=== PATIENT | male | born 1935 | race Caucasian/White ===

== ENCOUNTER 2016-12-28 19:34 | Emergency (ER) | payer BC ==
[~2016-12-28] VITALS: Ht 180.3 cm; Wt 69.3 kg
[~2016-12-28 19:34] MED LIST: ASPCH81X PO; CALC625T PO; CHOL100010 PO; CLOP1TAB15 PO; DIGO0.122 PO; FLM4 PO; IPRA1AER2 INH; MCR/40125 PO; METO100T44 PO; MOME50SP5; NTRGSL/4 UT; PRAV20TA2 PO; ZNTT/150 PO
[2016-12-28 19:46] VITALS: Ht 180.3 cm; Wt 69.3 kg
[2016-12-28] MEDS ORDERED: CALC625T PO (21:11)
[2016-12-28] MEDS ORDERED: FLUT0.15 NAE (21:13)
[2016-12-28] MEDS ORDERED: IPRASOL4 INH (21:14)
[2016-12-28] MEDS ORDERED: TAMS0.4C38 PO (21:19)
[2016-12-28] MEDS ORDERED: HYDROCORTISONE ACETATE 25 MG SUPP PR STA (21:44)
[2016-12-28 21:50] LABS: URINE APPEARANCE CLEAR (CLEAR); URINE BILIRUBIN NEG (NEG); URINE COLOR YELLOW; URINE NITRITE NEG (NEG); URINE PH 6.5 (4.5-7.5); URINE SPECIFIC GRAVITY 1.019 (1.000-1.030); UROBILINOGEN NEG (NEG)
[2016-12-28 21:52] LABS: MANUAL MICROSCOPIC REQUIRED? NO; REVIEW REQ? NO
[2016-12-28] MEDS ORDERED: HYDR25SU20 PR (22:13)
--- NOTE | 2016-12-28 22:19 | EMERGENCY ROOM VISIT NOTE ---
ED Visit Note First contact with patient: 22:04 This Patient was discussed with the physician assistant director of residence life, Gomez Anderson PA-C. The pertinent historical and physical exam findings were confirmed. I agree with the studies ordered and with the interpretations of these studies. I agree with the disposition and care plan.
[2016-12-28] MEDS ORDERED: LIDOCAINE HCL 2% VISC SOLN 20 ML UDC MT STA (22:36)
[2016-12-28 22:59] VITALS: BP 156/78; PULSE 61; TEMP 36.8; O2SAT 93
--- NOTE | 2016-12-29 20:01 | EMERGENCY ROOM VISIT NOTE ---
ED Visit Note First contact with patient: 19:55 Chief Complaint: I have a hemorrhoid problem and I have not been able to urinate. History of Present Illness: Mr. Cid is an 81-year-old white male who ambulates into the ED accompanied by his complaining of rectal pain related to hemorrhoids and inability to urinate. Historically patient reports she has a history of hemorrhoids, urinary retention postsurgery and prosthetic hypertrophy of the prostrate gland. Patient reports over the last 2-3 days he has noted a small amount of bright red blood on his toilet tissue after moving his bowels. He does report that he is straining to move his bowels and today he was straining and fell his hemorrhoid pop out of his rectum. Since that time he has been having rectal pain. He describes this as a burning sensation. He rates his discomfort 6/10. His pain is nonradiating. Worsens when he bears down to move his bowels. He is not identified any alleviating factors related to the pain. He has not taken any medication for pain prior to arrival at the hospital. As previously noted he has noted blood on the toilet tissue but not on the ball and also reports he has noted some blood on his underwear. He does report he is currently on Plavix. He has not seen any black or tarry stools and has had no abdominal pain related to his rectal discomfort. Patient goes on to report that over the last few days he has noticed a decrease in the amount of urine and he normally expresses. He is also noted he has to bear down more to move his right and today approximately 8 hours ago he was only able to dribble. Over the last 8 hours he has had sensations of the need to urinate but has not been able to even though he reports standing at the toilet for long periods of time. Associated with the symptoms he is also reporting some pressure sensation in the suprapubic area. He rates his discomfort 8/10. The pain is nonradiating. Pain worsens with palpation and bumping in accordance. He has not identified any alleviating factors related to the pain. He has not taken any medication for pain prior to arrival at the hospital. Additionally he denies any recent fevers, chills, sweats, skin eruptions, skin color changes, upper respiratory tract symptoms, shortness of breath, chest pain, abdominal pain, nausea, vomiting, back/flank pain, urinary burning, increased urinary frequency, hematuria, black/tarry stools. Review of Systems: As noted above in history of present illness. All body systems were reviewed and found to be negative as noted above. Past Medical History: (1) Atrial Fibrillation (2) Chronic Kidney Disease, Unspecified (3) Coronary artery disease (4) Diab Alexandra Wo Compl, Type Ii Or Unspec Type, Not Uncntrld (5) Hypertension Nos Surgical Problems: (1) H/O percutaneous transluminal coronary angioplasty (2) Stented coronary artery Current Medications: Medications Dose Route/Sig Max Daily Dose Days Date Category Dose Instructions Flomax (Tamsulosin Hcl) 0.4 Mg Cap 0.4 Mg PO BID 12/28/16 Reported Duoneb (Ipratropium-Albuterol) 3 Ml Nebu 1 Treatment INH TID PRN 12/28/16 Reported Flonase Allergy Relief (Fluticasone Propionate (Nasal)) 50 Mcg/Act Spr 2 Sprays TRAN DAILY 12/28/16 Reported Fibercon (Calcium Polycarbophil) 625 Mg Tab 1,330 Mg PO DAILY 12/28/16 Reported 2 CAPSULE DOSE Aspirin Chewable (Aspirin) 81 Mg Chew 81 Mg PO QAM 10/31/15 Reported Vitamin D (Cholecalciferol) 1,000 Inter.unit Tab 1,000 Inter.unit PO QAM 10/31/15 Reported Micardis Hct 40MG/12.5MG (Telmisartan/Hydrochlorothiazide) Tab 1 Tab PO DAILY AT NOON 10/31/15 Reported Combivent Respimat (Ipratropium-Albuterol) 1 Aer Aer 1 Puff INH QID 10/02/14 Reported Pravachol (Pravastatin Sodium) 20 Mg Tab 20 Mg PO HS 05/28/13 Reported Toprol-Xl (Metoprolol Succinate) 100 Mg Tabcr 100 Mg PO QAM 05/28/13 Reported Lanoxin (Digoxin) 0.125 Mg Tab 0.125 Mg PO QAM 08/10/09 Reported Zantac (Ranitidine HCl) 150 Mg Tab 150 Mg PO QAM 08/10/09 Reported Nitrostat (Nitroglycerin) 0.4 Mg Tab 0.4 Mg UT PRN 08/10/09 Reported NEEDED FOR CHEST PAIN : ONE TABLET UNDER THE TONGUE EVERY 5 MINUTES UP TO 3 DOSES. Plavix (Clopidogrel Bisulfate) 75 Mg Tab 75 Mg PO QAM 08/10/09 Reported Allergies to Medications: PEYMAN inhibitor's, amoxicillin, finasteride, metoclopramide. Social History: Patient is currently retired; he feels safe in his home environment; he denies tobacco and alcohol use. Physical Examination: Vital Signs: Date Time Temp Pulse Resp B/P Pulse Ox O2 Delivery O2 Flow Rate FiO2 12/28/16 22:59 36.8 61 18 156/78 93 12/28/16 21:53 62 18 144/72 94 Room Air 12/28/16 19:46 36.8 62 20 155/70 94 Room Air GENERAL: 81-year-old male in mild to moderate distress due to pain, nontoxic- appearing, afebrile and hemodynamically stable. NEUROLOGICAL: Awake, alert and oriented to person, place and time. Answering questions appropriately and following commands. Normal gait. Good hand eye coordination. No focal motor sensory deficits. SKIN: Warm, dry and pink. No soft tissue eruptions or trauma noted. HEENT: Atraumatic and normocephalic. PERRLA. Sclera white and conjunctiva pink. No drainage from naris. Oral cavity moist and pink. Pharynx is nonerythematous or edematous. Speech normal. No lymphadenopathy. Trachea midline. No jugular venous distention. BACK: No tenderness over the bony spine. No CVA tenderness. THORAX: Lungs sounds are clear to auscultation and equal bilaterally with symmetrical chest wall. No wheezing, rales or rhonchi. No crepitus, tenderness , subcutaneous air or deformities noted. ABDOMEN: Soft with suprapubic distension and mild tenderness. Positive bowel sounds in allis started her. No guarding, rigidity or organomegaly. RECTAL: 2-3 cm hemorrhoid protruding from the rectum with a small amount of bright red blood around the hemorrhoid. The hemorrhoid does not appear thrombosed and is not erythematous or edematous. The hemorrhoid was tender to palpation as well as the rectum. EXTREMITIES: Moves all extremities well on command and with purpose. All distal neurovascular statuses are intact and equal bilaterally. No calf tenderness or cords. ED Course: Patient is assessed as noted above. Laboratory Testing: Test 12/28/16 20:20 Range/Units Urine Color YELLOW Urine Appearance CLEAR CLEAR Urine pH 6.5 4.5-7.5 Urine Specific [place] 1.019 1.000-1.030 Urine Protein NEG NEG Urine Glucose (UA) NEG NEG Urine Ketones NEG NEG Urine Occult Blood TRACE NEG Urine Nitrite NEG NEG Urine Bilirubin NEG NEG Urine Urobilinogen NEG NEG Urine Leukocyte Esterase NEG NEG Urine WBC (Auto) 0 0-5 /hpf Urine RBC (Auto) 0-4 0-4 /hpf Urine Hyaline Casts (Auto) 0 0-5 /lpf Urine Epithelial Cells (Auto) 10-20 0-5 /lpf Urine Bacteria (Auto) NEG NEG Urine Culture pending. A bladder scan was performed and showed approximately 260 mL of urine. A Eastman catheter was placed and prior to discharge it was reported by nursing personnel that he put out approximately 300 mL of clear urine. With water-soluble lubrication I reduced the patient's hemorrhoid back into the rectum without difficulty. Afterwards she received 25 mg of hydrocortisone rectal suppository. Patient was reassessed multiple times during stay in the emergency department. Patient's case was reviewed with Dr. Villarreal; he apparently assessed the patient we agreed on diagnostic approach, treatment, disposition and plan. Patient are educated about tonight's findings and instructed on his treatment plan; they verbalized understanding and agreement with this plan. Clinical Impression: Rectal pain, hemorrhoids. Acute urinary retention. Disposition: Patient discharged home in stable condition accompanied by his ; prior to departure he was reassessed and subjectively reported he was pain and symptom-free. Plan: Patient was encouraged to continue his current medications as prescribed. Patient was prescribed hydrocortisone suppositories 25 mg 2 times a day for his hemorrhoids. Patient was encouraged to contact his primary care provider tomorrow and request follow-up care and treatment in 2 days to remove Eastman catheter and reevaluation of his hemorrhoids with possible referral to surgery. Patient was encouraged return the ED for return of bladder discomfort, bloody urine, back pain, fevers, return of rectal pain, rectal bleeding or any new/ concerning symptoms.
[2017-03-16] MEDS ORDERED: DUTA0.5C PO (09:57)
== END 2016-12-28 23:03 | disposition home or self-care (01) ==
LOC: C.EDB 19:36
DX: K64.4 Residual hemorrhoidal skin tags (principal); R33.9 Retention of urine, unspecified; Z87.898 Personal history of other specified conditions; I48.91 Unspecified atrial fibrillation; I12.9 Hypertensive chronic kidney disease with stage 1 through stage 4 chronic kidney disease, or unspecified chronic kidney disease; N18.9 Chronic kidney disease, unspecified; E11.9 Type 2 diabetes mellitus without complications; I25.10 Atherosclerotic heart disease of native coronary artery without angina pectoris; N40.0 Benign prostatic hyperplasia without lower urinary tract symptoms; Z79.02 Long term (current) use of antithrombotics/antiplatelets; Z79.82 Long term (current) use of aspirin; Z79.899 Other long term (current) drug therapy

== ENCOUNTER → 2016-12-30 | Outpatient (CLI) | payer BC ==
[~2016-12-30] MED LIST changes: +ASPI81TA28 PO; +BCTO EXT; +DIGO0.1219 PO; +DUTA0.5C PO; -FLM4 PO; +FLUT0.15 NAE; +HYDR25SU20 PR; +IPRASOL4 INH; -MOME50SP5; +PRS5 PO; +TAMS0.4C38 PO
== END | disposition home or self-care (01) ==
LOC: C.LABSPEC 17:06
PROVIDERS: ATTEND Nurse Practitioner Adult Health
DX: R31.29 Other microscopic hematuria (principal); R82.8 Abnormal findings on cytological and histological examination of urine

== ENCOUNTER 2016-12-31 14:50 | Emergency (ER) | payer BC ==
[~2016-12-31] VITALS: Ht 175.3 cm; Wt 67.0 kg
[~2016-12-31 14:50] MED LIST changes: -ASPI81TA28 PO; -BCTO EXT; -DIGO0.1219 PO; -DUTA0.5C PO; -PRS5 PO
[2016-12-31 14:54] VITALS: Ht 175.3 cm; Wt 67.0 kg
--- NOTE | 2016-12-31 15:34 | EMERGENCY ROOM VISIT NOTE ---
History First contact with patient: 15:41 Chief Complaint: URINARY SYMPTOMS Stated Complaint: UNABLE TO URINATE Nursing Triage Summary: PT HERE WITH UNABLE TO VOID SINCE 0300 THIS AM. PT WAS HERE EARLIER THIS WEEK, HAD CATHETER PLACED. PT STATES CATHETER WAS REMOVED, HAS VOIDED MULTIPLE TIMES SINCE. TODAY FEELS URGE TO GO BUT CANNOT. HX OF ENLARGED PROSTATE. PT ALSO HAS SEVERE HEMORRHOIDS AND CONSTIPATION ISSUES. History of Present Illness The patient is a 81 year old male who presents to the Emergency Room with complaints of urinary retention. Patient was cedrick in the emergency department for similar symptoms on Tuesday at which point he had woken up that morning and was unable to urinate and had a zamora catheter placed. The patient was discharged home with a zamora catheter and followed up morning with Velvet hunt of urology and had the catheter removed and was able to pee throughout the entire day. At 3am this morning this morning and was unable to urinate and has been unable ever since. He says he can see a minor amount of urine come out that makes a single droplet but is unable to form a stream. He now is having suprapubic tenderness from straining, the excess urine, and also since having the catheter. The patient also has hemorrhoids that have continued to bleed and has blood on his toilet paper after wiping and also in his depends diaper. He says he is still having rectal pain with the hemorrhoids. He is currently using nitroglycerin cream for the last week as well as hydrocortisone suppositories twice daily. He is scheduled to follow up with both Dr. Heredia and Dr. Grigsby in the next week. Review of Systems See HPI for pertinent positives and negatives. A total of ten systems were reviewed and were otherwise negative. Past Medical/Surgical History Medical Problems: (1) Atrial Fibrillation (2) Chronic Kidney Disease, Unspecified (3) Coronary artery disease (4) Diab Alexandra Wo Compl, Type Ii Or Unspec Type, Not Uncntrld (5) Hypertension Nos Surgical Problems: (1) H/O percutaneous transluminal coronary angioplasty (2) Stented coronary artery Social History Smoking Status: Former Smoker Marital Status: Housing Status: lives with significant other Occupation Status: retired Current/Historical Medications Scheduled Aspirin (Aspirin Ec), 81 MG PO DAILY Calcium Polycarbophil (Fibercon), 1,330 MG PO DAILY Cholecalciferol (Vitamin D), 1,000 UNITS PO DAILY Clopidogrel (Plavix), 75 MG PO QAM Digoxin (Digox), 125 MCG PO DAILY Fluticasone Propionate (Nasal) (Flonase Allergy Relief), 1-2 SPRAYS TRAN DAILY Ipratropium-Albuterol (Combivent Respimat), 1 PUFF INH QID Metoprolol Succ (Toprol Xl) (Toprol-Xl ), 100 MG PO QAM Nitroglycerin (Nitrostat), 0.4 MG UT PRN Pravastatin Sodium (Pravachol), 20 MG PO HS Ranitidine (Zantac), 150 MG PO BID Tamsulosin Hcl (Flomax), 0.4 MG PO BID Telmisartan/Hctz (Micardis Hct 40MG/12.5MG), 1 TAB PO DAILY AT NOON Scheduled PRN Ipratropium-Albuterol (Duoneb), 1 TREATMENT INH TID PRN for Shortness of Breath Allergies Coded Allergies: PEYMAN Inhibitors (Verified Allergy, Mild, RASH, 11/05/15) Amoxicillin (Verified Allergy, Unknown, RASH, 11/05/15) Metoclopramide (Verified Allergy, Unknown, RASH, 11/05/15) Penicillins (Verified Allergy, Unknown, 11/05/15) Physical Exam Vital Signs Date Time Temp Pulse Resp B/P Pulse Ox O2 Delivery O2 Flow Rate FiO2 12/31/16 17:07 36.7 65 16 148/78 95 12/31/16 17:05 65 16 148/78 95 Room Air 12/31/16 14:54 36.7 71 16 159/83 94 Room Air Physical Exam GENERAL: Awake, alert, well-appearing, in no distress HENT: Normocephalic, atraumatic. Oropharynx unremarkable. EYES: Normal conjunctiva. Sclera non-icteric. NECK: Supple. No nuchal rigidity. FROM. No JVD. RESPIRATORY: Clear to auscultation. CARDIAC: Irregularly irregular rhythm. Systolic ejection murmur. Extremities warm and well perfused. Pulses equal. ABDOMEN: Soft, non-distended. No tenderness to palpation. Complains of pressure with suprapubic palpation. RECTAL: Significant external hemorrhoids, non thrombosed, non infected, no gross blood MUSCULOSKELETAL: Chest examination reveals no tenderness. The back is symmetrical on inspection without obvious abnormality. There is no CVA tenderness to palpation. No joint edema. LOWER EXTREMITIES: Calves are equal size bilaterally and non-tender. No edema. No discoloration. NEURO: Normal sensorium. No sensory or motor deficits noted. SKIN: No rash or jaundice noted. Medical Decision & Procedures Laboratory Results Test 12/31/16 15:38 Urine Color YELLOW Urine Appearance CLEAR (CLEAR) Urine pH 5.0 (4.5-7.5) Urine Specific [place] 1.018 (1.000-1.030) Urine Protein NEG (NEG) Urine Glucose (UA) NEG (NEG) Urine Ketones NEG (NEG) Urine Occult Blood TRACE (NEG) Urine Nitrite NEG (NEG) Urine Bilirubin NEG (NEG) Urine Urobilinogen NEG (NEG) Urine Leukocyte Esterase NEG (NEG) Urine WBC (Auto) 0 /hpf (0-5) Urine RBC (Auto) 0-4 /hpf (0-4) Urine Hyaline Casts (Auto) 1-5 /lpf (0-5) Urine Epithelial Cells (Auto) 0-5 /lpf (0-5) Urine Bacteria (Auto) NEG (NEG) Medications Administered Medications (Trade) Dose Ordered Sig/Mel Route Start Time Stop Time Status Last Admin Dose Admin Finasteride (Proscar Tab) 15 mg NOW ONCE PO 12/31/16 16:30 12/31/16 16:33 DC 12/31/16 16:55 15 MG Medical Decision After examining patient, ordered Zamora Catheter placement, urinalysis and urine culture - Immediate Zamora drainage of the bladder yielded 500cc of clear urine - Urinalysis showed trace blood but no other abnormalities - Ordered 5mg Finasteride that was started by his Urologist but not filled. Additional 2 tabs ordered for weekend dosing because patient will be unable to [facility] until Tuesday. Impression Primary Impression: Urinary retention due to benign prostatic hyperplasia Additional Impression: External hemorrhoids Departure Information Dispostion Home / Self-Care Condition GOOD Referrals Anthony Hsu M.D. (PCP) Patient Instructions My [facility] Health Problem Qualifiers
[2016-12-31] MEDS ORDERED: ASPI81TA28 PO (15:45)
[2016-12-31] MEDS ORDERED: CHOL100010 PO (15:45)
[2016-12-31] MEDS ORDERED: DIGO0.1219 PO (15:45)
[2016-12-31 15:54] LABS: URINE APPEARANCE CLEAR (CLEAR); URINE BILIRUBIN NEG (NEG); URINE COLOR YELLOW; URINE EPITHELIAL CELL AUTO 0-5 /lpf (0-5); URINE NITRITE NEG (NEG); URINE SPECIFIC GRAVITY 1.018 (1.000-1.030); UROBILINOGEN NEG (NEG)
[2016-12-31 15:58] LABS: MANUAL MICROSCOPIC REQUIRED? NO; REVIEW REQ? NO
[2016-12-31] MEDS ORDERED: FINASTERIDE 5 MG TAB PO ONE (16:30)
[2016-12-31] MEDS ORDERED: EMPTY 8 DRAM VIAL ONE (16:50)
[2016-12-31 17:07] VITALS: BP 148/78; PULSE 65; TEMP 36.7; O2SAT 95
--- NOTE | 2016-12-31 18:20 | EMERGENCY ROOM VISIT NOTE ---
History Report prepared by Jess: Nithin Caldera Under the Supervision of: Dr. Gomez Marie M.D. First contact with patient: 14:59 Chief Complaint: URINARY SYMPTOMS Stated Complaint: UNABLE TO URINATE Nursing Triage Summary: PT HERE WITH UNABLE TO VOID SINCE 0300 THIS AM. PT WAS HERE EARLIER THIS WEEK, HAD CATHETER PLACED. PT STATES CATHETER WAS REMOVED, HAS VOIDED MULTIPLE TIMES SINCE. TODAY FEELS URGE TO GO BUT CANNOT. HX OF ENLARGED PROSTATE. PT ALSO HAS SEVERE HEMORRHOIDS AND CONSTIPATION ISSUES. History of Present Illness The patient is a 81 year old male who presents to the Emergency Room with complaints of persistent difficulty urinating starting this morning. The patient was seen in the Emergency Room three days ago for urinary retention and external hemorrhoids. A Eastman catheter was placed and the patient was discharged home. Yesterday the patient followed up with urology, the catheter was removed, and the patient was able to urinate all day yesterday without any issues. Starting this morning, the patient was unable to urinate throughout the day today. He has been able to discharge a small amount of urine in droplets but has been unable to form a full stream. He currently reports suprapubic pressure but denies any abdominal pain. The patient continues to complain of blood in stool and with wiping. He also reports rectal pain with the hemorrhoids. He is on stool softeners and nitroglycerin cream for the hemorrhoids. Pt denies LOC, headache, fevers, chills, diaphoresis, visual changes, neck pain , chest pain, breathing difficulties, nausea, vomiting, back pain, melena, numbness, weakness, lymphadenopathy, rash, or other complaints. Source of History: patient Onset: this morning Position: other (global) Quality: other (difficulty urinating) Timing: other (persistent) Review of Systems See HPI for pertinent positives and negatives. A total of ten systems were reviewed and were otherwise negative. Past Medical & Surgical Medical Problems: (1) Atrial Fibrillation (2) Chronic Kidney Disease, Unspecified (3) Coronary artery disease (4) Diab Alexandra Wo Compl, Type Ii Or Unspec Type, Not Uncntrld (5) Hypertension Nos Surgical Problems: (1) H/O percutaneous transluminal coronary angioplasty (2) Stented coronary artery Family History Cancer Diabetes mellitus Heart disease Hypertension Lung disease Social History Smoking Status: Former Smoker Marital Status: Housing Status: lives with significant other Occupation Status: retired Current/Historical Medications Scheduled Aspirin (Aspirin Ec), 81 MG PO DAILY Calcium Polycarbophil (Fibercon), 1,330 MG PO DAILY Cholecalciferol (Vitamin D), 1,000 UNITS PO DAILY Clopidogrel (Plavix), 75 MG PO QAM Digoxin (Digox), 125 MCG PO DAILY Fluticasone Propionate (Nasal) (Flonase Allergy Relief), 1-2 SPRAYS TRAN DAILY Ipratropium-Albuterol (Combivent Respimat), 1 PUFF INH QID Metoprolol Succ (Toprol Xl) (Toprol-Xl ), 100 MG PO QAM Nitroglycerin (Nitrostat), 0.4 MG UT PRN Pravastatin Sodium (Pravachol), 20 MG PO HS Ranitidine (Zantac), 150 MG PO BID Tamsulosin Hcl (Flomax), 0.4 MG PO BID Telmisartan/Hctz (Micardis Hct 40MG/12.5MG), 1 TAB PO DAILY AT NOON Scheduled PRN Ipratropium-Albuterol (Duoneb), 1 TREATMENT INH TID PRN for Shortness of Breath Allergies Coded Allergies: PEYMAN Inhibitors (Verified Allergy, Mild, RASH, 11/05/15) Amoxicillin (Verified Allergy, Unknown, RASH, 11/05/15) Metoclopramide (Verified Allergy, Unknown, RASH, 11/05/15) Penicillins (Verified Allergy, Unknown, 11/05/15) Physical Exam Vital Signs Date Time Temp Pulse Resp B/P Pulse Ox O2 Delivery O2 Flow Rate FiO2 12/31/16 17:07 36.7 65 16 148/78 95 12/31/16 17:05 65 16 148/78 95 Room Air 12/31/16 14:54 36.7 71 16 159/83 94 Room Air Physical Exam GENERAL: Awake, alert, uncomfortable-appearing, in no distress HENT: Normocephalic, atraumatic. Oropharynx unremarkable. EYES: Normal conjunctiva. Sclera non-icteric. NECK: Supple. No nuchal rigidity. FROM. No JVD. RESPIRATORY: Clear to auscultation. CARDIAC: Regular rate, normal rhythm. Extremities warm and well perfused. Pulses equal. ABDOMEN: Soft, non-distended. Some suprapubic tenderness to palpation. No rebound or guarding. No masses. RECTAL: Significant hemorrhoidal disease present, no obvious thrombosis or signs of infection. MUSCULOSKELETAL: Chest examination reveals no tenderness. The back is symmetrical on inspection without obvious abnormality. There is no CVA tenderness to palpation. No joint edema. LOWER EXTREMITIES: Calves are equal size bilaterally and non-tender. No edema. No discoloration. NEURO: Normal sensorium. No sensory or motor deficits noted. SKIN: No rash or jaundice noted. Medical Decision & Procedures Laboratory Results Test 12/31/16 15:38 Urine Color YELLOW Urine Appearance CLEAR (CLEAR) Urine pH 5.0 (4.5-7.5) Urine Specific [place] 1.018 (1.000-1.030) Urine Protein NEG (NEG) Urine Glucose (UA) NEG (NEG) Urine Ketones NEG (NEG) Urine Occult Blood TRACE (NEG) Urine Nitrite NEG (NEG) Urine Bilirubin NEG (NEG) Urine Urobilinogen NEG (NEG) Urine Leukocyte Esterase NEG (NEG) Urine WBC (Auto) 0 /hpf (0-5) Urine RBC (Auto) 0-4 /hpf (0-4) Urine Hyaline Casts (Auto) 1-5 /lpf (0-5) Urine Epithelial Cells (Auto) 0-5 /lpf (0-5) Urine Bacteria (Auto) NEG (NEG) Laboratory results reviewed by me Medications Administered Medications (Trade) Dose Ordered Sig/Mel Route Start Time Stop Time Status Last Admin Dose Admin Finasteride (Proscar Tab) 15 mg NOW ONCE PO 12/31/16 16:30 12/31/16 16:33 DC 12/31/16 16:55 15 MG ED Course 1459: The patient was evaluated in room A10. A complete history and physical exam was performed. 1630: Proscar Tab 15 mg PO 1654: I reevaluated the patient. Discussed results and discharge instructions: He verbalized understanding and agreement. The patient is ready for discharge. Medical Decision Triage Nursing notes reviewed. The patient's presentation and history were concerning for acute urinary retention. Etiologies such as acute urinary retention, prostate enlargement, renal issues, UTI, dehydration as well as others were entertained. The patient has a history of urinary retention and just had his Eastman catheter removed. This seemed to be most consistent with acute urinary retention. The patient had a Eastman catheter placed and had over 500 mL of urine removed. He felt much better after this. Patient has a pending appointment with urology as well as with general surgery for his hemorrhoids. There is no thrombosis or signs of infection with the hemorrhoids. The patient is doing much better at this time. Catheter instructions were discussed. The patient was given 5 mg of finasteride as was prescribed by urology. He has not been able to fill his prescription and was given a dose for Tuesday and Tuesday. He will fill the prescription on Tuesday. If he has any issues he will come back to the emergency department. The patient was seen and examined with Dr. Duncan, resident physician. We discussed the case and treatments ordered, reviewed the results, and determine the disposition. Please refer to the resident's note for additional details. I have been directly involved with the management and disposition as well as independently evaluated the patient as documented in this note. By the evaluation outlined above other emergent etiologies such as those listed in the differential, as well as others, were deemed relatively unlikely. The patient and family were informed about the findings as listed above. All questions were answered and they were pleased with the treatment. Return instructions were outlined and the patient was discharged in stable condition. The patient was referred to urology and Gen. surgery for follow-up next week for a recheck of the current condition. The chart was completed utilizing [employer] Speech voice recognition software. Grammatical errors, random word insertions, pronoun errors, and incomplete sentences are an occasional consequence of this system due to software limitations, ambient noise, and hardware issues. Any formal questions or concerns about the content, text, or information contained within the body of this dictation should be directly addressed to the physician for clarification. Impression Primary Impression: Urinary retention due to benign prostatic hyperplasia Additional Impression: External hemorrhoids Scribe Attestation The scribe's documentation has been prepared under my direction and personally reviewed by me in its entirety. I confirm that the note above accurately reflects all work, treatment, procedures, and medical decision making performed by me. Departure Information Dispostion Home / Self-Care Referrals Anthony Hsu M.D. (PCP) Velvet Loyd CRNP Forms HOME CARE DOCUMENTATION FORM, IMPORTANT VISIT INFORMATION Patient Instructions My [facility] Additional Instructions Continue current medications as prescribed. Finasteride 5 mg daily until directed otherwise by urology. Acetaminophen(Tylenol) may be used for fever or pain. Use 1000mg every six hours as needed. Avoid using more than 3000mg in a 24 hour period. Continue current medications. Care for the catheter as discussed. Do not pull on the catheter. Use the leg bag during the day and the large bag at night when you are sleeping. Drain the bag frequently. Do not let it fill completely. Return to the emergency department for fevers, abdominal pain, catheter problems , or as needed. Followup with the [facility] at [phone] as scheduled. Problem Qualifiers
[2017-03-16] MEDS ORDERED: DUTA0.5C PO (09:57)
== END 2016-12-31 17:10 | disposition home or self-care (01) ==
LOC: C.EDB 14:52 → C.EDA 17:10
DX: R33.9 Retention of urine, unspecified (principal); N40.1 Benign prostatic hyperplasia with lower urinary tract symptoms; K64.9 Unspecified hemorrhoids; I48.91 Unspecified atrial fibrillation; I12.9 Hypertensive chronic kidney disease with stage 1 through stage 4 chronic kidney disease, or unspecified chronic kidney disease; N18.9 Chronic kidney disease, unspecified; I25.10 Atherosclerotic heart disease of native coronary artery without angina pectoris; E11.9 Type 2 diabetes mellitus without complications; Z98.61 Coronary angioplasty status; Z87.891 Personal history of nicotine dependence; Z79.82 Long term (current) use of aspirin; Z79.899 Other long term (current) drug therapy; Z88.0 Allergy status to penicillin; Z88.1 Allergy status to other antibiotic agents; Z88.8 Allergy status to other drugs, medicaments and biological substances; Z80.9 Family history of malignant neoplasm, unspecified; Z83.3 Family history of diabetes mellitus; Z82.49 Family history of ischemic heart disease and other diseases of the circulatory system

== ENCOUNTER → 2017-01-18 | Outpatient (CLI) | payer BC ==
[~2017-01-18] MED LIST changes: -ASPCH81X PO; +ASPI81TA28 PO; +BCTO EXT; +DIGO0.1219 PO; -DIGO0.122 PO; +DUTA0.5C PO; -HYDR25SU20 PR; +PRS5 PO
[2017-01-18 12:30] LABS: BASO % 0.3 %; BASO ABS # 0.03 K/uL (0-0.2); COMPLETE YES; EOS % 2.4 %; HEMATOCRIT 40.1 % (42-52); IG% 0.5 %; LYMPH % 11.7 %; LYMPH ABS # 1.37 K/uL (1.2-3.4); MEAN CORPUSCULAR HGB CONC 32.7 g/dl (32-36); MEAN PLATELET VOLUME 10.3 fL (7.4-10.4); MONO % 6.2 %; NEUT % 78.9 %; PLATELET COUNT 261 K/uL (130-400); RED BLOOD COUNT 3.97 M/uL (4.7-6.1); WHITE BLOOD COUNT 11.73 K/uL (4.8-10.8)
[2017-01-18 12:55] LABS: ESTIMATED AVERAGE GLUCOSE 126 mg/dl; HA1C FLAG Normal (Normal)
[2017-01-18 12:57] LABS: ALT/SGPT 26 U/L (12-78); BLOOD UREA NITROGEN 23 mg/dl (7-18); BUN/CREATININE RATIO 16.3 (10-20); CARBON DIOXIDE 29 mmol/L (21-32); CHLORIDE 105 mmol/L (98-107); CHOLESTEROL 125 mg/dl (0-200); GLUCOSE 102 mg/dl (70-99); POTASSIUM 4.4 mmol/L (3.5-5.1); SODIUM 140 mmol/L (136-145); TRIGLYCERIDES 80 mg/dl (0-150); VERY LOW DENSITY LIPOPROT CALC 16 mg/dl
[2017-01-18 13:07] LABS: ALB/GLOB RATIO 0.9 (0.9-2); ALKALINE PHOSPHATASE 62 U/L (45-117); AST/SGOT 21 U/L (15-37); HDL CHOLESTEROL 41 mg/dl; LDL CHOLESTEROL CALCULATED 68 mg/dl
[2017-01-18 13:08] LABS: RATIO 202.5 mcg/mg (0-30.0)
== END | disposition home or self-care (01) ==
LOC: C.LABBFT 08:23
PROVIDERS: ATTEND Internal Medicine
DX: N40.1 Benign prostatic hyperplasia with lower urinary tract symptoms (principal); I25.10 Atherosclerotic heart disease of native coronary artery without angina pectoris; E11.9 Type 2 diabetes mellitus without complications

== ENCOUNTER → 2017-01-27 | Outpatient (CLI) | payer BC | END | disposition home or self-care (01) | LOC: C.PATHSPEC 16:33 | PROVIDERS: ATTEND Dermatology | DX: L57.0 Actinic keratosis (principal) ==

== ENCOUNTER → 2017-02-07 | Outpatient (CLI) | payer BC ==
[2017-02-10 09:07] LABS: ALBUMIN 3.9 G/DL (3.8-4.8); ALBUMIN % 32.02 %; ALPHA-2-GLOBULIN % 12.57 %; BETA GLOBULIN % 22.22 %; CREATININE UR 85 MG/DL (20-370); GAMMA GLOBULIN 0.7 G/DL (0.8-1.7); GAMMA GLOBULIN % 29.83 %; TOTAL PROTEIN 6.3 G/DL (6.2-8.3)
== END | disposition home or self-care (01) ==
LOC: C.LABBFT 11:36
PROVIDERS: ATTEND Internal Medicine
DX: E88.09 Other disorders of plasma-protein metabolism, not elsewhere classified (principal)

== ENCOUNTER 2017-02-10 18:44 | Observation (INO) | payer BC ==
[~2017-02-10] VITALS: Ht 177.8 cm; Wt 65.4 kg
[~2017-02-10 18:44] MED LIST changes: -BCTO EXT; -DUTA0.5C PO; -PRS5 PO
[2017-02-10] MEDS ORDERED: SODIUM CHLORIDE 0.9% 1000ML 1,000 ML IV STA (19:43)
--- NOTE | 2017-02-10 19:46 | EMERGENCY ROOM VISIT NOTE ---
History Report prepared by Jess: Héctor Lew Under the Supervision of: Dr. Marcel Villarreal D.O. First contact with patient: 19:35 Chief Complaint: RECTAL BLEEDING Stated Complaint: PASSING BLOOD AND OTHER History of Present Illness The patient is an 81 year old male who presents to the Emergency Room with complaints of intermittent hematochezia beginning 9 hours ago. The patient states that his bowel movements have contained a mixture of blood and puss. He reports that he also is experiencing abdominal pain. The patient notes that he had a cystostomy two weeks ago and had hemorrhoids bandaged. He states the he did not have bleeding at the time of the surgery. The patient reports that he did not talk to any physician about his symptoms. He denies nausea, vomiting, chest pain, shortness of breath, and fevers. The patient states that he is currently on Plavix. Source of History: patient Onset: 9 hours ago Position: buttock Quality: other (hematochezia) Timing: intermittent Associated Symptoms: + abdominal pain, No fevers, No chest pain, No SOB, No nausea, No vomiting Review of Systems See HPI for pertinent positives & negatives. A total of 10 systems reviewed and were otherwise negative. Past Medical & Surgical Medical Problems: (1) Atrial Fibrillation (2) Chronic Kidney Disease, Unspecified (3) Coronary artery disease (4) Diab Alexandra Wo Compl, Type Ii Or Unspec Type, Not Uncntrld (5) Hypertension Nos (6) Rectal bleeding (7) S/P hemorrhoid banding Surgical Problems: (1) H/O percutaneous transluminal coronary angioplasty (2) Stented coronary artery Family History Cancer Diabetes mellitus Heart disease Hypertension Lung disease Social History Smoking Status: Never Smoker Marital Status: Housing Status: lives with significant other Occupation Status: retired Current/Historical Medications Scheduled Calcium Polycarbophil (Fibercon), 1,330 MG PO DAILY Cholecalciferol (Vitamin D), 1,000 UNITS PO DAILY Clopidogrel (Plavix), 75 MG PO QAM Digoxin (Digox), 125 MCG PO DAILY Finasteride (Finasteride), 1 TAB PO NOON Fluticasone Propionate (Nasal) (Flonase Allergy Relief), 1-2 SPRAYS TRAN DAILY Ipratropium-Albuterol (Combivent Respimat), 1 PUFF INH QID Metoprolol Succ (Toprol Xl) (Toprol-Xl ), 100 MG PO QAM Nitroglycerin (Nitrostat), 0.4 MG UT PRN Pravastatin Sodium (Pravachol), 20 MG PO HS Ranitidine (Zantac), 150 MG PO BID Tamsulosin Hcl (Flomax), 0.4 MG PO BID Telmisartan/Hctz (Micardis Hct 40MG/12.5MG), 1 TAB PO DAILY AT NOON Scheduled PRN Ipratropium-Albuterol (Duoneb), 1 TREATMENT INH TID PRN for Shortness of Breath Allergies Coded Allergies: PEYMAN Inhibitors (Verified Allergy, Mild, RASH, 02/10/17) Amoxicillin (Verified Allergy, Unknown, RASH, 02/10/17) Metoclopramide (Verified Allergy, Unknown, RASH, 02/10/17) Penicillins (Verified Allergy, Unknown, 02/10/17) Physical Exam Vital Signs Date Time Temp Pulse Resp B/P (MAP) Pulse Ox O2 Delivery O2 Flow Rate FiO2 02/10/17 21:26 146/46 02/10/17 21:14 67 10 97 02/10/17 21:00 122/60 02/10/17 20:45 68 02/10/17 20:44 70 16 97 02/10/17 20:36 107/63 02/10/17 18:54 36.8 98 22 127/65 95 Room Air Physical Exam GENERAL: Patient is awake, alert, and in no acute distress. Patient is resting comfortably and showing no signs of anxiety EYES: The conjunctivae are clear. The pupils are round and reactive. EARS, NOSE, MOUTH AND THROAT: The nose is without any evidence of any deformity. Mucous membranes are moist tongue is midline NECK: The neck is nontender and supple. RESPIRATORY: Normal respiratory effort is noted there is no evidence of wheezing rhonchi or rales CARDIOVASCULAR: Regular rate and rhythm noted there no murmurs rubs or gallops normal S1 normal S2 GASTROINTESTINAL: The abdomen is soft and mildly distended. No guarding or rigidity. Bowel sounds are present in all quadrants. RECTAL: Gross blood per rectum, no definite source was appreciated. PELVIS: The Pelvis is stable. No tenderness to palpation is noted. BACK: No midline tenderness or or step-off noted range of motion in flexion extension as well as rotation no signs of muscle spasm noted MUSCULOSKELETAL/EXTREMITIES: There is no evidence of gross deformity full range of motion is noted in the hips and shoulders SKIN: There is no obvious evidence of any rash. There are no petechiae, pallor or cyanosis noted. Trace pedal edema was noted bilaterally. NEUROLOGIC: Patient is awake alert and oriented x3 strength is symmetric patellar reflexes are 2+ bilaterally Medical Decision & Procedures ER Provider Diagnostic Interpretation: X-ray results as stated below per interpretation by me and the radiologist. PA CHEST WITH ABDOMINAL SERIES CLINICAL HISTORY: Generalized abdominal pain. FINDINGS: 2 PA chest radiographs are compared to study dated 07/30/2016. Correlation is made with chest CT dated 10/02/2014. The heart is top normal for projection. There is atherosclerotic calcification of the thoracic aorta. Enlargement of the central pulmonary vessels indicates pulmonary artery hypertension. There is no radiographic evidence of congestive failure Advanced emphysema and chronic interstitial thickening are similar to previous. No airspace consolidation, large pleural effusion, or pneumothorax is seen. The skeletal structures are osteopenic. The bony thorax is grossly intact. Supine and erect abdominal radiographs are correlated with abdominal CT dated 10/14/2015. There is a nonobstructed abdominal bowel gas pattern. No evidence of intraperitoneal free air is seen. Moderate colonic fecal retention is observed. There is no radiographic evidence of nephrolithiasis. There is advanced atherosclerotic calcification of the abdominal aorta and iliac arteries. Postoperative change and phleboliths are identified in the pelvis. There is lumbosacral spondylosis with evidence of previous L5-S1 spinal fusion. IMPRESSION: 1. Advanced emphysema. There is no acute cardiopulmonary abnormality. 2. Nonobstructed abdominal bowel gas pattern noting moderate colonic fecal retention. Electronically signed by: Yo Domínguez M.D. 02/10/2017 8:26 PM Dictated Date/Time: 02/10/2017 8:22 PM Laboratory Results 02/10/17 19:51 Test 02/10/17 19:51 02/10/17 20:00 02/10/17 20:40 Prothrombin Time 11.0 SECONDS (9.0-12.0) Prothromb Time International Ratio 1.0 (0.9-1.1) Activated Partial Thromboplast Time 27.5 SECONDS (21.0-31.0) Partial Thromboplastin Ratio 1.1 Est Creatinine Clear Calc Drug Dose 35.1 ml/min Estimated GFR () 49.5 Estimated GFR (Non- 42.7 BUN/Creatinine Ratio 16.5 (10-20) Calcium Level 9.0 mg/dl (8.5-10.1) Total Bilirubin 0.4 mg/dl (0.2-1) Direct Bilirubin 0.1 mg/dl (0-0.2) Aspartate Amino Transf (AST/SGOT) 29 U/L (15-37) Alanine Aminotransferase (ALT/SGPT) 31 U/L (12-78) Alkaline Phosphatase 68 U/L (45-117) Troponin I < 0.015 ng/ml (0-0.045) Total Protein 6.9 gm/dl (6.4-8.2) Albumin 3.7 gm/dl (3.4-5.0) Lipase 234 U/L (73-393) Bedside Hemoglobin 12.2 g/dl (14.0-18.0) Bedside Hematocrit 36 % (42-52) Urine Color DK YELLOW Urine Appearance CLEAR (CLEAR) Urine pH 5.0 (4.5-7.5) Urine Specific [place] 1.025 (1.000-1.030) Urine Protein NEG (NEG) Urine Glucose (UA) NEG (NEG) Urine Ketones TRACE (NEG) Urine Occult Blood NEG (NEG) Urine Nitrite NEG (NEG) Urine Bilirubin NEG (NEG) Urine Urobilinogen NEG (NEG) Urine Leukocyte Esterase NEG (NEG) Bedside Sodium 140 mEq/L (135-144) Bedside Potassium 4.1 mEq/L (3.3-5.0) Bedside Chloride 100 mEq/L (101-112) Bedside Total CO2 26 mEq/l (24-31) Anion Gap 18.0 mmol/L (16-25) Bedside Blood Urea Nitrogen 25 mg/dl (7-18) Bedside Creatinine 1.4 mg/dl (0.6-1.3) Bedside Glucose (other) 133 mg/dl (70-99) Bedside Ionized Calcium (Tali) 1.19 mmol/l (1.12-1.32) Digoxin Level 0.9 ng/ml (0.8-2.0) Date/Time Source Procedure Growth Status 02/10/17 20:00 Stool C.difficile Toxin B Gene (PCR) - Final No C. difficile toxin B gene detected Complete Laboratory results per my review. Medications Administered Medications (Trade) Dose Ordered Sig/Mel Route Start Time Stop Time Status Last Admin Dose Admin Sodium Chloride 1,000 ml @ 999 mls/hr Q1H1M STAT IV 02/10/17 19:43 02/10/17 20:43 DC 02/10/17 19:56 999 MLS/HR Sodium Chloride 1,000 ml @ 75 mls/hr [id number] IV 02/10/17 22:56 03/12/17 22:55 02/11/17 08:58 100 MLS/HR ECG Indication: abdominal pain Rate (beats per minute): 68 Rhythm: normal sinus Findings: RBBB, other (No PVC) Comparison ECG Date: 10/03/14 Change: no significant change ED Course 1940: The patient was evaluated in room B04. A complete history and physical examination were performed. 1942: Ordered NSS 1,000 ml @ 999 mls/hr IV 2134: I discussed the patients case with Dr. Conn, General Surgery. The patient will be evaluated for further treatment. 2135: Upon reevaluation, the patient is resting. I discussed results and treatment plan with him. He verbalizes agreement and understanding. Medical Decision Differential diagnosis: Etiologies such as diverticulosis, AVM, coagulopathy, colitis, inflammatory bowel disease, malignancy, Debra-Leary tear, esophagitis, peptic ulcer disease , variceal bleed, gastritis, epistaxis, fissure, hemorrhoids, as well as others were entertained. Medication Reconciliation: I attest that I have personally reviewed the patient' s current medications list. Patient was found to have a slightly elevated blood pressure due to circumstances. I do not believe that the patient requires hypertension monitoring. The patient is an 81-year-old male who presented to the emergency department for an evaluation of rectal bleeding. The patient had ongoing rectal bleeding. He had a recent procedure for banding of internal hemorrhoids. I discussed the patient's laboratory and radiographic studies with him. I also discussed the patient's condition with the on-call general surgeon. I attempted to contact the patient's primary general surgeon but I was unable to as he is not on-call this time. The patient's condition was reevaluated multiple times. He continued to pass blood with clots. The on-call general surgeon is agreed to evaluate patient in the emergency department for further management and disposition. Consults Time Called: 2132 Consulting Physician: Dr. Conn, General Surgery Returned Call: 2134 I discussed the patients case with Dr. Conn, General Surgery. The patient will be evaluated for further treatment. Impression Primary Impression: Rectal bleeding Additional Impression: Post-op bleeding Scribe Attestation The scribe's documentation has been prepared under my direction and personally reviewed by me in its entirety. I confirm that the note above accurately reflects all work, treatment, procedures, and medical decision making performed by me. Departure Information Dispostion Being Evaluated By Hospitalist Referrals No Doctor, Assigned (PCP) Patient Instructions My [facility] Problem Qualifiers Additional Impression: Post-op bleeding Surgical complication system/body Area: digestive system Procedure type: digestive system Qualified Codes: K91.840 - Postprocedural hemorrhage of a digestive system organ or structure following a digestive system procedure
[2017-02-10 20:02] LABS: BASO % 0.2 %; BASO ABS # 0.03 K/uL (0-0.2); COMPLETE YES; EOS % 1.5 %; HEMATOCRIT 37.2 % (42-52); IG% 0.4 %; LYMPH % 12.4 %; LYMPH ABS # 1.78 K/uL (1.2-3.4); MEAN CELL VOLUME 99.7 fL (80-100); MEAN CORPUSCULAR HEMOGLOBIN 32.7 pg (25-34); MEAN CORPUSCULAR HGB CONC 32.8 g/dl (32-36); MEAN PLATELET VOLUME 10.1 fL (7.4-10.4); MONO % 6.2 %; NEUT % 79.3 %; PLATELET COUNT 229 K/uL (130-400); RED BLOOD COUNT 3.73 M/uL (4.7-6.1); WHITE BLOOD COUNT 14.34 K/uL (4.8-10.8)
[2017-02-10 20:13] LABS: ISTAT CREATININE 1.4 mg/dl (0.6-1.3); ISTAT HEMOGLOBIN 12.2 g/dl (14.0-18.0); ISTAT IONIZED CALCIUM 1.19 mmol/l (1.12-1.32)
[2017-02-10 20:14] LABS: PARTIAL THROMBOPLASTIN RATIO 1.1
[2017-02-10 20:21] LABS: ALT/SGPT 31 U/L (12-78); BLOOD UREA NITROGEN 25 mg/dl (7-18); BUN/CREATININE RATIO 16.5 (10-20); CARBON DIOXIDE 26 mmol/L (21-32); CHLORIDE 105 mmol/L (98-107); GLUCOSE 129 mg/dl (70-99); POTASSIUM 4.1 mmol/L (3.5-5.1); SODIUM 140 mmol/L (136-145)
[2017-02-10 20:26] LABS: ALKALINE PHOSPHATASE 68 U/L (45-117); AST/SGOT 29 U/L (15-37)
--- NOTE | 2017-02-10 20:27 | DIAGNOSTIC IMAGING REPORT ---
PA CHEST WITH ABDOMINAL SERIES CLINICAL HISTORY: Generalized abdominal pain. FINDINGS: 2 PA chest radiographs are compared to study dated 07/30/2016. Correlation is made with chest CT dated 10/02/2014. The heart is top normal for projection. There is atherosclerotic calcification of the thoracic aorta. Enlargement of the central pulmonary vessels indicates pulmonary artery hypertension. There is no radiographic evidence of congestive failure Advanced emphysema and chronic interstitial thickening are similar to previous. No airspace consolidation, large pleural effusion, or pneumothorax is seen. The skeletal structures are osteopenic. The bony thorax is grossly intact. Supine and erect abdominal radiographs are correlated with abdominal CT dated 10/14/2015. There is a nonobstructed abdominal bowel gas pattern. No evidence of intraperitoneal free air is seen. Moderate colonic fecal retention is observed. There is no radiographic evidence of nephrolithiasis. There is advanced atherosclerotic calcification of the abdominal aorta and iliac arteries. Postoperative change and phleboliths are identified in the pelvis. There is lumbosacral spondylosis with evidence of previous L5-S1 spinal fusion. IMPRESSION: 1. Advanced emphysema. There is no acute cardiopulmonary abnormality. 2. Nonobstructed abdominal bowel gas pattern noting moderate colonic fecal retention. Electronically signed by: Yo Domínguez M.D. 02/10/2017 8:26 PM Dictated Date/Time: 02/10/2017 8:22 PM
[2017-02-10] MEDS ORDERED: PRS5 PO (20:28)
[2017-02-10 20:45] LABS: URINE APPEARANCE CLEAR (CLEAR); URINE BILIRUBIN NEG (NEG); URINE COLOR DK YELLOW; URINE NITRITE NEG (NEG); URINE SPECIFIC GRAVITY 1.025 (1.000-1.030); UROBILINOGEN NEG (NEG)
[2017-02-10 20:48] LABS: MANUAL MICROSCOPIC REQUIRED? NO; REVIEW REQ? NO
--- NOTE | 2017-02-10 23:10 | History and Physical ---
History & Physical Date & Time of Service: Feb 10, 2017 at 23:00 Chief Complaint: Passing Blood And Other Primary Care Physician: Anthony Hsu M.D. History of Present Illness Source: patient 81 y/o male S/P banding of internal hemorrhoids about 2 weeks ago. Had been well until about 11 AM today when he felt the need to pass his bowels. He describes dark blood with his stool. He has had about 4-5 additional bm's all with blood since then. He denies pain. He has nt had nausea or vomiting. He denies fever and chills. He has not had light-headedness, dizziness, syncope or near-syncope. Past Medical/Surgical History Medical Problems: (1) Atrial Fibrillation Status: Chronic (2) Chronic Kidney Disease, Unspecified Status: Chronic (3) Coronary artery disease Status: Chronic (4) Diab Alexandra Wo Compl, Type Ii Or Unspec Type, Not Uncntrld Status: Chronic (5) Hypertension Nos Status: Chronic Surgical Problems: (1) H/O percutaneous transluminal coronary angioplasty Status: Resolved (2) Stented coronary artery Status: Resolved Family History Cancer Diabetes mellitus Heart disease Hypertension Lung disease Social History Smoking Status: Never Smoker Smokeless Tobacco Use: No Alcohol Use: rare Marital Status: Occupational Status: retired Multi-Drug Resistant Organisms History of MDRO: No Allergies Coded Allergies: PEYMAN Inhibitors (Verified Allergy, Mild, RASH, 02/10/17) Amoxicillin (Verified Allergy, Unknown, RASH, 02/10/17) Metoclopramide (Verified Allergy, Unknown, RASH, 02/10/17) Penicillins (Verified Allergy, Unknown, 02/10/17) Home Medications Scheduled Calcium Polycarbophil (Fibercon), 1,330 MG PO DAILY Cholecalciferol (Vitamin D), 1,000 UNITS PO DAILY Clopidogrel (Plavix), 75 MG PO QAM Digoxin (Digox), 125 MCG PO DAILY Finasteride (Finasteride), 1 TAB PO NOON Fluticasone Propionate (Nasal) (Flonase Allergy Relief), 1-2 SPRAYS TRAN DAILY Ipratropium-Albuterol (Combivent Respimat), 1 PUFF INH QID Metoprolol Succ (Toprol Xl) (Toprol-Xl ), 100 MG PO QAM Nitroglycerin (Nitrostat), 0.4 MG UT PRN Pravastatin Sodium (Pravachol), 20 MG PO HS Ranitidine (Zantac), 150 MG PO BID Tamsulosin Hcl (Flomax), 0.4 MG PO BID Telmisartan/Hctz (Micardis Hct 40MG/12.5MG), 1 TAB PO DAILY AT NOON Scheduled PRN Ipratropium-Albuterol (Duoneb), 1 TREATMENT INH TID PRN for Shortness of Breath Review of Systems Constitutional: No fever, No chills Respiratory: No cough, No sputum Cardiovascular: No chest pain, No orthopnea Abdomen: No pain, No nausea Endocrine: No fatigue Integumentary: No rash Physical Exam Vital Signs Date Time Temp Pulse Resp B/P (MAP) Pulse Ox O2 Delivery O2 Flow Rate FiO2 02/10/17 21:26 146/46 02/10/17 21:14 67 10 97 02/10/17 21:00 122/60 02/10/17 20:45 68 02/10/17 20:44 70 16 97 02/10/17 20:36 107/63 02/10/17 18:54 36.8 98 22 127/65 95 Room Air General Appearance: WD/WN Head: normocephalic Neck: supple, no adenopathy Respiratory/Chest: chest non-tender, lungs clear Cardiovascular: regular rate, rhythm Abdomen/GI: normal bowel sounds, non tender Back: normal inspection Extremities/Musculoskelatal: normal inspection Skin: normal color Rectal: some dark blood but active bleeding seen Diagnostics Laboratory Results Results Past 24 Hours Test 02/10/17 19:51 02/10/17 20:00 02/10/17 20:40 Range/Units White Blood Count 14.34 4.8-10.8 K/uL Red Blood Count 3.73 4.7-6.1 M/uL Hemoglobin 12.2 14.0-18.0 g/dL Hematocrit 37.2 42-52 % Mean Corpuscular Volume 99.7 80-100 fL Mean Corpuscular Hemoglobin 32.7 25-34 pg Mean Corpuscular Hemoglobin Concent 32.8 32-36 g/dl Platelet Count 229 130-400 K/uL Mean Platelet Volume 10.1 7.4-10.4 fL Neutrophils (%) (Auto) 79.3 % Lymphocytes (%) (Auto) 12.4 % Monocytes (%) (Auto) 6.2 % Eosinophils (%) (Auto) 1.5 % Basophils (%) (Auto) 0.2 % Neutrophils # (Auto) 11.37 1.4-6.5 K/uL Lymphocytes # (Auto) 1.78 1.2-3.4 K/uL Monocytes # (Auto) 0.89 0.11-0.59 K/uL Eosinophils # (Auto) 0.21 0-0.5 K/uL Basophils # (Auto) 0.03 0-0.2 K/uL RDW Standard Deviation 50.5 36.4-46.3 fL RDW Coefficient of Variation 14.0 11.5-14.5 % Immature Granulocyte % (Auto) 0.4 % Immature Granulocyte # (Auto) 0.06 0.00-0.02 K/uL Prothrombin Time 11.0 9.0-12.0 SECONDS Prothromb Time International Ratio 1.0 0.9-1.1 Activated Partial Thromboplast Time 27.5 21.0-31.0 SECONDS Partial Thromboplastin Ratio 1.1 Sodium Level 140 136-145 mmol/L Potassium Level 4.1 3.5-5.1 mmol/L Chloride Level 105 98-107 mmol/L Carbon Dioxide Level 26 21-32 mmol/L Anion Gap 9.0 18.0 16-25 mmol/L Blood Urea Nitrogen 25 7-18 mg/dl Creatinine 1.50 0.60-1.40 mg/dl Est Creatinine Clear Calc Drug Dose 35.1 ml/min Estimated GFR () 49.5 Estimated GFR (Non- 42.7 BUN/Creatinine Ratio 16.5 10-20 Random Glucose 129 70-99 mg/dl Calcium Level 9.0 8.5-10.1 mg/dl Total Bilirubin 0.4 0.2-1 mg/dl Direct Bilirubin 0.1 0-0.2 mg/dl Aspartate Amino Transf (AST/SGOT) 29 15-37 U/L Alanine Aminotransferase (ALT/SGPT) 31 12-78 U/L Alkaline Phosphatase 68 45-117 U/L Troponin I < 0.015 0-0.045 ng/ml Total Protein 6.9 6.4-8.2 gm/dl Albumin 3.7 3.4-5.0 gm/dl Lipase 234 73-393 U/L Bedside Hemoglobin 12.2 14.0-18.0 g/dl Bedside Hematocrit 36 42-52 % Urine Color DK YELLOW Urine Appearance CLEAR CLEAR Urine pH 5.0 4.5-7.5 Urine Specific [place] 1.025 1.000-1.030 Urine Protein NEG NEG Urine Glucose (UA) NEG NEG Urine Ketones TRACE NEG Urine Occult Blood NEG NEG Urine Nitrite NEG NEG Urine Bilirubin NEG NEG Urine Urobilinogen NEG NEG Urine Leukocyte Esterase NEG NEG Bedside Sodium 140 135-144 mEq/L Bedside Potassium 4.1 3.3-5.0 mEq/L Bedside Chloride 100 101-112 mEq/L Bedside Total CO2 26 24-31 mEq/l Bedside Blood Urea Nitrogen 25 7-18 mg/dl Bedside Creatinine 1.4 0.6-1.3 mg/dl Bedside Glucose (other) 133 70-99 mg/dl Bedside Ionized Calcium (Tali) 1.19 1.12-1.32 mmol/l Digoxin Level 0.9 0.8-2.0 ng/ml Microbiology Results 02/10/17 C.difficile Toxin B Gene (PCR) - Final, Complete No C. difficile toxin B gene detected 02/10/17 Shiga Toxin Test, Received Pending 02/10/17 Stool Culture, Received Pending Impression Assessment and Plan S/P hemorrhoid banding now with bleeding. He is on Plavix for CAD but had stents placed over 10 years ago. Will put patient on observation status. HGB 12 and vital stable. Do not think he needs rectal exam under anesthesia at present. VTE Prophylaxis VTE Risk Assessment Done? Y/N: Yes Risk Level: Low
[2017-02-10] MEDS ORDERED: IV FLUIDS COMPLETED PRN (23:30)
[2017-02-11] VITALS (11 sets, daily range): BP systolic 104–150; BP diastolic 53–73; PULSE 63–88; TEMP 36.4–36.9; O2SAT 93–99; Ht 177.8 cm; Wt 65.4 kg
[2017-02-11] MEDS: SODIUM CHLORIDE 0.9% 1000ML 1,000 ML IV SCH ×3 (01:01→20:09)
[2017-02-11 06:56] LABS: BASO % 0.3 %; BASO ABS # 0.03 K/uL (0-0.2); COMPLETE YES; EOS % 1.9 %; HEMATOCRIT 28.6 % (42-52); IG% 0.5 %; LYMPH % 14.2 %; LYMPH ABS # 1.34 K/uL (1.2-3.4); MEAN CORPUSCULAR HEMOGLOBIN 32.9 pg (25-34); MEAN CORPUSCULAR HGB CONC 33.2 g/dl (32-36); MEAN PLATELET VOLUME 10.3 fL (7.4-10.4); MONO % 8.9 %; NEUT % 74.2 %; PLATELET COUNT 178 K/uL (130-400); RED BLOOD COUNT 2.89 M/uL (4.7-6.1); WHITE BLOOD COUNT 9.46 K/uL (4.8-10.8)
[2017-02-11] MEDS ORDERED: NITROGLYCERIN 0.4 MG SL PER TAB CHARGE UT PRN (08:30)
--- NOTE | 2017-02-11 08:41 | Surgery Progress Note ---
Surgery Progress Note Date of Service Feb 11, 2017. Subjective better this AM, passed rather large clots and blood last night, less with some BM at 6:00 and at 8:30 normal small BM without blood Objective Vital Signs: Date Time Temp Pulse Resp B/P (MAP) Pulse Ox O2 Delivery O2 Flow Rate FiO2 02/11/17 06:54 36.4 77 18 104/58 (73) 96 Room Air 02/11/17 03:00 36.6 82 16 108/56 (73) 96 Room Air 02/11/17 01:00 Room Air 02/11/17 00:25 36.6 82 18 150/67 97 Room Air 02/11/17 00:01 74 18 119/68 97 02/10/17 21:26 146/46 02/10/17 21:14 67 10 97 02/10/17 21:00 122/60 02/10/17 20:45 68 02/10/17 20:44 70 16 97 02/10/17 20:36 107/63 02/10/17 18:54 36.8 98 22 127/65 95 Room Air Abdomen: non tender, non distended, soft Laboratory Results: Results Past 24 Hours Test 02/10/17 19:51 02/10/17 20:00 02/10/17 20:40 02/11/17 06:18 Range/Units White Blood Count 14.34 9.46 4.8-10.8 K/uL Red Blood Count 3.73 2.89 4.7-6.1 M/uL Hemoglobin 12.2 9.5 14.0-18.0 g/dL Hematocrit 37.2 28.6 42-52 % Mean Corpuscular Volume 99.7 99.0 80-100 fL Mean Corpuscular Hemoglobin 32.7 32.9 25-34 pg Mean Corpuscular Hemoglobin Concent 32.8 33.2 32-36 g/dl Platelet Count 229 178 130-400 K/uL Mean Platelet Volume 10.1 10.3 7.4-10.4 fL Neutrophils (%) (Auto) 79.3 74.2 % Lymphocytes (%) (Auto) 12.4 14.2 % Monocytes (%) (Auto) 6.2 8.9 % Eosinophils (%) (Auto) 1.5 1.9 % Basophils (%) (Auto) 0.2 0.3 % Neutrophils # (Auto) 11.37 7.02 1.4-6.5 K/uL Lymphocytes # (Auto) 1.78 1.34 1.2-3.4 K/uL Monocytes # (Auto) 0.89 0.84 0.11-0.59 K/uL Eosinophils # (Auto) 0.21 0.18 0-0.5 K/uL Basophils # (Auto) 0.03 0.03 0-0.2 K/uL RDW Standard Deviation 50.5 51.0 36.4-46.3 fL RDW Coefficient of Variation 14.0 14.2 11.5-14.5 % Immature Granulocyte % (Auto) 0.4 0.5 % Immature Granulocyte # (Auto) 0.06 0.05 0.00-0.02 K/uL Prothrombin Time 11.0 9.0-12.0 SECONDS Prothromb Time International Ratio 1.0 0.9-1.1 Activated Partial Thromboplast Time 27.5 21.0-31.0 SECONDS Partial Thromboplastin Ratio 1.1 Sodium Level 140 136-145 mmol/L Potassium Level 4.1 3.5-5.1 mmol/L Chloride Level 105 98-107 mmol/L Carbon Dioxide Level 26 21-32 mmol/L Anion Gap 9.0 18.0 16-25 mmol/L Blood Urea Nitrogen 25 7-18 mg/dl Creatinine 1.50 0.60-1.40 mg/dl Est Creatinine Clear Calc Drug Dose 35.1 ml/min Estimated GFR () 49.5 Estimated GFR (Non- 42.7 BUN/Creatinine Ratio 16.5 10-20 Random Glucose 129 70-99 mg/dl Calcium Level 9.0 8.5-10.1 mg/dl Total Bilirubin 0.4 0.2-1 mg/dl Direct Bilirubin 0.1 0-0.2 mg/dl Aspartate Amino Transf (AST/SGOT) 29 15-37 U/L Alanine Aminotransferase (ALT/SGPT) 31 12-78 U/L Alkaline Phosphatase 68 45-117 U/L Troponin I < 0.015 0-0.045 ng/ml Total Protein 6.9 6.4-8.2 gm/dl Albumin 3.7 3.4-5.0 gm/dl Lipase 234 73-393 U/L Bedside Hemoglobin 12.2 14.0-18.0 g/dl Bedside Hematocrit 36 42-52 % Urine Color DK YELLOW Urine Appearance CLEAR CLEAR Urine pH 5.0 4.5-7.5 Urine Specific [place] 1.025 1.000-1.030 Urine Protein NEG NEG Urine Glucose (UA) NEG NEG Urine Ketones TRACE NEG Urine Occult Blood NEG NEG Urine Nitrite NEG NEG Urine Bilirubin NEG NEG Urine Urobilinogen NEG NEG Urine Leukocyte Esterase NEG NEG Bedside Sodium 140 135-144 mEq/L Bedside Potassium 4.1 3.3-5.0 mEq/L Bedside Chloride 100 101-112 mEq/L Bedside Total CO2 26 24-31 mEq/l Bedside Blood Urea Nitrogen 25 7-18 mg/dl Bedside Creatinine 1.4 0.6-1.3 mg/dl Bedside Glucose (other) 133 70-99 mg/dl Bedside Ionized Calcium (Tali) 1.19 1.12-1.32 mmol/l Digoxin Level 0.9 0.8-2.0 ng/ml Microbiology Results 02/10/17 C.difficile Toxin B Gene (PCR) - Final, Complete No C. difficile toxin B gene detected 02/10/17 Shiga Toxin Test, Received Pending 02/10/17 Stool Culture, Received Pending Assessment & Plan rectal bleeding s/p hemorrhoid banding, on Plavix bleeding has slowed/?stopped will recheck H&H at noon can have sips/meds
[2017-02-11] MEDS ORDERED: RANITIDINE HCL 150 MG TAB PO SCH (09:00)
[2017-02-11] MEDS ORDERED: METOPROLOL SUCC 50MG EXT REL TAB PO SCH ×2 (09:00→12:00)
[2017-02-11] MEDS ORDERED: IPRATROPIUM BROMIDE/ALBUTEROL respimat INH INH SCH (09:00)
[2017-02-11] MEDS: CALCIUM POLYCARBOPHIL 1 TAB PO SCH (10:00)
[2017-02-11] MEDS: FINASTERIDE 5 MG TAB PO SCH (10:01)
[2017-02-11] MEDS: TAMSULOSIN HCL 0.4 MG CAP PO SCH ×2 (10:01→20:08)
[2017-02-11] MEDS: FLUTICASONE PROPIONATE NA SPR 16 GM BTL NAE SCH (10:03)
[2017-02-11] MEDS: DIGOXIN 0.125 MG TAB PO SCH (10:07)
[2017-02-11] MEDS ORDERED: FAMOTIDINE IV INJ 20 MG in DEXTROSE 5% 100ML 100 ML IV ONE (10:45)
--- NOTE | 2017-02-11 11:15 | INTERNAL MEDICINE CONSULTATION ---
DATE OF CONSULTATION: 02/11/2017 DATE OF CONSULTATION: 02/11/2017. REASON FOR CONSULT: Medical co-care/GI bleed. HISTORY OF PRESENT ILLNESS: The patient is an 81-year-old man who had a history of CAD status post stents in coronary more than 10 years ago, was on Plavix. The patient also has reported atrial fibrillation in his history, but he does not recall any atrial fibrillation in the past and he is not on any anticoagulation. The patient had internal hemorrhoid banding about 2 weeks ago. Yesterday, patient developed bloody bowel movement. He describes dark blood within the stool. As per patient, he continued to bleed more than 4-5 times. He presented to the hospital. He was found to have a hemoglobin of more than 12 and his pressure was stable, so he was admitted under observation. We were consulted to follow up on his condition and for medical co-care. PAST MEDICAL HISTORY: 1. Chronic kidney disease stage II-III. 2. Coronary artery disease status post stenting 10 years ago. 3. History of hypertension. 4. By history there is a history of Afib but the patient is not aware of it. FAMILY HISTORY: Cancer, diabetes, heart disease and hypertension. SOCIAL HISTORY: Quit smoking 20 years ago. Does not drink alcohol. , retired. ALLERGIES: 1. PEYMAN INHIBITORS BUT THE PATIENT IS ON AARB. 2. PENICILLIN/AMPICILLIN. 3. METOCLOPRAMIDE. HOME MEDICATIONS: 1. Calcium supplement . 2. Cholecalciferol. 3. Vitamin D supplements. 4. Plavix 75 mg daily. 5. Digoxin 125 mcg p.o. daily. 6. Finasteride 1 tablet p.o. daily. 7. Flonase nasal spray. 8. Combivent inhaler. 9. Metoprolol succinate 100 mg q.a.m. 10. Nitroglycerin sublingual p.r.n. chest pain. 11. Pravastatin 20 mg p.o. at bedtime. 12. Ranitidine 150 mg p.o. b.i.d. 13. Flomax 0.4 mg daily. 14. Micardis, hydrochlorothiazide 40/12.5 daily. 15. DuoNeb inhaler p.r.n. REVIEW OF SYSTEMS: No fever, chills, weight loss. No headache, double vision, blurry vision. No chest pain, palpitation, no cough, wheezing, shortness of breath. No nasal stuffiness or sore throat. No skin rash. No abdominal pain, nausea, vomiting, no joint pain or swelling. No focal weakness, tingling, numbness. No dysuria or blood in the stool. No depression, no lymph node swelling or bruises. Rest of the review of systems is negative. PHYSICAL EXAMINATION: VITAL SIGNS: Temperature 36.8, heart rate 67, respirations 10, blood pressure dropped today to 107/63, was 146/46 yesterday. GENERAL: Average built, not in acute distress. HEAD, EYES, EARS, NOSE, AND THROAT: No jaundice. No pallor with mucous membranes. NECK: Supple. HEART: S1, S2 normal. No gallop, rub or murmur. LUNGS: Clear to auscultation bilaterally, normal chest wall expansion. ABDOMEN: Soft, nontender, nondistended. NEUROLOGIC: Awake, alert, oriented to time, place, and person. Moves all extremities. Sensation intact. Cranial nerves II-XII appears to be intact. SKIN: No rash. PSYCHIATRIC: Normal affect and thought process. LABORATORY DATA: White blood cell count 14.3 yesterday, today is 9.4. Hemoglobin was 12.2 yesterday, today it is 9.5 and platelet count is 179 today. Sodium is 140, potassium 4.1, creatinine is 1.4. ASSESSMENT: 1. Lower gastrointestinal bleed / hypotension 2. Acute blood loss anemia secondary to above. 3. Internal hemorrhoids status post banding 2 weeks ago. 4. Coronary artery disease status post stent on Plavix 10 years ago. 5. Chronic obstructive pulmonary disease on inhalers. 6. Hypertension, currently borderline hypotensive. 7. Chronic kidney disease stage II-III. PLAN: 1. Vitals Q 2Hrs, hold BP meds except low dose metoprolol. 2. Obtain H&H q. 8 hours, already dropped about 2.5 grams but still above 9. If dropped below 9 will transfuse given his cardiac history. 3. Continue IV fluid hydration, but decrease rate to 75 mL per hour. 4. Blood consent was obtained from the patient. 5. Type and screen and crossmatch 2 units to be ready for transfusion, order has been placed. 6. We will give him one shot of Pepcid 20 mg IV because it is rapid acting then will switch him to Protonix 40 mg IV b.i.d. for fear that the bleeding source might be upper rather than lower which is unlikely, but we have to protect him from any peptic ulcer anyway. 7. Treatment of hemorrhoids by the primary team. 8. The patient's last colonoscopy was about 10 years ago, patient will definitely need a colonoscopy within the next 4 weeks. 9. Continue holding Plavix at this point and if patient bleeds again profusely will need blood transfusion and platelet transfusion. 10. SCD boot for DVT prophylaxis. Order was placed in the computer, unfortunately not a candidate for pharmacologic DVT prophylaxis. MTDD
[2017-02-11] MEDS ORDERED: NURSING VERBAL MED ORDER ONE (11:45)
[2017-02-11] MEDS: METOPROLOL SUCC 25MG EXT REL TAB PO SCH (11:53)
[2017-02-11] MEDS ORDERED: TELMISARTAN 40 MG TAB PO SCH (12:30)
[2017-02-11] MEDS ORDERED: HYDROCHLOROTHIAZIDE 25 MG TAB PO SCH (12:30)
[2017-02-11 12:38] LABS: HEMATOCRIT 29.7 % (42-52)
--- NOTE | 2017-02-11 12:38 | Surgery Progress Note ---
Surgery Progress Note Date of Service Feb 11, 2017. Subjective see Davion Luna's note adm with GI bleeding- lower. 2 weeks out from int hemorrhoidal banding. pt on plavix. seems to have stopped over past 8-10 hrs Objective Vital Signs: Date Time Temp Pulse Resp B/P (MAP) Pulse Ox O2 Delivery O2 Flow Rate FiO2 02/11/17 11:12 36.8 83 117/61 (79) 98 Room Air 02/11/17 10:07 91 02/11/17 08:45 Room Air 02/11/17 06:54 36.4 77 18 104/58 (73) 96 Room Air 02/11/17 03:00 36.6 82 16 108/56 (73) 96 Room Air 02/11/17 01:00 Room Air 02/11/17 00:25 36.6 82 18 150/67 97 Room Air 02/11/17 00:01 74 18 119/68 97 02/10/17 21:26 146/46 02/10/17 21:14 67 10 97 02/10/17 21:00 122/60 02/10/17 20:45 68 02/10/17 20:44 70 16 97 02/10/17 20:36 107/63 02/10/17 18:54 36.8 98 22 127/65 95 Room Air Laboratory Results: Results Past 24 Hours Test 02/10/17 19:51 02/10/17 20:00 02/10/17 20:40 02/11/17 06:18 Range/Units White Blood Count 14.34 9.46 4.8-10.8 K/uL Red Blood Count 3.73 2.89 4.7-6.1 M/uL Hemoglobin 12.2 9.5 14.0-18.0 g/dL Hematocrit 37.2 28.6 42-52 % Mean Corpuscular Volume 99.7 99.0 80-100 fL Mean Corpuscular Hemoglobin 32.7 32.9 25-34 pg Mean Corpuscular Hemoglobin Concent 32.8 33.2 32-36 g/dl Platelet Count 229 178 130-400 K/uL Mean Platelet Volume 10.1 10.3 7.4-10.4 fL Neutrophils (%) (Auto) 79.3 74.2 % Lymphocytes (%) (Auto) 12.4 14.2 % Monocytes (%) (Auto) 6.2 8.9 % Eosinophils (%) (Auto) 1.5 1.9 % Basophils (%) (Auto) 0.2 0.3 % Neutrophils # (Auto) 11.37 7.02 1.4-6.5 K/uL Lymphocytes # (Auto) 1.78 1.34 1.2-3.4 K/uL Monocytes # (Auto) 0.89 0.84 0.11-0.59 K/uL Eosinophils # (Auto) 0.21 0.18 0-0.5 K/uL Basophils # (Auto) 0.03 0.03 0-0.2 K/uL RDW Standard Deviation 50.5 51.0 36.4-46.3 fL RDW Coefficient of Variation 14.0 14.2 11.5-14.5 % Immature Granulocyte % (Auto) 0.4 0.5 % Immature Granulocyte # (Auto) 0.06 0.05 0.00-0.02 K/uL Prothrombin Time 11.0 9.0-12.0 SECONDS Prothromb Time International Ratio 1.0 0.9-1.1 Activated Partial Thromboplast Time 27.5 21.0-31.0 SECONDS Partial Thromboplastin Ratio 1.1 Sodium Level 140 136-145 mmol/L Potassium Level 4.1 3.5-5.1 mmol/L Chloride Level 105 98-107 mmol/L Carbon Dioxide Level 26 21-32 mmol/L Anion Gap 9.0 18.0 16-25 mmol/L Blood Urea Nitrogen 25 7-18 mg/dl Creatinine 1.50 0.60-1.40 mg/dl Est Creatinine Clear Calc Drug Dose 35.1 ml/min Estimated GFR () 49.5 Estimated GFR (Non- 42.7 BUN/Creatinine Ratio 16.5 10-20 Random Glucose 129 70-99 mg/dl Calcium Level 9.0 8.5-10.1 mg/dl Total Bilirubin 0.4 0.2-1 mg/dl Direct Bilirubin 0.1 0-0.2 mg/dl Aspartate Amino Transf (AST/SGOT) 29 15-37 U/L Alanine Aminotransferase (ALT/SGPT) 31 12-78 U/L Alkaline Phosphatase 68 45-117 U/L Troponin I < 0.015 0-0.045 ng/ml Total Protein 6.9 6.4-8.2 gm/dl Albumin 3.7 3.4-5.0 gm/dl Lipase 234 73-393 U/L Bedside Hemoglobin 12.2 14.0-18.0 g/dl Bedside Hematocrit 36 42-52 % Urine Color DK YELLOW Urine Appearance CLEAR CLEAR Urine pH 5.0 4.5-7.5 Urine Specific [place] 1.025 1.000-1.030 Urine Protein NEG NEG Urine Glucose (UA) NEG NEG Urine Ketones TRACE NEG Urine Occult Blood NEG NEG Urine Nitrite NEG NEG Urine Bilirubin NEG NEG Urine Urobilinogen NEG NEG Urine Leukocyte Esterase NEG NEG Bedside Sodium 140 135-144 mEq/L Bedside Potassium 4.1 3.3-5.0 mEq/L Bedside Chloride 100 101-112 mEq/L Bedside Total CO2 26 24-31 mEq/l Bedside Blood Urea Nitrogen 25 7-18 mg/dl Bedside Creatinine 1.4 0.6-1.3 mg/dl Bedside Glucose (other) 133 70-99 mg/dl Bedside Ionized Calcium (Tali) 1.19 1.12-1.32 mmol/l Digoxin Level 0.9 0.8-2.0 ng/ml Test 02/11/17 08:09 02/11/17 11:59 Range/Units Bedside Glucose 118 70-99 mg/dl Microbiology Results 02/10/17 C.difficile Toxin B Gene (PCR) - Final, Complete No C. difficile toxin B gene detected 02/10/17 Shiga Toxin Test, Received Pending 02/10/17 Stool Culture, Received Pending no evidence of active bleeding from anorectum now Assessment & Plan 02/11/17- adm with lower GI bleeding- can't be sure at this point if from hemorrhoid sites or more proximal. Will monitor H/H and for bleeding, also possibility of telemetry. If continues to bleed will examine under anesthesia- if nothing found , will need colonoscopy. Keep NPO exc ice for now
[2017-02-11 14:27] LABS: HEMATOCRIT 30.7 % (42-52)
[2017-02-11] MEDS ORDERED: FLUOROURACIL 5% EXT SCH (18:00)
[2017-02-11] MEDS: PANTOprazole INJ 40 MG in SYRINGE 0 ML IV SCH (20:08)
[2017-02-11] MEDS: PRAVASTATIN SOD 20 MG TAB PO SCH (20:08)
[2017-02-11 22:10] LABS: HEMATOCRIT 25.1 % (42-52)
[2017-02-12] VITALS (18 sets, daily range): BP systolic 96–168; BP diastolic 40–69; PULSE 54–87; TEMP 36.3–36.8; O2SAT 93–98
[2017-02-12 03:19] LABS: BASO % 0.4 %; BASO ABS # 0.03 K/uL (0-0.2); EOS % 2.9 %; HEMATOCRIT 22.3 % (42-52); IG% 0.3 %; LYMPH % 20.9 %; LYMPH ABS # 1.66 K/uL (1.2-3.4); MEAN CELL VOLUME 99.6 fL (80-100); MEAN CORPUSCULAR HEMOGLOBIN 34.4 pg (25-34); MEAN CORPUSCULAR HGB CONC 34.5 g/dl (32-36); MEAN PLATELET VOLUME 9.7 fL (7.4-10.4); MONO % 11.1 %; NEUT % 64.4 %; PLATELET COUNT 135 K/uL (130-400); RED BLOOD COUNT 2.24 M/uL (4.7-6.1); WHITE BLOOD COUNT 7.93 K/uL (4.8-10.8)
[2017-02-12 03:37] LABS: BUN/CREATININE RATIO 15.3 (10-20); CREATININE 1.2 mg/dl (0.60-1.40); MAGNESIUM 1.9 mg/dl (1.8-2.4); POTASSIUM 4.1 mmol/L (3.5-5.1)
[2017-02-12 03:47] LABS: COMPLETE YES
[2017-02-12 03:48] LABS: ALB/GLOB RATIO 1.4 (0.9-2)
[2017-02-12 04:17] LABS: CALCIUM 7.9 mg/dl (8.5-10.1)
--- NOTE | 2017-02-12 05:33 | Surgery Progress Note ---
Surgery Progress Note Date of Service Feb 12, 2017. Subjective receiving PRBCs- H/H dropped- pt passing flatus only- no melena or bloody stools since 6am 02/11 Objective Vital Signs: Date Time Temp Pulse Resp B/P (MAP) Pulse Ox O2 Delivery O2 Flow Rate FiO2 02/12/17 05:00 36.6 69 16 126/56 93 02/12/17 04:45 36.6 74 16 117/57 94 02/12/17 04:26 36.7 76 18 121/40 93 02/12/17 04:05 36.7 71 16 96/52 (67) 96 Room Air 02/12/17 02:15 36.6 71 16 109/57 (74) 96 Room Air 02/11/17 23:56 36.8 71 16 106/53 (70) 96 Room Air 02/11/17 23:30 Room Air 02/11/17 22:05 36.7 76 18 134/64 (87) 93 Room Air 02/11/17 20:15 36.7 81 16 140/56 (84) 96 Room Air 02/11/17 17:49 36.7 79 18 123/66 (85) 96 Room Air 02/11/17 16:45 Room Air 02/11/17 15:59 36.7 63 18 150/57 (88) 97 Room Air 02/11/17 13:57 36.6 88 18 121/54 (76) 97 Room Air 02/11/17 11:12 36.8 83 117/61 (79) 98 Room Air 02/11/17 10:07 91 02/11/17 08:45 Room Air 02/11/17 06:54 36.4 77 18 104/58 (73) 96 Room Air General Appearance: no apparent distress Respiratory/Chest: normal breath sounds, no respiratory distress Abdomen: non distended, soft Laboratory Results: Results Past 24 Hours Test 02/11/17 06:18 02/11/17 08:09 02/11/17 11:56 02/11/17 11:59 Range/Units White Blood Count 9.46 4.8-10.8 K/uL Red Blood Count 2.89 4.7-6.1 M/uL Hemoglobin 9.5 9.7 14.0-18.0 g/dL Hematocrit 28.6 29.7 42-52 % Mean Corpuscular Volume 99.0 80-100 fL Mean Corpuscular Hemoglobin 32.9 25-34 pg Mean Corpuscular Hemoglobin Concent 33.2 32-36 g/dl Platelet Count 178 130-400 K/uL Mean Platelet Volume 10.3 7.4-10.4 fL Neutrophils (%) (Auto) 74.2 % Lymphocytes (%) (Auto) 14.2 % Monocytes (%) (Auto) 8.9 % Eosinophils (%) (Auto) 1.9 % Basophils (%) (Auto) 0.3 % Neutrophils # (Auto) 7.02 1.4-6.5 K/uL Lymphocytes # (Auto) 1.34 1.2-3.4 K/uL Monocytes # (Auto) 0.84 0.11-0.59 K/uL Eosinophils # (Auto) 0.18 0-0.5 K/uL Basophils # (Auto) 0.03 0-0.2 K/uL RDW Standard Deviation 51.0 36.4-46.3 fL RDW Coefficient of Variation 14.2 11.5-14.5 % Immature Granulocyte % (Auto) 0.5 % Immature Granulocyte # (Auto) 0.05 0.00-0.02 K/uL Bedside Glucose 118 129 70-99 mg/dl Test 02/11/17 14:10 02/11/17 17:48 02/11/17 22:00 02/11/17 23:47 Range/Units Hemoglobin 10.0 8.5 14.0-18.0 g/dL Hematocrit 30.7 25.1 42-52 % Bedside Glucose 103 105 70-99 mg/dl Test 02/12/17 03:12 Range/Units White Blood Count 7.93 4.8-10.8 K/uL Red Blood Count 2.24 4.7-6.1 M/uL Hemoglobin 7.7 14.0-18.0 g/dL Hematocrit 22.3 42-52 % Mean Corpuscular Volume 99.6 80-100 fL Mean Corpuscular Hemoglobin 34.4 25-34 pg Mean Corpuscular Hemoglobin Concent 34.5 32-36 g/dl Platelet Count 135 130-400 K/uL Mean Platelet Volume 9.7 7.4-10.4 fL Neutrophils (%) (Auto) 64.4 % Lymphocytes (%) (Auto) 20.9 % Monocytes (%) (Auto) 11.1 % Eosinophils (%) (Auto) 2.9 % Basophils (%) (Auto) 0.4 % Neutrophils # (Auto) 5.11 1.4-6.5 K/uL Lymphocytes # (Auto) 1.66 1.2-3.4 K/uL Monocytes # (Auto) 0.88 0.11-0.59 K/uL Eosinophils # (Auto) 0.23 0-0.5 K/uL Basophils # (Auto) 0.03 0-0.2 K/uL RDW Standard Deviation 51.2 36.4-46.3 fL RDW Coefficient of Variation 14.3 11.5-14.5 % Immature Granulocyte % (Auto) 0.3 % Immature Granulocyte # (Auto) 0.02 0.00-0.02 K/uL Red Blood Cell Morphology Unremarkable Sodium Level 144 136-145 mmol/L Potassium Level 4.1 3.5-5.1 mmol/L Chloride Level 112 98-107 mmol/L Carbon Dioxide Level 27 21-32 mmol/L Anion Gap 5.0 3-11 mmol/L Blood Urea Nitrogen 18 7-18 mg/dl Creatinine 1.20 0.60-1.40 mg/dl Est Creatinine Clear Calc Drug Dose 43.9 ml/min Estimated GFR () 64.9 Estimated GFR (Non- 56.0 BUN/Creatinine Ratio 15.3 10-20 Random Glucose 91 70-99 mg/dl Calcium Level 7.9 8.5-10.1 mg/dl Phosphorus Level 3.0 2.5-4.9 mg/dl Magnesium Level 1.9 1.8-2.4 mg/dl Total Bilirubin 0.6 0.2-1 mg/dl Aspartate Amino Transf (AST/SGOT) 19 15-37 U/L Alanine Aminotransferase (ALT/SGPT) 19 12-78 U/L Alkaline Phosphatase 43 45-117 U/L Total Protein 4.6 6.4-8.2 gm/dl Albumin 2.7 3.4-5.0 gm/dl Globulin 1.9 2.5-4.0 gm/dl Albumin/Globulin Ratio 1.4 0.9-2 Assessment & Plan 02/12/17- has had no bloody bms for 24 hrs- H/H decreased- rec PRBCs this likely from initial bleeding- probably sloughed hemorrhoidal tissue from banding. Will give clear liquids and cont to monitor for active bleeding- to OR if occurs 02/11/17- adm with lower GI bleeding- can't be sure at this point if from hemorrhoid sites or more proximal. Will monitor H/H and for bleeding, also possibility of telemetry. If continues to bleed will examine under anesthesia- if nothing found , will need colonoscopy. Keep NPO exc ice for now 02/11/17- adm with lower GI bleeding- can't be sure at this point if from hemorrhoid sites or more proximal. Will monitor H/H and for bleeding, also possibility of telemetry. If continues to bleed will examine under anesthesia- if nothing found , will need colonoscopy. Keep NPO exc ice for now
[2017-02-12] MEDS: FLUTICASONE PROPIONATE NA SPR 16 GM BTL NAE SCH (09:13)
[2017-02-12] MEDS: CALCIUM POLYCARBOPHIL 1 TAB PO SCH (09:13)
[2017-02-12] MEDS: METOPROLOL SUCC 25MG EXT REL TAB PO SCH (09:13)
[2017-02-12] MEDS: FINASTERIDE 5 MG TAB PO SCH (09:14)
[2017-02-12] MEDS: TAMSULOSIN HCL 0.4 MG CAP PO SCH ×2 (09:14→21:37)
[2017-02-12] MEDS: SODIUM CHLORIDE 0.9% 1000ML 1,000 ML IV SCH (11:56)
[2017-02-12] MEDS: PANTOprazole INJ 40 MG in SYRINGE 0 ML IV SCH ×2 (11:56→21:36)
[2017-02-12 14:09] LABS: HEMATOCRIT 30.9 % (42-52)
[2017-02-12] MEDS: DIGOXIN 0.125 MG TAB PO SCH (16:00)
--- NOTE | 2017-02-12 18:09 | PROGRESS NOTE ---
DATE: 02/12/2017 HISTORY OF PRESENT ILLNESS: Mr. Cid is a very pleasant 81-year-old white male with a history of CAD status post intracoronary stents remotely (approximately 10 years ago), hypertension, COPD, chronic kidney disease, and a history of paroxysmal atrial fibrillation; who underwent banding of his internal hemorrhoids approximately 2 weeks ago. The patient presented acutely to our facility on 02/10/2017, complaining of hematochezia and passage of blood clots. He has developed an anemia related to this, and it appears to be caused by the sloughing of the internal hemorrhoids. The patient received 1 unit of packed red blood cells earlier today, and his hemoglobin has climbed up to 10.5 g/dL. The patient is completely asymptomatic at this time. He had a normal bowel movement today and could not see any blood or blood clots. He denies any focal abdominal pain. He denies any nausea, vomiting, diarrhea. He denies any lightheaded spells, weak spells, or dizzy spells. He has not had any angina pectoris, nor has he had any shortness of breath. He is progressing to a full liquid diet as of dinnertime today. PHYSICAL EXAMINATION: VITAL SIGNS: Temperature is 36.7 degree Celsius, pulse 54 and regular, respiratory rate 18 and unlabored, blood pressure is 168/65, and SPO2 is 97% on room air. GENERAL: The patient is in no acute distress. HEENT: Head is atraumatic, normocephalic. EOMs intact. Sclerae are anicteric. Face is symmetric. No perioral cyanosis. NECK: Without thyromegaly, adenopathy or JVD. CHEST AND LUNGS: Mildly diminished breath sounds throughout, otherwise clear. No wheezes, rales, or rhonchi. CARDIOVASCULAR: S1 and S2 are regular, bradycardic, without obvious murmur, gallop or rub. PMI is nondisplaced. No lifts, heaves, or thrills. No abdominal, aortic or renal bruits. ABDOMEN: Bowel sounds present. No masses, organomegaly or tenderness. EXTREMITIES: Without clubbing, cyanosis or edema. Intact radial and posterior tibial pulses bilaterally. NEUROLOGIC: The patient is awake, alert and oriented. Pleasant and cooperative. Answers questions appropriately. Speech is clear. Normal movement in all 4 extremities. Gait pattern not assessed. LABORATORY DATA: Hemoglobin 10.5 g/dL, hematocrit 30.9%, white blood cell count is 7.93, platelet count 135,000. Sodium is 144 mmol/L, potassium 4.1 mmol/L, BUN 18 mg/dL, creatinine 1.20 mg/dL. Random glucose is 96 mg/dL. LFTs are unremarkable. Digoxin level 0.9 ng/mL (reference range 0.8 to 2.0). ASSESSMENT: 1. Acute lower gastrointestinal bleed, currently being managed by surgical staff -- S/P Hemorrhoid banding 2 weeks ago. 2. Acute blood loss anemia, improved following transfusion of 1 unit packed red blood cells earlier today. 3. Coronary artery disease status post remote intracoronary stents, no angina pectoris or anginal equivalent symptoms. 4. Chronic kidney disease, serum creatinine has improved from admission. 5. Hypertension. 6. Chronic obstructive pulmonary disease. PLAN: 1. The patient had a normal bowel movement today and did not see any blood or blood clots in it. 2. Progress diet as per surgical staff. He will go to full liquid diet today. 3. If patient maintains a stable hemoglobin, has no further rectal bleeding, and is tolerating diet -- he will most likely be discharged to home tomorrow. 4. Continue intermediate frame tender Pravachol 20 mg daily. 5. Continue Toprol-XL 25 mg daily. 6. Continue Digoxin 0.125 mg daily. 7. Continue Protonix. 8. Ideally, he should resume aspirin when hemostasis allows. 9. We will continue to follow. Attending Attestation: Care plan d/w TIFFANIE Posada; I agree with the powers components of his progress note documentation. Damir Desouza MD [facility]ITALBrittni
[2017-02-12] MEDS ORDERED: NURSING VERBAL MED ORDER ONE (19:15)
[2017-02-12] MEDS: FLUOROURACIL 5% EXT SCH (20:04)
[2017-02-12] MEDS: PRAVASTATIN SOD 20 MG TAB PO SCH (21:36)
[2017-02-12 22:17] LABS: HEMATOCRIT 32.2 % (42-52)
[2017-02-13] VITALS (13 sets, daily range): BP systolic 116–179; BP diastolic 49–83; PULSE 60–72; TEMP 36.5–36.9; O2SAT 91–98
[2017-02-13] MEDS: SODIUM CHLORIDE 0.9% 1000ML 1,000 ML IV SCH
[2017-02-13 06:24] LABS: HEMATOCRIT 28.7 % (42-52)
[2017-02-13] MEDS: METOPROLOL SUCC 25MG EXT REL TAB PO SCH (09:55)
[2017-02-13] MEDS: TAMSULOSIN HCL 0.4 MG CAP PO SCH ×2 (09:55→20:27)
[2017-02-13] MEDS: FINASTERIDE 5 MG TAB PO SCH (09:55)
[2017-02-13] MEDS: CALCIUM POLYCARBOPHIL 1 TAB PO SCH (09:55)
[2017-02-13] MEDS: FLUTICASONE PROPIONATE NA SPR 16 GM BTL NAE SCH (09:56)
[2017-02-13] MEDS: PANTOprazole INJ 40 MG in SYRINGE 0 ML IV SCH ×2 (09:56→20:28)
--- NOTE | 2017-02-13 11:14 | Surgery Progress Note ---
Surgery Progress Note Date of Service Feb 13, 2017. Subjective doing well , on full liquids no melena Objective Vital Signs: Date Time Temp Pulse Resp B/P (MAP) Pulse Ox O2 Delivery O2 Flow Rate FiO2 02/13/17 08:08 Room Air 02/13/17 08:00 36.7 71 16 142/65 (90) 95 Room Air 02/13/17 05:42 36.8 65 16 121/61 (81) 96 Room Air 02/13/17 04:02 36.7 64 18 117/53 (74) 91 Room Air 02/13/17 01:59 36.8 67 16 116/49 (71) 96 Room Air 02/13/17 00:14 36.7 72 18 130/53 (78) 95 Room Air 02/13/17 00:00 Room Air 02/12/17 22:00 36.8 68 18 158/69 (98) 97 Room Air 02/12/17 19:53 36.8 68 18 141/55 (83) 97 Room Air 02/12/17 18:10 36.3 72 18 148/57 (87) 97 Room Air 02/12/17 16:15 Room Air 02/12/17 16:10 54 02/12/17 16:00 36.7 65 18 168/65 (99) 97 Room Air 02/12/17 16:00 54 02/12/17 13:55 36.6 65 16 134/41 (72) 98 Room Air Laboratory Results: Results Past 24 Hours Test 02/12/17 11:56 02/12/17 13:58 02/12/17 17:53 02/12/17 22:09 Range/Units Bedside Glucose 99 105 70-99 mg/dl Hemoglobin 10.5 10.7 14.0-18.0 g/dL Hematocrit 30.9 32.2 42-52 % Test 02/13/17 00:13 02/13/17 06:10 Range/Units Bedside Glucose 96 70-99 mg/dl Hemoglobin 9.6 14.0-18.0 g/dL Hematocrit 28.7 42-52 % Assessment & Plan 02/13/17- doing well- will advance to regular diet- pt and would like to try regular food- stop IV- likely d/c tomorrow am 02/12/17- has had no bloody bms for 24 hrs- H/H decreased- rec PRBCs this likely from initial bleeding- probably sloughed hemorrhoidal tissue from banding. Will give clear liquids and cont to monitor for active bleeding- to OR if occurs 02/11/17- adm with lower GI bleeding- can't be sure at this point if from hemorrhoid sites or more proximal. Will monitor H/H and for bleeding, also possibility of telemetry. If continues to bleed will examine under anesthesia- if nothing found , will need colonoscopy. Keep NPO exc ice for now 02/12/17- has had no bloody bms for 24 hrs- H/H decreased- rec PRBCs this likely from initial bleeding- probably sloughed hemorrhoidal tissue from banding. Will give clear liquids and cont to monitor for active bleeding- to OR if occurs 02/11/17- adm with lower GI bleeding- can't be sure at this point if from hemorrhoid sites or more proximal. Will monitor H/H and for bleeding, also possibility of telemetry. If continues to bleed will examine under anesthesia- if nothing found , will need colonoscopy. Keep NPO exc ice for now
[2017-02-13 14:13] LABS: HEMATOCRIT 30.4 % (42-52)
--- NOTE | 2017-02-13 14:26 | Hospitalist Progress Note ---
Hospitalist Progress Note Date of Service Feb 13, 2017. (Herlinda Salazar ., PA-C) Subjective Pt evaluation today including: conversation w/ patient, physical exam, chart review, lab review, review of inpatient medication list Pain: None PO Intake: Tolerating regular diet Voiding: no voiding problems Patient reports feeling well. He was advanced to a regular diet for lunch which he is tolerating well. He states that he had a bowel movement this morning that was soft but without hematochezia or melena. He denies any lightheadedness, or dizziness, even with exertion. He denies dyspnea on exertion. He states that he feels a little weak as he has not been able to get up and move around much, but he has been ambulating in his room without difficulty. The patient denies fevers, chills, sweats, chest pain, palpitations , claudication, cough, wheezing, shortness of breath, nausea, vomiting, abdominal pain, dysuria, hematuria, urinary retention, paralysis, motor weakness , numbness and tingling. Additional Comments: See HPI for pertinent positives and negatives. All other systems reviewed and negative. (Herlinda Salazar ., PA-C) Objective Vital Signs Date Time Temp Pulse Resp B/P (MAP) Pulse Ox O2 Delivery O2 Flow Rate FiO2 02/13/17 11:21 36.7 66 16 165/83 (110) 98 Room Air 02/13/17 08:08 Room Air 02/13/17 08:00 36.7 71 16 142/65 (90) 95 Room Air 02/13/17 05:42 36.8 65 16 121/61 (81) 96 Room Air 02/13/17 04:02 36.7 64 18 117/53 (74) 91 Room Air 02/13/17 01:59 36.8 67 16 116/49 (71) 96 Room Air 02/13/17 00:14 36.7 72 18 130/53 (78) 95 Room Air 02/13/17 00:00 Room Air 02/12/17 22:00 36.8 68 18 158/69 (98) 97 Room Air 02/12/17 19:53 36.8 68 18 141/55 (83) 97 Room Air 02/12/17 18:10 36.3 72 18 148/57 (87) 97 Room Air 02/12/17 16:15 Room Air 02/12/17 16:10 54 02/12/17 16:00 36.7 65 18 168/65 (99) 97 Room Air 02/12/17 16:00 54 (Herlinda Salazar PA-C) Physical Exam General Appearance: WD/WN, no apparent distress Eyes: normal inspection, PERRL, EOMI ENT: normal ENT inspection, hearing grossly normal, pharynx normal Neck: supple, no JVD, trachea midline Respiratory/Chest: lungs clear, normal breath sounds, no respiratory distress Cardiovascular: regular rate, rhythm, no gallop, + systolic murmur Abdomen: normal bowel sounds, non tender, soft Extremities: non-tender, normal inspection, no pedal edema Neurologic/Psychiatric: alert, normal mood/affect, oriented x 3 Skin: normal color, warm/dry, no rash (Herlinda Salazar, ALONDRAC) Laboratory Results Last 24 Hours Test 02/12/17 13:58 02/12/17 17:53 02/12/17 22:09 02/13/17 00:13 Hemoglobin 10.5 g/dL 10.7 g/dL Hematocrit 30.9 % 32.2 % Bedside Glucose 105 mg/dl 96 mg/dl Test 02/13/17 06:10 02/13/17 11:59 Hemoglobin 9.6 g/dL Hematocrit 28.7 % Bedside Glucose 106 mg/dl (Herlinda Salazar ., TIFFANIE-C) Assessment and Plan 81 y/o male with a history of CAD s/p stents, atrial fibrillation, HTN, HLD, CKD stage III, COPD and BPH who presents for medical management of a GI bleed s/ p internal hemorrhoid banding. GI bleed--resolved -Admitted for observation -Trend H&H q8h. Hgb stable at 9.6 on 02/13 -Received 2 units PRBC on 02/12 -No recurrence of bleeding -Advance diet as tolerated/per primary team. Pt tolerating regular diet today -Surgery: anticipate discharge tomorrow morning CAD s/p stents -Plavix held due to bleed. Resume when okay with primary team. H/o atrial fibrillation--stable, currently in SR -Continue low dose metoprolol succinate 25 mg PO qd due to lower HR -Continue digoxin 125 mcg PO qd HTN--last BP 165/83 -Continue metoprolol as above -May resume Micardis 40 mg PO qd and HCTZ 12.5 mg PO qd as renal function improved/back to baseline HLD -Continue pravastatin 20 mg PO qd Mild JORGE ALBERTO on CKD stage III: baseline creatinine around 1.3--resolved -Creatinine 1.5 on arrival -Resolved, creatinine back to baseline at 1.2 COPD -Continue Combivent inhalers QID BPH -Continue Proscar 5 mg PO qd and Flomax 0.4 mg PO qd DVT prophylaxis -Chemical prophylaxis held due to bleeding -SCDs Code Status -Level I, FULL RESUSCITATION STATUS Thank you for this consultation. We will continue to follow. (Herlinda Salazar ., PA-C) Attending Attestation: Pt seen/examined, chart reviewed, and care plan d/w PA Herlinda Salazar. I agree w/ the powers components of her documentation. Pt w/o complaints. No BRBPR. No abd pain. No SOB. VSS no fever gen - nad neck - no JVD heart - RRR lungs - CTA b/l abd - soft, NT, ND, BS+ ext - no edema A/P: acute blood loss anemia 2nd to lower GI bleeding from hemorrhoids - H/H stable, no evidence of ongoing bleeding. CKD stage 3 - stable Cr. COPD - stable, no symptoms. diet advancement per surgery. Anthony XAVIER MD (Damir Xavier MD)
[2017-02-13] MEDS ORDERED: TELMISARTAN 40 MG TAB PO ONE (14:45)
[2017-02-13] MEDS ORDERED: HYDROCHLOROTHIAZIDE 25 MG TAB PO ONE (14:45)
[2017-02-13] MEDS: DIGOXIN 0.125 MG TAB PO SCH (15:54)
[2017-02-13] MEDS: IPRATROPIUM BROMIDE/ALBUTEROL respimat INH INH SCH ×2 (17:23→20:27)
[2017-02-13] MEDS: FLUOROURACIL 5% EXT SCH (20:15)
[2017-02-13] MEDS: PRAVASTATIN SOD 20 MG TAB PO SCH (20:27)
[2017-02-13 22:20] LABS: HEMATOCRIT 33.6 % (42-52)
[2017-02-14 00:07] VITALS: BP 144/60; PULSE 76; TEMP 36.6; O2SAT 96
--- NOTE | 2017-02-14 06:29 | Discharge Instructions ---
Discharge Instructions Date of Service Feb 14, 2017. Admission Reason for Admission: Passing Blood And Other Discharge Discharge Diagnosis / Problem: GI hemorrhage Discharge Goals Goal(s): Decrease discomfort, Improve function, Improve disease control Activity Recommendations Activity Limitations: as noted below Lifting Limitations: no more than 10 pounds Exercise/Sports Limitations: until after follow-up appointment May Resume Sexual Activity: when tolerated Shower/Bathe: no limitations Driving or Machine Use: resume 3 days after discharge May use stool softener as tolerated * may take Plavix as usual Call your doctor if: * Temperature above 101 degrees * Pain not relieved by pain medicine ordered * There is increased drainage or redness from any incision * You have any unanswered questions or concerns [phone]. FOLLOW UP VISIT: If not already scheduled, please call the office for a follow-up visit. OFFICE PHONE NUMBER: Dr. Heredia's Office . Current Hospital Diet Patient's current hospital diet: Regular Diet Discharge Diet Recommended Diet: Regular Diet Pending Studies Studies pending at discharge: no Laboratory Results Hemoglobin A1c Test 01/18/17 08:43 Range/Units Estimated Average Glucose 126 mg/dl Hemoglobin A1c 6.0 H 4.5-5.6 % Lipid Panel Test 01/18/17 08:43 Range/Units Triglycerides Level 80 0-150 mg/dl Cholesterol Level 125 0-200 mg/dl HDL Cholesterol 41 mg/dl Cholesterol/HDL Ratio 3.0 LDL Cholesterol, Calculated 68 mg/dl Medical Emergencies . Who to Call and When: Medical Emergencies: If at any time you feel your situation is an emergency, please call 911 immediately. . Non-Emergent Contact Non-Emergency issues call your: Primary Care Provider, Surgeon . "Provider Documentation" section prepared by Bertrand Gifford. . VTE Core Measure Inpt VTE Proph given/why not?: SCD's
--- NOTE | 2017-02-14 06:31 | Surgery Progress Note ---
Surgery Progress Note Date of Service Feb 14, 2017. Subjective + feeling well, + bowel movement no bleeding on regular diet Objective Vital Signs: Date Time Temp Pulse Resp B/P (MAP) Pulse Ox O2 Delivery O2 Flow Rate FiO2 02/14/17 00:07 36.6 76 16 144/60 (88) 96 Room Air 02/14/17 00:00 Room Air 02/13/17 22:00 36.6 63 18 176/77 (110) 93 Room Air 02/13/17 20:00 36.7 67 18 179/77 (111) 95 Room Air 02/13/17 18:03 36.9 62 18 152/61 (91) 94 Room Air 02/13/17 16:02 36.5 02/13/17 15:54 60 02/13/17 15:53 159/70 (99) 02/13/17 15:46 60 02/13/17 14:15 36.7 66 16 148/55 (86) 98 Room Air 02/13/17 13:45 Room Air 02/13/17 11:21 36.7 66 16 165/83 (110) 98 Room Air 02/13/17 08:08 Room Air 02/13/17 08:00 36.7 71 16 142/65 (90) 95 Room Air General Appearance: no apparent distress Respiratory/Chest: no respiratory distress Laboratory Results: Results Past 24 Hours Test 02/13/17 11:59 02/13/17 13:55 02/13/17 18:00 02/13/17 22:14 Range/Units Bedside Glucose 106 99 70-99 mg/dl Hemoglobin 10.3 11.3 14.0-18.0 g/dL Hematocrit 30.4 33.6 42-52 % Test 02/14/17 00:02 02/14/17 06:18 Range/Units Bedside Glucose 95 70-99 mg/dl Assessment & Plan 02/14/17- No further bleeding- likely from sloughed hemorrhoidal tissue. will d/c home- resume usual Plavix- see in office next week 02/13/17- doing well- will advance to regular diet- pt and would like to try regular food- stop IV- likely d/c tomorrow am 02/12/17- has had no bloody bms for 24 hrs- H/H decreased- rec PRBCs this likely from initial bleeding- probably sloughed hemorrhoidal tissue from banding. Will give clear liquids and cont to monitor for active bleeding- to OR if occurs 02/11/17- adm with lower GI bleeding- can't be sure at this point if from hemorrhoid sites or more proximal. Will monitor H/H and for bleeding, also possibility of telemetry. If continues to bleed will examine under anesthesia- if nothing found , will need colonoscopy. Keep NPO exc ice for now 02/13/17- doing well- will advance to regular diet- pt and would like to try regular food- stop IV- likely d/c tomorrow am 02/12/17- has had no bloody bms for 24 hrs- H/H decreased- rec PRBCs this likely from initial bleeding- probably sloughed hemorrhoidal tissue from banding. Will give clear liquids and cont to monitor for active bleeding- to OR if occurs 02/11/17- adm with lower GI bleeding- can't be sure at this point if from hemorrhoid sites or more proximal. Will monitor H/H and for bleeding, also possibility of telemetry. If continues to bleed will examine under anesthesia- if nothing found , will need colonoscopy. Keep NPO exc ice for now
[2017-02-14 06:35] LABS: HEMATOCRIT 29.2 % (42-52)
[2017-02-14 08:18] VITALS: BP 136/73; PULSE 76; TEMP 36.8; O2SAT 96
[2017-02-14] MEDS ORDERED: TELMISARTAN 40 MG TAB PO SCH (09:00)
[2017-02-14] MEDS ORDERED: HYDROCHLOROTHIAZIDE 25 MG TAB PO SCH (09:00)
[2017-02-14] MEDS: FLUTICASONE PROPIONATE NA SPR 16 GM BTL NAE SCH (09:12)
[2017-02-14] MEDS: IPRATROPIUM BROMIDE/ALBUTEROL respimat INH INH SCH (09:12)
[2017-02-14] MEDS: FINASTERIDE 5 MG TAB PO SCH (09:14)
[2017-02-14] MEDS: METOPROLOL SUCC 25MG EXT REL TAB PO SCH (09:15)
[2017-02-14] MEDS: TAMSULOSIN HCL 0.4 MG CAP PO SCH (09:15)
[2017-02-14] MEDS: CALCIUM POLYCARBOPHIL 1 TAB PO SCH (09:16)
[2017-02-14] MEDS: PANTOprazole INJ 40 MG in SYRINGE 0 ML IV SCH (09:16)
[2017-02-14 10:03] VITALS: BP 136/73; PULSE 76; TEMP 36.8; O2SAT 96
--- NOTE | 2017-02-16 14:38 | Discharge Summary ---
Discharge Summary Date of Service Feb 16, 2017. Admission Date/Reason Feb 10, 2017 at 23:00 Passing Blood And Other. Discharge Date/Disposition Feb 14, 2017 Home Diagnosis Principal Diagnosis: (1) Lower GI bleed: Hemorrhoidal (2) Anemia secondary to #1 Secondary Diagnoses/Problems: (1) Atrial Fibrillation (2) Chronic Kidney Disease, Unspecified (3) Coronary artery disease (4) Diab Alexanrda Wo Compl, Type Ii Or Unspec Type, Not Uncntrld (5) Hypertension Nos (6) COPD (7) BPH Procedure(s) Performed Transfusion 2 units PRBCs Consultations [facility] Medication Reconciliation Continued Medications: Calcium Polycarbophil (Fibercon) 625 Mg Tab 1330 MG PO DAILY, CPLT 2 CAPSULE DOSE Cholecalciferol (Vitamin D) 1,000 Unit Tab 1000 UNITS PO DAILY Clopidogrel (Plavix) 75 Mg Tab 75 MG PO QAM Digoxin (Digox) 125 Mcg Tab 125 MCG PO DAILY Finasteride (Finasteride) 5 Mg Tab 1 TAB PO NOON, #90 Fluticasone Propionate (Nasal) (Flonase Allergy Relief) 50 Mcg/Act Spr 1-2 SPRAYS TRAN DAILY Ipratropium-Albuterol (Combivent Respimat) 1 Aer Aer 1 PUFF INH QID, #12 Ipratropium-Albuterol (Duoneb) 3 Ml Nebu 1 TREATMENT INH TID PRN for Shortness of Breath Metoprolol Succ (Toprol Xl) (Toprol-Xl ) 100 Mg Tabcr 100 MG PO QAM, TAB Nitroglycerin (Nitrostat) 0.4 Mg Tab 0.4 MG UT PRN, 0 Refills NEEDED FOR CHEST PAIN : ONE TABLET UNDER THE TONGUE EVERY 5 MINUTES UP TO 3 DOSES. Pravastatin Sodium (Pravachol) 20 Mg Tab 20 MG PO HS, TAB Ranitidine (Zantac) 150 Mg Tab 150 MG PO BID Tamsulosin Hcl (Flomax) 0.4 Mg Cap 0.4 MG PO BID, CAP Telmisartan/Hctz (Micardis Hct 40MG/12.5MG) Tab 1 TAB PO DAILY AT NOON, TAB Admission Physical Exam As per Admitting History & Physical. Hospital Course 81 y/o male 2 weeks s/p hemorrhoid banding and on Plavix presented to the ED overnight with complaints of rectal bleeding/bloody bowel movements. He was admitted to surgery service for observation. Hemoglobin was 12.2 on admission and by the next morning was 9.5. He had less blood with BM's overnight and by the next morning had a normal BM. He remained hemodynamically stable. However on the second morning his hemoglobin was 7.7. He was transfused 2 units PRBCs at that time. He was not having any further rectal bleeding. He was able to tolerate an advancing diet over the next two days. Forty-eight hours after transfusion his hemoglobin was stable at 10.1 and with no further bleeding he was stable for discharge. Discharge Instructions Follow-up with Dr. Heredia within 1 week Please refer to the electronic Patient Visit Report (Discharge Instructions) for additional information.
[2017-03-16] MEDS ORDERED: DUTA0.5C PO (09:57)
== END 2017-02-14 10:52 | disposition home or self-care (01) ==
LOC: C.EDB 18:45 → C.MSW 23:00 → ENRESERV 23:25
PROVIDERS: ADMIT Surgery; ATTEND Surgery
DX: K92.2 Gastrointestinal hemorrhage, unspecified (principal); K64.9 Unspecified hemorrhoids; D62 Acute posthemorrhagic anemia; I48.91 Unspecified atrial fibrillation; N18.9 Chronic kidney disease, unspecified; I25.10 Atherosclerotic heart disease of native coronary artery without angina pectoris; I12.9 Hypertensive chronic kidney disease with stage 1 through stage 4 chronic kidney disease, or unspecified chronic kidney disease; E11.22 Type 2 diabetes mellitus with diabetic chronic kidney disease; J44.9 Chronic obstructive pulmonary disease, unspecified; N40.0 Benign prostatic hyperplasia without lower urinary tract symptoms; Z87.891 Personal history of nicotine dependence; Z98.890 Other specified postprocedural states; Z79.02 Long term (current) use of antithrombotics/antiplatelets; Z88.0 Allergy status to penicillin; Z88.1 Allergy status to other antibiotic agents; Z80.3 Family history of malignant neoplasm of breast; Z83.3 Family history of diabetes mellitus; Z82.49 Family history of ischemic heart disease and other diseases of the circulatory system; Z83.6 Family history of other diseases of the respiratory system

== ENCOUNTER → 2017-02-15 | Outpatient (CLI) | payer BC ==
[~2017-02-15] MED LIST changes: -ASPI81TA28 PO; +BCTO EXT; +DUTA0.5C PO; -METO100T44 PO; +METO1TAB69 PO; +PRS5 PO
== END | disposition home or self-care (01) ==
LOC: C.LABBFT 10:10
PROVIDERS: ATTEND Internal Medicine
DX: D80.1 Nonfamilial hypogammaglobulinemia (principal)

== ENCOUNTER → 2017-03-24 | Day surgery (SDC) | payer BC ==
[2017-03-16 10:01] VITALS: Ht 177.8 cm; Wt 65.9 kg
[~2017-03-24] VITALS: Ht 177.8 cm; Wt 65.9 kg
[~2017-03-24] MED LIST changes: +LIDOCAINE HCL 2% 2 ML VIAL (20MG/ML) ONE; +PHENYLEPHRINE 100MCG/ML 5ML SYR ONE; +PROPOFOL IV EMULSION 10 MG/ML 20 ML VIAL IV ONE; -PRS5 PO; +SODIUM CHLORIDE 0.9% 500ML 500 ML IV ONE
[2017-03-24 12:01] VITALS: TEMP 36.9
--- NOTE | 2017-03-24 12:39 | Endo History and Physical ---
History & Physical Date of Service: Mar 24, 2017. Chief Complaint: rectal bleeding Referring Physician: Dr. Wade Heredia,Dr. nAthony Hsu History of Present Illness 81 yo CM who presents for colonoscopy secondary to rectal bleeding. Past Medical History Atrial Fibrillation, Angioplasty/Stent, Arthritis, Male Genitourinary Prob., High Cholesterol, Hypertension, COPD Past Surgical History Hx Cardiac Surgery: Yes (HEAT CATH, STENTS TOTAL X6) Hx Internal Defibrillator: No Hx Pacemaker: No Hx Abdominal Surgery: Yes (INGUINAL HERNIA REPAIR) Hx of Implantable Prosthesis: No Hx Post-Op Nausea and Vomiting: No Hx Cancer Surgery: No Hx Thoracic Surgery: No Hx Orthopedic: Yes (LOWER SPINE SURGERY-2 METAL RODS PLACED) Hx Urinary Tract Surgery: No Family History None Social History Smoking Status: Former Smoker Hx Substance Use: No Hx Alcohol Use: Yes (OCCASIONAL) Allergies Coded Allergies: PEYMAN Inhibitors (Verified Allergy, Mild, RASH, 03/16/17) Amoxicillin (Verified Allergy, Unknown, RASH, 03/16/17) Metoclopramide (Verified Allergy, Unknown, RASH, 03/16/17) Penicillins (Verified Allergy, Unknown, RASH, 03/16/17) Current Medications Reported Home Medications Medications Dose Route/Sig Max Daily Dose Days Date Category Dose Instructions Avodart (Dutasteride) 0.5 Mg Cap 0.5 Mg PO LUNCH 03/16/17 Reported Vitamin D (Cholecalciferol) 1,000 Unit Tab 1,000 Units PO QAM 12/31/16 Reported Digox (Digoxin) 125 Mcg Tab 125 Mcg PO QAM 12/31/16 Reported Flomax (Tamsulosin Hcl) 0.4 Mg Cap 0.4 Mg PO BID 12/28/16 Reported Duoneb (Ipratropium-Albuterol) 3 Ml Nebu 1 Treatment INH TID PRN 12/28/16 Reported Flonase Allergy Relief (Fluticasone Propionate (Nasal)) 50 Mcg/Act Spr 1-2 Sprays TRAN DAILY-BID 12/28/16 Reported Fibercon (Calcium Polycarbophil) 625 Mg Tab 2 Tabs PO QAM 12/28/16 Reported Micardis Hct 40MG/12.5MG (Telmisartan/Hydrochlorothiazide) Tab 1 Tab PO DAILY AT NOON 10/31/15 Reported Combivent Respimat (Ipratropium-Albuterol) 1 Aer Aer 1 Puff INH BID 10/02/14 Reported Pravachol (Pravastatin Sodium) 20 Mg Tab 20 Mg PO HS 05/28/13 Reported Toprol-Xl (Metoprolol Succinate) 100 Mg Tabcr 100 Mg PO QAM 05/28/13 Reported Nitrostat (Nitroglycerin) 0.4 Mg Tab 0.4 Mg UT PRN 08/10/09 Reported NEEDED FOR CHEST PAIN : ONE TABLET UNDER THE TONGUE EVERY 5 MINUTES UP TO 3 DOSES. Plavix (Clopidogrel Bisulfate) 75 Mg Tab 75 Mg PO QAM 08/10/09 Reported Vital Signs Weight (Kilograms): 65.91 Height (Feet): 5 Height (Inches): 10 Date Time Temp Pulse Resp B/P (MAP) Pulse Ox O2 Delivery O2 Flow Rate FiO2 03/24/17 12:01 36.9 75 22 179/70 (106) 96 Room Air Physical Exam General Appearance: WD/WN, no apparent distress Respiratory/Chest: Auscultation: breath sounds normal Cardiovascular: Heart Auscultation: RRR Abdomen: Bowel Sounds: normal Inspection & Palpation: soft, non-distended, no tenderness, guarding & rebound Assessment and Plan Assessment: 81 yo CM who presents for colonoscopy secondary to rectal bleeding. Plan: Proceed with colonoscopy.
--- NOTE | 2017-03-24 12:58 | Discharge Instructions ---
Endoscopy Patient Instructions Date / Procedure(s) Performed Mar 24, 2017. Colonoscopy Allergy Information Coded Allergies: PEYMAN Inhibitors (Verified Allergy, Mild, RASH, 03/16/17) Amoxicillin (Verified Allergy, Unknown, RASH, 03/16/17) Metoclopramide (Verified Allergy, Unknown, RASH, 03/16/17) Penicillins (Verified Allergy, Unknown, RASH, 03/16/17) Discharge Date / Findings Mar 24, 2017. Colon polyp Diverticulosis Internal hemorrhoids Medication Instructions Stopped Medication(s): stopped Plavix 6 days ago OK to resume all medications today as prescribed Reported Home Medications Medications Dose Route/Sig Max Daily Dose Days Date Category Dose Instructions Avodart (Dutasteride) 0.5 Mg Cap 0.5 Mg PO LUNCH 03/16/17 Reported Vitamin D (Cholecalciferol) 1,000 Unit Tab 1,000 Units PO QAM 12/31/16 Reported Digox (Digoxin) 125 Mcg Tab 125 Mcg PO QAM 12/31/16 Reported Flomax (Tamsulosin Hcl) 0.4 Mg Cap 0.4 Mg PO BID 12/28/16 Reported Duoneb (Ipratropium-Albuterol) 3 Ml Nebu 1 Treatment INH TID PRN 12/28/16 Reported Flonase Allergy Relief (Fluticasone Propionate (Nasal)) 50 Mcg/Act Spr 1-2 Sprays TRAN DAILY-BID 12/28/16 Reported Fibercon (Calcium Polycarbophil) 625 Mg Tab 2 Tabs PO QAM 12/28/16 Reported Micardis Hct 40MG/12.5MG (Telmisartan/Hydrochlorothiazide) Tab 1 Tab PO DAILY AT NOON 10/31/15 Reported Combivent Respimat (Ipratropium-Albuterol) 1 Aer Aer 1 Puff INH BID 10/02/14 Reported Pravachol (Pravastatin Sodium) 20 Mg Tab 20 Mg PO HS 05/28/13 Reported Toprol-Xl (Metoprolol Succinate) 100 Mg Tabcr 100 Mg PO QAM 05/28/13 Reported Nitrostat (Nitroglycerin) 0.4 Mg Tab 0.4 Mg UT PRN 08/10/09 Reported NEEDED FOR CHEST PAIN : ONE TABLET UNDER THE TONGUE EVERY 5 MINUTES UP TO 3 DOSES. Plavix (Clopidogrel Bisulfate) 75 Mg Tab 75 Mg PO QAM 08/10/09 Reported Provider Instructions Activity Restrictions - No exercising or heavy lifting for 24 hours. - Do not drink alcohol the day of the procedure. - Do not drive a car or operate machinery until the day after the procedure. - Do not make any important decisions or sign important papers in 24 hours after the procedure. Following Day: - Return to full activity which may include returning to work/school. Diet Start your diet with liquids and light foods (jello, soup, juice, toast). Then eat your usual diet if not nauseated. Treatment For Common After Affects For mild abdominal pain, bloating, or excessive gas: - Rest - Eat lightly - Lie on right side Follow-Up Information Follow-up with Dr. Wade Heredia,Dr. Anthony Hsu as scheduled Anesthesia Information What You Should Know You have had a procedure that required some medicine to reduce anxiety and discomfort. This treatment is called moderate sedation. After receiving the treatment, you may be sleepy, but you will be able to breathe on your own. The effects of the treatment may last for several hours. Follow these instructions along with Activity/Diet recommendations noted above: * Do NOT do anything where dizziness or clumsiness would be dangerous. * Rest quietly at home today, then you can be up and about tomorrow. * Have a responsible person stay with you the rest of today. * You may have had an I.V. today. If so, you may take the dressing off later today. Recommendations Call your doctor if: * Trouble breathing * Continuous vomiting for more than 24 hours * Temperature above 101 degrees * Severe abdominal pain or bloating * Pain not relieved by pain medicine ordered * There is increased drainage or redness from any incision * A large amount of rectal bleeding greater than 2-3 tablespoons. (If you had a polyp/s removed or have hemorrhoids, a small amount of blood - from the rectum is to be expected.) * You have any unanswered questions or concerns. IN THE EVENT OF A SERIOUS EMERGENCY, GO TO THE NEAREST EMERGENCY ROOM Your discharge instructions were prepared by provider Carrington Tabares. Patient Instructions Signature Page Cecilio Cid Patient (or Guardian) Signature/Date: I have read and understand the instructions given to me by my caregivers. Caregiver/RN/Doctor Signature/Date: The above-named patient and/or guardian has received patient instructions on this date. + Original Patient Signature Page (only) stays with chart. Please make copy for patient.
--- NOTE | 2017-03-24 13:03 | GI REPORT ---
Procedure Date: 03/24/2017 12:30 PM Procedure: Colonoscopy Indications: Rectal bleeding Medicines: Monitored Anesthesia Care Complications: No immediate complications. Estimated Blood Loss: Estimated blood loss: none. Procedure: Pre-Anesthesia Assessment: - Prior to the procedure, a History and Physical was performed, and patient medications and allergies were reviewed. The patient's tolerance of previous anesthesia was also reviewed. The risks and benefits of the procedure and the sedation options and risks were discussed with the patient. All questions were answered, and informed consent was obtained. Prior Anticoagulants: The patient has taken Plavix (clopidogrel), last dose was 6 days prior to procedure. ASA Grade Assessment: III - A patient with severe systemic disease. After reviewing the risks and benefits, the patient was deemed in satisfactory condition to undergo the procedure. After I obtained informed consent, the scope was passed under direct vision. Throughout the procedure, the patient's blood pressure, pulse, and oxygen saturations were monitored continuously. The scope was introduced through the anus and advanced to the cecum, identified by appendiceal orifice and ileocecal valve. The colonoscopy was performed without difficulty. The patient tolerated the procedure well. The quality of the bowel preparation was good. The ileocecal valve, appendiceal orifice, and rectum were photographed. Findings: A 4 mm polyp was found in the ascending colon. The polyp was sessile. The polyp was removed with a hot snare. Resection and retrieval were complete. Multiple small-mouthed diverticula were found in the sigmoid colon. Non-bleeding internal hemorrhoids were found during retroflexion. The hemorrhoids were small. Impression: - One 4 mm polyp in the ascending colon, removed with a hot snare. Resected and retrieved. - Diverticulosis in the sigmoid colon. - Non-bleeding internal hemorrhoids. Recommendation: - Resume previous diet. - Continue present medications. - Repeat colonoscopy for surveillance based on pathology results. - Return to primary care physician as previously scheduled. Carrington Tabares, DO 03/24/2017 1:03:05 PM This report has been signed electronically. Note Initiated On: 03/24/2017 12:30 PM I attest to the content of the Intraoperative Record and orders documented therein, exceptions below
--- NOTE | 2017-03-24 13:19 | Anesthesiology Progress Note ---
Anesthesia Post Op Note Date & Time Mar 24, 2017 at 13:18 Vital Signs Pain Intensity: 0 Vital Signs Past 12 Hours Date Time Temp Pulse Resp B/P (MAP) Pulse Ox O2 Delivery O2 Flow Rate FiO2 03/24/17 13:16 72 18 140/65 (90) 97 Room Air 03/24/17 13:07 82 20 122/70 (87) 97 Room Air 03/24/17 13:00 76 22 112/55 (74) 98 Room Air 03/24/17 12:01 36.9 75 22 179/70 (106) 96 Room Air Notes Mental Status: alert / awake / arousable, participated in evaluation Pt Amnestic to Procedure: Yes Nausea / Vomiting: adequately controlled Pain: adequately controlled Airway Patency, RR, SpO2: stable & adequate BP & HR: stable & adequate Hydration State: stable & adequate Anesthetic Complications: no major complications apparent
[2017-03-24 13:29] VITALS: BP 143/66; PULSE 70; O2SAT 96
== END | disposition home or self-care (01) ==
LOC: C.GI 11:30
PROVIDERS: ATTEND Internal Medicine
DX: K62.5 Hemorrhage of anus and rectum (principal); D12.2 Benign neoplasm of ascending colon; K57.30 Diverticulosis of large intestine without perforation or abscess without bleeding; K64.8 Other hemorrhoids; Z98.61 Coronary angioplasty status; M19.90 Unspecified osteoarthritis, unspecified site; I10 Essential (primary) hypertension; J44.9 Chronic obstructive pulmonary disease, unspecified; Z87.891 Personal history of nicotine dependence

== ENCOUNTER 2017-04-20 08:47 | Observation (INO) | payer BC ==
[~2017-04-20] VITALS: Ht 177.8 cm; Wt 62.5 kg
[~2017-04-20 08:47] MED LIST changes: -BCTO EXT; -LIDOCAINE HCL 2% 2 ML VIAL (20MG/ML) ONE; -PHENYLEPHRINE 100MCG/ML 5ML SYR ONE; -PROPOFOL IV EMULSION 10 MG/ML 20 ML VIAL IV ONE; -SODIUM CHLORIDE 0.9% 500ML 500 ML IV ONE; -ZNTT/150 PO
--- NOTE | 2017-04-20 09:17 | EMERGENCY ROOM VISIT NOTE ---
History Report prepared by Jess: Caitlyn Escobar Under the Supervision of: Dr. Milo Khan M.D. First contact with patient: 08:59 Chief Complaint: CHEST PAIN Stated Complaint: CHEST/BACK PAIN Nursing Triage Summary: intermittent chest pain started yesterday lasting mins then goes away, awoke pt during night pt has cardiac hx, and has ntg but did not take diaphoretic with pain some sob, productive cough small amount of sputum, normal for pt History of Present Illness The patient is an 81 year old male who presents to the Emergency Room with complaints of intermittent left sided chest pain that began yesterday. He currently rates his discomfort as a 7/10 in severity. The patient states that yesterday he intermittently noticed left sided chest pain that would ease off after 5-10 minutes. He states that he was woken from sleep last night with the chest pain again. The patient states that the pain radiates into his left back , by his shoulder-blade. He states that he has noticed his chest pain at both rest and exertion. The patient states that he has a history of cardiac stents and notes that he has nitroglycerin at home. He denies using the nitroglycerin in the past. The patient states that he has had a cough and notes that he felt diaphoretic this morning. He reports being on Plavix. The patient reports being a previous smoker, noting that he quit 20 years ago. He denies lifting heavy objects recently. The patient denies increased pain with breathing. He denies any history of previous blood clots. The patient denies any recent travel. He states that he was recently evaluated in the hospital for 5 days for rectal bleeding. The patient denies any congestion, fever, chills, nausea, vomiting, diarrhea, constipation, or new lower extremity edema. Source of History: patient Onset: yesterday Position: chest (left) Symptom Intensity: 7/10 Timing: intermittent Associated Symptoms: + diaphoresis, + cough, + back pain, No fevers, No chills, No nausea, No vomiting, No diarrhea Review of Systems See HPI for pertinent positives and negatives. A total of ten systems were reviewed and were otherwise negative. Past Medical & Surgical Medical Problems: (1) Atrial Fibrillation (2) Chronic Kidney Disease, Unspecified (3) Coronary artery disease (4) Diab Alexandra Wo Compl, Type Ii Or Unspec Type, Not Uncntrld (5) Hypertension Nos (6) Rectal bleeding (7) S/P hemorrhoid banding Surgical Problems: (1) H/O percutaneous transluminal coronary angioplasty (2) Stented coronary artery Family History Cancer Diabetes mellitus Heart disease Hypertension Lung disease Social History Smoking Status: Former Smoker Marital Status: Housing Status: lives with significant other Occupation Status: retired Current/Historical Medications Scheduled Calcium Polycarbophil (Fibercon), 2 TABS PO QAM Cholecalciferol (Vitamin D), 1,000 UNITS PO QAM Clopidogrel (Plavix), 75 MG PO QAM Digoxin (Digox), 125 MCG PO QAM Dutasteride (Avodart), 0.5 MG PO LUNCH Fluticasone Propionate (Nasal) (Flonase Allergy Relief), 1-2 SPRAYS TRAN DAILY- BID Ipratropium-Albuterol (Combivent Respimat), 1 PUFF INH BID Metoprolol Succ (Toprol Xl) (Toprol-Xl ), 100 MG PO QAM Nitroglycerin (Nitrostat), 0.4 MG UT PRN Pravastatin Sodium (Pravachol), 20 MG PO HS Tamsulosin Hcl (Flomax), 0.4 MG PO BID Telmisartan/Hctz (Micardis Hct 40MG/12.5MG), 1 TAB PO DAILY AT NOON Scheduled PRN Ipratropium-Albuterol (Duoneb), 1 TREATMENT INH TID PRN for Shortness of Breath Allergies Coded Allergies: PEYMAN Inhibitors (Verified Allergy, Mild, RASH, 04/20/17) Amoxicillin (Verified Allergy, Unknown, RASH, 04/20/17) Metoclopramide (Verified Allergy, Unknown, RASH, 04/20/17) Penicillins (Verified Allergy, Unknown, RASH, 04/20/17) Physical Exam Vital Signs Date Time Temp Pulse Resp B/P (MAP) Pulse Ox O2 Delivery O2 Flow Rate FiO2 04/20/17 11:07 66 17 97 04/20/17 11:01 120/55 04/20/17 10:52 59 24 97 04/20/17 10:37 60 15 96 04/20/17 10:31 127/69 04/20/17 10:22 59 23 96 04/20/17 10:07 63 26 96 04/20/17 10:01 142/82 04/20/17 09:52 63 14 94 04/20/17 09:47 59 24 94 04/20/17 09:32 55 24 95 04/20/17 09:31 138/69 04/20/17 09:17 97 Room Air 04/20/17 09:17 57 20 96 04/20/17 09:10 71 04/20/17 09:02 65 22 97 04/20/17 09:02 70 04/20/17 09:01 131/63 04/20/17 08:55 142/71 04/20/17 08:51 36.6 64 20 157/77 96 Room Air Physical Exam GENERAL: Awake, alert, fatigued-appearing, in no distress HENT: Normocephalic, atraumatic. Dry mucous membranes. EYES: Normal conjunctiva. Sclera non-icteric. NECK: Supple. No nuchal rigidity. FROM. No JVD. RESPIRATORY: Clear to auscultation. CARDIAC: Regular rate, normal rhythm. 2/6 systolic murmur. Extremities warm and well perfused. Pulses equal. ABDOMEN: Soft, non-distended. No tenderness to palpation. No rebound or guarding. No masses. RECTAL: Deferred. MUSCULOSKELETAL: Chest examination reveals no tenderness. The back is symmetrical on inspection without obvious abnormality. There is no CVA tenderness to palpation. No joint edema. LOWER EXTREMITIES: Calves are equal size bilaterally and non-tender. No edema. No discoloration. NEURO: Normal sensorium. No sensory or motor deficits noted. SKIN: No rash or jaundice noted. Medical Decision & Procedures ER Provider Diagnostic Interpretation: X-ray: Per my interpretation, radiologist review. CHEST ONE VIEW PORTABLE CLINICAL HISTORY: Chest pain. COMPARISON STUDY: Chest radiograph February 10, 2017. FINDINGS: Emphysema is noted. There is no consolidation to suggest pneumonia. Pulmonary vascularity is normal. Cardiomediastinal silhouette is normal. No pneumothorax or pleural effusion is identified. Lumbar spine fusion hardware is partially imaged. IMPRESSION: 1. No acute cardiopulmonary findings. 2. Emphysema. Electronically signed by: Collins Metzger M.D. 04/20/2017 9:34 AM Dictated Date/Time: 04/20/2017 9:33 AM Laboratory Results 04/20/17 08:55 Red Blood Count 4.41, Mean Corpuscular Volume 97.7, Mean Corpuscular Hemoglobin 33.6, Mean Corpuscular Hemoglobin Concent 34.3, Mean Platelet Volume 10.4, Neutrophils (%) (Auto) 72.9, Lymphocytes (%) (Auto) 15.3, Monocytes (%) (Auto) 8.5, Eosinophils (%) (Auto) 2.6, Basophils (%) (Auto) 0.4, Neutrophils # (Auto) 7.20, Lymphocytes # (Auto) 1.51, Monocytes # (Auto) 0.84, Eosinophils # (Auto) 0.26, Basophils # (Auto) 0.04 04/20/17 08:55 Test 04/20/17 08:55 04/20/17 09:03 White Blood Count 9.88 K/uL (4.8-10.8) Red Blood Count 4.41 M/uL (4.7-6.1) Hemoglobin 14.8 g/dL (14.0-18.0) Hematocrit 43.1 % (42-52) Mean Corpuscular Volume 97.7 fL (80-100) Mean Corpuscular Hemoglobin 33.6 pg (25-34) Mean Corpuscular Hemoglobin Concent 34.3 g/dl (32-36) Platelet Count 218 K/uL (130-400) Mean Platelet Volume 10.4 fL (7.4-10.4) Neutrophils (%) (Auto) 72.9 % Lymphocytes (%) (Auto) 15.3 % Monocytes (%) (Auto) 8.5 % Eosinophils (%) (Auto) 2.6 % Basophils (%) (Auto) 0.4 % Neutrophils # (Auto) 7.20 K/uL (1.4-6.5) Lymphocytes # (Auto) 1.51 K/uL (1.2-3.4) Monocytes # (Auto) 0.84 K/uL (0.11-0.59) Eosinophils # (Auto) 0.26 K/uL (0-0.5) Basophils # (Auto) 0.04 K/uL (0-0.2) RDW Standard Deviation 48.6 fL (36.4-46.3) RDW Coefficient of Variation 13.6 % (11.5-14.5) Immature Granulocyte % (Auto) 0.3 % Immature Granulocyte # (Auto) 0.03 K/uL (0.00-0.02) Anion Gap 5.0 mmol/L (3-11) Est Creatinine Clear Calc Drug Dose 38.5 ml/min Estimated GFR () 53.8 Estimated GFR (Non- 46.5 BUN/Creatinine Ratio 17.6 (10-20) Calcium Level 9.5 mg/dl (8.5-10.1) Pro-B-Type Natriuretic Peptide 67 pg/ml (0-1800) Digoxin Level 0.8 ng/ml (0.8-2.0) Bedside Troponin I < 0.030 ng/ml (0-0.045) Laboratory results reviewed by me Medications Administered Medications (Trade) Dose Ordered Sig/Mel Route Start Time Stop Time Status Last Admin Dose Admin Aspirin (Aspirin Chew) 324 mg NOW STAT PO 04/20/17 10:12 04/20/17 10:13 DC 04/20/17 10:31 324 MG ECG Indication: chest pain Rate (beats per minute): 68 Rhythm: normal sinus Findings: RBBB, no acute ischemic change, other (normal intervals) Comparison ECG Date: 02/10/17 ED Course 0907: The patient was evaluated in room A3. A complete history and physical exam was performed. 1012: Ordered Aspirin 324 mg PO. 1015: I reevaluated the patient and he is doing well. I discussed the exam findings with him and I discussed the treatment plan. He verbalized complete understanding and agreement. He will be evaluated for further treatment. 1050: The patient's case was discussed with Dr. Adams [facility]. He is going to evaluate the patient for further treatment. Medical Decision Differential diagnosis: Etiologies such as cardiac ischemia, aortic dissection, pulmonary embolism, pneumonia, musculoskeletal, infections, pericarditis, myocarditis, gastrointestinal, as well as others were entertained. I reviewed the patient's past medical history, medications, and the nursing notes as described above. Patient is an 81-year-old gentleman with past medical history of CAD with multiple stents on Plavix presents to the emergency department with persistent intermittent chest pain both with exertion and at rest. History of present illness. On arrival the patient denies any current chest pain. Afebrile stable vital signs. EKG unremarkable with baseline RBBB unchanged and troponin negative. Chest x-ray also unremarkable. Denies tearing cp and pulses are equal making dissection unlikely. Considering the patient's significant history and well as his intermittent symptoms that can be consistent with unstable angina will admit patient for further evaluation including likely provocative testing. Heart score 5, moderate risk. Admitted to medicine service for further management. Medication Reconcilliation Current Medication List: was personally reviewed by me Blood Pressure Screening Patient's blood pressure: Elevated blood pressure Blood pressure disposition: Elevated BP felt to be situational, Did not require urgent referral Consults Time Called: 1014 Consulting Physician: MILVIA Dean Returned Call: [phone] The patient's case was discussed with MILVIA Dean. He is going to evaluate the patient for further treatment. Impression Primary Impression: Substernal chest pain Scribe Attestation The scribe's documentation has been prepared under my direction and personally reviewed by me in its entirety. I confirm that the note above accurately reflects all work, treatment, procedures, and medical decision making performed by me. Departure Information Dispostion Being Evaluated By Hospitalist Referrals Anthony Hsu M.D. (PCP)
[2017-04-20 09:26] LABS: BASO % 0.4 %; BASO ABS # 0.04 K/uL (0-0.2); COMPLETE YES; EOS % 2.6 %; HEMATOCRIT 43.1 % (42-52); IG% 0.3 %; LYMPH % 15.3 %; LYMPH ABS # 1.51 K/uL (1.2-3.4); MEAN CELL VOLUME 97.7 fL (80-100); MEAN CORPUSCULAR HEMOGLOBIN 33.6 pg (25-34); MEAN CORPUSCULAR HGB CONC 34.3 g/dl (32-36); MEAN PLATELET VOLUME 10.4 fL (7.4-10.4); MONO % 8.5 %; NEUT % 72.9 %; PLATELET COUNT 218 K/uL (130-400); RED BLOOD COUNT 4.41 M/uL (4.7-6.1); WHITE BLOOD COUNT 9.88 K/uL (4.8-10.8)
[2017-04-20 09:32] LABS: BLOOD UREA NITROGEN 25 mg/dl (7-18); BUN/CREATININE RATIO 17.6 (10-20); CALCIUM 9.5 mg/dl (8.5-10.1); CARBON DIOXIDE 28 mmol/L (21-32); CHLORIDE 104 mmol/L (98-107); GLUCOSE 110 mg/dl (70-99); POTASSIUM 4.2 mmol/L (3.5-5.1); SODIUM 137 mmol/L (136-145)
--- NOTE | 2017-04-20 09:35 | DIAGNOSTIC IMAGING REPORT ---
CHEST ONE VIEW PORTABLE CLINICAL HISTORY: Chest pain. COMPARISON STUDY: Chest radiograph February 10, 2017. FINDINGS: Emphysema is noted. There is no consolidation to suggest pneumonia. Pulmonary vascularity is normal. Cardiomediastinal silhouette is normal. No pneumothorax or pleural effusion is identified. Lumbar spine fusion hardware is partially imaged. IMPRESSION: 1. No acute cardiopulmonary findings. 2. Emphysema. Electronically signed by: Collins Metzger M.D. 04/20/2017 9:34 AM Dictated Date/Time: 04/20/2017 9:33 AM
[2017-04-20] MEDS ORDERED: ASPIRIN 81 MG CHEW PO STA (10:12)
[2017-04-20] MEDS ORDERED: NITROGLYCERIN 0.4 MG SL PER TAB CHARGE SL PRN (11:15)
[2017-04-20] MEDS ORDERED: ACETAMINOPHEN 325 MG TAB PO PRN (11:15)
[2017-04-20] MEDS ORDERED: ALBUT/IPRATROP 3MG/0.5MG NEB 3 ML VIAL INH PRN (11:15)
[2017-04-20] MEDS ORDERED: ONDANSETRON INJ 2 MG/ML 2 ML VIAL IV PRN (11:30)
--- NOTE | 2017-04-20 11:41 | History and Physical ---
History & Physical Date & Time of Service: Apr 20, 2017 at 11:31 Chief Complaint: Chest/Back Pain Primary Care Physician: Anthony Hsu M.D. History of Present Illness Source: patient, spouse The patient is an 81-year-old male who presents to the emergency department with intermittent left parasternal chest discomfort that began yesterday occurred intermittently overnight where he was awoken from sleep a few times, and upon awakening had chest pain again this morning. Duration of these episodes were 5-10 minutes. The pain would occasionally radiate into his left back by his shoulder blade. The pain would occur with him without activity. He has history of cardiac stents. His reports that he's had fatigue over the past few months since he was in the hospital for hemorrhoidal bleeding requiring 2 units of blood, and is never really gotten back to his usual energy level. However, his fatigue has worsened over the past week. He does have some occasional lightheadedness and dizziness, but has not had any syncopal events. He does feel off balance periodically. He has not had any recent travel or had any sick exposures. Past Medical/Surgical History Medical Problems: (1) Atrial Fibrillation Status: Chronic (2) Chronic Kidney Disease, Unspecified Status: Chronic (3) Coronary artery disease Status: Chronic (4) Diab Alexandra Wo Compl, Type Ii Or Unspec Type, Not Uncntrld Status: Chronic (5) Hypertension Nos Status: Chronic Surgical Problems: (1) H/O percutaneous transluminal coronary angioplasty Status: Resolved (2) Stented coronary artery Status: Resolved Family History Cancer Diabetes mellitus Heart disease Hypertension Lung disease Social History Smoking Status: Former Smoker Smokeless Tobacco Use: No Alcohol Use: none Drug Use: none Marital Status: Housing status: lives with family Occupational Status: retired Immunizations History of Influenza Vaccine: Yes History of Tetanus Vaccine?: Yes History of Pneumococcal: Yes History of Hepatitis B Vaccine: Unknown Multi-Drug Resistant Organisms History of MDRO: No Allergies Coded Allergies: PEYMAN Inhibitors (Verified Allergy, Mild, RASH, 04/20/17) Amoxicillin (Verified Allergy, Unknown, RASH, 04/20/17) Metoclopramide (Verified Allergy, Unknown, RASH, 04/20/17) Penicillins (Verified Allergy, Unknown, RASH, 04/20/17) Home Medications Scheduled Calcium Polycarbophil (Fibercon), 2 TABS PO QAM Cholecalciferol (Vitamin D), 1,000 UNITS PO QAM Clopidogrel (Plavix), 75 MG PO QAM Digoxin (Digox), 125 MCG PO QAM Dutasteride (Avodart), 0.5 MG PO LUNCH Fluticasone Propionate (Nasal) (Flonase Allergy Relief), 1-2 SPRAYS TRAN DAILY- BID Ipratropium-Albuterol (Combivent Respimat), 1 PUFF INH BID Metoprolol Succ (Toprol Xl) (Toprol-Xl ), 100 MG PO QAM Nitroglycerin (Nitrostat), 0.4 MG UT PRN Pravastatin Sodium (Pravachol), 20 MG PO HS Tamsulosin Hcl (Flomax), 0.4 MG PO BID Telmisartan/Hctz (Micardis Hct 40MG/12.5MG), 1 TAB PO DAILY AT NOON Scheduled PRN Ipratropium-Albuterol (Duoneb), 1 TREATMENT INH TID PRN for Shortness of Breath Review of Systems The patient denies palpitations, shortness of breath, cough, lower extremity swelling, vision change, hearing change, sore throat, fevers, chills, sweats, weight change, nausea, vomiting, diarrhea or constipation, abdominal pain, pelvic pain, blood in urine or stool, dysuria, urinary frequency or urgency, headache, memory loss, rash, abnormal bruising or bleeding, focal weakness, numbness or tingling in arms or legs, generalized arthralgias or myalgias, neck pain, night sweats, or allergy symptoms. The review of systems is otherwise negative other than for that already noted above, and at least 10 systems have been reviewed. Physical Exam Vital Signs Date Time Temp Pulse Resp B/P (MAP) Pulse Ox O2 Delivery O2 Flow Rate FiO2 04/20/17 09:47 59 24 94 04/20/17 09:32 55 24 95 04/20/17 09:31 138/69 04/20/17 09:17 97 Room Air 04/20/17 09:17 57 20 96 04/20/17 09:10 71 04/20/17 09:02 65 22 97 04/20/17 09:02 70 04/20/17 09:01 131/63 04/20/17 08:55 142/71 04/20/17 08:51 36.6 64 20 157/77 96 Room Air The patient is awake, well-developed and adequately nourished, alert and oriented 3, normocephalic and atraumatic, looks fatigued, lying in bed and in no acute distress. HEENT--PERRL, EOMI, mucous membranes and oropharynx dry. Neck--supple, no JVD or bruits, thyroid normal, trachea midline, no adenopathy. Heart--normal S1 and S2, no extra beats, no murmurs, rubs or gallops. Lungs--clear bilaterally with good air movement, no respiratory distress, no accessory muscle use. Abdomen--normal bowel sounds and soft, nontender and nondistended, no hernias or masses, no organomegaly. Extremities--no cyanosis, clubbing or edema. There are good distal pulses b/l. Dermatologic--normal skin turgor, normal color, warm and dry, no abnormal lymph nodes, no rash. Neurologic--cranial nerves II through XII grossly intact, motor and sensory examination normal. Rheumatologic--normal range of motion, nontender, muscles and joints. Psychiatric--normal affect. Diagnostics Laboratory Results Results Past 24 Hours Test 04/20/17 08:55 04/20/17 09:03 Range/Units White Blood Count 9.88 4.8-10.8 K/uL Red Blood Count 4.41 4.7-6.1 M/uL Hemoglobin 14.8 14.0-18.0 g/dL Hematocrit 43.1 42-52 % Mean Corpuscular Volume 97.7 80-100 fL Mean Corpuscular Hemoglobin 33.6 25-34 pg Mean Corpuscular Hemoglobin Concent 34.3 32-36 g/dl Platelet Count 218 130-400 K/uL Mean Platelet Volume 10.4 7.4-10.4 fL Neutrophils (%) (Auto) 72.9 % Lymphocytes (%) (Auto) 15.3 % Monocytes (%) (Auto) 8.5 % Eosinophils (%) (Auto) 2.6 % Basophils (%) (Auto) 0.4 % Neutrophils # (Auto) 7.20 1.4-6.5 K/uL Lymphocytes # (Auto) 1.51 1.2-3.4 K/uL Monocytes # (Auto) 0.84 0.11-0.59 K/uL Eosinophils # (Auto) 0.26 0-0.5 K/uL Basophils # (Auto) 0.04 0-0.2 K/uL RDW Standard Deviation 48.6 36.4-46.3 fL RDW Coefficient of Variation 13.6 11.5-14.5 % Immature Granulocyte % (Auto) 0.3 % Immature Granulocyte # (Auto) 0.03 0.00-0.02 K/uL Sodium Level 137 136-145 mmol/L Potassium Level 4.2 3.5-5.1 mmol/L Chloride Level 104 98-107 mmol/L Carbon Dioxide Level 28 21-32 mmol/L Anion Gap 5.0 3-11 mmol/L Blood Urea Nitrogen 25 7-18 mg/dl Creatinine 1.40 0.60-1.40 mg/dl Est Creatinine Clear Calc Drug Dose 38.5 ml/min Estimated GFR () 53.8 Estimated GFR (Non- 46.5 BUN/Creatinine Ratio 17.6 10-20 Random Glucose 110 70-99 mg/dl Calcium Level 9.5 8.5-10.1 mg/dl Troponin I < 0.015 0-0.045 ng/ml Pro-B-Type Natriuretic Peptide 67 0-1800 pg/ml Digoxin Level 0.8 0.8-2.0 ng/ml Bedside Troponin I < 0.030 0-0.045 ng/ml Diagnostic Radiology Patient Name: DIGNA MENEZES Unit Number: [id number] Dictated: 04/20/17932 Transcribed: 04/20/17932 DIONICIO Printed Date/Time: [~ rep prt dt]/[~ rep prt tm] [~ rep ct labl] - [~ rep ct ivnm] [facility] [place] [place] [address] Dictated: 04/20/17932 Transcribed: 04/20/17932 Printed Date/Time: [~ rep prt dt]/[~ rep prt tm] [~ rep ct labl] - [~ rep ct ivnm] CHEST ONE VIEW PORTABLE CLINICAL HISTORY: Chest pain. COMPARISON STUDY: Chest radiograph February 10, 2017. FINDINGS: Emphysema is noted. There is no consolidation to suggest pneumonia. Pulmonary vascularity is normal. Cardiomediastinal silhouette is normal. No pneumothorax or pleural effusion is identified. Lumbar spine fusion hardware is partially imaged. IMPRESSION: 1. No acute cardiopulmonary findings. 2. Emphysema. Electronically signed by: Collins Metzger M.D. 04/20/2017 9:34 AM Dictated Date/Time: 04/20/2017 9:33 AM The status of this report is Signed. Draft = Not yet reviewed or approved by Radiologist. Signed = Reviewed and approved by Radiologist. <AttendingPhy></AttendingPhy> <FamilyPhy>Marcel Schmidt M.D.</FamilyPhy> < PrimaryPhy>Anthony Hsu M.D.</PrimaryPhy> <UnitNumber>[id number]</UnitNumber > <VisitNumber>[id number]</VisitNumber> <PatientName>DIGNA MENEZES</ PatientName> <DateOfBirth>1935</DateOfBirth> <Location>[facility]</Location> < ServiceDate>04/20/17</ServiceDate> <MNE>ESINDI</MNE> <OrderingPhy>Milo Khan M.D.</OrderingPhy> <OrderingPhyMNE>f rep ord dr walsh</OrderingPhyMNE> <DictatingPhyMNE>f rep dict dr walsh</DictatingPhyMNE> <CCListMNE>f rep ct [place]</ CCListMNE> <AdmittingPhyMNE>f pt admit dr walsh</AdmittingPhyMNE> <AttendingPhyMNE >f pt attend dr walsh</AttendingPhyMNE> <ConsultingPhyMNE>f pt consult dr walsh</ConsultingPhyMNE> <FamilyPhyMNE>f pt fam dr walsh</FamilyPhyMNE> <OtherPhyMNE>f pt other dr walsh</OtherPhyMNE> < PrimaryPhyMNE>f pt prim care dr walsh</PrimaryPhyMNE> <ReferringPhyMNE>f pt referring dr walsh</ReferringPhyMNE> EKG EKG shows normal sinus rhythm at 68 beats minute, right bundle branch block, no change compared to 02/10/2017. Impression Assessment and Plan CAD/hypertension/coronary artery stents history/atrial fibrillation/Left-sided chest pain with radiation toward back-- The patient will be admitted to telemetry for serial cardiac enzymes, cardiac rhythm monitoring and a 2-D echocardiogram with Dopplers. EKG shows no acute findings. Chest x-ray is normal. Continue clopidogrel 75 mg by mouth every morning, digoxin 125 g by mouth every morning, metoprolol succinate 100 mg by mouth every morning, nitroglycerin sublingual when necessary, telmisartan 40 mg by mouth daily. Hold HCTZ 12.5 mg by mouth daily. If the above workup is negative, the patient should be considered for stress test prior to discharge. Hyperlipidemia--continue Pravachol 20 mg by mouth at bedtime. BPH--continue tamsulosin 0.4 mg by mouth twice a day and dutasteride 0.5 mg by mouth at lunchtime. Ex Emphysema/allergy--continue Combivent 1 puff twice a day, and Flonase allergy relief 2 sprays each nostril twice a day. Hemorrhoidal bleeding/previous anemia requiring hospitalization in 2 units PRBCs --hemoglobin is normal at this point of 14.8. He has not had any recent bleeding. Level of Care Telemetry Advanced Directives Existing Advance Directive: No Existing Living Will: No Existing Power of Furniture Finisher Apprentice: No Resuscitation Status FULL RESUSCITATION VTE Prophylaxis VTE Risk Assessment Done? Y/N: Yes Risk Level: Moderate Given or contraindicated: SCD's Social Service Consult None Apply
[2017-04-20] MEDS: CALCIUM POLYCARBOPHIL 1 TAB PO SCH (12:10)
[2017-04-20] MEDS: CHOLECALCIFEROL 1000 INTER.UNIT TAB PO SCH (12:10)
[2017-04-20] MEDS: METOPROLOL SUCC 50MG EXT REL TAB PO SCH (12:12)
[2017-04-20] MEDS: CLOPIDOGREL BISULFATE 75 MG TAB PO SCH (12:12)
[2017-04-20] MEDS: TAMSULOSIN HCL 0.4 MG CAP PO SCH (12:13)
[2017-04-20 13:23] VITALS: BP 152/68; PULSE 60; TEMP 36.8; O2SAT 96; Ht 177.8 cm; Wt 62.5 kg
--- NOTE | 2017-04-20 13:56 | ECHOCARDIOGRAM REPORT ---
*NOTICE TO RECEIVING REPUBLICAN AGENCY This information is strictly Confidential and protected under [place] law. [place] law prohibits you from making any further disclosure of this information unless further disclosure is expressly permitted by the written consent of the person to whom it pertains or is authorized by law. A general authorization for the release of medical or other information is not sufficient for this purpose. Hospital accepts no responsibility if the information is made available to any other person, INCLUDING THE PATIENT. Interpretation Summary * Name: DIGNA MENEZES Study Date: 04/20/2017 12:16 PM BP: 120/63 mmHg * Patient Location: [facility] HR: 58 * : 1935 (M/d/yyyy) Gender: Male Height: 69 in * Age: 81 yrs Ethnicity: CA Weight: 147 lb * Ordering Physician: Sawyer Adams * Referring Physician: Self, Referred * Performed By: Renée Cabrera RCS * * Reason For Study: Chest Pain * BSA: 1.8 m2 * Normal biventricular systolic function. * Left ventricular class I diastolic dysfunction. * Mild left atrial dilatation. * Trace aortic regurgitation. * Moderate mitral regurgitation. * Posterior MV leaflet pprolapse. * Moderate tricuspid regurgitation. * Mildly elevated estimated right ventricular systolic pressure. * -- Conclusions -- * Aortic valve sclerosis mild, without significant aortic valvular stenosis. Procedure Details * A complete two-dimensional transthoracic echocardiogram was performed (2D, M-mode, Doppler and color flow Doppler). Left Ventricle * The left ventricle is normal in size. * There is normal left ventricular wall thickness. * Ejection Fraction = 65-70%. * Left ventricular systolic function is normal. * A full diastolic examination was done with clinical findings of Class I diastolic dysfunction. * The left ventricular wall motion is normal. Right Ventricle * The right ventricle is normal in size and function. Atria * The left atrium is mildly dilated. * Right atrial size is normal. Mitral Valve * Thickening and severe prolapse of the posterior mitral valve leaflet. * There is no mitral valve stenosis. * There is moderate mitral regurgitation. Tricuspid Valve * The tricuspid valve is normal. * There is moderate tricuspid regurgitation. * Right ventricular systolic pressure is elevated at 30-40mmHg. Aortic Valve * The aortic valve is trileaflet. * The aortic valve opens well. * Aortic valve sclerosis mild, without significant aortic valvular stenosis. * Aortic stenosis is absent. * Trace aortic regurgitation. Pulmonic Valve * The pulmonic valve is not well visualized. * The pulmonary valve is inadequately visualized, but the Doppler data is adequate for interpretation. * There is no pulmonic valvular stenosis. * There is no pulmonic valvular regurgitation. Great Vessels * The aortic root is normal size. Pericardium/Pleural * There is no pericardial effusion. Great Vessels * Normal inferior vena cava diameter and respiratory variation suggests normal central venous pressure. MMode 2D Measurements and Calculations IVSd 0.98 cm IVSs 1.2 cm LVIDd 5.6 cm LVIDs 3.5 cm LVPWd 1.0 cm LVPWs 1.3 cm IVS/LVPW 0.97 FS 37.2 % EDV(Teich) 152.8 ml ESV(Teich) 51.2 ml EF(Teich) 66.5 % EDV(cubed) 174.3 ml ESV(cubed) 43.2 ml EF(cubed) 75.2 % % IVS thick 24.9 % % LVPW thick 24.0 % LV mass(C)d 217.5 grams LV mass(C)dI 120.0 grams/m\S\2 LV mass(C)s 143.1 grams LV mass(C)sI 78.9 grams/m\S\2 CO(Teich) 5.7 l/min CI(Teich) 3.1 l/min/m\S\2 SV(Teich) 101.7 ml SI(Teich) 56.1 ml/m\S\2 CO(cubed) 7.3 l/min CI(cubed) 4.1 l/min/m\S\2 SV(cubed) 131.2 ml SI(cubed) 72.4 ml/m\S\2 Ao root diam 3.8 cm Ao root area 11.6 cm\S\2 ACS 1.6 cm LA dimension 3.5 cm asc Aorta Diam 3.7 cm LA/Ao 0.91 LVAd ap4 34.4 cm\S\2 LVLd ap4 8.3 cm EDV(MOD-sp4) 119.0 ml LVAs ap4 17.6 cm\S\2 LVLs ap4 7.1 cm ESV(MOD-sp4) 37.0 ml EF(MOD-sp4) 68.9 % LVAd ap2 32.9 cm\S\2 LVLd ap2 8.5 cm EDV(MOD-sp2) 107.0 ml LVAs ap2 14.8 cm\S\2 LVLs ap2 6.4 cm ESV(MOD-sp2) 29.0 ml EF(MOD-sp2) 72.9 % CO(MOD-sp4) 4.6 l/min CI(MOD-sp4) 2.5 l/min/m\S\2 SV(MOD-sp4) 82.0 ml SI(MOD-sp4) 45.2 ml/m\S\2 CO(MOD-sp2) 4.4 l/min CI(MOD-sp2) 2.4 l/min/m\S\2 SV(MOD-sp2) 78.0 ml SI(MOD-sp2) 43.0 ml/m\S\2 Doppler Measurements and Calculations MV E max shila 95.3 cm/sec MV A max shila 111.6 cm/sec MV E/A 0.85 MV P1/2t max shila 101.5 cm/sec MV P1/2t 115.1 msec MVA(P1/2t) 1.9 cm\S\2 MV dec slope 258.4 cm/sec\S\2 MV dec time 0.27 sec Ao V2 max 132.7 cm/sec Ao max PG 7.0 mmHg Ao max PG (full) 4.2 mmHg AI max shila 490.3 cm/sec AI max PG 96.2 mmHg AI dec slope 256.9 cm/sec\S\2 AI P1/2t 559.0 msec LV V1 max PG 2.8 mmHg LV V1 max 83.9 cm/sec PA V2 max 110.1 cm/sec PA max PG 5.0 mmHg TR max shila 301.0 cm/sec
[2017-04-20] MEDS ORDERED: IV FLUIDS COMPLETED PRN (14:15)
[2017-04-20 14:52] VITALS: BP 128/56; PULSE 65; TEMP 36.7; O2SAT 93
[2017-04-20 18:53] VITALS: BP 165/61; PULSE 60; TEMP 36.8; O2SAT 96
[2017-04-20 19:56] VITALS: O2SAT 96
[2017-04-20 19:57] LABS: CKMB/CK RATIO 1.7 (0-3.0)
[2017-04-20] MEDS: IPRATROPIUM BROMIDE/ALBUTEROL respimat INH INH SCH (21:00)
[2017-04-20] MEDS ORDERED: PRAVASTATIN SOD 20 MG TAB PO SCH (21:00)
[2017-04-20] MEDS: AVODART~ORDER AWAITING ACTION SCH (23:20)
[2017-04-21 00:42] VITALS: BP 138/60; PULSE 65; TEMP 36.7; O2SAT 93
[2017-04-21 04:10] LABS: BASO % 0.3 %; BASO ABS # 0.03 K/uL (0-0.2); COMPLETE YES; EOS % 3.2 %; HEMATOCRIT 41.1 % (42-52); IG% 0.4 %; LYMPH % 16.8 %; LYMPH ABS # 1.85 K/uL (1.2-3.4); MEAN CELL VOLUME 97.6 fL (80-100); MEAN CORPUSCULAR HEMOGLOBIN 33.3 pg (25-34); MEAN CORPUSCULAR HGB CONC 34.1 g/dl (32-36); MEAN PLATELET VOLUME 10.3 fL (7.4-10.4); MONO % 8.3 %; PLATELET COUNT 199 K/uL (130-400); RED BLOOD COUNT 4.21 M/uL (4.7-6.1); WHITE BLOOD COUNT 11.04 K/uL (4.8-10.8)
[2017-04-21 04:21] LABS: BLOOD UREA NITROGEN 22 mg/dl (7-18); BUN/CREATININE RATIO 16.8 (10-20); CALCIUM 8.3 mg/dl (8.5-10.1); CARBON DIOXIDE 29 mmol/L (21-32); CHLORIDE 106 mmol/L (98-107); GLUCOSE 94 mg/dl (70-99); MAGNESIUM 2.1 mg/dl (1.8-2.4); POTASSIUM 4.1 mmol/L (3.5-5.1); SODIUM 138 mmol/L (136-145)
[2017-04-21 04:26] LABS: CKMB/CK RATIO 1.6 (0-3.0)
[2017-04-21 04:32] VITALS: BP 116/55; PULSE 64; TEMP 36.4; O2SAT 94
[2017-04-21 07:35] VITALS: BP 135/64; PULSE 58; TEMP 36.7; O2SAT 94
[2017-04-21] MEDS: AVODART~ORDER AWAITING ACTION SCH (08:00)
[2017-04-21] MEDS: TAMSULOSIN HCL 0.4 MG CAP PO SCH (08:10)
[2017-04-21] MEDS: IPRATROPIUM BROMIDE/ALBUTEROL respimat INH INH SCH (08:14)
[2017-04-21] MEDS: CALCIUM POLYCARBOPHIL 1 TAB PO SCH (08:15)
[2017-04-21] MEDS: CLOPIDOGREL BISULFATE 75 MG TAB PO SCH (08:26)
[2017-04-21] MEDS: METOPROLOL SUCC 50MG EXT REL TAB PO SCH (08:27)
[2017-04-21] MEDS: CHOLECALCIFEROL 1000 INTER.UNIT TAB PO SCH (08:28)
[2017-04-21] MEDS ORDERED: NURSING DECISION MEDICATION ORDER SCH (08:45)
[2017-04-21] MEDS ORDERED: DIGOXIN 0.125 MG TAB PO SCH ×2 (09:00→16:00)
[2017-04-21] MEDS ORDERED: NURSING VERBAL MED ORDER ONE (09:00)
[2017-04-21] MEDS ORDERED: FLUTICASONE PROPIONATE NA SPR 16 GM BTL NAE SCH (09:00)
[2017-04-21] MEDS ORDERED: TELMISARTAN 40 MG TAB PO SCH ×2 (09:00→12:00)
--- NOTE | 2017-04-21 09:26 | Progress Note ---
Subjective Date of Service: Apr 21, 2017. Subjective Pt evaluation today including: conversation w/ patient, physical exam, chart review, lab review, review of studies, conversation w/ speech correction consultant, review of inpatient medication list Report still has chest pain overnight, has no chest pain now Complain top scalp has been poor, tender to palpation Problem List Medical Problems: (1) Acute urinary retention Status: Acute (2) External hemorrhoids Status: Acute (3) Post-op bleeding Status: Acute (4) Substernal chest pain Status: Acute (5) Urinary retention due to benign prostatic hyperplasia Status: Acute Review of Systems Constitutional: No fever, No chills, No sweats, No weight loss, No weakness, No fatigue, No problem reported Eyes: No worsening of vision, No eye pain, No redness, No discharge, No diplopia ENT: No hearing loss, No unusual epistaxis, No nasal symptoms, No sore throat, No tinnitus, No dental problems, No trouble swallowing Respiratory: No cough, No sputum, No wheezing, No shortness of breath, No dyspnea on exertion, No dyspnea at rest, No hemoptysis Cardiac: No chest pain, No orthopnea, No PND, No edema, No claudication, No palpitations Abdomen: No pain, No nausea, No vomiting, No diarrhea, No constipation Musculoskeletal: No joint pain, No muscle pain, No swelling, No calf pain Male : No dysuria, No urinary frequency, No incontinence, No nocturia more than once/night, No slowing stream, No hematuria Neurologic: No memory loss, No paralysis, No weakness, No numbness/tingling, No vertigo, No balance problems Psychiatric: No depression symptoms, No anhedonism, No anxiety, No insomnia, No substance abuse Heme: No abnormal bleeding/bruising, No clotting problems, No swollen lymph nodes, No night sweats Endo: No fatigue, No excessive thirst, No excessive urination Skin: + see HPI, No rash, No itch, No new/changing skin lesions, No color change, No bleeding Objective Vital Signs Date Time Temp Pulse Resp B/P (MAP) Pulse Ox O2 Delivery O2 Flow Rate FiO2 04/21/17 08:00 Room Air 04/21/17 07:35 36.7 58 18 135/64 (87) 94 Room Air 04/21/17 04:32 36.4 64 16 116/55 (75) 94 04/21/17 04:00 Room Air 04/21/17 00:42 36.7 65 16 138/60 (86) 93 Room Air 04/21/17 00:00 Room Air 04/20/17 19:56 96 Room Air 04/20/17 18:53 36.8 60 19 165/61 (95) 96 Room Air 04/20/17 16:01 Room Air 04/20/17 14:52 36.7 65 20 128/56 (80) 93 Room Air 04/20/17 13:23 36.8 60 18 152/68 96 Room Air 04/20/17 12:27 72 18 128/83 97 04/20/17 12:12 65 95 04/20/17 12:01 120/63 04/20/17 11:57 59 19 96 04/20/17 11:42 58 27 96 04/20/17 11:32 150/76 04/20/17 11:22 58 21 97 04/20/17 11:07 66 17 97 04/20/17 11:01 120/55 04/20/17 10:52 59 24 97 04/20/17 10:37 60 15 96 04/20/17 10:31 127/69 04/20/17 10:22 59 23 96 04/20/17 10:07 63 26 96 04/20/17 10:01 142/82 04/20/17 09:52 63 14 94 04/20/17 09:47 59 24 94 04/20/17 09:32 55 24 95 04/20/17 09:31 138/69 Physical Exam General Appearance: WD/WN, no apparent distress, + thin Eyes: normal inspection, PERRL, EOMI, sclerae normal ENT: normal ENT inspection, hearing grossly normal, pharynx normal Neck: supple, no adenopathy, thyroid normal, no JVD, no carotid bruits, trachea midline Respiratory/Chest: chest non-tender, normal breath sounds, no respiratory distress, no accessory muscle use, + decreased breath sounds Cardiovascular: regular rate, rhythm, no edema, no gallop, no JVD, no murmur Abdomen: normal bowel sounds, non tender, soft, no organomegaly, no pulsatile mass Extremities: normal range of motion, non-tender, normal inspection, no pedal edema, no calf tenderness, normal capillary refill, pelvis stable Neurologic/Psychiatric: procurement clerk II-XII nml as tested, no motor/sensory deficits, alert, normal mood/affect, oriented x 3 Skin: normal color, warm/dry, no rash, + pertinent finding (top scalp has 33 mm red pimple, with yellow slough in central,) Lymphatic: no adenopathy Laboratory Results Last 24 Hours Test 04/20/17 19:24 04/21/17 03:35 Total Creatine Kinase 336 U/L 298 U/L Creatine Kinase MB 5.8 ng/ml 4.8 ng/ml Creatine Kinase MB Ratio 1.7 1.6 Troponin I < 0.015 ng/ml < 0.015 ng/ml White Blood Count 11.04 K/uL Red Blood Count 4.21 M/uL Hemoglobin 14.0 g/dL Hematocrit 41.1 % Mean Corpuscular Volume 97.6 fL Mean Corpuscular Hemoglobin 33.3 pg Mean Corpuscular Hemoglobin Concent 34.1 g/dl Platelet Count 199 K/uL Mean Platelet Volume 10.3 fL Neutrophils (%) (Auto) 71.0 % Lymphocytes (%) (Auto) 16.8 % Monocytes (%) (Auto) 8.3 % Eosinophils (%) (Auto) 3.2 % Basophils (%) (Auto) 0.3 % Neutrophils # (Auto) 7.85 K/uL Lymphocytes # (Auto) 1.85 K/uL Monocytes # (Auto) 0.92 K/uL Eosinophils # (Auto) 0.35 K/uL Basophils # (Auto) 0.03 K/uL RDW Standard Deviation 49.3 fL RDW Coefficient of Variation 13.7 % Immature Granulocyte % (Auto) 0.4 % Immature Granulocyte # (Auto) 0.04 K/uL Sodium Level 138 mmol/L Potassium Level 4.1 mmol/L Chloride Level 106 mmol/L Carbon Dioxide Level 29 mmol/L Anion Gap 3.0 mmol/L Blood Urea Nitrogen 22 mg/dl Creatinine 1.30 mg/dl Est Creatinine Clear Calc Drug Dose 38.7 ml/min Estimated GFR () 58.9 Estimated GFR (Non- 50.8 BUN/Creatinine Ratio 16.8 Random Glucose 94 mg/dl Calcium Level 8.3 mg/dl Magnesium Level 2.1 mg/dl Assessment and Plan 81-year-old admitted to hospital because of chest pain with significant history of CAD on 04/20/2017 Chest pain, and goes, with history of CAD/hypertension/coronary artery stents history/atrial fibrillation Patient reported Left-sided chest pain with radiation toward back So far serial cardiac enzymes were negative , cardiac rhythm monitoring were unremarkable , and a 2-D echocardiogram with Dopplers is pending EKG shows no acute findings. Chest x-ray is normal. Because has significant cardiac history, I request patient's primary cardiology consult for next step such as stress or cardiac cath Continue current medication which include clopidogrel 75 mg by mouth every morning, digoxin 125 g by mouth every morning, metoprolol succinate 100 mg by mouth every morning, nitroglycerin sublingual when necessary, telmisartan 40 mg by mouth daily. Continue HCTZ 12.5 mg by mouth daily. Hyperlipidemia--continue Pravachol 20 mg by mouth at bedtime. BPH--continue tamsulosin 0.4 mg by mouth twice a day and dutasteride 0.5 mg by mouth at lunchtime. Ex Emphysema/allergy--continue Combivent 1 puff twice a day, and Flonase allergy relief 2 sprays each nostril twice a day. History of Hemorrhoidal bleeding/previous anemia requiring hospitalization in 2 units PRBCs -hemoglobin is normal at this point of 14.8. He has not had any recent bleeding top scalp has 33 mm red pimple, with yellow slough in central, possible associated with infection Advice hand hygiene, and bacitracin topical use twice a day for 7 days. Discussed with patient with present of RN, answered all questions
[2017-04-21] MEDS ORDERED: BACITRACIN OINT 15 GM TUBE EXT SCH (09:30)
--- NOTE | 2017-04-21 10:14 | Cardiology Consultation ---
Cardiology Consultation Date of Consultation: Apr 21, 2017. Requesting Physician: Malika Reason for Consultation: Chest Pain Pt evaluation today including: conversation w/ patient, physical exam, chart review, lab review, review of studies, conversation w/ attending History of Present Illness The patient is an 81-year-old gentleman history of coronary disease and valvular heart disease who presented [facility] with episodes of left upper chest discomfort. Patient states that he has had symptoms of an aching in the left upper chest near the axilla. He describes this as Pleurisy but it does not worsen with deep inspiration. It waxes and wanes in severity and there are periods of time where it abates entirely. There is a positional component. It generally occurs at rest improves with activity. He has not have any associated breathing difficulty. Does not appear to be tender to palpation. There is some radiation to the back near the scapula. Patient cannot recall symptoms similar in the past. He has had percutaneous interventions remotely, but did not report chest pain occurring prior to those interventions. Patient has had some waxing waning symptoms since admission. In general he is an active individual was is able to care for her yard. He states that he can ascend stairs with only mild dyspnea. He does not have orthopnea or paroxysmal nocturnal dyspnea. He has not report any swelling of lower extremities. He has no significant abdominal complaints recently. He did have recent rectal bleeding after a hemorrhoidectomy which did require blood transfusion. However, his symptoms have improved. He has some mild continued fatigue but no dizziness. No sense of palpitations. Past Medical/Surgical History Coronary artery disease. Patient underwent percutaneous intervention involving the LAD and right coronary artery in 2007 Mitral regurgitation described as moderate with prolapse of the posterior leaflet Hemorrhoids Benign prostatic hypertrophy Chronic obstructive pulmonary disease Diabetes mellitus type 2 Diverticulosis Gastroesophageal reflux Hyperlipidemia Hypertension Remote history of atrial fibrillation around the time of a back surgery. Past surgical history Hemorrhoidectomy Inguinal hernia repair Cataract surgery Low back surgery Family History Cancer Diabetes mellitus Heart disease Hypertension Lung disease Noncontributory given the advanced age Social History Smoking Status: Former Smoker History of Alcohol Use: No Review of Systems Constitutional: + see HPI Respiratory: No cough, No sputum, No wheezing, No shortness of breath, No dyspnea on exertion, No dyspnea at rest, No hemoptysis Cardiac: No chest pain, No orthopnea, No PND, No edema, No claudication, No palpitations Abdomen: + see HPI Male : + see HPI Neurologic: + see HPI Heme: + see HPI Skin: + see HPI No recent rectal bleeding. Continued fatigue All Other Systems: Reviewed and Negative Allergies Coded Allergies: PEYMAN Inhibitors (Verified Allergy, Mild, RASH, 04/20/17) Amoxicillin (Verified Allergy, Unknown, RASH, 04/20/17) Metoclopramide (Verified Allergy, Unknown, RASH, 04/20/17) Penicillins (Verified Allergy, Unknown, RASH, 04/20/17) Medications Current Inpatient Medications Medications (Trade) Dose Ordered Sig/Mel Route Start Time Stop Time Status Last Admin Dose Admin Acetaminophen (Tylenol Tab) 650 mg Q4H PRN PO 04/20/17 11:15 05/20/17 11:14 Nitroglycerin (Nitrostat Tab) 0.4 mg UD PRN SL 04/20/17 11:15 05/20/17 11:14 Calcium Polycarbophil (Fibercon Tab) 2 tab QAM PO 04/21/17 09:00 05/21/17 08:59 04/21/17 08:15 2 TAB Cholecalciferol (Vitamin D Tab) 1,000 inter.unit QAM PO 04/21/17 09:00 05/21/17 08:59 04/21/17 08:28 1,000 INTER.UNIT Clopidogrel Bisulfate (plAVix TAB) 75 mg QAM PO 04/21/17 09:00 05/21/17 08:59 04/21/17 08:26 75 MG Fluticasone Propionate (Flonase Nasal [place]) 2 sprays DAILY TRAN 04/21/17 09:00 05/21/17 08:59 04/21/17 08:14 2 SPRAYS Albuterol/ Ipratropium (Combivent Respimat Inh) 1 puffs BID INH 04/20/17 21:00 05/20/17 20:59 04/21/17 08:14 1 PUFFS Albuterol/ Ipratropium (Duoneb) 3 ml TID PRN INH 04/20/17 11:15 05/20/17 11:14 Metoprolol Succinate (Toprol Xl Tab) 100 mg QAM PO 04/21/17 09:00 05/21/17 08:59 04/21/17 08:27 100 MG Pravastatin Sodium (Pravachol Tab) 20 mg HS PO 04/20/17 21:00 05/20/17 20:59 04/20/17 21:00 20 MG Tamsulosin HCl (Flomax Cap) 0.4 mg BID PO 04/20/17 21:00 05/20/17 20:59 04/21/17 08:10 0.4 MG Miscellaneous Information (Order Awaiting Action) 1 ea QS N/A 04/20/17 16:00 05/20/17 15:59 Ondansetron HCl (Zofran Inj) 4 mg Q6H PRN IV 04/20/17 11:30 05/20/17 11:29 Miscellaneous (Iv Fluids Completed) 1 ea PRN PRN N/A 04/20/17 14:15 04/20/18 14:14 Telmisartan (Micardis Tab) 40 mg DAILY@1200 PO 04/21/17 12:00 05/21/17 11:59 Digoxin (Lanoxin Tab) 0.125 mg QAM PO 04/21/17 09:00 05/21/17 08:59 Bacitracin (Bacitracin Oint) 1 appln BID EXT 04/21/17 09:30 04/28/17 09:29 Physical Exam Vital Signs Past 12 Hours Date Time Temp Pulse Resp B/P (MAP) Pulse Ox O2 Delivery O2 Flow Rate FiO2 04/21/17 08:00 Room Air 04/21/17 07:35 36.7 58 18 135/64 (87) 94 Room Air 04/21/17 04:32 36.4 64 16 116/55 (75) 94 04/21/17 04:00 Room Air 04/21/17 00:42 36.7 65 16 138/60 (86) 93 Room Air 04/21/17 00:00 Room Air The patient is alert and oriented. Mood and affect appeared normal. He answered all questions appropriately. HEENT: Pupils are equal and reactive to light and accommodation. Extraocular movements are intact. The sclerae are anicteric. Neuro: Cranial nerves intact Neck: Patient's neck is supple. He has palpable carotid pulses bilaterally without bruits on auscultation. There is no evidence of jugular venous distention. The thyroid is not enlarged. Lungs: Clear to auscultation bilaterally. He has good air movement without use of accessory muscles. No rales wheezes or rhonchi. Cardiac: Heart demonstrates a regular rate and rhythm. Normal S1 and S2. Holosystolic murmur. Pulses: The patient has palpable radial pulses bilaterally that are equal in intensity Extremities: There was no evidence of hypoperfusion. There is no cyanosis or clubbing. There is no edema. Skin: I did not appreciate any rashes on examination today. Data Laboratory Results: Last 24 Hours Test 04/20/17 19:24 04/21/17 03:35 Total Creatine Kinase 336 U/L 298 U/L Creatine Kinase MB 5.8 ng/ml 4.8 ng/ml Creatine Kinase MB Ratio 1.7 1.6 Troponin I < 0.015 ng/ml < 0.015 ng/ml White Blood Count 11.04 K/uL Red Blood Count 4.21 M/uL Hemoglobin 14.0 g/dL Hematocrit 41.1 % Mean Corpuscular Volume 97.6 fL Mean Corpuscular Hemoglobin 33.3 pg Mean Corpuscular Hemoglobin Concent 34.1 g/dl Platelet Count 199 K/uL Mean Platelet Volume 10.3 fL Neutrophils (%) (Auto) 71.0 % Lymphocytes (%) (Auto) 16.8 % Monocytes (%) (Auto) 8.3 % Eosinophils (%) (Auto) 3.2 % Basophils (%) (Auto) 0.3 % Neutrophils # (Auto) 7.85 K/uL Lymphocytes # (Auto) 1.85 K/uL Monocytes # (Auto) 0.92 K/uL Eosinophils # (Auto) 0.35 K/uL Basophils # (Auto) 0.03 K/uL RDW Standard Deviation 49.3 fL RDW Coefficient of Variation 13.7 % Immature Granulocyte % (Auto) 0.4 % Immature Granulocyte # (Auto) 0.04 K/uL Sodium Level 138 mmol/L Potassium Level 4.1 mmol/L Chloride Level 106 mmol/L Carbon Dioxide Level 29 mmol/L Anion Gap 3.0 mmol/L Blood Urea Nitrogen 22 mg/dl Creatinine 1.30 mg/dl Est Creatinine Clear Calc Drug Dose 38.7 ml/min Estimated GFR () 58.9 Estimated GFR (Non- 50.8 BUN/Creatinine Ratio 16.8 Random Glucose 94 mg/dl Calcium Level 8.3 mg/dl Magnesium Level 2.1 mg/dl Imaging: Chest x-ray did not demonstrate any evidence of acute cardiopulmonary disease EKG: Normal sinus rhythm with bifascicular block, right bundle branch block and left anterior fascicular block. No acute ST or T-wave changes. Telemetry reviewed: 1 very brief episode of an SVT lasting approximately 6 seconds. Assessment & Plan 1. Chest pain: Patient has some typical and atypical symptoms. The symptoms themselves are nonexertional in nature. They are fairly brief in duration lasting up to 15 minutes. Despite frequent and recurrent events he has not had any elevation of cardiac biomarkers. EKG does not demonstrate any evidence of ischemia. There is a positional component which speaks against angina. However , he does have a significant history of coronary disease. His hemoglobin has normalized since his bleeding episode 1 month ago. This point would seem reasonable perform noninvasive testing in order to exclude any contribution coronary disease. Spear later this represents a musculoskeletal process. 2. Valvular heart disease: Patient appears to have stable mitral valve disease. He is not appear to be overtly symptomatic. He continues to have normal left ventricular function and chamber dimension. 3. Atrial fibrillation: This was reported subsequent to a surgery remotely. Cannot find any documentation of recent atrial fibrillation. The patient not recall being on systemic anticoagulation in the past.
[2017-04-21 11:15] VITALS: BP 169/75; PULSE 62; TEMP 36.8; O2SAT 97
[2017-04-21] MEDS ORDERED: BCTO EXT (14:55)
[2017-04-21 14:56] VITALS: BP 169/75; PULSE 62; TEMP 36.8; O2SAT 97
--- NOTE | 2017-04-21 14:58 | Discharge Instructions ---
Discharge Instructions Date of Service Apr 21, 2017. Admission Reason for Admission: Chest/Back Pain Discharge Discharge Diagnosis / Problem: chest pain has rule out acs Discharge Goals Goal(s): Decrease discomfort, Improve function, Increase independence, Improve disease control, Improve nutritional status, Learn about illness, Diagnostic testing, Therapeutic intervention, Prevent Disease Progression, Specific goals Activity Recommendations Activity Limitations: resume your previous activity . Instructions / Follow-Up Instructions / Follow-Up you have Chest pain, stress test negative, likely not cardiac yourtop scalp has 33 mm red pimple, and need to keep hand hygiene, and bacitracin topical use twice a day for 7 days. - you need to follow up with your primary care physician in 1 week, - take medication as instructed, never overdose or any misuse, or take with alcohol, because misuse of medicine may cause organ damage or , call your primary care physician if have questions of medicaitons. - call your primary care physician OR go to local emergency room if has any fever/chill, chest pain, shortness of breathing, nausea/vomiting/abdominal pain , facial droop/slurry speech/local weakness, or if has any questions. - fall precaution - diet as instructed - you need to follow up with your subspecialist , such as fish smoker - you should understand that it is important to follow up the above instruction , and "not following the above instruction" may cause delayed or missed care of your medical conditions which may cause permanent organ damage and even . Current Hospital Diet Patient's current hospital diet: AHA Diet (Heart Healthy) Discharge Diet Recommended Diet: AHA Diet (Heart Healthy) Procedures Procedures Performed: no Pending Studies Studies pending at discharge: no Medical Emergencies . Who to Call and When: Medical Emergencies: If at any time you feel your situation is an emergency, please call 911 immediately. . Non-Emergent Contact Non-Emergency issues call your: Primary Care Provider, University Controller . . "Provider Documentation" section prepared by Naren Daly. . VTE Core Measure Inpt VTE Proph given/why not?: Enoxaparin (Lovenox)SQ, SCD's
--- NOTE | 2017-04-21 16:43 | Discharge Summary ---
Discharge Summary Date of Service Apr 21, 2017. Discharge Summary Admission Date: Apr 20, 2017 at 11:20 Discharge Date: Apr 21, 2017 Principal Diagnosis: atypical chest pain Problems/Secondary Diagnoses: pimple infection, Immunizations: Have You Had Influenza Vaccine: Yes History of Tetanus Vaccine?: Yes History of Pneumococcal: Yes History of Hepatitis B Vaccine: Unknown Procedures: Exercise stress echo which was normal per cardiology verbal report Consultations: Director Home Health Medication Reconciliation New Medications: Bacitracin (Bacitracin Zinc) 45 Appln/15 Gm Oint 1 APPLN EXT BID for 6 Days, #1 Continued Medications: Calcium Polycarbophil (Fibercon) 625 Mg Tab 2 TABS PO QAM Cholecalciferol (Vitamin D) 1,000 Unit Tab 1000 UNITS PO QAM Clopidogrel (Plavix) 75 Mg Tab 75 MG PO QAM Digoxin (Digox) 125 Mcg Tab 125 MCG PO QAM Dutasteride (Avodart) 0.5 Mg Cap 0.5 MG PO LUNCH Fluticasone Propionate (Nasal) (Flonase Allergy Relief) 50 Mcg/Act Spr 1-2 SPRAYS TRAN DAILY-BID Ipratropium-Albuterol (Combivent Respimat) 1 Aer Aer 1 PUFF INH BID Ipratropium-Albuterol (Duoneb) 3 Ml Nebu 1 TREATMENT INH TID PRN for Shortness of Breath Metoprolol Succ (Toprol Xl) (Toprol-Xl ) 100 Mg Tabcr 100 MG PO QAM, TAB Nitroglycerin (Nitrostat) 0.4 Mg Tab 0.4 MG UT PRN, 0 Refills NEEDED FOR CHEST PAIN : ONE TABLET UNDER THE TONGUE EVERY 5 MINUTES UP TO 3 DOSES. Pravastatin Sodium (Pravachol) 20 Mg Tab 20 MG PO HS, TAB Tamsulosin Hcl (Flomax) 0.4 Mg Cap 0.4 MG PO BID, CAP Telmisartan/Hctz (Micardis Hct 40MG/12.5MG) Tab 1 TAB PO DAILY AT NOON, TAB Discharge Exam Doing well no more chest pain, Review of Systems: Constitutional: + problem reported (see today's progress note) Physical Exam: General Appearance: + pertinent finding (see today's progress note) Hospital Course 81-year-old admitted to hospital because of chest pain with significant history of CAD on 04/20/2017 Chest pain, and goes, with history of CAD/hypertension/coronary artery stents history/atrial fibrillation Patient reported Left-sided chest pain with radiation toward back So far serial cardiac enzymes were negative , cardiac rhythm monitoring were unremarkable , and a 2-D echocardiogram with Dopplers is pending EKG shows no acute findings. Chest x-ray is normal. Because has significant cardiac history, I request patient's primary cardiology consult for next step such as stress or cardiac cath Continue current medication which include clopidogrel 75 mg by mouth every morning, digoxin 125 g by mouth every morning, metoprolol succinate 100 mg by mouth every morning, nitroglycerin sublingual when necessary, telmisartan 40 mg by mouth daily. Continue HCTZ 12.5 mg by mouth daily. Hyperlipidemia--continue Pravachol 20 mg by mouth at bedtime. BPH--continue tamsulosin 0.4 mg by mouth twice a day and dutasteride 0.5 mg by mouth at lunchtime. Ex Emphysema/allergy--continue Combivent 1 puff twice a day, and Flonase allergy relief 2 sprays each nostril twice a day. History of Hemorrhoidal bleeding/previous anemia requiring hospitalization in 2 units PRBCs -hemoglobin is normal at this point of 14.8. He has not had any recent bleeding top scalp has 33 mm red pimple, with yellow slough in central, possible associated with infection Advice hand hygiene, and bacitracin topical use twice a day for 7 days. Director Home Health call me, patient stress echo exercise was negative, which rule out ACS, discussed with patient, and will planning for him to go home Discussed with patient with present of RN, answered all questions Instructions / Follow-Up you have Chest pain, stress test negative, likely not cardiac yourtop scalp has 33 mm red pimple, and need to keep hand hygiene, and bacitracin topical use twice a day for 7 days. - you need to follow up with your primary care physician in 1 week, - take medication as instructed, never overdose or any misuse, or take with alcohol, because misuse of medicine may cause organ damage or , call your primary care physician if have questions of medicaitons. - call your primary care physician OR go to local emergency room if has any fever/chill, chest pain, shortness of breathing, nausea/vomiting/abdominal pain , facial droop/slurry speech/local weakness, or if has any questions. - fall precaution - diet as instructed - you need to follow up with your subspecialist , such as winch runner - you should understand that it is important to follow up the above instruction , and "not following the above instruction" may cause delayed or missed care of your medical conditions which may cause permanent organ damage and even . Total Time Spent: Less than 30 minutes This includes examination of the patient, discharge planning, medication reconciliation, and communication with other providers. Discharge Instructions Please refer to the electronic Patient Visit Report (Discharge Instructions) for additional information. Additional Copies To Marcel Schmidt M.D.; Anthony Hsu M.D.
--- NOTE | 2017-04-21 18:41 | DOBUTAMINE ECHO ---
*NOTICE TO RECEIVING CONSTITUTION PARTY AGENCY This information is strictly Confidential and protected under [place] law. [place] law prohibits you from making any further disclosure of this information unless further disclosure is expressly permitted by the written consent of the person to whom it pertains or is authorized by law. A general authorization for the release of medical or other information is not sufficient for this purpose. Hospital accepts no responsibility if the information is made available to any other person, INCLUDING THE PATIENT. Interpretation Summary * Name: DIGNA MENEZES Study Date: 04/21/2017 11:16 AM BP: 135/66 mmHg * Patient Location: C.2T\S\S241\S\2 HR: 57 * : 1935 (M/d/yyy) Gender: Male Height: 70 in * Age: 81 yrs Ethnicity: CA Weight: 127 lb * Ordering Physician: Roman Berger * Referring Physician: Self, Referred * Performed By: Shayne Jones RCS * * Reason For Study: Chest pain * BSA: 1.7 m2 * -- Conclusions -- * Diagnostic exercise echocardiogram with out evidence of inducible ischemia Procedure Details * Left Ventricular Findings with Stress Diagnostic exercise echocardiogram with out evidence of inducible ischemia * Stress Parameters Baseline EKG demonstrated sinus rhythm with right bundle branch block and left anterior fascicular block Stress ECG: No ST changes. No arrhythmias. The stress portion of this study was personally supervised by the undersigned interpreting physician. Rest heart rate was '68' BPM. Rest blood pressure was '126/64' Maximum heart rate achieved was 123 bpm. Maximum heart rate was 89 % of maximum age-predicted heart rate. Maximum blood pressure was '189/68' Total exercise time was '5:31' Maximum treadmill speed was '2.5' miles per hour. Maximum treadmill elevation was '12'% grade. Exercise was terminated due to 'FATIGUE' Target Heart Rate was not achieved due to fatigue. * Left Ventricular Findings with Stress There were no EKG changes noted during exercise or recovery Baseline echocardiogram demonstrated normal wall motion At peak exertion there was normal augmentation of all segments without inducible wall motion abnormalities There were no symptoms reported during exercise or recovery Normal blood pressure response was slightly blunted heart rate response to exercise *
== END 2017-04-21 16:31 | disposition home or self-care (01) ==
LOC: C.EDB 08:48 → C.2T 11:20 → ENRESERV 12:03
PROVIDERS: ADMIT Hospitalist; ATTEND Hospitalist
DX: R07.89 Other chest pain (principal); I48.91 Unspecified atrial fibrillation; E11.22 Type 2 diabetes mellitus with diabetic chronic kidney disease; I12.9 Hypertensive chronic kidney disease with stage 1 through stage 4 chronic kidney disease, or unspecified chronic kidney disease; N18.9 Chronic kidney disease, unspecified; I25.10 Atherosclerotic heart disease of native coronary artery without angina pectoris; Z95.5 Presence of coronary angioplasty implant and graft; Z87.891 Personal history of nicotine dependence; Z79.899 Other long term (current) drug therapy; E78.5 Hyperlipidemia, unspecified; N40.0 Benign prostatic hyperplasia without lower urinary tract symptoms; J43.9 Emphysema, unspecified

== ENCOUNTER → 2017-05-02 | Outpatient (CLI) | payer BC ==
[~2017-05-02] MED LIST changes: +BCTO EXT
[2017-05-02 12:43] LABS: BASO % 0.4 %; BASO ABS # 0.04 K/uL (0-0.2); COMPLETE YES; EOS % 3.3 %; HEMATOCRIT 44.3 % (42-52); IG% 0.4 %; LYMPH % 17.2 %; LYMPH ABS # 1.79 K/uL (1.2-3.4); MEAN CELL VOLUME 100.7 fL (80-100); MEAN CORPUSCULAR HEMOGLOBIN 32.3 pg (25-34); MEAN CORPUSCULAR HGB CONC 32.1 g/dl (32-36); MEAN PLATELET VOLUME 10.5 fL (7.4-10.4); MONO % 9.2 %; NEUT % 69.5 %; PLATELET COUNT 250 K/uL (130-400); WHITE BLOOD COUNT 10.38 K/uL (4.8-10.8)
== END | disposition home or self-care (01) ==
LOC: C.LABBFT 07:45
PROVIDERS: ATTEND Internal Medicine
DX: D64.9 Anemia, unspecified (principal)

== ENCOUNTER → 2017-05-24 | Outpatient (CLI) | payer BC ==
[2017-05-24 13:02] LABS: BLOOD UREA NITROGEN 28 mg/dl (7-18); BUN/CREATININE RATIO 20.2 (10-20)
== END | disposition home or self-care (01) ==
LOC: C.LABBFT 09:00
PROVIDERS: ATTEND Urology
DX: N41.9 Inflammatory disease of prostate, unspecified (principal)

== ENCOUNTER → 2017-08-01 | Outpatient (CLI) | payer BC ==
[~2017-08-01] MED LIST changes: +METO100T44 PO; -METO1TAB69 PO
[2017-08-01 12:15] LABS: BASO % 0.5 %; BASO ABS # 0.04 K/uL (0-0.2); COMPLETE YES; EOS % 4.2 %; HEMATOCRIT 42.2 % (42-52); IG% 0.3 %; LYMPH % 19.4 %; LYMPH ABS # 1.67 K/uL (1.2-3.4); MEAN CORPUSCULAR HEMOGLOBIN 33.9 pg (25-34); MEAN CORPUSCULAR HGB CONC 33.9 g/dl (32-36); MEAN PLATELET VOLUME 10.6 fL (7.4-10.4); MONO % 9.2 %; NEUT % 66.4 %; PLATELET COUNT 212 K/uL (130-400); RED BLOOD COUNT 4.22 M/uL (4.7-6.1); WHITE BLOOD COUNT 8.63 K/uL (4.8-10.8)
[2017-08-01 12:38] LABS: ESTIMATED AVERAGE GLUCOSE 117 mg/dl; HA1C FLAG Normal (Normal)
[2017-08-01 12:56] LABS: ALB/GLOB RATIO 1.2 (0.9-2); ALKALINE PHOSPHATASE 63 U/L (45-117); ALT/SGPT 30 U/L (12-78); AST/SGOT 27 U/L (15-37); BLOOD UREA NITROGEN 20 mg/dl (7-18); BUN/CREATININE RATIO 15.1 (10-20); CALCIUM 8.9 mg/dl (8.5-10.1); CARBON DIOXIDE 28 mmol/L (21-32); CHLORIDE 103 mmol/L (98-107); CREATININE 1.32 mg/dl (0.60-1.40); GLUCOSE 93 mg/dl (70-99); POTASSIUM 4.1 mmol/L (3.5-5.1); SODIUM 137 mmol/L (136-145); TRIGLYCERIDES 103 mg/dl (0-150); VERY LOW DENSITY LIPOPROT CALC 21 mg/dl
[2017-08-01 12:57] LABS: CHOLESTEROL 136 mg/dl (0-200); CHOLESTEROL/HDL RATIO 2.6; HDL CHOLESTEROL 52 mg/dl; LDL CHOLESTEROL CALCULATED 63 mg/dl
== END | disposition home or self-care (01) ==
LOC: C.LABBFT 08:35
PROVIDERS: ATTEND Internal Medicine
DX: I10 Essential (primary) hypertension (principal); I34.0 Nonrheumatic mitral (valve) insufficiency; N18.9 Chronic kidney disease, unspecified; R73.01 Impaired fasting glucose; Z00.00 Encounter for general adult medical examination without abnormal findings; E11.9 Type 2 diabetes mellitus without complications; I25.10 Atherosclerotic heart disease of native coronary artery without angina pectoris; D64.9 Anemia, unspecified; E78.00 Pure hypercholesterolemia, unspecified; J44.1 Chronic obstructive pulmonary disease with (acute) exacerbation

== ENCOUNTER → 2017-12-14 | Outpatient (CLI) | payer BC ==
[2017-12-14 12:28] LABS: BLOOD UREA NITROGEN 22 mg/dl (7-18); CREATININE 1.45 mg/dl (0.60-1.40)
== END | disposition home or self-care (01) ==
LOC: C.LABBFT 08:44
PROVIDERS: ATTEND Urology
DX: N40.1 Benign prostatic hyperplasia with lower urinary tract symptoms (principal); R97.20 Elevated prostate specific antigen [PSA]; R39.9 Unspecified symptoms and signs involving the genitourinary system

== ENCOUNTER 2019-09-28 17:40 | Observation (INO) ==
[2019-09-28] MEDS ORDERED: NITROGLYCERIN SL 0.4 MG/TAB TAB SL STA ×2 (18:13→21:20)
[2019-09-28] MEDS ORDERED: ASPIRIN CHEW 324 MG PO STA (18:13)
[2019-09-28 18:27] LABS: Basophils # (auto) 0.04 K/uL (0-0.2); Basophils % (auto) 0.5 %; Eosinophils # (auto) 0.36 K/uL (0-0.5); Eosinophils % (auto) 4.4 %; Hematocrit (blood only) 41.3 % (42-52); Hemoglobin 13.8 g/dL (14.0-18.0); Immature Granulocytes # (auto) 0.02 K/uL (0.00-0.02); Immature Granulocytes % (auto) 0.2 %; Lymphocytes # (auto) 1.78 K/uL (1.2-3.4); Lymphocytes % (auto) 21.8 %; Mean Corpuscular Hemoglobin 33.6 pg (25-34); Mean Corpuscular Hgb Conc 33.4 g/dL (32-36); Mean Corpuscular Volume 100.5 fL (80-100); Mean Platelet Volume 10.7 fL (7.4-10.4); Monocytes # (auto) 0.75 K/uL (0.11-0.59); Monocytes % (auto) 9.2 %; Neutrophils # (auto) 5.23 K/uL (1.4-6.5); Neutrophils % (auto) 63.9 %; Platelet Count 197 K/uL (130-400); RDW Coefficient of Variation 13.7 % (11.5-14.5); RDW Standard Deviation 50.4 fL (36.4-46.3); Red Blood Count 4.11 M/uL (4.7-6.1); White Blood Count 8.18 K/uL (4.8-10.8)
[2019-09-28 18:38] LABS: Alanine Aminotransferase 27 U/L (12-78); Albumin Level 3.8 gm/dl (3.4-5.0); Aspartate Aminotransferase 26 U/L (15-37); BUN Creatinine Ratio 17.2 (10-20); Blood Urea Nitrogen 23 mg/dl (7-18); Calcium 8.8 mg/dl (8.5-10.1); Carbon Dioxide 26 mmol/L (21-32); Chloride 109 mmol/L (98-107); Creatinine Clr Calc Pharmacy 40.4 ml/min; Est GFR (African American) 55.5; Est GFR (Non-African American) 47.9; Glucose 99 mg/dl (70-99); Lipase 388 U/L (73-393); Potassium 4.3 mmol/L (3.5-5.1); Sodium 140 mmol/L (136-145)
[2019-09-28 18:43] LABS: Albumin Globulin Ratio 1.2 (0.9-2); Alkaline Phosphatase 73 U/L (45-117); Bilirubin,Total 0.4 mg/dl (0.2-1); Globulin 3.1 gm/dl (2.5-4.0); Total Protein 6.9 gm/dl (6.4-8.2); Troponin I < 0.015 ng/ml (0-0.045)
[2019-09-28 18:45] LABS: INR 1.1 (0.9-1.1); Partial Thromboplastin Time 27.6 Seconds (21.0-31.0); Prothrombin Time 10.8 Seconds (9.0-12.0)
[2019-09-28 18:48] LABS: D Dimer 960 ug/L FEU (0-500)
--- NOTE | 2019-09-28 18:51 | XRay Report ---
SINGLE VIEW CHEST CLINICAL HISTORY: Atypical chest pain. FINDINGS: 2 AP, portable, upright chest radiographs are compared to study dated 04/20/2017. Correlatio n is made with chest CT dated 10/02/2014. The examination is degraded by portable technique and patien t rotation. The heart is enlarged noting atherosclerotic calcification of the thoracic aorta. The pul monary vasculature is noncongested. Enlargement of the central pulmonary arteries suggests pulmonary artery hypertension. Emphysema and chronic interstitial thickening are similar to previous. Scarring/ atelectasis are noted at the lung bases. There is no evidence of superimposed airspace consolidation or large pleural effusion. No pneumothorax is seen. The skeletal structures are osteopenic. The bony thorax is grossly intact. IMPRESSION: Cardiomegaly and emphysema with no acute cardiopulmonary abnormality. ACT 112: Negative or not required by law. Electronically signed by: Yo Domínguez M.D. 09/28/2019 6:49 PM
[2019-09-28] MEDS ORDERED: OPTIRAY 320 125ml IV PRN (19:16)
--- NOTE | 2019-09-28 19:41 | CT Scan Report ---
CT ANGIOGRAM OF THE CHEST CLINICAL HISTORY: Atypical chest pain. Right-sided neck pain. Elevated d-dimer. COMPARISON STUDY: Chest x-ray dated 09/28/2019. Chest CT dated 10/02/2014. TECHNIQUE: Following the IV administration of 120 cc of Optiray 320, CT angiogram of the chest was pe rformed from the upper abdomen to the thoracic inlet utilizing the pulmonary embolus protocol. Images are reviewed in the axial, sagittal, and coronal planes. 3-D MIPS images are created and assessed. I V contrast was administered without complication. A dose lowering technique was utilized adhering to the principles of ALARA. CT DOSE: 294.47 mGy.cm FINDINGS: Thyroid: Imaged portions of the thyroid gland are normal in size and attenuation. Thoracic aorta: There is atherosclerotic calcification of the thoracic aorta, which is normal in william sloan and demonstrates standard 3-vessel arch anatomy. There is no evidence of dissection. The distal d escending thoracic aorta is not well opacified. Pulmonary vasculature: The main pulmonary arteries are dilated suggesting pulmonary artery hypertensi on. There are no filling defects identified in main, lobar, or segmental pulmonary branches to sugges t pulmonary embolus. Heart: The heart is enlarged and without pericardial effusion. The coronary arteries and mitral annul us are densely calcified. Reflux of contrast into the IVC and hepatic veins suggests cardiac dysfunct ion. Lungs and pleural spaces: Advanced emphysematous change is similar to previous. There is biapical ple ural parenchymal scarring. The trachea secretions are noted in the left mainstem bronchus. Scarring/a telectasis is noted at the lung bases. There is no airspace consolidation typical for pneumonia or pl eural effusion. Mild diffuse peribronchial thickening is observed. Mediastinum: There is no mediastinal lymphadenopathy. Kim: Prominent hilar nodes measure up to 8mm in short axis. Axillae: There is no axillary lymphadenopathy. Upper abdomen: Partially visualized upper abdominal viscera is within normal limits. Skeletal structures: The skeletal structures are osteopenic. No lytic or blastic bony lesions are see n. IMPRESSION: 1. There is no evidence of pulmonary embolus in the main, lobar, or segmental pulmonary arteries. 2. Cardiomegaly and advanced emphysema. 3. There is no airspace consolidation or pleural effusion. 4. Mild diffuse peribronchial thickening suggests bronchitis/reactive airway disease. Clinical correl ation will be required. 5. Additional findings as above. ACT 112: Negative or not required by law. Electronically signed by: Yo Domínguez M.D. 09/28/2019 7:40 PM
[2019-09-28] MEDS ORDERED: NITROGLYCERIN 2% OINTMENT 30GM TUBE EXT STA (20:12)
--- NOTE | 2019-09-28 20:56 | History & Physical Report ---
Date of Service September 28, 2019 Assessment & Plan (1) Left-sided chest pain: Atypical but HEART score 4. Suspect pain most likely from pleuritis but certainly [place] should be rule out first Serial troponins Continue on nitro paste for now until morning tropnin back NPO after midnight (2) Coronary artery disease: s/p 6 cardiac stents (3) Acute bronchitis: as above, consider starting prednisone to help with both pleuritic chest pain. (4) Pleuritic chest pain: as above. Suspect this is the cause of his pain. (5) Post-nasal drip: Likely ongoing cause of morning cough and ongoing bronchitis (6) COPD (chronic obstructive pulmonary disease): No wheezing to suggest current exacerbation but appears to be lingering acute on chronic bronchitis over a number of weeks. History of Present Illness Chief Complaint: Chest pain Primary Care Provider: Anthony Hsu MD Cecilio Cid is an 83 year old male who presents to the ER due to left sided chest pain. Started today at 2:30pm, first got it when sitting still reading. He reports it is still ongoing but to a much lesser degree, currently 1-2/10. Worse on inspiration. Stayed about the same until he came here and had nitroglycerin x2. No associated diaphoresis, shortness of breath, nausea or vomiting. Of note the has had a cough, productive of clear phlegm increasing over the last 2 weeks. He denies any shortness of breath of fever/chills. He does report ongoing post nasal drip. Allergies Allergy/AdvReac Type Severity Reaction Status Date / Time PEYMAN Inhibitors Allergy Mild RASH Verified 09/10/19 11:16 amoxicillin Allergy Unknown RASH Verified 09/10/19 11:16 metoclopramide Allergy Unknown RASH Verified 09/10/19 11:16 Penicillins Allergy Unknown RASH Verified 09/10/19 11:16 Home Medications Home Medications Medication Instructions Recorded Confirmed Type fluticasone propionate 50 1 sprays INTRANASAL DAILY PRN #3 gm 02/27/19 10/01/19 History mcg/actuation nasal spray,suspension telmisartan 40 1 tab PO DAILY #90 tab 03/13/19 10/01/19 Rx mg-hydrochlorothiazide 12.5 mg tablet calcium polycarbophil 625 mg tablet 1,250 mg PO QAM 03/23/19 10/01/19 History cholecalciferol (vitamin D3) 25 1,000 units PO QAM 03/23/19 10/01/19 History mcg (1,000 unit) capsule ipratropium 0.5 mg-albuterol 3 mg 3 ml INHALATION TID PRN #1 ml 03/23/19 10/01/19 History (2.5 mg base)/3 mL nebulization soln ipratropium 20 mcg-albuterol 100 1 puffs INH QID PRN 03/23/19 10/01/19 History mcg/actuation mist for inhalation nebulizer accessories #1 ea 03/23/19 10/01/19 Rx nitroglycerin 0.4 mg sublingual 0.4 mg SL DIRECTED PRN #25 tab 03/23/19 10/01/19 History tablet vit C 250 mg-E 200 unit-zinc 40 1 tab PO BID 03/23/19 10/01/19 History mg-copper 1 [id number] capsule pravastatin 20 mg tablet 20 mg PO HS #90 tab 04/30/19 10/01/19 Rx dutasteride 0.5 mg capsule 0.5 mg PO DAILY #90 cap 06/19/19 10/01/19 Rx tamsulosin 0.4 mg capsule 0.4 mg PO BID #180 cap 06/19/19 10/01/19 Rx clopidogrel 75 mg PO QAM 09/28/19 10/01/19 History digoxin 125 mcg PO QAM 09/28/19 10/01/19 History metoprolol succinate 100 mg PO QAM 09/28/19 10/01/19 History prednisone 40 mg PO DAILY #10 tab 09/29/19 10/01/19 Rx Past Med/Surg History Medical History COPD (chronic obstructive pulmonary disease) (Chronic) Diabetes type 2, controlled (Chronic) Hypercholesterolemia Hypertension Mitral valve disorder Surgical History Hernia, femoral, bilateral recurrent History of back surgery History of cardiac catheterization history of cath stent placement History of colonoscopy History of hemorrhoidectomy history of Hemorrhoid rubber band ligation History of inguinal hernia repair, bilateral Family History Mother Diabetes Lung cancer Coronary heart disease Brother Prostate cancer Unknown Hypertension Pure hypercholesterolemia Coronary heart disease Father Stroke Other Kidney disease Social History Preferred Language: Trin[place] Communication Ability: Effective Firebreak Cutter Required: No Beliefs That Will Affect Care: None marital status: Current Living Situation: Spouse current occupational status: retired Feels Safe at Home: Yes Smoking Status: Never smoker Hx Alcohol Use: Yes Hx Substance Use: No Review of Systems Review of Systems: All systems reviewed & are unremarkable except as noted in HPI & below Physical Exam Constitutional: WD/WN, vitals as above Eyes: + anicteric sclerae; normal pupil size ENMT: external ear and nose normal, oropharynx normal Neck: trachea midline, no thyromegaly Respiratory: normal respiratory effort, lungs clear to auscultation Cardiovascular: RRR, no murmur, no edema Gastrointestinal (Abdomen): normal bowel sounds, soft, nontender, no hepatosplenomegaly Musculoskeletal: no cyanosis or clubbing, extremities motor strength 5/5 Skin: no rashes, warm and dry Neurologic: moves all extremities and awake; not confused Psychiatric: A+Ox3, euthymic affect Lymphatic: no cervical or axillary lymphadenopathy Results & Data Vital Signs (Past 12 Hours) Vital Signs Temp Pulse Pulse Resp BP BP Pulse Ox 09/28/19 20:22 58 L 16 146/61 H 95 09/28/19 19:13 62 16 140/71 94 09/28/19 18:58 52 L 16 137/67 94 09/28/19 18:33 54 L 22 144/69 H 96 09/28/19 18:31 56 L 18 96 09/28/19 18:30 53 L 20 146/68 H 96 09/28/19 18:16 59 L 15 96 09/28/19 18:15 53 L 16 149/72 H 96 09/28/19 18:06 53 L 22 96 09/28/19 18:00 53 L 24 157/69 H 94 09/28/19 17:51 95 09/28/19 17:47 36.7 C 57 L 18 154/75 [address] ANGIOGRAM OF THE CHEST IMPRESSION: 1. There is no evidence of pulmonary embolus in the main, lobar, or segmental pulmonary arteries. 2. Cardiomegaly and advanced emphysema. 3. There is no airspace consolidation or pleural effusion. 4. Mild diffuse peribronchial thickening suggests bronchitis/reactive airway disease. Clinical correlation will be required. 5. Additional findings as above. 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) and + RBBB Comparison ECG Date: from (04/21/2017) Change: the following changes noted (borderline criteria for inferior infarct now present) PG Care Time/CCT Total # of Minutes Spent Total Time Spent with Patient: Total time spent is greater than 50% in coordination of care (as documented) at patient's floor/unit and/or counseling patient: Coding Level of Care Code 34522 Initial Inpt Care Lvl 3 Diagnoses Left-sided chest pain R07.9 Coronary artery disease I25.10 Associated angina: angina presence unspecified Coronary Disease-Associated Artery/Lesion type: [place] artery [place] vs. transplanted heart: [place] heart Acute bronchitis J20.9 Bronchitis organism: unspecified organism Pleuritic chest pain R07.81 Post-nasal drip R09.82 COPD (chronic obstructive pulmonary disease) J41.8 COPD type: chronic bronchitis Chronic bronchitis type: mixed simple and mucopurulent (1) Coronary artery disease Associated angina: angina presence unspecified Coronary Disease-Associated Artery/Lesion type: [place] artery [place] vs. transplanted heart: [place] heart Qualified Code(s): I25.10 - Atherosclerotic heart disease of [place] coronary artery without angina pectoris (2) Acute bronchitis Bronchitis organism: unspecified organism Qualified Code(s): J20.9 - Acute bronchitis, unspecified (3) COPD (chronic obstructive pulmonary disease) COPD type: chronic bronchitis Chronic bronchitis type: mixed simple and mucopurulent Qualified Code(s): J41.8 - Mixed simple and mucopurulent chronic bronchitis
--- NOTE | 2019-09-28 22:12 | Emergency Department Note ---
Entered by Trevor Hogan acting as a scribe for Gomez Marie MD ED Provider Note CHIEF COMPLAINT: Chest Pain HISTORY OF PRESENT ILLNESS: The patient is a 83 year old male who presents to the Emergency Room with complaints of constant left-sided chest pain starting a couple hours ago. The patient states he was walking around when the chest pain started. He states he was not exerting himself a lot when it started. He states he took Nitro and Tylenol after the pain started, and he notes they did not help with the pain much. He states his pain is 7/10. He notes he takes Plavix daily. He states he has pain on his right side of his neck down to his shoulder that started 3 days ago. He states he sees Dr. Schmidt for cardiology. He notes he had six stents placed and states he did not have pain at that time. He denies going on recent long trips, having a history of blood clots, and history of pneumonia. He denies taking a daily aspirin. Pt denies LOC, headache, fevers, chills, diaphoresis, visual changes, breathing difficulties, nausea, vomiting, abdominal pain, back pain, melena, hematochezia, urinary symptoms, numbness, weakness, lymphadenopathy, rash, or other complaints. REVIEW OF SYSTEMS: See HPI for pertinent positives and negatives. A total of ten systems were reviewed and were otherwise negative. PMHx/PSHx: Diabetes, HTN, hypercholesterolemia, mitral valve disorder, CAD, H/O percutaneous transluminal coronary angioplasty, stented coronary artery, COPD SOCIAL HISTORY: Patient lives at home. PHYSICAL EXAM: GENERAL: Awake, alert, well-appearing, in no distress HENT: Normocephalic, atraumatic. Oropharynx unremarkable. EYES: PERRL. Normal conjunctiva. Sclera non-icteric. NECK: Inspection normal. Non-tender. Supple. No nuchal rigidity. FROM. No masses. RESPIRATORY: Clear to auscultation. No wheezes. No rales. Normal respiratory e ffort. CARDIAC: Bradycardic rate. Normal rhythm. No murmurs. No rubs. Extremities warm and well perfused. Pulses equal. No JVD. GI: Soft, non-distended. No tenderness to palpation. No rebound or guarding. No masses. RECTAL: Deferred. MUSCULOSKELETAL: Atraumatic. Chest examination reveals no tenderness. The back is symmetrical on inspection without obvious abnormality. There is no CVA tenderness to palpation. No joint edema. LOWER EXTREMITIES: Calves are equal size bilaterally and non-tender. No edema. No discoloration. NEURO: Normal sensorium. No sensory or motor deficits noted. SKIN: No rash or jaundice noted. EMERGENCY DEPARTMENT COURSE: 1810: Past medical records reviewed. The patient had multiple stents placed years ago. The patient was evaluated in room B6, and a complete history and physical examination were performed. 1852: I reevaluated the patient. I updated the patient on his labs and imaging. He had some relief with the first nitro. He is getting a second Nitro and going to CT. 2021: I reevaluated the patient. I updated the patient on his labs and imaging. He states his pain almost completely resolved after the second Nitro. He is getting Nitro paste now. 2023: I discussed the patient's [facility] He will evaluate the patient for further management 2052: [facility] me about this patient and states he will further evaluate the patient. MEDICAL DECISION MAKING: B6 Prior records/ancillary studies reviewed. Triage Nursing notes reviewed and agree them. Additional history obtained from the family. The patient's history was concerning for chest pain. Differential diagnosis: Etiologies such as cardiac ischemia, aortic dissection, pulmonary embolism, pneumonia, pneumothorax, musculoskeletal, infections, pericarditis, myocarditis, esophageal rupture, gastrointestinal, as well as others were entertained. Physical examination: As above. ER treatment provided: Oral aspirin Sublingual nitroglycerin x2 Nitropaste On reassessment the patient felt better. Diagnostic interpretation by me: The electrocardiogram was negative for pathologic change. The labs revealed an unremarkable CBC and chemistry panel. The patient's d- dimer was elevated. Troponin negative. Imaging studies: Portable chest x-ray was performed and negative for acute process. CT PE study was performed and negative for acute process. The patient has an extensive coronary history. Chest discomfort relieved with nitroglycerin. He needs further management in the hospital. I gave my usual and customary discussion regarding this issue. The patient and family were in agreement. Consultation: A consultation was placed with the hospitalist. The case was discussed and diagnostics were reviewed. The patient was evaluated in the ER for further treatment. IMPRESSION: Left-sided chest pain, hx of coronary artery disease, hx of coronary stents PLAN: Admitted The scribe's documentation has been prepared under my direction and personally reviewed by me in its entirety. I confirm that the note above accurately r eflects all work, treatment, procedures, and medical decision making performed by me. Impression & Plan Left-sided chest pain, History of coronary artery disease, History of coronary artery stent placement Past Med/Surg History Medical History COPD (chronic obstructive pulmonary disease) (Chronic) Diabetes type 2, controlled (Chronic) Hypercholesterolemia Hypertension Mitral valve disorder Surgical History Hernia, femoral, bilateral recurrent History of back surgery History of cardiac catheterization history of cath stent placement History of colonoscopy History of hemorrhoidectomy history of Hemorrhoid rubber band ligation History of inguinal hernia repair, bilateral Family History Mother Diabetes Lung cancer Coronary heart disease Brother Prostate cancer Unknown Hypertension Pure hypercholesterolemia Coronary heart disease Father Stroke Other Kidney disease Social History Preferred Language: Belgian marital status: current occupational status: retired Feels Safe at Home: Yes Smoking Status: Former smoker Hx Alcohol Use: Yes Results & Data Vital Signs Vital Signs - 24 hr 09/28/19 17:47 09/28/19 17:51 09/28/19 18:00 Temperature 36.7 C Temperature Source Oral Pulse Rate 57 L 53 L Pulse Rate [Right] Pulse Rate from SpO2 Sensor 53 L Pulse Rhythm Regular Pulse Rhythm [Right] Pulse Strength Normal Pulse Strength [Right] Respiratory Rate 18 24 Respiratory Effort / Characteristics Non-Labored Spontaneous Respiratory Depth Normal Respiratory Pattern Regular Blood Pressure 154/75 H 157/69 H Blood Pressure [Right Arm] Blood Pressure Mean 101 86 Blood Pressure Mean [Right Arm] Blood Pressure Position Sitting Blood Pressure Position [Right Arm] Pulse Oximetry 95 95 94 Oxygen Delivery Method Room Air Room Air Sepsis Recent Fever Within 48 Hours No Sepsis New/Unexplained Change in Mental Status No Sepsis Action Taken by Nursing No Action Required 09/28/19 18:06 09/28/19 18:15 09/28/19 18:16 Temperature Temperature Source Pulse Rate 53 L 53 L 59 L Pulse Rate [Right] Pulse Rate from SpO2 Sensor 53 L 53 L 56 L Pulse Rhythm Pulse Rhythm [Right] Pulse Strength Pulse Strength [Right] Respiratory Rate 22 16 15 Respiratory Effort / Characteristics Respiratory Depth Respiratory Pattern Blood Pressure 149/72 H Blood Pressure [Right Arm] Blood Pressure Mean 117 Blood Pressure Mean [Right Arm] Blood Pressure Position Blood Pressure Position [Right Arm] Pulse Oximetry 96 96 96 Oxygen Delivery Method Sepsis Recent Fever Within 48 Hours Sepsis New/Unexplained Change in Mental Status Sepsis Action Taken by Nursing 09/28/19 18:30 09/28/19 18:31 09/28/19 18:33 Temperature Temperature Source Pulse Rate 53 L 56 L 54 L Pulse Rate [Right] Pulse Rate from SpO2 Sensor 53 L 51 L 54 L Pulse Rhythm Pulse Rhythm [Right] Pulse Strength Pulse Strength [Right] Respiratory Rate 20 18 22 Respiratory Effort / Characteristics Respiratory Depth Respiratory Pattern Blood Pressure 146/68 H 144/69 H Blood Pressure [Right Arm] Blood Pressure Mean 85 94 Blood Pressure Mean [Right Arm] Blood Pressure Position Blood Pressure Position [Right Arm] Pulse Oximetry 96 96 96 Oxygen Delivery Method Sepsis Recent Fever Within 48 Hours Sepsis New/Unexplained Change in Mental Status Sepsis Action Taken by Nursing 09/28/19 18:58 09/28/19 19:13 09/28/19 20:22 Temperature Temperature Source Pulse Rate Pulse Rate [Right] 52 L 62 58 L Pulse Rate from SpO2 Sensor Pulse Rhythm Pulse Rhythm [Right] Regular Regular Regular Pulse Strength Pulse Strength [Right] Normal Normal Normal Respiratory Rate 16 16 16 Respiratory Effort / Characteristics Non-Labored Spontaneous Non-Labored Spontaneous Non-Labored Respiratory Depth Normal Normal Normal Respiratory Pattern Blood Pressure Blood Pressure [Right Arm] 137/67 140/71 146/61 H Blood Pressure Mean Blood Pressure Mean [Right Arm] 90 94 89 Blood Pressure Position Blood Pressure Position [Right Arm] Sitting Sitting Sitting Pulse Oximetry 94 94 95 Oxygen Delivery Method Room Air Room Air Room Air Sepsis Recent Fever Within 48 Hours Sepsis New/Unexplained Change in Mental Status Sepsis Action Taken by Nursing 09/28/19 21:16 Temperature Temperature Source Pulse Rate Pulse Rate [Right] 55 L Pulse Rate from SpO2 Sensor Pulse Rhythm Pulse Rhythm [Right] Regular Pulse Strength Pulse Strength [Right] Normal Respiratory Rate 16 Respiratory Effort / Characteristics Non-Labored Spontaneous Respiratory Depth Normal Respiratory Pattern Blood Pressure Blood Pressure [Right Arm] 149/82 H Blood Pressure Mean Blood Pressure Mean [Right Arm] 104 Blood Pressure Position Blood Pressure Position [Right Arm] Sitting Pulse Oximetry 94 Oxygen Delivery Method Room Air Sepsis Recent Fever Within 48 Hours Sepsis New/Unexplained Change in Mental Status Sepsis Action Taken by Longterm Medications Current Medication List: was personally reviewed by me Laboratory Data Attestation: I reviewed the patient's lab results. Result diagrams: 09/28/19 18:00 09/28/19 18:00 Lab Results 09/28/19 09/28/19 09/28/19 Range/Units 18:00 18:00 18:00 WBC 8.18 (4.8-10.8) K/uL RBC 4.11 L (4.7-6.1) M/uL Hgb 13.8 L (14.0-18.0) g/dL Hct 41.3 L (42-52) % MCV 100.5 H (80-100) fL MCH 33.6 (25-34) pg MCHC 33.4 (32-36) g/dL RDW Std Deviation 50.4 H (36.4-46.3) fL RDW Coeff of Jie 13.7 (11.5-14.5) % Plt Count 197 (130-400) K/uL MPV 10.7 H (7.4-10.4) fL Immature Gran % (Auto) 0.2 % Neut % (Auto) 63.9 % Lymph % (Auto) 21.8 % [place] % (Auto) 9.2 % Eos % (Auto) 4.4 % Baso % (Auto) 0.5 % Immature Gran # (Auto) 0.02 (0.00-0.02) K/uL Neut # (Auto) 5.23 (1.4-6.5) K/uL Lymph # (Auto) 1.78 (1.2-3.4) K/uL [place] # (Auto) 0.75 H (0.11-0.59) K/uL Eos # (Auto) 0.36 (0-0.5) K/uL Baso # (Auto) 0.04 (0-0.2) K/uL PT 10.8 (9.0-12.0) Seconds INR 1.1 (0.9-1.1) APTT 27.6 (21.0-31.0) Seconds PTT Ratio 1.0 D-Dimer 960 H* (0-500) ug/L FEU Sodium 140 (136-145) mmol/L Potassium 4.3 (3.5-5.1) mmol/L Chloride 109 H (98-107) mmol/L Carbon Dioxide 26 (21-32) mmol/L Anion Gap 5.0 (3-11) BUN 23 H (7-18) mg/dl Creatinine 1.35 (0.6-1.4) mg/dl Est Cr Clr Drug Dosing 40.4 ml/min Est GFR ( Amer) 55.5 Est GFR (Non-Af Amer) 47.9 BUN/Creatinine Ratio 17.2 (10-20) Glucose 99 (70-99) mg/dl Calcium 8.8 (8.5-10.1) mg/dl Total Bilirubin 0.4 (0.2-1) mg/dl AST 26 (15-37) U/L ALT 27 (12-78) U/L Alkaline Phosphatase 73 (45-117) U/L Troponin I < 0.015 (0-0.045) ng/ml Total Protein 6.9 (6.4-8.2) gm/dl Albumin 3.8 (3.4-5.0) gm/dl Globulin 3.1 (2.5-4.0) gm/dl Albumin/Globulin Ratio 1.2 (0.9-2) Lipase 388 (73-393) U/L Digoxin (0.8-2.0) ng/ml 09/28/19 Range/Units 18:00 WBC (4.8-10.8) K/uL RBC (4.7-6.1) M/uL Hgb (14.0-18.0) g/dL Hct (42-52) % MCV (80-100) fL MCH (25-34) pg MCHC (32-36) g/dL RDW Std Deviation (36.4-46.3) fL RDW Coeff of Jie (11.5-14.5) % Plt Count (130-400) K/uL MPV (7.4-10.4) fL Immature Gran % (Auto) % Neut % (Auto) % Lymph % (Auto) % [place] % (Auto) % Eos % (Auto) % Baso % (Auto) % Immature Gran # (Auto) (0.00-0.02) K/uL Neut # (Auto) (1.4-6.5) K/uL Lymph # (Auto) (1.2-3.4) K/uL [place] # (Auto) (0.11-0.59) K/uL Eos # (Auto) (0-0.5) K/uL Baso # (Auto) (0-0.2) K/uL PT (9.0-12.0) Seconds INR (0.9-1.1) APTT (21.0-31.0) Seconds PTT Ratio D-Dimer (0-500) ug/L FEU Sodium (136-145) mmol/L Potassium (3.5-5.1) mmol/L Chloride (98-107) mmol/L Carbon Dioxide (21-32) mmol/L Anion Gap (3-11) BUN (7-18) mg/dl Creatinine (0.6-1.4) mg/dl Est Cr Clr Drug Dosing ml/min Est GFR ( Amer) Est GFR (Non-Af Amer) BUN/Creatinine Ratio (10-20) Glucose (70-99) mg/dl Calcium (8.5-10.1) mg/dl Total Bilirubin (0.2-1) mg/dl AST (15-37) U/L ALT (12-78) U/L Alkaline Phosphatase (45-117) U/L Troponin I (0-0.045) ng/ml Total Protein (6.4-8.2) gm/dl Albumin (3.4-5.0) gm/dl Globulin (2.5-4.0) gm/dl Albumin/Globulin Ratio (0.9-2) Lipase (73-393) U/L Digoxin 0.8 (0.8-2.0) ng/ml Administered Medications Ioversol (Optiray 320 125ml) 120 ml IV ONCE PRN PRN Reason: Interaction Checking Stop: 10/02/19 19:15 Last Admin: 09/28/19 19:16 Dose: 120 ml Documented by: [id number] Discontinued Medications Aspirin (Aspirin) 324 mg PO NOW STA Stop: 09/28/19 18:14 Last Admin: 09/28/19 18:34 Dose: 324 mg Documented by: [id number] Nitroglycerin (Nitrostat) 0.4 mg SL NOW STA Stop: 09/28/19 18:14 Last Admin: 09/28/19 18:35 Dose: 0.8 mg Documented by: [id number] Nitroglycerin (Nitro-Bid 2%) 0.5 inch EXT NOW STA Stop: 09/28/19 20:13 Last Admin: 09/28/19 20:20 Dose: 0.5 inch Documented by: [id number] Nitroglycerin (Nitrostat) 0.4 mg SL NOW STA Stop: 09/28/19 21:21 Last Admin: 09/28/19 21:25 Dose: Not Given Documented by: [id number] Imaging Data Radiologist's Impression: Radiology results as stated below per my review and the radiologist's interpretation: SINGLE VIEW CHEST CLINICAL HISTORY: Atypical chest pain. FINDINGS: 2 AP, portable, upright chest radiographs are compared to study dated 04/20/2017. Correlation is made with chest CT dated 10/02/2014. The examination is degraded by portable technique and patient rotation. The heart is enlarged noting atherosclerotic calcification of the thoracic aorta. The pulmonary vasculature is noncongested. Enlargement of the central pulmonary arteries suggests pulmonary artery hypertension. Emphysema and chronic interstitial thickening are similar to previous. Scarring/atelectasis are noted at the lung bases. There is no evidence of superimposed airspace consolidation or large pleural effusion. No pneumothorax is seen. The skeletal structures are osteopenic. The bony thorax is grossly intact. IMPRESSION: Cardiomegaly and emphysema with no acute cardiopulmonary abnormality. ACT 112: Negative or not required by law. Electronically signed by: Yo Domínguez M.D. 09/28/2019 6:[address] ANGIOGRAM OF THE CHEST CLINICAL HISTORY: Atypical chest pain. Right-sided neck pain. Elevated d-dimer. COMPARISON STUDY: Chest x-ray dated 09/28/2019. Chest CT dated 10/02/2014. TECHNIQUE: Following the IV administration of 120 cc of Optiray 320, CT angiogram of the chest was performed from the upper abdomen to the thoracic inlet utilizing the pulmonary embolus protocol. Images are reviewed in the axial, sagittal, and coronal planes. 3-D MIPS images are created and assessed. IV contrast was administered without complication. A dose lowering technique was utilized adhering to the principles of ALARA. CT DOSE: 294.47 mGy.cm FINDINGS: Thyroid: Imaged portions of the thyroid gland are normal in size and attenuation. Thoracic aorta: There is atherosclerotic calcification of the thoracic aorta, which is normal in caliber and demonstrates standard 3-vessel arch anatomy. There is no evidence of dissection. The distal descending thoracic aorta is not well opacified. Pulmonary vasculature: The main pulmonary arteries are dilated suggesting pulmonary artery hypertension. There are no filling defects identified in main, lobar, or segmental pulmonary branches to suggest pulmonary embolus. Heart: The heart is enlarged and without pericardial effusion. The coronary arteries and mitral annulus are densely calcified. Reflux of contrast into the IVC and hepatic veins suggests cardiac dysfunction. Lungs and pleural spaces: Advanced emphysematous change is similar to previous. There is biapical pleural parenchymal scarring. The trachea secretions are noted in the left mainstem bronchus. Scarring/atelectasis is noted at the lung bases. There is no airspace consolidation typical for pneumonia or pleural effusion. Mild diffuse peribronchial thickening is observed. Mediastinum: There is no mediastinal lymphadenopathy. Kim: Prominent hilar nodes measure up to 8mm in short axis. Axillae: There is no axillary lymphadenopathy. Upper abdomen: Partially visualized upper abdominal viscera is within normal limits. Skeletal structures: The skeletal structures are osteopenic. No lytic or blastic bony lesions are seen. IMPRESSION: 1. There is no evidence of pulmonary embolus in the main, lobar, or segmental pulmonary arteries. 2. Cardiomegaly and advanced emphysema. 3. There is no airspace consolidation or pleural effusion. 4. Mild diffuse peribronchial thickening suggests bronchitis/reactive airway disease. Clinical correlation will be required. 5. Additional findings as above. ACT 112: Negative or not required by law. Electronically signed by: Yo Domínguez M.D. 09/28/2019 7:40 PM ECG Data Attestation: I personally reviewed and interpreted this ECG as follows: Indication: + chest pain Rate (beats per minute): 56 Rhythm: sinus bradycardia ECG Intervals/blocks: + Right Bundle branch block ECG [place]: + Right axis deviation ECG ST segments: no ST depression and no ST elevation ECG Findings: + Q waves (inferior ) Blood Pressure Blood Pressure Findings: Elevated blood pressure Blood Pressure Disposition: further management by hospitalist Discharge Plan Visit Data *Final* Discharge Date/Time: 09/28/19 21:52 Chief Complaint: Chest Pain Stated Complaint: CHEST PAIN, SHAKEY- CARDIAC HX ED Provider: Gomez Marie Discharge Problem: Left-sided chest pain, History of coronary artery disease, History of coronary artery stent placement Patient Disposition: Admitted As Inpatient Discharge Instructions Interventions: ED Discharge Assessment Last Done: 09/28/19 21:52 The scribe's documentation has been prepared under my direction and personally reviewed by me in its entirety. I confirm that the note above accurately re flects all work, treatment, procedures, and medical decision making performed by me.
[2019-09-28] MEDS ORDERED: POLYETHYLENE (MIRALAX) 17 GM PACK PO PRN (22:18)
[2019-09-28] MEDS ORDERED: IPRATROPIUM BROMIDE/ALBUTEROL respimat INH INH PRN (22:18)
[2019-09-28] MEDS ORDERED: ONDANSETRON INJ 2 MG/ML 2 ML VIAL IV PRN (22:18)
[2019-09-28] MEDS ORDERED: FLUTICASONE PROPIONATE NA SPR 16 GM BTL PRN (22:18)
[2019-09-28] MEDS: ALBUT/IPRATROP 3MG/0.5MG NEB 3 ML VIAL NEB SCH (23:15)
[2019-09-28] MEDS: AVODART~ORDER AWAITING ACTION SCH (23:47)
[2019-09-28] MEDS: TAMSULOSIN HCL 0.4 MG CAP PO SCH (23:47)
[2019-09-29] MEDS: ALBUT/IPRATROP 3MG/0.5MG NEB 3 ML VIAL NEB SCH ×2 (03:10→07:20)
[2019-09-29 07:19] LABS: Basophils # (auto) 0.02 K/uL (0-0.2); Basophils % (auto) 0.2 %; Eosinophils # (auto) 0.34 K/uL (0-0.5); Eosinophils % (auto) 4.1 %; Hematocrit (blood only) 38.9 % (42-52); Immature Granulocytes # (auto) 0.03 K/uL (0.00-0.02); Immature Granulocytes % (auto) 0.4 %; Lymphocytes # (auto) 1.38 K/uL (1.2-3.4); Lymphocytes % (auto) 16.5 %; Mean Corpuscular Hemoglobin 33.5 pg (25-34); Mean Corpuscular Hgb Conc 33.4 g/dL (32-36); Mean Corpuscular Volume 100.3 fL (80-100); Mean Platelet Volume 10.5 fL (7.4-10.4); Monocytes # (auto) 0.84 K/uL (0.11-0.59); Neutrophils # (auto) 5.75 K/uL (1.4-6.5); Neutrophils % (auto) 68.8 %; Platelet Count 188 K/uL (130-400); RDW Coefficient of Variation 13.8 % (11.5-14.5); RDW Standard Deviation 49.8 fL (36.4-46.3); Red Blood Count 3.88 M/uL (4.7-6.1); White Blood Count 8.36 K/uL (4.8-10.8)
[2019-09-29] MEDS: AVODART~ORDER AWAITING ACTION SCH (07:34)
[2019-09-29 07:46] LABS: BUN Creatinine Ratio 15.3 (10-20); Calcium 9.1 mg/dl (8.5-10.1); Creatinine Clr Calc Pharmacy 41.3 ml/min; Est GFR (Non-African American) 55.2; Potassium 4.3 mmol/L (3.5-5.1)
[2019-09-29 07:51] LABS: Troponin I 0.021 ng/ml (0-0.045)
[2019-09-29] MEDS: TAMSULOSIN HCL 0.4 MG CAP PO SCH (08:18)
[2019-09-29] MEDS ORDERED: hydroCHLOROthiazide 25 MG TAB PO SCH (09:00)
[2019-09-29] MEDS ORDERED: CALCIUM POLYCARBOPHIL 625MG TAB PO SCH (09:00)
[2019-09-29] MEDS ORDERED: TELMISARTAN 40 MG TAB PO SCH (09:00)
[2019-09-29] MEDS ORDERED: CEROVITE ADV FORMULA TAB PO SCH (09:00)
[2019-09-29] MEDS ORDERED: METOPROLOL SUCC 50MG EXT REL TAB PO SCH (09:00)
[2019-09-29] MEDS ORDERED: CLOPIDOGREL BISULFATE 75 MG TAB PO SCH (09:00)
[2019-09-29] MEDS ORDERED: CHOLECALCIFEROL 1,000 UNITS 25 MCG TAB PO SCH (09:00)
[2019-09-29] MEDS: predniSONE 20 MG TAB PO SCH ×2 (09:34→10:01)
[2019-09-29] MEDS: ASPIRIN 81 MG ECTAB PO SCH ×2 (09:34→10:01)
--- NOTE | 2019-09-29 10:05 | Electrocardiogram Report ---
Test Reason : Blood Pressure : / mmHG Vent. Rate : 056 BPM Atrial Rate : 056 BPM P-R Int : 170 ms QRS Dur : 142 ms QT Int : 424 ms P-R-T Axes : 067 264 036 degrees QTc Int : 409 ms Sinus bradycardia Right bundle branch block Borderline Criteria for Old Inferior infarct Abnormal ECG When compared with ECG of 21-APR-2017 06:25, Borderline Criteria for Inferior infarct now Present Otherwise no significant change Confirmed by Adonis Short ([id number]) on 09/29/2019 10:04:50 AM Referred By: REFERRED SELF Confirmed By:Adonis Short
[2019-09-29] MEDS ORDERED: ALBUT/IPRATROP 3MG/0.5MG NEB 3 ML VIAL NEB PRN (10:06)
--- NOTE | 2019-09-29 11:30 | Electrocardiogram Report ---
Test Reason : Blood Pressure : / mmHG Vent. Rate : 063 BPM Atrial Rate : 063 BPM P-R Int : 164 ms QRS Dur : 148 ms QT Int : 430 ms P-R-T Axes : 069 239 050 degrees QTc Int : 440 ms Normal sinus rhythm Right bundle branch block Borderline Criteria for Septal infarct Abnormal ECG When compared with ECG of 28-SEP-2019 17:47, Borderline Criteria for Septal infarct are now Present Borderline Criteria for Inferior infarct are no longer Present Confirmed by Adonis Short ([id number]) on 09/29/2019 11:29:54 AM Referred By: REFERRED SELF Confirmed By:Adonis Short
--- NOTE | 2019-09-29 13:51 | Discharge Summary ---
Date of Service September 29, 2019 Admission HPI Per Admitting Provider Cough, phlegm more in last 2 week. More congestive in last 2 week. Today at 2:30pm first got it when sitting still reading. Still ongoing. Worse on inspiration. Stayed about the same until he came here and had nitroglycerin x2. Admission Exam Per Admitting Provider Per H&P. Principal Diagnosis Left sided pleuritis Discharge Exam General: Resting comfortably HEENT: NC/AT; PERRLA with EOMI; [place] conjunctiva, MMM. No erythema of posterior pharynx Neck: Supple and nontender Cardiac: RRR Lungs: CTA bilaterally; No rhonchi, wheezing, or rales Abdomen: Bowel normoactive X 4; Nontender to palpation Extremities: Warm. No edema present Neuro: No focal weakness Skin: No rash Discharge Data Allergies Allergy/AdvReac Type Severity Reaction Status Date / Time PEYMAN Inhibitors Allergy Mild RASH Verified 09/10/19 11:16 amoxicillin Allergy Unknown RASH Verified 09/10/19 11:16 metoclopramide Allergy Unknown RASH Verified 09/10/19 11:16 Penicillins Allergy Unknown RASH Verified 09/10/19 11:16 Consultations 09/28/19 20:12 ED Decision to Admit Stat Ordered Studies 09/28/19 18:52 CT angio chest PE protocol Stat Hospital Course (1) Pleuritic chest pain: Presented with left sided chest pain -- likely related to pleuritic source in setting of acute bronchitis. Trop neg x 4; EKG without significant ST changes. Continued cardiac meds as prescribed. Chest pain was resolved by time of discharge. Started Prednisone taper x 6 days. F/u with PCP and assistant mechanic as outpatient --was recently evaluated by assistant mechanic Dr. Schmidt in Aug 2019. (2) Coronary artery disease: S/p 6 cardiac stents, most recent episode in March 2008. Cardiac work up negative as noted above. Continued cardiac meds. (3) Acute bronchitis: Noted on chest CT. Started Prednisone taper. No indication for PO abx. F/u with PCP. (4) COPD (chronic obstructive pulmonary disease): Mild possible exacerbation noted. Started Prednisone taper. Albuterol prn as inpatient. (5) Hypertension: Continued home meds. (6) Hypercholesterolemia: Continued home statin. Discharged to home on 09/29/19. Total Time Total Time Spent Total Time Spent (In Minutes): >30 minutes Total Time Includes: Examination of the Patient, Discharge Planning, Medication Reconciliation, Communication With Other Providers and Other Discharge Plan Discharge Items Patient Disposition: Home - Self-Care Reason For Visit: CHEST PAIN Discharge Diagnosis: Chest pain Condition on Discharge: Fair Goals: You have been hospitalized for an acute medical problem. During your stay at [facility], we have made an effort to correct the problem that brought you to the hospital while keeping you as comfortable as possible. Medications were used to bring your condition under control and your discharge instructions will include directions for any medications you should take after leaving the hospital. Please make sure you see your Primary Care Provider as part of your follow up plan. Activity: As commented below Exercise/Sports: Wait until after follow-up appointment Non-emergency contact: Primary Care Provider Call non-emergency contact if: you have any medication questions, your symptoms worsen and you have a fever Follow-up/Referrals: Anthony Hsu III, MD [Primary Care Provider] - Diet: Heart Healthy Addtl Attending Provider Instructions: 1. Chest pain * Cardiac work up was negative for acute ischemia; pain is likely related to coughing episodes in setting of bronchitis. * Please take Prednisone taper as follows for treatment of acute bronchitis/inflammation related to cough: - Prednisone 40 mg on 09/30/19. - Prednisone 30 mg on 10/01/19. - Prednisone 20 mg on 10/02/19. - Prednisone 10 mg on 10/03/19. * Please call your PCP or go to the ER if you develop increased chest pain or shortness of breath following discharge to home. Pending Studies at Discharge: No Stand-Alone Forms: My [facility] Medications and DC Order Prescriptions: New aspirin [Ecotrin Low Strength] 81 mg Tablet,Delayed Release (Dr/Ec) 81 mg PO QAM 1 Days Qty: 1 RF: 0 prednisone 10 mg tablet 40 mg PO DAILY Qty: 10 RF: 0 Continued telmisartan-hydrochlorothiazid 40-12.5 mg tablet 1 tab PO DAILY Qty: 90 RF: 3 pravastatin 20 mg tablet 20 mg PO HS Qty: 90 RF: 3 PreserVision AREDS-2 [id number] wn-[id number]-nv-mg capsule 1 tab PO BID RF: 0 (DME) nebulizer accessories kit See Dose Instructions .ROUTE .MEDSUPPLY Qty: 1 RF: 0 Combivent Respimat 20-100 mcg/actuation mist 1 puffs INH QID PRN (Reason: Shortness Of Breath) RF: 0 calcium polycarbophil [FiberCon] 625 mg tablet 1,250 mg PO QAM RF: 0 cholecalciferol (vitamin D3) 1,000 unit capsule 1,000 units PO QAM RF: 0 fluticasone propionate 50 mcg/actuation spray,suspension 1 sprays intranasal DAILY PRN (Reason: Allergy Symptoms) Qty: 3 RF: 0 ipratropium-albuterol 0.5 mg-3 mg(2.5 mg base)/3 mL solution for nebulization 3 ml inhalation TID PRN (Reason: COUGH/ SHORTNESS OF BREATH) Qty: 1 RF: 0 nitroglycerin 0.4 mg tablet, sublingual 0.4 mg SL DIRECTED PRN (Reason: Chest Pain) Qty: 25 RF: 0 tamsulosin 0.4 mg capsule 0.4 mg PO BID Qty: 180 RF: 3 dutasteride 0.5 mg capsule 0.5 mg PO DAILY Qty: 90 RF: 3 metoprolol succinate 100 mg tablet extended release 24 hr 100 mg PO QAM RF: 0 clopidogrel 75 mg tablet 75 mg PO QAM RF: 0 digoxin 125 mcg (0.125 mg) tablet 125 mcg PO QAM RF: 0 Discharge Orders: Discharge Order (Routine); Ordered 09/29/19 Ordered By: Jennifer Rodrigues/Other Patient Handouts: Prednisolone tablets, Aspirin ASA oral tablets Admission Data Admit Date/Time: 09/28/19 21:22 Attending Provider: Cristhian Silver Admit Provider: Damir Sears Primary Care Provider: Anthony Hsu III Other Providers: Sawyer Adams Other Interventions: Discharge Summary Assessment (RN) Last Done: 09/29/19 13:52 DC Date/Time DO NOT enter until pt leaves facility: 09/29/19 15:13 Supervising Physician Co-Signing Physician Notes Patient seen and examined on the day of discharge. I agree with the discharge summary by Jennifer MORENO. I have reviewed the chart including labs, imaging and plans for discharge. patient feeling better, less chest pain, more coughing discussed that troponin negative x 4 sets, no evidence that this is cardiac Jennifer DelGrosso discussed with cardiology, no work up planned will treat bronchitis and d/c to home - Chest pain, left sided: worse with deep breath and cough no evidence that this is ACS likely bronchitis, treat with Prednisone taper follow up with PCP Coding Level of Care Code D/C Day Management >30 mins Diagnoses Pleuritic chest pain R07.81 Coronary artery disease I25.10 Associated angina: angina presence unspecified Coronary Disease-Associated Artery/Lesion 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
[2019-09-29] MEDS ORDERED: DIGOXIN 0.125 MG TAB PO SCH (16:00)
[2019-09-29] MEDS ORDERED: PRAVASTATIN SOD 20 MG TAB PO SCH (21:00)
== END 2019-09-29 15:13 | disposition home or self-care (01) ==
LOC: 2S 17:40 → ED 17:40 → SUATTDRO 21:22 → 2S 21:52

== ENCOUNTER 2022-11-04 14:15 | Inpatient (IN) ==
--- NOTE | 2022-11-04 14:52 | Emergency Department Note ---
Impression & Plan Dyspnea, Hypoxia ED Provider Note ED Provider Note NAME: DIGNA MENEZES AGE:87 SEX: Male : 1935 ARRIVES VIA: EMS INFORMANT: Patient ED PROVIDER(s): Sangeetha Nichols DO CHIEF COMPLAINT: Shortness of breath, hypoxia, referred by PCP HPI: This is an 87-year-old male presents emergency department after being referred from his PCPs office due to concern for hypoxia noted in the office and complaints of increased trouble breathing. Patient states for many years he has had shortness of breath with exertion that he was told was related to a leaky heart valve as well as his prior history of smoking. Patient does not wear home oxygen, and does have home nebs but only uses them as needed, typically when he has an upper respiratory infection. Patient has not noted any chest pain or palpitations. No recent fevers, chills, or other URI symptoms recently. No change in medications, no increased lower extremity edema. PAST MEDICAL HISTORY:See Below PAST SURGICAL HISTORY:See Below FAMILY HISTORY:See Below SOCIAL HISTORY:See Below HOME MEDICATIONS:See Below ALLERGIES:See Below VITALS:See Below PHYSICAL EXAMINATION: GENERAL: alert, well appearing, well nourished, no distress, non-toxic EYE EXAM: normal conjunctiva, PERRL and EOM's grossly intact OROPHARYNX: no exudate, no erythema, lips, buccal mucosa, and tongue normal and mucous membranes are moist NECK: supple, no nuchal rigidity, no adenopathy, non-tender LUNGS: Clear to auscultation. Normal chest wall mechanics, no w/r/r HEART: no murmurs, S1 normal and S2 normal ABDOMEN: abdomen soft, non-tender, normo-active bowel sounds, no masses, no rebound or guarding. BACK: Back is symmetrical on inspection and there is no deformity, no midline tenderness, no CVA tenderness. SKIN: no rashes, petechiae, orbruising UPPER EXTREMITIES: upper extremities are grossly normal. FROM, nml pulses b/l. Cyanosis noted across all nailbeds which patient states is normal and chronic. LOWER EXTREMITIES: No pitting edema. FROM, nml pulses b/l. NEURO EXAM: Normal sensorium, cranial nerves II-XII grossly intact, normal speech, no facial droop,nogross weakness of arms, no gross weakness of legs. Gross sensation intact. No ataxia. Vital Signs: reviewed and remarkable Differential Diagnosis: Differential diagnoses includes but is not limited to pneumonia, bronchitis, COPD/Asthma exacerbation, pneumothorax, pulmonary embolism, congestive heart failure, acute coronary syndrome MEDICAL DECISION MAKING: This is an 87-year-old male with a history of COPD and CHF who presents after being referred by PCPs office where he was found to be hypoxic. Patient states he is short of breath all the time although thought it was worse in recent days. He does not typically wear home oxygen. Patient was afebrile and vital signs stable. Labs drawn and sent, IV established, EKG performed and interpreted by me at bedside, chest x-ray performed and interpreted by me at bedside, patient placed on telemetry. Patient felt improved wearing oxygen via nasal cannula here at 2 L/min. After labs and imaging resulted, we did wean the patient off oxygen at rest. Patient's nasal swab negative for acute viral process. Upon attempts at standing and ambulation though, patient had marked dyspnea and immediate hypoxia down into the low 80s. Patient was placed back in bed and back on oxygen. All results were discussed with patient and family who eventually presented to bedside. Case discussed with hospitalist team for additional evaluation and management. Patient was given IV steroids. Patient afebrile no significant leukocytosis, unclear if evolving infection. I do not suspect PE. Patient does not typically use nebulizer treatments, he was given 1 here and did report improvement. I suspect this may be beneficial for likely COPD exacerbation. Consultation(s): 1802: Discussed with [facility] hospitalist team. Patient admitted to Dr. Sears. ER Treatment Provided: See below 1720: Updated family and patient on results. Patient with significant hypoxia noted with any attempts at movement or ambulation. Diagnostics Interpreted By Me: -ECG: Sinus bradycardia at 58, rightward axis, RBBB, normal QTc, PVCs noted, nonspecific ST/T wave changes -Cardiac Monitoring: An order was placed for continuous cardiac monitoring. The monitor shows a rate of 60 with normal sinus rhythm. -Laboratory studies: As stated above and show below. -Imaging studies: X-ray Chest: A single view study of the chest was reviewed and was negative for cardiomegaly, focal infiltrate, effusion, pulmonary edema, or wide mediastinum. Triage Nursing Note Reviewed Prior/Outside Records Reviewed -PCP office note Procedures: [] Critical Care: [] Past Med/Surg History Medical History (Updated 11/05/22 @ 16:28 by Luly Pete PA-C) Chest pain (10/02/14) COPD (chronic obstructive pulmonary disease) Diabetes type 2, controlled External hemorrhoids Hypercholesterolemia Hypertension Mitral valve disorder Rectal bleeding Surgical History Hernia, femoral, bilateral recurrent History of back surgery History of cardiac catheterization history of cath stent placement History of colonoscopy History of hemorrhoidectomy history of Hemorrhoid rubber band ligation History of inguinal hernia repair, bilateral Family History Mother Diabetes Lung cancer Coronary heart disease Myocardial infarction Heart disease Brother Prostate cancer Colorectal cancer Unknown Hypertension Pure hypercholesterolemia Coronary heart disease Father Stroke Myocardial infarction Other Kidney disease Denies family history of Ovarian cancer Breast cancer Social History Smoking Status: Former smoker Second Hand Exposure: No; Hx Alcohol Use: Yes Alcohol type: beer Alcohol Intake Frequency: Monthly or Less Hx Substance Use: No Preferred Language: Somali Communication Ability: Effective Visual Impairment: No Limitations Hearing Ability: Normal 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 Beliefs That Will Affect Care: None marital status: Current Living Situation: Spouse Current Living Situation Comment: at home with current occupational status: retired current occupation: used to work with [employer] How many Children do You have: 3 How many Children do You have Comment: Children, grandchildren, and great grandchildren Other Information That Helps Us Care for You: No Feels Safe at Home: Yes Safety Concerns: Feels Safe At This Time Childhood Exposure to Second-Hand Smoke: Yes caffeine: No Dental Care, Regularly: No Physical Activity Frequency: Daily Physical Activity Frequency Comment: 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, 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, 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 Seatbelt Use: always Sunscreen Use: Yes Assistive Devices: Cane and Nebulizer Allergies Allergies Allergy/AdvReac Type Severity Reaction Status Date / Time PEYMAN Inhibitors Allergy Mild RASH Verified 11/04/22 13:10 amoxicillin Allergy Unknown RASH Verified 11/04/22 13:10 metoclopramide Allergy Unknown RASH Verified 11/04/22 13:10 Penicillins Allergy Unknown RASH Verified 11/04/22 13:10 Home Meds Home Medications Medication Instructions Recorded Confirmed calcium polycarbophil 625 mg 1,250 mg PO QAM 03/23/19 11/04/22 tablet (FiberCon) cholecalciferol (vitamin D3) 25 1,000 units PO QAM 03/23/19 11/04/22 mcg (1,000 unit) capsule vit C 250 mg-vit E 90 mg-zinc 40 1 tab PO BID 03/23/19 11/04/22 mg-copper 1 ja-umwayf-dwipcg capsule (PreserVision AREDS-2) diclofenac sodium 1 % topical gel 4 g topical QID PRN Pain 11/04/22 11/04/22 (Voltaren Arthritis Pain) Previous Rx's Medication Instructions Recorded nebulizer accessories #1 ea 03/23/19 nitroglycerin 0.4 mg sublingual 0.4 mg sublingual DIRECTED PRN 10/05/19 tablet Chest Pain #25 tabs blood sugar diagnostic (OneTouch #100 ea 01/01/20 Ultra Blue Test Strip) tamsulosin 0.4 mg capsule 0.4 mg PO BID #180 caps 10/22/21 Wheeled Walker #1 ea 12/17/21 digoxin 125 mcg (0.125 mg) tablet 125 mcg PO QAM #90 tabs 03/22/22 metoprolol succinate 100 mg 100 mg PO QAM #90 tabs 03/22/22 tablet,extended release 24 hr clopidogrel 75 mg tablet 75 mg PO QAM #90 tabs 04/13/22 atorvastatin 20 mg tablet 20 mg PO DAILY #90 tabs 06/02/22 dutasteride 0.5 mg capsule 0.5 mg PO DAILY #90 caps 06/18/22 telmisartan 40 1 tab PO DAILY #90 tabs 06/18/22 mg-hydrochlorothiazide 12.5 mg tablet Results & Data (ED) Vital Signs Vital Signs - 24 hr 11/04/22 14:25 11/04/22 14:30 11/04/22 14:30 Temperature Temperature Source Pulse Rate 72 Pulse Rate [Apical] Pulse Rhythm [Apical] Pulse Strength [Apical] Respiratory Rate 19 Respiratory Rate [Recovery] Respiratory Effort / Characteristics SOB on Exertion SOB on Exertion Respiratory Depth Normal Normal Respiratory Pattern Regular Regular Blood Pressure 162/70 H Blood Pressure [Left Arm] Blood Pressure Mean 100 Blood Pressure Mean [Left Arm] Blood Pressure Position [Left Arm] Pulse Oximetry 87 L 96 Pulse Oximetry [Recovery] Oxygen Delivery Method Room Air Nasal Cannula Nasal Cannula Oxygen Flow Rate 2 2 Sepsis Recent Fever Within 48 Hours No Sepsis New/Unexplained Change in Mental Status No Sepsis Action Taken by Nursing No Action Required 11/04/22 14:30 11/04/22 15:46 11/04/22 16:58 Temperature 36.4 C L Temperature Source Oral Pulse Rate 54 L Pulse Rate [Apical] 54 L Pulse Rhythm [Apical] Regular Pulse Strength [Apical] Normal Respiratory Rate 20 Respiratory Rate [Recovery] Respiratory Effort / Characteristics SOB on Exertion Respiratory Depth Normal Respiratory Pattern Regular Blood Pressure Blood Pressure [Left Arm] 156/77 H Blood Pressure Mean Blood Pressure Mean [Left Arm] 103 Blood Pressure Position [Left Arm] Sitting Pulse Oximetry 97 91 Pulse Oximetry [Recovery] Oxygen Delivery Method Nasal Cannula Room Air Oxygen Flow Rate 2 Sepsis Recent Fever Within 48 Hours Sepsis New/Unexplained Change in Mental Status Sepsis Action Taken by Nursing 11/04/22 17:17 Temperature Temperature Source Pulse Rate Pulse Rate [Apical] Pulse Rhythm [Apical] Pulse Strength [Apical] Respiratory Rate Respiratory Rate [Recovery] 33 H Respiratory Effort / Characteristics Respiratory Depth Respiratory Pattern Blood Pressure Blood Pressure [Left Arm] Blood Pressure Mean Blood Pressure Mean [Left Arm] Blood Pressure Position [Left Arm] Pulse Oximetry Pulse Oximetry [Recovery] 81 L Oxygen Delivery Method Room Air Oxygen Flow Rate Sepsis Recent Fever Within 48 Hours Sepsis New/Unexplained Change in Mental Status Sepsis Action Taken by Nursing Laboratory Data 11/04/22 14:45 11/04/22 14:45 Lab Results 11/04/22 11/04/22 11/04/22 Range/Units 14:36 14:45 14:45 WBC 7.53 (4.8-10.8) K/ul RBC 4.07 L (4.70-6.10) M/uL Hgb 14.3 (14.0-18.0) g/dl Hct 42.7 (42.0-52.0) % MCV 104.9 H (80.0-100.0) fL MCH 35.1 H (25.0-34.0) pg MCHC 33.5 (32.0-36.0) g/dL RDW Std Deviation 55.5 H (36.4-46.3) fL RDW Coeff of Jie 14.2 (11.5-14.5) % Plt Count 158 (130-400) K/uL MPV 10.6 (9.4-12.4) fL Immature Gran % (Auto) 0.5 % Neut % (Auto) 78.0 % Lymph % (Auto) 11.8 % [place] % (Auto) 7.3 % Eos % (Auto) 1.6 % Baso % (Auto) 0.8 % Neut # (Auto) 5.87 (1.40-6.50) K/uL Lymph # (Auto) 0.89 L (1.2-3.4) K/uL [place] # (Auto) 0.55 (0.11-0.59) K/uL Eos # (Auto) 0.12 (0-0.50) K/uL Baso # (Auto) 0.06 (0-0.2) K/uL Immature Gran # (Auto) 0.04 (0.01-0.20) K/uL ABG pH (7.35-7.45) ABG pCO2 (35-46) mmHg ABG pO2 (80-95) mmHg ABG HCO3 (19-24) mmol/L ABG O2 Saturation (90-95) % ABG Base Excess (-9-1.8) mEq/L Navid Test (Pos) Oxygen Given Sodium 140 (136-145) mmol/L Potassium 4.7 (3.5-5.1) mmol/L Chloride 107 (98-107) mmol/L Carbon Dioxide 29 (21-32) mmol/L Anion Gap 4 (3-11) BUN 26 H (6-23) mg/dl Creatinine 1.45 H (0.6-1.4) mg/dl Est Cr Clr Drug Dosing 30.9 ml/min Est GFR ( Amer) 49.5 ml/min Est GFR (Non-Af Amer) 42.7 ml/min BUN/Creatinine Ratio 17.9 (10-20) Glucose 93 (70-99(Fasting)) mg/dl Calcium 9.3 (8.5-10.1) mg/dl Magnesium 2.0 (1.7-2.4) mg/dl Total Bilirubin 1.2 H (0.2-1.0) mg/dl AST 28 (13-39) U/L ALT 25 (7-52) U/L Alkaline Phosphatase 63 (34-104) U/L Troponin I High Sens 22.4 H (0-20) pg/ml B-Natriuretic Peptide 449 H (0-100) pg/ml Total Protein 6.6 (6.0-8.3) gm/dl Albumin 4.2 (3.4-5.0) gm/dl Globulin 2.4 L (2.5-4.0) gm/dl Albumin/Globulin Ratio 1.8 (0.9-2) TSH (0.300-4.500) uIu/ml Free T4 (0.61-1.60) ng/dl SARS-CoV-2 (PCR) (Negative) Influenza Type A (PCR) (Neg) Influenza Type B (PCR) (Neg) RSV (RT-PCR) (Neg) 11/04/22 11/04/22 11/04/22 Range/Units 14:45 17:01 17:57 WBC (4.8-10.8) K/ul RBC (4.70-6.10) M/uL Hgb (14.0-18.0) g/dl Hct (42.0-52.0) % MCV (80.0-100.0) fL MCH (25.0-34.0) pg MCHC (32.0-36.0) g/dL RDW Std Deviation (36.4-46.3) fL RDW Coeff of Jie (11.5-14.5) % Plt Count (130-400) K/uL MPV (9.4-12.4) fL Immature Gran % (Auto) % Neut % (Auto) % Lymph % (Auto) % [place] % (Auto) % Eos % (Auto) % Baso % (Auto) % Neut # (Auto) (1.40-6.50) K/uL Lymph # (Auto) (1.2-3.4) K/uL [place] # (Auto) (0.11-0.59) K/uL Eos # (Auto) (0-0.50) K/uL Baso # (Auto) (0-0.2) K/uL Immature Gran # (Auto) (0.01-0.20) K/uL ABG pH 7.44 (7.35-7.45) ABG pCO2 35 (35-46) mmHg ABG pO2 63 L (80-95) mmHg ABG HCO3 24 (19-24) mmol/L ABG O2 Saturation 94.3 (90-95) % ABG Base Excess 0.1 (-9-1.8) mEq/L Navid Test Pos (Pos) Oxygen Given 2L Sodium (136-145) mmol/L Potassium (3.5-5.1) mmol/L Chloride (98-107) mmol/L Carbon Dioxide (21-32) mmol/L Anion Gap (3-11) BUN (6-23) mg/dl Creatinine (0.6-1.4) mg/dl Est Cr Clr Drug Dosing ml/min Est GFR ( Amer) ml/min Est GFR (Non-Af Amer) ml/min BUN/Creatinine Ratio (10-20) Glucose (70-99(Fasting)) mg/dl Calcium (8.5-10.1) mg/dl Magnesium (1.7-2.4) mg/dl Total Bilirubin (0.2-1.0) mg/dl AST (13-39) U/L ALT (7-52) U/L Alkaline Phosphatase (34-104) U/L Troponin I High Sens 22.8 H (0-20) pg/ml B-Natriuretic Peptide (0-100) pg/ml Total Protein (6.0-8.3) gm/dl Albumin (3.4-5.0) gm/dl Globulin (2.5-4.0) gm/dl Albumin/Globulin Ratio (0.9-2) TSH 8.553 H (0.300-4.500) uIu/ml Free T4 1.11 (0.61-1.60) ng/dl SARS-CoV-2 (PCR) (Negative) Influenza Type A (PCR) (Neg) Influenza Type B (PCR) (Neg) RSV (RT-PCR) (Neg) 11/04/22 Range/Units 17:58 WBC (4.8-10.8) K/ul RBC (4.70-6.10) M/uL Hgb (14.0-18.0) g/dl Hct (42.0-52.0) % MCV (80.0-100.0) fL MCH (25.0-34.0) pg MCHC (32.0-36.0) g/dL RDW Std Deviation (36.4-46.3) fL RDW Coeff of Jie (11.5-14.5) % Plt Count (130-400) K/uL MPV (9.4-12.4) fL Immature Gran % (Auto) % Neut % (Auto) % Lymph % (Auto) % [place] % (Auto) % Eos % (Auto) % Baso % (Auto) % Neut # (Auto) (1.40-6.50) K/uL Lymph # (Auto) (1.2-3.4) K/uL [place] # (Auto) (0.11-0.59) K/uL Eos # (Auto) (0-0.50) K/uL Baso # (Auto) (0-0.2) K/uL Immature Gran # (Auto) (0.01-0.20) K/uL ABG pH (7.35-7.45) ABG pCO2 (35-46) mmHg ABG pO2 (80-95) mmHg ABG HCO3 (19-24) mmol/L ABG O2 Saturation (90-95) % ABG Base Excess (-9-1.8) mEq/L Navid Test (Pos) Oxygen Given Sodium (136-145) mmol/L Potassium (3.5-5.1) mmol/L Chloride (98-107) mmol/L Carbon Dioxide (21-32) mmol/L Anion Gap (3-11) BUN (6-23) mg/dl Creatinine (0.6-1.4) mg/dl Est Cr Clr Drug Dosing ml/min Est GFR ( Amer) ml/min Est GFR (Non-Af Amer) ml/min BUN/Creatinine Ratio (10-20) Glucose (70-99(Fasting)) mg/dl Calcium (8.5-10.1) mg/dl Magnesium (1.7-2.4) mg/dl Total Bilirubin (0.2-1.0) mg/dl AST (13-39) U/L ALT (7-52) U/L Alkaline Phosphatase (34-104) U/L Troponin I High Sens (0-20) pg/ml B-Natriuretic Peptide (0-100) pg/ml Total Protein (6.0-8.3) gm/dl Albumin (3.4-5.0) gm/dl Globulin (2.5-4.0) gm/dl Albumin/Globulin Ratio (0.9-2) TSH (0.300-4.500) uIu/ml Free T4 (0.61-1.60) ng/dl SARS-CoV-2 (PCR) NEGATIVE (Negative) Influenza Type A (PCR) Negative (Neg) Influenza Type B (PCR) Negative (Neg) RSV (RT-PCR) Negative (Neg) Administered Medications Atorvastatin Calcium (Atorvastatin 20 Mg Tab) 20 mg PO DAILY [facility] Stop: 12/05/22 08:59 Last Admin: 11/05/22 09:10 Dose: 20 mg Documented By: LORE Azithromycin (Azithromycin 250 Mg Tab) [facility] [place] Stop: 11/07/22 21:22 Last Admin: 11/05/22 09:10 Dose: 500 mg Documented By: Admin: 11/04/22 22:44 Dose: 500 mg Documented By: CATHY Clopidogrel Bisulfate (Clopidogrel Bisulfate 75 Mg Tab) [facility] [place] Stop: 12/05/22 08:59 Last Admin: 11/05/22 09:10 Dose: 75 mg Documented By: LORE Digoxin (Digoxin 0.125 Mg Tab) 0.125 mg PO DAILY@1600 [facility] Stop: 12/05/22 15:59 Last Admin: 11/05/22 15:20 Dose: Not Given Documented By: LORE Fluticasone/Vilanterol (Fluticasone/Vilanterol 200/25mcg 14 Puffs/Inhaler) 1 puffs INH DAILY [facility] Stop: 12/04/22 21:22 Last Admin: 11/05/22 09:09 Dose: 1 puffs Documented By: Admin: 11/04/22 22:43 Dose: 1 puffs Documented By: CATHY HCTZ/Losartan Potassium (Losartan/Hctz 50/12.5mg Tab) 1 tab PO DAILY [facility] Stop: 12/05/22 08:59 Last Admin: 11/05/22 09:10 Dose: 1 tab Documented By: LORE Methylprednisolone 40 mg/ (Syringe) 0.64 mls @ 1.5 mls/min IV DAILY [facility] Stop: 12/05/22 08:59 Last Admin: 11/05/22 09:09 Dose: 1.5 mls/min Documented By: LORE Menthol (Cough Drop (Sugar Free) Kole 24 Kole/1 Box) 1 kole BUCCAL Q1H PRN PRN Reason: Sore Throat Stop: 12/05/22 15:23 Last Admin: 11/05/22 15:39 Dose: 1 kole Documented By: LORE Metoprolol Succinate (Metoprolol Succ 50mg Ext Rel Tab) 100 mg PO [facility] Stop: 12/05/22 08:59 Last Admin: 11/05/22 09:10 Dose: 100 mg Documented By: LORE Miscellaneous (Dutasteride: Order Awaiting Action) 1 each N/A QS [facility] Stop: 12/05/22 07:59 Last Admin: 11/05/22 15:21 Dose: Not Given Documented By: Admin: 11/05/22 09:14 Dose: Not Given Documented By: LORE Multivitamins/Minerals (Cerovite Adv Formula Tab) 1 tab PO DAILY [facility] Stop: 12/05/22 08:59 Last Admin: 11/05/22 09:09 Dose: 1 tab Documented By: LORE Tamsulosin HCl (Tamsulosin Hcl 0.4 Mg Cap) 0.4 mg PO BID [facility] Stop: 12/04/22 21:22 Last Admin: 11/05/22 09:09 Dose: 0.4 mg Documented By: Admin: 11/04/22 22:45 Dose: 0.4 mg Documented By: CATHY Vitamin D (Cholecalciferol 1,000 Units 25 Mcg Tab) 1,000 units PO [facility] Stop: 12/05/22 08:59 Last Admin: 11/05/22 09:10 Dose: 1,000 units Documented By: LORE Discontinued Medications Albuterol (Albut/Ipratrop 3mg/0.5mg Neb 3 Ml Vial) 3 ml NEB NOW STA; Protocol Stop: 11/04/22 16:25 Last Admin: 11/04/22 16:32 Dose: 3 ml Documented By: CARLA Albuterol (Albut/Ipratrop 3mg/0.5mg Neb 3 Ml Vial) 3 ml NEB QIDR [facility]; Protocol Stop: 12/04/22 21:22 Last Admin: 11/05/22 15:40 Dose: Not Given Documented By: Admin: 11/05/22 11:17 Dose: 3 ml Documented By: Admin: 11/05/22 06:59 Dose: 3 ml Documented By: Admin: 11/04/22 22:07 Dose: 3 ml Documented By: SEVERO Methylprednisolone (Methylprednisolone 125 Mg/2 Ml Vial) 60 mg IV NOW STA Stop: 11/04/22 17:18 Last Admin: 11/04/22 17:24 Dose: 60 mg Documented By: CARLA Imaging Data Radiologist's Impression: Chest X-Ray 11/04/22 14:36 XR chest 1V portable HISTORY: 87 years-old Male hypoxia acute hypoxia COMPARISON: Chest radiograph 09/28/2019 TECHNIQUE: AP view the chest FINDINGS: Cardiac silhouette is again mildly enlarged. Emphysema with chronic interstitial coarsening. Atherosclerosis of the aorta. No pneumothorax, pleural effusion, airspace consolidation or overt pulmonary edema. Degenerative changes of the shoulders and spine. IMPRESSION: Emphysema without acute process. ACT 112: Negative or not required by law. The above report was generated using voice recognition software. It may contain grammatical, syntax or spelling errors. Electronically signed by: Eitan Pang M.D. 11/04/2022 3:19 PM Discharge Plan Visit Data Chief Complaint: Shortness of Breath/Dyspnea Stated Complaint: REFERRED BY PCP, HYPOXIA ED Provider: Sangeetha Nichols Discharge Problem: Dyspnea, Hypoxia Patient Disposition: Admitted As Inpatient Discharge Instructions Interventions: ED Discharge Assessment Last Done: 11/04/22 20:57
--- NOTE | 2022-11-04 15:20 | XRay Report ---
XR chest 1V portable HISTORY: 87 years-old Male hypoxia acute hypoxia COMPARISON: Chest radiograph 09/28/2019 TECHNIQUE: AP view the chest FINDINGS: Cardiac silhouette is again mildly enlarged. Emphysema with chronic interstitial coarsening. Atherosc lerosis of the aorta. No pneumothorax, pleural effusion, airspace consolidation or overt pulmonary ed giselle. Degenerative changes of the shoulders and spine. IMPRESSION: Emphysema without acute process. ACT 112: Negative or not required by law. The above report was generated using voice recognition software. It may contain grammatical, syntax o r spelling errors. Electronically signed by: Eitan Pang M.D. 11/04/2022 3:19 PM
[2022-11-04 15:24] LABS: Basophils # (auto) 0.06 K/uL (0-0.2); Basophils % (auto) 0.8 %; Eosinophils # (auto) 0.12 K/uL (0-0.50); Eosinophils % (auto) 1.6 %; Hematocrit (blood only) 42.7 % (42.0-52.0); Hemoglobin 14.3 g/dl (14.0-18.0); Immature Granulocytes # (auto) 0.04 K/uL (0.01-0.20); Immature Granulocytes % (auto) 0.5 %; Lymphocytes # (auto) 0.89 K/uL (1.2-3.4); Lymphocytes % (auto) 11.8 %; Mean Corpuscular Hemoglobin 35.1 pg (25.0-34.0); Mean Corpuscular Hgb Conc 33.5 g/dL (32.0-36.0); Mean Corpuscular Volume 104.9 fL (80.0-100.0); Mean Platelet Volume 10.6 fL (9.4-12.4); Monocytes # (auto) 0.55 K/uL (0.11-0.59); Monocytes % (auto) 7.3 %; Neutrophils # (auto) 5.87 K/uL (1.40-6.50); Platelet Count 158 K/uL (130-400); RDW Coefficient of Variation 14.2 % (11.5-14.5); RDW Standard Deviation 55.5 fL (36.4-46.3); Red Blood Count 4.07 M/uL (4.70-6.10); White Blood Count 7.53 K/ul (4.8-10.8)
[2022-11-04 15:47] LABS: Albumin Globulin Ratio 1.8 (0.9-2); Albumin Level 4.2 gm/dl (3.4-5.0); BUN Creatinine Ratio 17.9 (10-20); Bilirubin,Total 1.2 mg/dl (0.2-1.0); Calcium 9.3 mg/dl (8.5-10.1); Creatinine Clr Calc Pharmacy 30.9 ml/min; Est GFR (African American) 49.5 ml/min; Est GFR (Non-African American) 42.7 ml/min; Globulin 2.4 gm/dl (2.5-4.0); Potassium 4.7 mmol/L (3.5-5.1); Total Protein 6.6 gm/dl (6.0-8.3)
[2022-11-04 15:53] LABS: Troponin I High Sensitivity 22.4 pg/ml (0-20)
[2022-11-04 16:01] LABS: Thyroid Stimulating Hormone 8.553 uIu/ml (0.300-4.500)
[2022-11-04] MEDS ORDERED: ALBUT/IPRATROP 3MG/0.5MG NEB 3 ML VIAL NEB STA (16:24)
[2022-11-04 16:35] LABS: T4 Free Thyroxine 1.11 ng/dl (0.61-1.60)
[2022-11-04] MEDS ORDERED: methylPREDNISolone 125 MG/2 ML VIAL IV STA (17:17)
[2022-11-04] MEDS ORDERED: MAGNESIUM HYDROXIDE SUSP 30 ML UDC PO PRN (17:54)
[2022-11-04] MEDS ORDERED: NITROGLYCERIN SL 0.4 MG/TAB TAB SL PRN (17:54)
[2022-11-04] MEDS ORDERED: ALUMINUM/MAGNESIUM SUSP 30 ML UDC PO PRN (17:54)
[2022-11-04] MEDS ORDERED: POLYETHYLENE (MIRALAX) 17 GM PACK PO PRN (17:54)
[2022-11-04] MEDS ORDERED: ACETAMINOPHEN 325 MG TAB PO PRN (17:54)
[2022-11-04] MEDS ORDERED: ONDANSETRON INJ 2 MG/ML 2 ML VIAL IV PRN (17:54)
--- NOTE | 2022-11-04 17:54 | History & Physical Report ---
Date of Service November 04, 2022 Assessment & Plan (1) COPD (chronic obstructive pulmonary disease): Plan: Admit patient to med/surg Patient likely is having a COPD exacerbation Await viral testing (Covid, influenza ans RSV) Azithromycin 500mg daily x 3 Solu medrol 40mg daily Duonebs QID O2 to titrate saturation 92% or above (2) Hypertension: Plan: Continue home Telmisartan and Metoprolol (3) Mitral valve disorder: Plan: Last echo 01/2022 No RWMA EF 65-70% Prolapse of posterior mitral leaflet, moderate mitral regurgitation (4) Coronary artery disease: Plan: Hx of percutaneous transluminal coronary angioplasty Continue Plavix (5) COPD exacerbation: (6) Contusion of left wrist: Plan Admit to med tele SCDs Code status condition DNI, wants all ACLS History of Present Illness Chief Complaint: exertional SOB Primary Care Provider: SHALINI Kingston Patient was sent to the ER from his PCP office for hypoxia. Patient was having SOB x years but progressively increased over the past few days. He denies any other URI sxs, congestion, cough, fevers, chills. He denies any ill contacts. He admits to smoking but quit 20+ years ago. He states he has a nebulizer hat he uses on occasion when he has a URI. Patient states he was told his SOB is a combination of his lungs and his "leaky heart valve" Patiet was evaluated and CXR revealed COPD changes without acute process. Mild elevated troponin but patient has no chest pain or dysnea. Mild elevated BNP but patient has no edema. Patient was given a nebulizer treatment and 60mg solu medrol in the ED. He was weaned off the O2 and then when he stood up and took a few steps his pulse ox dropped to 80 Allergies Allergy/AdvReac Type Severity Reaction Status Date / Time PEYMAN Inhibitors Allergy Mild RASH Verified 11/04/22 13:10 amoxicillin Allergy Unknown RASH Verified 11/04/22 13:10 metoclopramide Allergy Unknown RASH Verified 11/04/22 13:10 Penicillins Allergy Unknown RASH Verified 11/04/22 13:10 Home Medications Medication Instructions Recorded Confirmed Type calcium polycarbophil 625 mg 1,250 mg PO QAM 03/23/19 11/04/22 History tablet (FiberCon) cholecalciferol (vitamin D3) 25 1,000 units PO QAM 03/23/19 11/04/22 History mcg (1,000 unit) capsule nebulizer accessories #1 ea 03/23/19 11/04/22 Rx vit C 250 mg-vit E 90 mg-zinc 40 1 tab PO BID 03/23/19 11/04/22 History mg-copper 1 os-xuaefm-[id number] capsule (PreserVision AREDS-2) nitroglycerin 0.4 mg sublingual 0.4 mg sublingual DIRECTED PRN 10/05/19 11/04/22 Rx tablet Chest Pain #25 tabs blood sugar diagnostic (OneTouch #100 ea 01/01/20 11/04/22 Rx Ultra Blue Test Strip) tamsulosin 0.4 mg capsule 0.4 mg PO BID #180 caps 10/22/21 11/04/22 Rx Wheeled Walker #1 ea 12/17/21 11/04/22 Rx digoxin 125 mcg (0.125 mg) tablet 125 mcg PO QAM #90 tabs 03/22/22 11/04/22 Rx metoprolol succinate 100 mg 100 mg PO QAM #90 tabs 03/22/22 11/04/22 Rx tablet,extended release 24 hr clopidogrel 75 mg tablet 75 mg PO QAM #90 tabs 04/13/22 11/04/22 Rx atorvastatin 20 mg tablet 20 mg PO DAILY #90 tabs 06/02/22 11/04/22 Rx dutasteride 0.5 mg capsule 0.5 mg PO DAILY #90 caps 06/18/22 11/04/22 Rx telmisartan 40 1 tab PO DAILY #90 tabs 06/18/22 11/04/22 Rx mg-hydrochlorothiazide 12.5 mg tablet diclofenac sodium 1 % topical gel 4 g topical QID PRN Pain 11/04/22 11/04/22 History (Voltaren Arthritis Pain) Past Med/Surg History Medical History Chest pain (10/02/14) COPD (chronic obstructive pulmonary disease) Diabetes type 2, controlled External hemorrhoids Hypercholesterolemia Hypertension Mitral valve disorder Rectal bleeding Surgical History Hernia, femoral, bilateral recurrent History of back surgery History of cardiac catheterization history of cath stent placement History of colonoscopy History of hemorrhoidectomy history of Hemorrhoid rubber band ligation History of inguinal hernia repair, bilateral Family History Mother Diabetes Lung cancer Coronary heart disease Myocardial infarction Heart disease Brother Prostate cancer Colorectal cancer Unknown Hypertension Pure hypercholesterolemia Coronary heart disease Father Stroke Myocardial infarction Other Kidney disease Denies family history of Ovarian cancer Breast cancer Social History Smoking Status: Former smoker Second Hand Exposure: No; Hx Alcohol Use: Yes Alcohol type: beer Alcohol Intake Frequency: Monthly or Less Hx Substance Use: No Preferred Language: [place]i Communication Ability: Effective Visual Impairment: No Limitations Hearing Ability: Normal Director [employer] Required: No Beliefs That Will Affect Care: None marital status: Current Living Situation: Spouse Current Living Situation Comment: Lives in his own home with his current occupational status: retired current occupation: used to work with [employer] How many Children do You have: 3 How many Children do You have Comment: Children, grandchildren, and great grandchildren Feels Safe at Home: Yes Childhood Exposure to Second-Hand Smoke: Yes caffeine: No Dental Care, Regularly: No Physical Activity Frequency: Daily Physical Activity Frequency Comment: 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, 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, 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 Seatbelt Use: always Sunscreen Use: Yes Assistive Devices: Denture - Upper, Denture - Lower and Glasses Review of Systems Review of Systems: + for shortness of breath with walking, denies any chest pain, dyspnea, fevers, chills, congetion or cough all other ROS negative unless stated above Physical Exam Constitutional: Patient is laying in bed on Oxygen in NAD Neck: trachea midline, no thyromegaly Respiratory: diminished lung sounds, no respiratory distress or cough Cardiovascular: Rate/Rhythm: regular rate and regular rhythm Heart Sounds: + murmur 3/6 murmur Gastrointestinal (Abdomen): normal bowel sounds, soft, nontender, no hepatosplenomegaly Skin: dusky cyanotic nail beds Psychiatric: A+Ox3, euthymic affect Results & Data Results & Data Vital Signs (Past 12 Hours) Vital Signs Temp Pulse Pulse Resp Resp BP BP 11/04/22 16:30 61 20 151/66 H 03/16/23 17:17 33 H 11/04/22 16:58 11/04/22 15:46 54 L 11/04/22 14:30 36.4 C L 54 L 20 156/77 H 11/04/22 14:30 11/04/22 14:30 11/04/22 14:25 72 19 162/70 H Pulse Ox Pulse Ox O2 Del Method O2 Flow Rate 11/04/22 16:30 97 Nasal Cannula 2 11/04/22 17:17 81 L Room Air 11/04/22 16:58 91 Room Air 11/04/22 15:46 11/04/22 14:30 97 Nasal Cannula 2 11/04/22 14:30 96 Nasal Cannula 2 11/04/22 14:30 Nasal Cannula 2 11/04/22 14:25 87 L Room Air Laboratory Results Abnormal lab results 11/04/22 11/04/22 11/04/22 Range/Units 14:36 14:45 14:45 RBC 4.07 L (4.70-6.10) M/uL MCV 104.9 H (80.0-100.0) fL MCH 35.1 H (25.0-34.0) pg RDW Std Deviation 55.5 H (36.4-46.3) fL Lymph # (Auto) 0.89 L (1.2-3.4) K/uL BUN 26 H (6-23) mg/dl Creatinine 1.45 H (0.6-1.4) mg/dl Total Bilirubin 1.2 H (0.2-1.0) mg/dl Troponin I High Sens 22.4 H (0-20) pg/ml B-Natriuretic Peptide 449 H (0-100) pg/ml Globulin 2.4 L (2.5-4.0) gm/dl TSH (0.300-4.500) uIu/ml 11/04/22 11/04/22 Range/Units 14:45 17:01 RBC (4.70-6.10) M/uL MCV (80.0-100.0) fL MCH (25.0-34.0) pg RDW Std Deviation (36.4-46.3) fL Lymph # (Auto) (1.2-3.4) K/uL BUN (6-23) mg/dl Creatinine (0.6-1.4) mg/dl Total Bilirubin (0.2-1.0) mg/dl Troponin I High Sens 22.8 H (0-20) pg/ml B-Natriuretic Peptide (0-100) pg/ml Globulin (2.5-4.0) gm/dl TSH 8.553 H (0.300-4.500) uIu/ml Diagnostic Findings Chest X-Ray 11/04/22 14:36 XR chest 1V portable HISTORY: 87 years-old Male hypoxia acute hypoxia COMPARISON: Chest radiograph 09/28/2019 TECHNIQUE: AP view the chest FINDINGS: Cardiac silhouette is again mildly enlarged. Emphysema with chronic interstitial coarsening. Atherosclerosis of the aorta. No pneumothorax, pleural effusion, airspace consolidation or overt pulmonary edema. Degenerative changes of the shoulders and spine. IMPRESSION: Emphysema without acute process. ACT 112: Negative or not required by law. The above report was generated using voice recognition software. It may contain grammatical, syntax or spelling errors. Electronically signed by: Eitan Pang M.D. 11/04/2022 3:19 PM Supervising Physician Co-Signing Physician Notes I personally saw and examined the patient. I verified all powers points and agree with Mimi Pete PA-C with the following exceptions and/or additions: 87 year old male presents to the ER with shortness of breath. Chronic shortness of breath on exertion. Noted to be hypoxic by PCP today. Slightly worse over the last 2 days. No chest pain. No other symptoms of viral illness such as nasal congestion, sinus pain, cough, sore throat. No known recent exposure causing exacerbation. O/E A&Ox3, HS 1+2, holosystolic murmur in apex, Chest reduced breath sounds, absent in bases, no wheezing A/P COPD exacerbation - cepheid negative. Suggest short course of steroids for 2-3 days given he is hypoxic however likely more underlying untreated COPD than significant exacerbation. Denny MARSHALL. Victoriao Ellipta - suggest patient is discharged with this. Follow up PFTs recommended in 4-6 weeks. Hypoxia - aim O2 sats > 88%. 2 step in AM as potential discharge for tomorrow PG Care Time/CCT Total # of Minutes Spent Total Time Spent with Patient: Total time spent is greater than 50% in coordination of care (as documented) at patient's floor/unit and/or counseling patient: Coding Level of Care Code 14987 INT INP/OBS CARE Diagnoses COPD (chronic obstructive pulmonary disease) J41.8 COPD type: chronic bronchitis Chronic bronchitis type: mixed simple and mucopurulent Hypertension I10 Mitral valve disorder I05.9 Coronary artery disease I25.10 Associated angina: angina presence unspecified Coronary Disease-Associated Artery/Lesion type: [place] artery [place] vs. transplanted heart: [place] heart COPD exacerbation J44.1 Contusion of left wrist S60.A Encounter type: initial encounter (1) COPD (chronic obstructive pulmonary disease) COPD type: chronic bronchitis Chronic bronchitis type: mixed simple and mucopurulent Qualified Code(s): J41.8 - Mixed simple and mucopurulent chronic bronchitis (4) Coronary artery disease Associated angina: angina presence unspecified Coronary Disease-Associated Artery/Lesion type: [place] artery [place] vs. transplanted heart: [place] heart Qualified Code(s): I25.10 - Atherosclerotic heart disease of [place] coronary artery without angina pectoris (6) Contusion of left wrist Encounter type: initial encounter Qualified Code(s): S60.A - Contusion of left wrist, initial encounter
[2022-11-04 18:17] LABS: Base Excess ABG 0.1 mEq/L (-9-1.8); HCO3 ABG 24 mmol/L (19-24); Oxygen Saturation ABG 94.3 % (90-95); PCO2 ABG 35 mmHg (35-46); PO2 ABG 63 mmHg (80-95); pH ABG 7.44 (7.35-7.45)
[2022-11-04 18:18] LABS: Allen Test Pos (Pos)
[2022-11-04 18:54] LABS: Influenza A virus by PCR Negative (Neg); Influenza B virus by PCR Negative (Neg); RSV by PCR Negative (Neg); SARS CoV2 RNA(COVID-19) Ceph NEGATIVE (Negative)
[2022-11-04] MEDS: ALBUT/IPRATROP 3MG/0.5MG NEB 3 ML VIAL NEB SCH (22:07)
[2022-11-04] MEDS: FLUTICASONE/VILANTEROL 200/25MCG 14 PUFFS/INHALER INH SCH (22:43)
[2022-11-04] MEDS: AZITHROMYCIN 250 MG TAB PO SCH (22:44)
[2022-11-04] MEDS: TAMSULOSIN HCL 0.4 MG CAP PO SCH (22:45)
[2022-11-05] MEDS: ALBUT/IPRATROP 3MG/0.5MG NEB 3 ML VIAL NEB SCH ×3 (06:59→15:40)
[2022-11-05] MEDS ORDERED: LOSARTAN POTASSIUM 50 MG TAB PO SCH (09:00)
[2022-11-05] MEDS: CEROVITE ADV FORMULA TAB PO SCH (09:09)
[2022-11-05] MEDS: TAMSULOSIN HCL 0.4 MG CAP PO SCH ×2 (09:09→20:41)
[2022-11-05] MEDS: FLUTICASONE/VILANTEROL 200/25MCG 14 PUFFS/INHALER INH SCH (09:09)
[2022-11-05] MEDS: methylPREDNISolone 40 MG in SYRINGE 0 ML IV SCH (09:09)
[2022-11-05] MEDS: CLOPIDOGREL BISULFATE 75 MG TAB PO SCH (09:10)
[2022-11-05] MEDS: AZITHROMYCIN 250 MG TAB PO SCH (09:10)
[2022-11-05] MEDS: ATORVASTATIN 20 MG TAB PO SCH (09:10)
[2022-11-05] MEDS: METOPROLOL SUCC 50MG EXT REL TAB PO SCH (09:10)
[2022-11-05] MEDS: CHOLECALCIFEROL 1,000 UNITS 25 MCG TAB PO SCH (09:10)
[2022-11-05] MEDS: LOSARTAN/HCTZ 50/12.5MG TAB PO SCH (09:10)
--- NOTE | 2022-11-05 12:09 | Hospitalist Progress Note ---
Date of Service November 05, 2022 Assessment & Plan (1) COPD (chronic obstructive pulmonary disease): Plan: Admitted patient to med/surg Patient likely is having a COPD exacerbation Await viral testing (Covid, influenza ans RSV - Negative) Azithromycin 500mg daily x 3 Solu medrol 40mg daily Duonebs QID prn O2 to titrate saturation 88% or above Will get a 2 step tomorrow in anticipation for discharge to see if home Oxygen is needed (2) Hypertension: Plan: Continue home Telmisartan (Losartan/HCTZ) and Metoprolol BP stable 137/61 (3) Mitral valve disorder: Plan: Last echo 01/2022 No RWMA EF 65-70% Prolapse of posterior mitral leaflet, moderate mitral regurgitation (4) Coronary artery disease: Plan: Hx of percutaneous transluminal coronary angioplasty Continue Plavix (5) COPD exacerbation: Plan: As above (6) Sore throat: Plan: Per patient nebulizer treatments irritate his throat changed nebs to QID prn advised to rinse mouth after inhaler use Fisherman's lozenges ordered for prn use Plan Admitted to [facility] tele SCDs Code status condition - DNI but wants all ACLS Admission and Anticipated Discharge Date Admission Date: November 04, 2022 Subjective Patient is wake in bed and states he is feeling ok this AM. Per nursing he states he is doing well but when gets up to walk even a few steps the O2 sats will drop into the 80s. He has needed 4L to 5L with exertion. Had been on 1-2 L at rest earlier this AM Patient states the nebulizer was irritating his lower throat. He states this has happened in the past. Review of Systems Review of Systems: + for shortness of breath with walking, denies any chest pain, dyspnea, fevers, chills, congetion or cough all other ROS negative unless stated above Physical Exam Neck: trachea midline, no thyromegaly Cardiovascular: Rate/Rhythm: regular rate and regular rhythm Heart Sounds: + murmur (+2 murmur heard best at apex) Gastrointestinal (Abdomen): normal bowel sounds, soft, nontender, no hepatosplenomegaly Psychiatric: A+Ox3, euthymic affect Results & Data Results & Data Vital Signs (Past 12 Hours) Vital Signs Temp Pulse Pulse Resp BP Pulse Ox O2 Del Method 11/05/22 11:19 58 L 16 96 Nasal Cannula 11/05/22 07:58 36.5 C 61 17 139/73 95 Nasal Cannula 11/05/22 07:01 60 16 94 Nasal Cannula O2 Flow Rate 11/05/22 11:19 1 11/05/22 07:58 1 11/05/22 07:01 1 Laboratory Results Abnormal lab results 11/04/22 11/04/22 11/04/22 Range/Units 14:36 17:01 17:57 ABG pO2 63 L (80-95) mmHg Troponin I High Sens 22.8 H (0-20) pg/ml B-Natriuretic Peptide 449 H (0-100) pg/ml PG Care Time/CCT Total # of Minutes Spent Total Time Spent with Patient: Total time spent is greater than 50% in coordination of care (as documented) at patient's floor/unit and/or counseling patient: Coding Level of Care Code 56599 SUB INP/OBS CARE 2MIN Diagnoses COPD (chronic obstructive pulmonary disease) J41.8 COPD type: chronic bronchitis Chronic bronchitis type: mixed simple and mucopurulent Hypertension I10 Mitral valve disorder I05.9 Coronary artery disease I25.10 Associated angina: angina presence unspecified Coronary Disease-Associated Artery/Lesion type: [place] artery [place] vs. transplanted heart: [place] heart COPD exacerbation J44.1 Sore throat J02.9 (1) COPD (chronic obstructive pulmonary disease) COPD type: chronic bronchitis Chronic bronchitis type: mixed simple and mucopurulent Qualified Code(s): J41.8 - Mixed simple and mucopurulent chronic bronchitis (4) Coronary artery disease Associated angina: angina presence unspecified Coronary Disease-Associated Artery/Lesion type: [place] artery [place] vs. transplanted heart: [place] heart Qualified Code(s): I25.10 - Atherosclerotic heart disease of [place] coronary artery without angina pectoris
[2022-11-05] MEDS ORDERED: COUGH DROP (SUGAR FREE) LOZ 24 LOZ/1 BOX BUCCAL PRN (15:24)
[2022-11-05] MEDS ORDERED: ALBUT/IPRATROP 3MG/0.5MG NEB 3 ML VIAL NEB PRN (15:25)
[2022-11-05] MEDS ORDERED: DIGOXIN 0.125 MG TAB PO SCH (16:00)
--- NOTE | 2022-11-06 01:38 | Electrocardiogram Report ---
Test Reason : Blood Pressure : / mmHG Vent. Rate : 058 BPM Atrial Rate : 058 BPM P-R Int : 160 ms QRS Dur : 136 ms QT Int : 444 ms P-R-T Axes : 071 256 018 degrees QTc Int : 435 ms Poor data quality, interpretation may be adversely affected Sinus bradycardia with occasional Premature ventricular complexes Right bundle branch block Possible Inferior infarct , age undetermined Anteroseptal infarct (cited on or before 29-SEP-2019) Abnormal ECG When compared with ECG of 29-SEP-2019 07:39, Premature ventricular complexes are now Present Inferior infarct is now Present Questionable change in initial forces of Anterior leads Confirmed by Yassine Villa ([id number]) on 11/06/2022 1:37:50 AM Referred By: Mallory Boogie Confirmed By:Yassine Villa
[2022-11-06 06:34] LABS: Hematocrit (blood only) 38.7 % (42.0-52.0); Hemoglobin 13.4 g/dl (14.0-18.0); Mean Corpuscular Hemoglobin 35.5 pg (25.0-34.0); Mean Corpuscular Hgb Conc 34.6 g/dL (32.0-36.0); Mean Corpuscular Volume 102.7 fL (80.0-100.0); Platelet Count 163 K/uL (130-400); RDW Coefficient of Variation 13.7 % (11.5-14.5); RDW Standard Deviation 52.2 fL (36.4-46.3); Red Blood Count 3.77 M/uL (4.70-6.10); White Blood Count 13.46 K/ul (4.8-10.8)
[2022-11-06 06:52] LABS: BUN Creatinine Ratio 20.8 (10-20); Creatinine Clr Calc Pharmacy 26.2 ml/min; Est GFR (African American) 44.3 ml/min; Est GFR (Non-African American) 38.2 ml/min; Potassium 5.6 mmol/L (3.5-5.1)
--- NOTE | 2022-11-06 07:34 | Hospitalist Progress Note ---
Date of Service November 06, 2022 Assessment & Plan (1) COPD (chronic obstructive pulmonary disease): Plan: acute on chronic respiratory failure with hypoxia Patient likely is having a COPD exacerbation Covid, influenza ans RSV - Negative Azithromycin 500mg daily x 3 Solu medrol 40mg daily Duonebs QID prn O2 to titrate saturation 88% or above pt C/o sore throat maybe from nebulizers 2 step prior to discharge (2) Hypertension: Plan: chronic and stable, Continue home Telmisartan (Losartan/HCTZ) and Metoprolol BP stable 137/61 (3) Mitral valve disorder: Plan: Last echo 01/2022 No RWMA EF 65-70% Prolapse of posterior mitral leaflet, moderate mitral regurgitation (4) Coronary artery disease: Plan: Chronic and stable Hx of percutaneous transluminal coronary angioplasty Continue Plavix Plan SCDs Code status condition - DNI but wants CPR Admission and Anticipated Discharge Date Admission Date: November 04, 2022 Results & Data Results & Data Vital Signs (Past 12 Hours) Vital Signs Temp Pulse Resp BP BP Pulse Ox O2 Del Method 11/06/22 07:24 97.5 F L 61 16 137/56 L 94 Nasal Cannula 11/05/22 21:55 97.9 F 61 18 140/65 98 Nasal Cannula O2 Flow Rate 11/06/22 07:24 4 11/05/22 21:55 4 PG Care Time/CCT Total # of Minutes Spent Total Time Spent with Patient: Total time spent is greater than 50% in coordination of care (as documented) at patient's floor/unit and/or counseling patient: Coding Diagnoses COPD (chronic obstructive pulmonary disease) J41.8 COPD type: chronic bronchitis Chronic bronchitis type: mixed simple and mucopurulent Hypertension I10 Mitral valve disorder I05.9 Coronary artery disease I25.10 Coronary Disease-Associated Artery/Lesion type: [place] artery [place] vs. transplanted heart: [place] heart Associated angina: angina presence unspecified (1) COPD (chronic obstructive pulmonary disease) COPD type: chronic bronchitis Chronic bronchitis type: mixed simple and mucopurulent Qualified Code(s): J41.8 - Mixed simple and mucopurulent chronic bronchitis (4) Coronary artery disease Coronary Disease-Associated Artery/Lesion type: [place] artery [place] vs. transplanted heart: [place] heart Associated angina: angina presence unspecified Qualified Code(s): I25.10 - Atherosclerotic heart disease of [place] coronary artery without angina pectoris
[2022-11-06] MEDS: AZITHROMYCIN 250 MG TAB PO SCH (08:35)
[2022-11-06] MEDS: FLUTICASONE/VILANTEROL 200/25MCG 14 PUFFS/INHALER INH SCH (08:35)
[2022-11-06] MEDS: TAMSULOSIN HCL 0.4 MG CAP PO SCH (08:35)
[2022-11-06] MEDS: LOSARTAN/HCTZ 50/12.5MG TAB PO SCH (08:36)
[2022-11-06] MEDS: METOPROLOL SUCC 50MG EXT REL TAB PO SCH (08:36)
[2022-11-06] MEDS: CLOPIDOGREL BISULFATE 75 MG TAB PO SCH (08:36)
[2022-11-06] MEDS: CEROVITE ADV FORMULA TAB PO SCH (08:36)
[2022-11-06] MEDS: CHOLECALCIFEROL 1,000 UNITS 25 MCG TAB PO SCH (08:36)
[2022-11-06] MEDS: ATORVASTATIN 20 MG TAB PO SCH (08:36)
[2022-11-06] MEDS: methylPREDNISolone 40 MG in SYRINGE 0 ML IV SCH (08:39)
--- NOTE | 2022-11-06 12:41 | Discharge Summary ---
Date of Service November 06, 2022 Admission HPI Per Admitting Provider Patient was sent to the ER from his PCP office for hypoxia. Patient was having SOB x years but progressively increased over the past few days. He denies any other URI sxs, congestion, cough, fevers, chills. He denies any ill contacts. He admits to smoking but quit 20+ years ago. He states he has a nebulizer hat he uses on occasion when he has a URI. Patient states he was told his SOB is a combination of his lungs and his "leaky heart valve" Patiet was evaluated and CXR revealed COPD changes without acute process. Mild elevated troponin but patient has no chest pain or dysnea. Mild elevated BNP but patient has no edema. Patient was given a nebulizer treatment and 60mg solu medrol in the ED. He was weaned off the O2 and then when he stood up and took a few steps his pulse ox dropped to 80 Principal Diagnosis Acute on chronic respiratory failure with hypoxia, COPD exacerbation, requiring home oxygen. Discharge Exam Alert appropriate. Patient has prolonged expiratory phase but otherwise clear lungs no wheezes Discharge Data Allergies Allergy/AdvReac Type Severity Reaction Status Date / Time PEYMAN Inhibitors Allergy Mild RASH Verified 11/04/22 13:10 amoxicillin Allergy Unknown RASH Verified 11/04/22 13:10 metoclopramide Allergy Unknown RASH Verified 11/04/22 13:10 Penicillins Allergy Unknown RASH Verified 11/04/22 13:10 Consultations 11/04/22 18:34 ED Decision to Admit Stat Hospital Course (1) COPD (chronic obstructive pulmonary disease): acute on chronic respiratory failure with hypoxiaimproved Patient likely is having a COPD exacerbation Covid, influenza ans RSV - Negative Azithromycin to 50 mg a day x4 Solu medrol 40mg transition to prednisone taper at time of discharge Patient be home on [facility]. 2 step oxygen requirement shows patient needs 2 L with ambulation this was ordered and delivered with a portable unit and home unit (2) Hypertension: chronic and stable, Continue home Telmisartan (Losartan/HCTZ) and Metoprolol BP stable (3) Mitral valve disorder: Last echo 01/2022 No RWMA EF 65-70% Prolapse of posterior mitral leaflet, moderate mitral regurgitation (4) Coronary artery disease: Chronic and stable Hx of percutaneous transluminal coronary angioplasty Continue Plavix Plan SCDs Code status condition - DNI but wants CPR Total Time Total Time Spent Total Time Spent (In Minutes): It required greater than 30 minutes to prepare this patient for discharge Discharge Plan Discharge Items Patient Disposition: Home - Self-Care Reason For Visit: COPD EXACERBATION Discharge Diagnosis: copd exacerbation Activity: Per Instructions section Activity Comment: wear oxygen with exercise Non-emergency contact: Primary Care Provider Call non-emergency contact if: your symptoms worsen Follow-up/Referrals: Mallory Boogie CRNP [Primary Care Provider] - 12/02/22 9:30 am Diet: Regular Addtl Attending Provider Instructions: you are started on a new inhaler, wear oxygen when exerting yourself any activity a short course of antibiotics is prescribed Please see your family doctor this week. Pending Studies at Discharge: No Stand-Alone Forms: [employer] ([employer] Smoking Cessation Medications and DC Order Prescriptions: New fluticasone furoate-vilanterol [Breo Ellipta] 200-25 mcg/dose Blister With Device 1 puff inhalation DAILY Qty: 30 0RF prednisone 10 mg tablet 10 mg PO DIRECTED Qty: 40 0RF Rx Instructions: 4 a day x 4 d>3 a day x 4 d>2 a day x 4 d>1 a day azithromycin 250 mg tablet 250 mg PO DAILY 4 Days Qty: 4 0RF Rx Instructions: start on day 2 of therapy (DME) Oxygen Home Liters Per Minute See Rx Instructions .ROUTE Qty: 2 0RF Rx Instructions: As directed, with exertion Continued (DME) blood sugar diagnostic [OneTouch Ultra Blue Test Strip] Strip See Rx Instructions .ROUTE .MEDSUPPLY Qty: 100 3RF Rx Instructions: test once daily. DX: E11.9 tamsulosin 0.4 mg capsule 0.4 mg PO BID Qty: 180 3RF digoxin 125 mcg (0.125 mg) tablet 125 mcg PO QAM Qty: 90 3RF metoprolol succinate 100 mg tablet extended release 24 hr 100 mg PO QAM Qty: 90 3RF clopidogrel 75 mg tablet 75 mg PO QAM Qty: 90 3RF dutasteride 0.5 mg capsule 0.5 mg PO DAILY Qty: 90 3RF telmisartan-hydrochlorothiazid 40-12.5 mg tablet 1 tab PO DAILY Qty: 90 3RF PreserVision AREDS-2 [id number] pu-kpnw-[id number]-mg capsule 1 tab PO BID (DME) nebulizer accessories kit See Dose Instructions .ROUTE .MEDSUPPLY Qty: 1 0RF Dose Instruction: As directed Rx Instructions: As directed calcium polycarbophil [FiberCon] 625 mg tablet 1,250 mg PO QAM cholecalciferol (vitamin D3) 1,000 unit capsule 1,000 units PO QAM nitroglycerin 0.4 mg tablet, sublingual 0.4 mg SL DIRECTED PRN (Reason: Chest Pain) Qty: 25 3RF Rx Instructions: UNDER THE TONGUE EVERY 5 MINUTES FOR UP TO 3 DOSES OVER 15 MINUTES IF NEEDED FOR CHEST PAIN atorvastatin 20 mg tablet 20 mg PO DAILY Qty: 90 3RF (DME) Wheeled Walker Misc See Rx Instructions .Route Qty: 1 0RF Rx Instructions: As directed diclofenac sodium [Voltaren Arthritis Pain] 1 % gel 4 g topical QID PRN (Reason: Pain) Rx Instructions: Apply 4gm to the right low back up to 4 times daily as needed for pain Discharge Orders: Discharge Order (Routine); Ordered 11/06/22 Ordered By: Nadeem Rodrigues/Other Patient Handouts: Using Oxygen Safely, Traveling with Oxygen Admission Data Admit Date/Time: 11/04/22 18:55 Attending Provider: Nadeem Martines Admit Provider: Damir Sears Primary Care Provider: Mallory Boogie Other Providers: Damir Sears Other Interventions: Discharge Summary Assessment (RN) Last Done: 11/06/22 11:56 Coding Level of Care Code 83523 INP/OBS DISCH >30 MIN Diagnoses COPD (chronic obstructive pulmonary disease) J41.8 COPD type: chronic bronchitis Chronic bronchitis type: mixed simple and mucopurulent Hypertension I10 Mitral valve disorder I05.9 Coronary artery disease I25.10 Coronary Disease-Associated Artery/Lesion type: [place] artery [place] vs. transplanted heart: [place] heart Associated angina: angina presence unspecified
== END 2022-11-06 13:56 | disposition home or self-care (01) | DRG 190 ==
LOC: ED 14:15 → 3N 18:55 → SUATTDRO 18:55 → 3N 20:57

== ENCOUNTER 2022-11-21 03:41 | Inpatient (IN) ==
[2022-11-21] MEDS ORDERED: AMIODARONE 360MG / 200ML D5W IV ONE (04:01)
[2022-11-21] MEDS ORDERED: AMIODARONE 150MG / 100ML D5W IV ONE (04:01)
[2022-11-21] MEDS: AMIODARONE / D5W 360 MG/200 ML BAG IV SCH ×2 (04:16→16:45)
--- NOTE | 2022-11-21 04:29 | Emergency Department Note ---
Impression & Plan Sepsis, Ventricular tachycardia, Left lower lobe pneumonia, Respiratory failure Admit to the [facility] ED Provider Note NAME: DIGNA MENEZES AGE: 87 SEX: M ARRIVES VIA: Ambulance INFORMANT: Patient and his son ED PROVIDER(S): Eilse Dial DO CHIEF COMPLAINT: Shortness of breath PLAN: Disposition: Admit to the [facility] Condition: Guarded MEDICAL DECISION MAKING: This is an 87-year-old male patient who presents to the emergency department by EMS for severe shortness of breath. Symptoms started suddenly at home when he awoke from sleep with shortness of breath. Family checked his O2 sat and found it to be in the 50s. He is normally on 2 to 3 L of home O2. He has a history of COPD. On EMS arrival, his O2 sat was in the 60s. They placed him on supplemental high flow oxygen with a DuoNeb treatment and sats were in the 80s. Upon arrival here in the emergency department, the patient was noted to be febrile. Septic protocol was performed. Chest x-ray revealed evidence of pneumonia and CHF. The patient was not bolused with IV fluids or given 30 ml/kg of IV fluid because of the peripheral edema and evidence of fluid overload on chest x-ray. The patient was felt to be septic and started on broad-spectrum antibiotic coverage having had a recent hospitalization. Just after his arrival here in the emergency department, the patient had an episode of ventricular tachycardia for which she was treated with IV amiodarone bolus and then placed on amiodarone drip. Patient has significant elevation to his troponin. Triage Nursing notes reviewed and agree with them. Additional history obtained from the patient's son who is at the bedside External medical records reviewed from a previous/recent admission Vital Signs: reviewed and remarkable for hypertension and hypoxia Differential diagnosis: PE, CHF, COPD exacerbation, STEMI, NSTEMI pneumonia, sepsis ER treatment provided: Cardiac monitoring Supplemental oxygen BiPAP IV amiodarone bolus IV amiodarone drip IV vancomycin drip IV cefepime drip Diagnostics interpreted by me: ECG: Sinus tachycardia at a rate of 114 with a right bundle branch block. There was a poor baseline. Repeat ECG: Normal sinus rhythm at a rate of 91 with a right bundle branch block. This was compared to an old EKG from November 04 and was essentially unchanged. Cardiac Monitoring: Sinus tachycardia Cardiac monitoring: Episode of ventricular tachycardia at a rate of 158 ABG: pH of 7.43-PCO2 of 29 PO2 of 76 bicarb of 19.8 Laboratory studies: See below Imaging studies: As per my independent interpretation Portable chest x-ray: Left lower lobe opacity consistent with pneumonia; pulm onary vascular congestion/congestive heart failure Consultants: Dr. Crystal-[facility] Maikel-critical care medicine I spoke with the pharmacist with regards to antibiotic choice given the concern for QTc prolongation on amiodarone drip. HPI: 87/M arrives for evaluation of shortness of breath. Patient awoke from sleep with significant shortness of breath. EMS was called. Upon their arrival, they found the patient with O2 saturations in the 50-60% range. Patient has a history of COPD and wears home oxygen. He was scheduled to see a turn out worker on Tuesday. PAST MEDICAL HISTORY:See Below PAST SURGICAL HISTORY:See Below FAMILY HISTORY:See Below SOCIAL HISTORY:Patient lives with his . He no longer smokes. HOME MEDICATIONS:See list ALLERGIES:See list VITALS:See Below PHYSICAL EXAMINATION: HEENT: Head - normocephalic and atraumatic Pupils are equal, round, and reactive to light. Extraocular eye muscles are intact, and sclera are anicteric. Nose - moist nasal mucosa without discharge. Mouth - moist buccal mucosa. Oropharynx is nonerythematous and there is no tonsillar exudate or edema noted. Neck: Supple; no JVD, nuchal rigidity, cervical lymphadenopathy, or auscultated bruits. Heart: Regular rate and rhythm. There is a normal S1 and S2 with no murmurs, clicks, or gallops appreciated. Lungs: Diminished breath sounds in both lung bases with Rales throughout. Abdomen: Soft, completely nontender, nondistended, with good bowel sounds. There are no palpable pulsatile masses or hepatosplenomegaly. There is no guarding, rigidity, or rebound noted. Extremities: 1+ pitting edema both lower extremities there are easily palpable peripheral pulses. Skin: warm and dry with good turgor and no rashes. ED COURSE: Patient was evaluated in room B1. A complete history and physical was performed. An order was placed for continuous cardiac monitoring. The patient was in a sinus tachycardia at a rate of 124. Patient was immediately placed on BiPAP to support O2 saturations in the 90s. Laboratory studies were drawn as above. A twelve-lead EKG was obtained. Patient's son was at the bedside and was able to give history. Patient heart rhythm switched into ventricular tachycardia while he was at the bedside. Patient was bolused with IV amiodarone. Defibrillation pads were placed on the chest. Code cart was placed at the bedside. Second IV lock was initiated. Patient was noted to be febrile and a septic protocol was performed. Patient was treated with IV vancomycin. Patient converted back into a sinus tachycardia. He was started on IV amiodarone drip. Patient's family was kept abreast of the situation. The patient became more hemodynamically stable. He was also started on IV cefepime. I discussed the case with the [facility] Hospitalist as well as critical care medicine. I have personally spent greater than 70 minutes of critical care time in the direct management of this patient. This includes bedside care, interpretation of diagnostic studies, and testing, discussion with consultants, patient, and family members, and other required patient management activities. This 70 m inutes is in excess of all separately billable procedures. Elise Dial, Past Med/Surg History Medical History Chest pain (10/02/14) Chronic respiratory failure with hypoxia COPD (chronic obstructive pulmonary disease) Diabetes type 2, controlled External hemorrhoids Hypercholesterolemia Hypertension Mitral valve disorder Rectal bleeding Surgical History Hernia, femoral, bilateral recurrent History of back surgery History of cardiac catheterization history of cath stent placement History of colonoscopy History of hemorrhoidectomy history of Hemorrhoid rubber band ligation History of inguinal hernia repair, bilateral Family History Mother Diabetes Lung cancer Coronary heart disease Myocardial infarction Heart disease Brother Prostate cancer Colorectal cancer Unknown Hypertension Pure hypercholesterolemia Coronary heart disease Father Stroke Myocardial infarction Other Kidney disease Denies family history of Ovarian cancer Breast cancer Social History Smoking Status: Former smoker Tobacco Type: Cigarettes Second Hand Exposure: No; Hx Alcohol Use: Yes Alcohol type: beer Alcohol Intake Frequency: Monthly or Less Hx Substance Use: No Preferred Language: Dominican Communication Ability: Effective Visual Impairment: No Limitations 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 Beliefs That Will Affect Care: None marital status: Current Living Situation: Spouse Current Living Situation Comment: AT HOME WITH current occupational status: retired current occupation: used to work with [employer] How many Children do You have: 3 How many Children do You have Comment: Children, grandchildren, and great grandchildren Other Information That Helps Us Care for You: No Feels Safe at Home: Yes Safety Concerns: Feels Safe At This Time Childhood Exposure to Second-Hand Smoke: Yes caffeine: No Dental Care, Regularly: No Physical Activity Frequency: Daily Physical Activity Frequency Comment: 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, 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, 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 Seatbelt Use: always Sunscreen Use: Yes Assistive Devices: Denture - Upper and Denture - Lower Assistive Devices Comment: CLOTHING Allergies Allergies Allergy/AdvReac Type Severity Reaction Status Date / Time PEYMAN Inhibitors Allergy Mild RASH Verified 11/19/22 16:17 amoxicillin Allergy Unknown RASH Verified 11/21/22 12:06 metoclopramide Allergy Unknown RASH Verified 11/19/22 16:17 Penicillins Allergy Unknown RASH Verified 11/21/22 12:06 erythromycin base AdvReac Severe Diarrhea Verified 11/19/22 16:17 Home Meds Home Medications Medication Instructions Recorded Confirmed calcium polycarbophil 625 mg 1,250 mg PO QAM 03/23/19 11/19/22 tablet (FiberCon) cholecalciferol (vitamin D3) 25 1,000 units PO QAM 03/23/19 11/19/22 mcg (1,000 unit) capsule vit C 250 mg-vit E 90 mg-zinc 40 1 tab PO BID 03/23/19 11/19/22 mg-copper 1 [id number] capsule (PreserVision AREDS-2) diclofenac sodium 1 % topical gel 4 g topical QID PRN Pain 11/04/22 11/19/22 (Voltaren Arthritis Pain) Previous Rx's Medication Instructions Recorded nebulizer accessories #1 ea 03/23/19 nitroglycerin 0.4 mg sublingual 0.4 mg sublingual DIRECTED PRN 10/05/19 tablet Chest Pain #25 tabs blood sugar diagnostic (OneTouch #100 ea 01/01/20 Ultra Blue Test Strip) tamsulosin 0.4 mg capsule 0.4 mg PO BID #180 caps 10/22/21 Wheeled Walker #1 ea 12/17/21 digoxin 125 mcg (0.125 mg) tablet 125 mcg PO QAM #90 tabs 03/22/22 metoprolol succinate 100 mg 100 mg PO QAM #90 tabs 03/22/22 tablet,extended release 24 hr clopidogrel 75 mg tablet 75 mg PO QAM #90 tabs 04/13/22 atorvastatin 20 mg tablet 20 mg PO DAILY #90 tabs 06/02/22 dutasteride 0.5 mg capsule 0.5 mg PO DAILY #90 caps 06/18/22 telmisartan 40 1 tab PO DAILY #90 tabs 06/18/22 mg-hydrochlorothiazide 12.5 mg tablet Oxygen Home #2 L 11/06/22 fluticasone furoate 200 1 puff inhalation DAILY #30 ea 11/06/22 mcg-vilanterol 25 mcg/dose inhalation powder (Breo Ellipta) prednisone 10 mg tablet 10 mg PO DIRECTED #40 tabs 11/06/22 Portable Oxygen #1 ea 11/15/22 Results & Data (ED) Vital Signs Vital Signs - 24 hr 11/21/22 03:47 11/21/22 03:47 11/21/22 03:47 Temperature 38.5 C H Temperature Source Axillary Pulse Rate 112 H Pulse Rate [Finger] Respiratory Rate 26 H Respiratory Effort / Characteristics Labored Short of Breath Labored Short of Breath Respiratory Depth Respiratory Pattern Blood Pressure 200/111 H Blood Pressure [Right Arm] Blood Pressure Mean 140 Blood Pressure Mean [Right Arm] Pulse Oximetry 97 96 Oxygen Delivery Method BiPAP BiPAP Fraction of Inspired Oxygen Sepsis Recent Fever Within 48 Hours No Sepsis New/Unexplained Change in Mental Status No Sepsis Action Taken by Nursing Physician Notified 11/21/22 03:45 11/21/22 04:16 11/21/22 03:51 Temperature Temperature Source Pulse Rate 115 H 112 H Pulse Rate [Finger] Respiratory Rate 36 H Respiratory Effort / Characteristics Spontaneous Labored Respiratory Depth Deep Respiratory Pattern Tachypnea Blood Pressure Blood Pressure [Right Arm] Blood Pressure Mean Blood Pressure Mean [Right Arm] Pulse Oximetry 95 100 Oxygen Delivery Method BiPAP Fraction of Inspired Oxygen 100 Sepsis Recent Fever Within 48 Hours Sepsis New/Unexplained Change in Mental Status Sepsis Action Taken by Nursing 11/21/22 04:22 11/21/22 03:58 04/02/23 04:46 Temperature Temperature Source Pulse Rate 158 H Pulse Rate [Finger] 92 H 102 H Respiratory Rate 28 H 28 H Respiratory Effort / Characteristics Respiratory Depth Respiratory Pattern Blood Pressure Blood Pressure [Right Arm] 147/90 H 151/87 H Blood Pressure Mean Blood Pressure Mean [Right Arm] 109 108 Pulse Oximetry 100 98 Oxygen Delivery Method BiPAP BiPAP Fraction of Inspired Oxygen Sepsis Recent Fever Within 48 Hours Sepsis New/Unexplained Change in Mental Status Sepsis Action Taken by Nursing 11/21/22 05:00 11/21/22 05:15 11/21/22 05:30 Temperature Temperature Source Pulse Rate Pulse Rate [Finger] 89 101 H 100 H Respiratory Rate 30 H 28 H 38 H Respiratory Effort / Characteristics Respiratory Depth Respiratory Pattern Blood Pressure Blood Pressure [Right Arm] 104/73 140/81 114/74 Blood Pressure Mean Blood Pressure Mean [Right Arm] 83 100 87 Pulse Oximetry 100 94 96 Oxygen Delivery Method BiPAP BiPAP BiPAP Fraction of Inspired Oxygen Sepsis Recent Fever Within 48 Hours Sepsis New/Unexplained Change in Mental Status Sepsis Action Taken by Nursing 11/21/22 05:45 Temperature Temperature Source Pulse Rate Pulse Rate [Finger] 93 H Respiratory Rate 36 H Respiratory Effort / Characteristics Respiratory Depth Respiratory Pattern Blood Pressure Blood Pressure [Right Arm] 120/68 Blood Pressure Mean Blood Pressure Mean [Right Arm] 85 Pulse Oximetry 100 Oxygen Delivery Method BiPAP Fraction of Inspired Oxygen Sepsis Recent Fever Within 48 Hours Sepsis New/Unexplained Change in Mental Status Sepsis Action Taken by Nursing Laboratory Data 11/21/22 04:18 11/21/22 04:18 Lab Results 11/21/22 11/21/22 11/21/22 Range/Units 04:18 04:18 04:18 WBC 23.98 H (4.8-10.8) K/ul RBC 4.15 L (4.70-6.10) M/uL Hgb 14.5 (14.0-18.0) g/dl Hct 42.5 (42.0-52.0) % MCV 102.4 H (80.0-100.0) fL MCH 34.9 H (25.0-34.0) pg MCHC 34.1 (32.0-36.0) g/dL RDW Std Deviation 55.1 H (36.4-46.3) fL RDW Coeff of Jie 14.7 H (11.5-14.5) % Plt Count 171 (130-400) K/uL MPV 11.8 (9.4-12.4) fL Immature Gran % (Auto) 0.9 % Neut % (Auto) 90.1 % Lymph % (Auto) 3.4 % [place] % (Auto) 5.3 % Eos % (Auto) 0.1 % Baso % (Auto) 0.2 % Neut # (Auto) 21.61 H (1.40-6.50) K/uL Lymph # (Auto) 0.82 L (1.2-3.4) K/uL [place] # (Auto) 1.27 H (0.11-0.59) K/uL Eos # (Auto) 0.03 (0-0.50) K/uL Baso # (Auto) 0.04 (0-0.2) K/uL Immature Gran # (Auto) 0.21 H (0.01-0.20) K/uL PT (9.0-12.0) Seconds INR (0.9-1.1) APTT (21.0-31.0) Seconds PTT Ratio D-Dimer (0-500) ug/L FEU Sodium 139 (136-145) mmol/L Potassium 5.2 H (3.5-5.1) mmol/L Chloride 105 (98-107) mmol/L Carbon Dioxide 24 (21-32) mmol/L Anion Gap 10 (3-11) BUN 33 H (6-23) mg/dl Creatinine 1.62 H (0.6-1.4) mg/dl Est Cr Clr Drug Dosing Not Reportable Est GFR ( Amer) 43.3 ml/min Est GFR (Non-Af Amer) 37.3 ml/min BUN/Creatinine Ratio 20.4 H (10-20) Glucose 243 H (70-99(Fasting)) mg/dl Lactate 3.0 H* (0.4-2.0) mmol/L Calcium 8.3 L (8.6-10.3) mg/dl Magnesium 1.7 (1.7-2.4) mg/dl Total Bilirubin 1.1 H (0.2-1.0) mg/dl Direct Bilirubin 0.2 (0-0.2) mg/dl AST 36 (13-39) U/L ALT 45 (7-52) U/L Alkaline Phosphatase 54 (34-104) U/L Troponin I High Sens 1430.7 H* (0-20) pg/ml B-Natriuretic Peptide (0-100) pg/ml Total Protein 6.2 (6.0-8.3) gm/dl Albumin 4.0 (3.4-5.0) gm/dl Procalcitonin (0-0.5) ng/ml Urine Color Urine Appearance (Clear) Urine pH (4.5-7.5) Ur Specific [place] (1.000-1.030) Urine Protein (Negative) Urine Glucose (UA) (Negative) Urine Ketones (Negative) Urine Blood (Negative) Urine Nitrite (Negative) Urine Bilirubin (Negative) Urine Urobilinogen (Negative) Ur Leukocyte Esterase (Negative) Urine WBC (Auto) (0-5) /hpf Urine RBC (Auto) (0-4) /hpf U Hyaline Cast (Auto) (0-5) /lpf U Epithel Cells (Auto) (0-5) /lpf Urine Bacteria (Auto) (Negative) Digoxin (0.8-2.0) ng/ml SARS-CoV-2 (PCR) (Negative) Influenza Type A (PCR) (Neg) Influenza Type B (PCR) (Neg) RSV (RT-PCR) (Neg) 11/21/22 11/21/22 11/21/22 Range/Units 04:18 04:18 04:18 WBC (4.8-10.8) K/ul RBC (4.70-6.10) M/uL Hgb (14.0-18.0) g/dl Hct (42.0-52.0) % MCV (80.0-100.0) fL MCH (25.0-34.0) pg MCHC (32.0-36.0) g/dL RDW Std Deviation (36.4-46.3) fL RDW Coeff of Jie (11.5-14.5) % Plt Count (130-400) K/uL MPV (9.4-12.4) fL Immature Gran % (Auto) % Neut % (Auto) % Lymph % (Auto) % [place] % (Auto) % Eos % (Auto) % Baso % (Auto) % Neut # (Auto) (1.40-6.50) K/uL Lymph # (Auto) (1.2-3.4) K/uL [place] # (Auto) (0.11-0.59) K/uL Eos # (Auto) (0-0.50) K/uL Baso # (Auto) (0-0.2) K/uL Immature Gran # (Auto) (0.01-0.20) K/uL PT (9.0-12.0) Seconds INR (0.9-1.1) APTT (21.0-31.0) Seconds PTT Ratio D-Dimer 1960 H* (0-500) ug/L FEU Sodium (136-145) mmol/L Potassium (3.5-5.1) mmol/L Chloride (98-107) mmol/L Carbon Dioxide (21-32) mmol/L Anion Gap (3-11) BUN (6-23) mg/dl Creatinine (0.6-1.4) mg/dl Est Cr Clr Drug Dosing Est GFR ( Amer) ml/min Est GFR (Non-Af Amer) ml/min BUN/Creatinine Ratio (10-20) Glucose (70-99(Fasting)) mg/dl Lactate (0.4-2.0) mmol/L Calcium (8.6-10.3) mg/dl Magnesium (1.7-2.4) mg/dl Total Bilirubin (0.2-1.0) mg/dl Direct Bilirubin (0-0.2) mg/dl AST (13-39) U/L ALT (7-52) U/L Alkaline Phosphatase (34-104) U/L Troponin I High Sens (0-20) pg/ml B-Natriuretic Peptide 1747 H (0-100) pg/ml Total Protein (6.0-8.3) gm/dl Albumin (3.4-5.0) gm/dl Procalcitonin < 0.05 (0-0.5) ng/ml Urine Color Urine Appearance (Clear) Urine pH (4.5-7.5) Ur Specific [place] (1.000-1.030) Urine Protein (Negative) Urine Glucose (UA) (Negative) Urine Ketones (Negative) Urine Blood (Negative) Urine Nitrite (Negative) Urine Bilirubin (Negative) Urine Urobilinogen (Negative) Ur Leukocyte Esterase (Negative) Urine WBC (Auto) (0-5) /hpf Urine RBC (Auto) (0-4) /hpf U Hyaline Cast (Auto) (0-5) /lpf U Epithel Cells (Auto) (0-5) /lpf Urine Bacteria (Auto) (Negative) Digoxin (0.8-2.0) ng/ml SARS-CoV-2 (PCR) (Negative) Influenza Type A (PCR) (Neg) Influenza Type B (PCR) (Neg) RSV (RT-PCR) (Neg) 11/21/22 11/21/22 11/21/22 Range/Units 04:18 04:18 04:25 WBC (4.8-10.8) K/ul RBC (4.70-6.10) M/uL Hgb (14.0-18.0) g/dl Hct (42.0-52.0) % MCV (80.0-100.0) fL MCH (25.0-34.0) pg MCHC (32.0-36.0) g/dL RDW Std Deviation (36.4-46.3) fL RDW Coeff of Jie (11.5-14.5) % Plt Count (130-400) K/uL MPV (9.4-12.4) fL Immature Gran % (Auto) % Neut % (Auto) % Lymph % (Auto) % [place] % (Auto) % Eos % (Auto) % Baso % (Auto) % Neut # (Auto) (1.40-6.50) K/uL Lymph # (Auto) (1.2-3.4) K/uL [place] # (Auto) (0.11-0.59) K/uL Eos # (Auto) (0-0.50) K/uL Baso # (Auto) (0-0.2) K/uL Immature Gran # (Auto) (0.01-0.20) K/uL PT 11.4 (9.0-12.0) Seconds INR 1.1 (0.9-1.1) APTT 23.0 (21.0-31.0) Seconds PTT Ratio 0.8 D-Dimer (0-500) ug/L FEU Sodium (136-145) mmol/L Potassium (3.5-5.1) mmol/L Chloride (98-107) mmol/L Carbon Dioxide (21-32) mmol/L Anion Gap (3-11) BUN (6-23) mg/dl Creatinine (0.6-1.4) mg/dl Est Cr Clr Drug Dosing Est GFR ( Amer) ml/min Est GFR (Non-Af Amer) ml/min BUN/Creatinine Ratio (10-20) Glucose (70-99(Fasting)) mg/dl Lactate (0.4-2.0) mmol/L Calcium (8.6-10.3) mg/dl Magnesium (1.7-2.4) mg/dl Total Bilirubin (0.2-1.0) mg/dl Direct Bilirubin (0-0.2) mg/dl AST (13-39) U/L ALT (7-52) U/L Alkaline Phosphatase (34-104) U/L Troponin I High Sens (0-20) pg/ml B-Natriuretic Peptide (0-100) pg/ml Total Protein (6.0-8.3) gm/dl Albumin (3.4-5.0) gm/dl Procalcitonin (0-0.5) ng/ml Urine Color Urine Appearance (Clear) Urine pH (4.5-7.5) Ur Specific [place] (1.000-1.030) Urine Protein (Negative) Urine Glucose (UA) (Negative) Urine Ketones (Negative) Urine Blood (Negative) Urine Nitrite (Negative) Urine Bilirubin (Negative) Urine Urobilinogen (Negative) Ur Leukocyte Esterase (Negative) Urine WBC (Auto) (0-5) /hpf Urine RBC (Auto) (0-4) /hpf U Hyaline Cast (Auto) (0-5) /lpf U Epithel Cells (Auto) (0-5) /lpf Urine Bacteria (Auto) (Negative) Digoxin 0.9 (0.8-2.0) ng/ml SARS-CoV-2 (PCR) NEGATIVE (Negative) Influenza Type A (PCR) Negative (Neg) Influenza Type B (PCR) Negative (Neg) RSV (RT-PCR) Negative (Neg) 11/21/22 Range/Units 04:46 WBC (4.8-10.8) K/ul RBC (4.70-6.10) M/uL Hgb (14.0-18.0) g/dl Hct (42.0-52.0) % MCV (80.0-100.0) fL MCH (25.0-34.0) pg MCHC (32.0-36.0) g/dL RDW Std Deviation (36.4-46.3) fL RDW Coeff of Jie (11.5-14.5) % Plt Count (130-400) K/uL MPV (9.4-12.4) fL Immature Gran % (Auto) % Neut % (Auto) % Lymph % (Auto) % [place] % (Auto) % Eos % (Auto) % Baso % (Auto) % Neut # (Auto) (1.40-6.50) K/uL Lymph # (Auto) (1.2-3.4) K/uL [place] # (Auto) (0.11-0.59) K/uL Eos # (Auto) (0-0.50) K/uL Baso # (Auto) (0-0.2) K/uL Immature Gran # (Auto) (0.01-0.20) K/uL PT (9.0-12.0) Seconds INR (0.9-1.1) APTT (21.0-31.0) Seconds PTT Ratio D-Dimer (0-500) ug/L FEU Sodium (136-145) mmol/L Potassium (3.5-5.1) mmol/L Chloride (98-107) mmol/L Carbon Dioxide (21-32) mmol/L Anion Gap (3-11) BUN (6-23) mg/dl Creatinine (0.6-1.4) mg/dl Est Cr Clr Drug Dosing Est GFR ( Amer) ml/min Est GFR (Non-Af Amer) ml/min BUN/Creatinine Ratio (10-20) Glucose (70-99(Fasting)) mg/dl Lactate (0.4-2.0) mmol/L Calcium (8.6-10.3) mg/dl Magnesium (1.7-2.4) mg/dl Total Bilirubin (0.2-1.0) mg/dl Direct Bilirubin (0-0.2) mg/dl AST (13-39) U/L ALT (7-52) U/L Alkaline Phosphatase (34-104) U/L Troponin I High Sens (0-20) pg/ml B-Natriuretic Peptide (0-100) pg/ml Total Protein (6.0-8.3) gm/dl Albumin (3.4-5.0) gm/dl Procalcitonin (0-0.5) ng/ml Urine Color Yellow Urine Appearance Clear (Clear) Urine pH 5.0 (4.5-7.5) Ur Specific [place] 1.025 (1.000-1.030) Urine Protein 2+ H (Negative) Urine Glucose (UA) Negative (Negative) Urine Ketones Negative (Negative) Urine Blood Negative (Negative) Urine Nitrite Negative (Negative) Urine Bilirubin Negative (Negative) Urine Urobilinogen Negative (Negative) Ur Leukocyte Esterase Negative (Negative) Urine WBC (Auto) 1-5 (0-5) /hpf Urine RBC (Auto) 0-4 (0-4) /hpf U Hyaline Cast (Auto) 1-5 (0-5) /lpf U Epithel Cells (Auto) 10-20 H (0-5) /lpf Urine Bacteria (Auto) Negative (Negative) Digoxin (0.8-2.0) ng/ml SARS-CoV-2 (PCR) (Negative) Influenza Type A (PCR) (Neg) Influenza Type B (PCR) (Neg) RSV (RT-PCR) (Neg) Administered Medications Atorvastatin Calcium (Atorvastatin 20 Mg Tab) 20 mg PO DAILY [facility] Stop: 12/21/22 08:59 Last Admin: 11/21/22 09:51 Dose: 20 mg Documented By: LUCRETIA Budesonide (Budesonide 0.5 Mg/2 Ml Vial (Pulmicort)) 0.5 mg NEB BIDR [facility] Stop: 12/21/22 06:59 Last Admin: 11/22/22 07:13 Dose: 0.5 mg Documented By: Admin: 11/21/22 19:33 Dose: 0.5 mg Documented By: Admin: 11/21/22 07:17 Dose: 0.5 mg Documented By: JBL Calcium Polycarbophil (Calcium Polycarbophil 625mg Tab) 1,250 mg PO QAM [facility] Stop: 12/21/22 08:59 Last Admin: 11/21/22 09:51 Dose: 1,250 mg Documented By: CB Clopidogrel Bisulfate (Clopidogrel Bisulfate 75 Mg Tab) 75 mg PO QAM MIKE Stop: 12/21/22 08:59 Last Admin: 11/21/22 09:51 Dose: 75 mg Documented By: LUCRETIA Fluticasone/Vilanterol (Fluticasone/Vilanterol 200/25mcg 14 Puffs/Inhaler) 1 puffs INH DAILY MIKE Stop: 12/21/22 08:59 Last Admin: 11/21/22 09:50 Dose: 1 puffs Documented By: LUCRETIA Amiodarone HCl/Dextrose (Nexterone / D5w) 360 mg in 200 mls @ 16.667 mls/hr IV .Q12H MIKE Stop: 12/21/22 04:44 Last Admin: 11/22/22 04:29 Dose: 0.5 mg/min, 16.7 mls/hr Documented By: TMG Co-signed By: LLP Infusion: 11/22/22 04:29 Dose: 0.5 mg/min, 16.7 mls/hr Documented By: TMG Co-signed By: LLP Infusion: 11/21/22 19:02 Dose: 0.5 mg/min, 16.7 mls/hr Documented By: CB Co-signed By: TMG Admin: 11/21/22 16:45 Dose: 0.5 mg/min, 16.7 mls/hr Documented By: LUCRETIA Co-signed By: LDS Infusion: 11/21/22 16:15 Dose: 0.5 mg/min, 16.7 mls/hr Documented By: CB Co-signed By: TALI Admin: 11/21/22 04:16 Dose: 0.5 mg/min, 16.7 mls/hr Documented By: VI Co-signed By: KIRBY Pantoprazole Sodium 40 mg/ (Syringe) 10 mls @ 5 mls/min IV DAILY@1100 MIKE Stop: 12/21/22 10:59 Last Admin: 11/21/22 11:45 Dose: 5 mls/min Documented By: CB Heparin Sodium/Dextrose (Heparin Sodium/Dextrose) 25,000 units in 500 mls @ 12 mls/hr IV .Q24H MIKE; Protocol Stop: 12/21/22 06:29 Last Titration: 11/22/22 06:55 Dose: 600 units/hr, 12 mls/hr Documented By: TMG Co-signed By: EZEQUIEL Titration: 11/22/22 05:57 Dose: 0 units/hr, 0 mls/hr Documented By: KLEBER Co-signed By: LLP Titration: 11/21/22 19:02 Dose: 700 units/hr, 14 mls/hr Documented By: LUCRETIA Co-signed By: KLEBER Titration: 11/21/22 15:42 Dose: 700 units/hr, 14 mls/hr Documented By: LUCRETIA Co-signed By: [id number] Admin: 11/21/22 08:25 Dose: 700 units/hr, 14 mls/hr Documented By: CB Co-signed By: [id number] Cefepime HCl 2,000 mg/ Syringe 20 mls @ 5 mls/min IV Q12@0600,1800 MIKE; Pr otocol Stop: 11/28/22 17:59 Last Admin: 11/22/22 05:13 Dose: 5 mls/min Documented By: Admin: 11/21/22 18:18 Dose: 5 mls/min Documented By: LUCRETIA Metoprolol Succinate (Metoprolol Succ 50mg Ext Rel Tab) 100 mg PO QAM MIKE Stop: 12/21/22 08:59 Last Admin: 11/21/22 09:51 Dose: 100 mg Documented By: LUCRETIA Miscellaneous (Dutasteride 0.5 Mg - Order Awaiting Action) 1 each N/A QS MIKE Stop: 12/21/22 07:59 Last Admin: 11/22/22 00:06 Dose: Not Given Documented By: Admin: 11/21/22 15:44 Dose: Not Given Documented By: Admin: 11/21/22 08:47 Dose: Not Given Documented By: LUCRETIA Gatesaneous (Icu Protocol For Hyperglycemia) 1 each N/A ACHS MIKE Stop: 11/23/22 07:29 Last Admin: 11/21/22 20:19 Dose: 1 each Documented By: Admin: 11/21/22 17:20 Dose: Not Given Documented By: Admin: 11/21/22 11:46 Dose: Not Given Documented By: Admin: 11/21/22 08:46 Dose: Not Given Documented By: LUCRETIA Tamsulosin HCl (Tamsulosin Hcl 0.4 Mg Cap) 0.4 mg PO BID MIKE Stop: 12/21/22 08:59 Last Admin: 11/21/22 20:20 Dose: 0.4 mg Documented By: Admin: 11/21/22 09:51 Dose: 0.4 mg Documented By: LUCRETIA Vitamin D (Cholecalciferol 1,000 Units 25 Mcg Tab) 1,000 units PO QAM [facility] Stop: 12/21/22 08:59 Last Admin: 11/21/22 09:51 Dose: 1,000 units Documented By: LUCRETIA Discontinued Medications Amiodarone HCl/Dextrose (Amiodarone 360mg / 200ml D5w) Confirm Administered Dose 360 mg IV .STK-MED ONE Stop: 11/21/22 04:02 Last Admin: 11/21/22 04:23 Dose: Not Given Documented By: VI Amiodarone HCl/Dextrose (Amiodarone 150mg / 100ml D5w) Confirm Administered Dose 150 mg IV .STK-MED ONE Stop: 11/21/22 04:02 Last Admin: 11/21/22 04:23 Dose: Not Given Documented By: VI Vancomycin HCl 1,500 mg/ (Sodium Chloride) 530 mls @ 200 mls/hr IV NOW ONE Stop: 11/21/22 07:09 Last Admin: 11/21/22 05:30 Dose: 200 mls/hr Documented By: VI Amiodarone HCl/Dextrose (Nexterone / D5w) 150 mg in 100 mls @ 600 mls/hr IV NOW STA Stop: 11/21/22 04:45 Last Infusion: 11/21/22 04:16 Dose: 0 mls/hr Documented By: VI Co-signed By: KIRBY Admin: 11/21/22 04:05 Dose: 600 mls/hr Documented By: VI Co-signed By: KIRBY Cefepime HCl 2,000 mg/ Syringe 20 mls @ 5 mls/min IV NOW STA Stop: 11/21/22 05:20 Last Admin: 11/21/22 05:25 Dose: 5 mls/min Documented By: VI Aztreonam 2,000 mg/ Dextrose 110 mls @ 100 mls/hr IV Q8H [facility]; Protocol Stop: 11/28/22 10:59 Last Infusion: 11/21/22 11:54 Dose: 0 mls/hr Documented By: Admin: 11/21/22 11:45 Dose: 100 mls/hr Documented By: LUCRETIA Magnesium Sulfate/Dextrose (Magnesium Sulfate / D5w) 1 gm in 100 mls @ 50 mls/ hr IV ONE ONE Stop: 11/21/22 08:26 Last Infusion: 11/21/22 08:56 Dose: 0 mls/hr Documented By: Admin: 11/21/22 06:53 Dose: 50 mls/hr Documented By: OMA Magnesium Sulfate/Dextrose (Magnesium Sulfate / D5w) 1 gm in 100 mls @ 50 mls/hr IV Q2H MIKE Stop: 11/21/22 11:14 Last Infusion: 11/21/22 11:55 Dose: 0 mls/hr Documented By: Admin: 11/21/22 09:52 Dose: 50 mls/hr Documented By: Infusion: 11/21/22 09:52 Dose: 50 mls/hr Documented By: Admin: 11/21/22 08:25 Dose: 50 mls/hr Documented By: LUCRETIA Discharge Plan Visit Data Chief Complaint: Respiratory Distress Stated Complaint: RESPIRATORY DISTRESS ED Provider: Elise Dial Discharge Problem: Sepsis, Ventricular tachycardia, Left lower lobe pneumonia, Respiratory failure Patient Disposition: Admitted As Inpatient Discharge Instructions Interventions: ED Discharge Assessment Last Done: 11/21/22 06:06 Sepsis Qualifiers: Sepsis type: sepsis due to unspecified organism Sepsis acute organ dysfunction status: with acute organ dysfunction Severe sepsis acute organ dysfunction type: acute respiratory failure Acute respiratory failure type: with hypoxia Left lower lobe pneumonia Qualifiers: Pneumonia type: due to unspecified organism Qualified Code(s): J18.9 - Pneumonia, unspecified organism Respiratory failure Qualifiers: Chronicity: acute Respiratory failure complication: hypoxia Qualified Code(s): J96.01 - Acute respiratory failure with hypoxia
[2022-11-21] MEDS ORDERED: VANCOMYCIN CONSULT ACTIVE PRN ×2 (04:31→06:09)
[2022-11-21] MEDS ORDERED: VANCOMYCIN HCL 1,500 MG in SODIUM CHLORIDE 0.9% 500 ML IV ONE (04:31)
[2022-11-21] MEDS ORDERED: 0.2 MICRON FILTER SET 1 EACH IV ONE (04:36)
[2022-11-21] MEDS ORDERED: AMIODARONE / D5W 150 MG/100 ML BAG IV STA (04:36)
[2022-11-21] MEDS ORDERED: levoFLOXacin/D5W 750 MG/150 ML BAG IV STA (04:39)
[2022-11-21 04:43] LABS: Hematocrit (blood only) 42.5 % (42.0-52.0); Hemoglobin 14.5 g/dl (14.0-18.0); Mean Corpuscular Hemoglobin 34.9 pg (25.0-34.0); Mean Corpuscular Hgb Conc 34.1 g/dL (32.0-36.0); Mean Corpuscular Volume 102.4 fL (80.0-100.0); Mean Platelet Volume 11.8 fL (9.4-12.4); Platelet Count 171 K/uL (130-400); RDW Coefficient of Variation 14.7 % (11.5-14.5); RDW Standard Deviation 55.1 fL (36.4-46.3); Red Blood Count 4.15 M/uL (4.70-6.10); White Blood Count 23.98 K/ul (4.8-10.8)
[2022-11-21 04:55] LABS: Alanine Aminotransferase 45 U/L (7-52); Alkaline Phosphatase 54 U/L (34-104); Anion Gap 10 (3-11); Aspartate Aminotransferase 36 U/L (13-39); BUN Creatinine Ratio 20.4 (10-20); Bilirubin Direct 0.2 mg/dl (0-0.2); Bilirubin,Total 1.1 mg/dl (0.2-1.0); Blood Urea Nitrogen 33 mg/dl (6-23); Calcium 8.3 mg/dl (8.6-10.3); Carbon Dioxide 24 mmol/L (21-32); Chloride 105 mmol/L (98-107); Est GFR (African American) 43.3 ml/min; Est GFR (Non-African American) 37.3 ml/min; Glucose 243 mg/dl (70-99(Fasting)); Magnesium 1.7 mg/dl (1.7-2.4); Potassium 5.2 mmol/L (3.5-5.1); Sodium 139 mmol/L (136-145); Total Protein 6.2 gm/dl (6.0-8.3)
[2022-11-21 05:01] LABS: Appearance Urine Clear (Clear); Bacteria Urine Automated Negative (Negative); Bilirubin Urine Negative (Negative); Blood Urine Negative (Negative); Color Urine Yellow; Glucose Urine UA Negative (Negative); Ketones Urine Negative (Negative); Leukocyte Esterase Urine Negative (Negative); Nitrite Urine Negative (Negative); Protein Urine 2+ (Negative); RBC Urine Automated 0-4 /hpf (0-4); Specific Gravity Urine 1.025 (1.000-1.030); Urobilinogen Urine Negative (Negative)
[2022-11-21 05:10] LABS: Influenza A virus by PCR Negative (Neg); Influenza B virus by PCR Negative (Neg); RSV by PCR Negative (Neg); SARS CoV2 RNA(COVID-19) Ceph NEGATIVE (Negative)
[2022-11-21 05:11] LABS: Troponin I High Sensitivity 1430.7 pg/ml (0-20)
[2022-11-21 05:17] LABS: Basophils # (auto) 0.04 K/uL (0-0.2); Basophils % (auto) 0.2 %; Eosinophils # (auto) 0.03 K/uL (0-0.50); Eosinophils % (auto) 0.1 %; Immature Granulocytes # (auto) 0.21 K/uL (0.01-0.20); Immature Granulocytes % (auto) 0.9 %; Lymphocytes # (auto) 0.82 K/uL (1.2-3.4); Lymphocytes % (auto) 3.4 %; Monocytes # (auto) 1.27 K/uL (0.11-0.59); Monocytes % (auto) 5.3 %; Neutrophils # (auto) 21.61 K/uL (1.40-6.50); Neutrophils % (auto) 90.1 %
[2022-11-21] MEDS ORDERED: CEFEPIME 2,000 MG in SYRINGE 0 ML IV STA (05:17)
--- NOTE | 2022-11-21 05:50 | History & Physical Report ---
Date of Service November 21, 2022 Assessment & Plan (1) Acute and chronic respiratory failure with hypoxia: (2) Coronary artery disease: (3) H/O percutaneous transluminal coronary angioplasty: (4) Urinary retention due to benign prostatic hyperplasia: (5) COPD (chronic obstructive pulmonary disease): (6) Diabetes type 2, controlled: (7) Hypertension: (8) Hypercholesterolemia: (9) Mitral valve disorder: (10) History of coronary artery stent placement: (11) Chronic kidney disease: (12) Abdominal aortic aneurysm: (13) Peripheral arterial disease: (14) Pneumonia: (15) Ventricular tachycardia: Plan Ventricular tachycardia/CAD/hypertension/history of PTCA/mitral valve disorder- Received amiodarone 300 mg IV bolus and started on drip per protocol The patient will be admitted to the ICU for serial cardiac enzymes, serial EKG's, cardiac rhythm monitoring and a 2-D echocardiogram with Dopplers. Initial troponin 1430.7 and BNP 1747, digoxin level 0.9 continue clopidogrel 75 mg daily, digoxin 0.125 mg daily, metoprolol succinate extended release 100 mg every morning Hold telmisartan/HCTZ 40/12.5 p.o. daily due to accompanying JORGE ALBERTO on CKD Start heparin drip Consult cardiology Acute on chronic respiratory failure with hypoxia/COPD/presumptive aspiration- Given vancomycin IV and cefepime IV in ED Rash allergy to penicillin noted Admit on vancomycin IV and aztreonam IV DuoNebs every 4 hours as needed Pulmicort Respules 0.5 mg inhaled twice daily Hold on IV steroids until C. difficile testing returns negative Consult lieutenant general team Diarrhea- Recent antibiotic use Send stool for C. difficile Acute kidney injury on CKD- Creatinine 1.62, with base range 1.3-1.4 Hold telmisartan HCTZ Follow labs serially Hypomagnesemia- Magnesium 1.7 on admission Taken account creatinine 1.6, give magnesium sulfate 1 g IV Follow serially Hyperlipidemia- Continue atorvastatin 20 mg daily BPH with LUTS- Continue dutasteride and tamsulosin CODE STATUS: Full code as discussed with family and patient in the ED History of Present Illness Chief Complaint: The patient is brought to the emergency department by EMS due to waking up around 230 this morning acutely short of breath and reports despite having his usual 2 L oxygen on, his pulse ox was in the 50s Primary Care Provider: SHALINI Kingston The patient is an 87-year-old male with a past medical history including chronic respiratory failure with hypoxia, CAD, status post PTCA, BPH with LUTS, COPD, diabetes mellitus type 2, hypertension, hypercholesterolemia, mitral valve disorder, history of coronary artery stents, CKD, AAA, PAD, history lumbar fusion, gait instability, anemia, sinus bradycardia, chronic dyspnea and hypoxia. The patient was most recently admitted to [facility] from 11/04-11/06 and was on antibiotics azithromycin at that time. His reports that he had developed diarrhea since discharge. He was otherwise in his usual state of health with chronic shortness of breath, until he awoke from sleep this morning at 230 with severe shortness of breath and hypoxia. Upon questioning, she does report that he coughs and clears her throat a lot when he eats. Upon arrival to the emergency department, he was placed on BiPAP and routine laboratories performed. While in ED he had an episode of V. tach, was placed on amiodarone bolus then drip, with rate control in the 90s and normal sinus rhythm. Significant laboratories: WBC 23.98, potassium 5.2, creatinine 1.62, glucose 243, BUN 33, lactate 3.0, total bilirubin 1.1, troponin 1430.7, BNP 1747, and digoxin level is normal at 0.9 COVID-19 test, flu and RSV were all negative Chest x-ray showed bilateral infiltrates, with consolidation left lower lobe Family does report also that the patient was complaining of left posterior back pain Allergies Allergy/AdvReac Type Severity Reaction Status Date / Time PEYMAN Inhibitors Allergy Mild RASH Verified 11/19/22 16:17 amoxicillin Allergy Unknown RASH Verified 11/19/22 16:17 metoclopramide Allergy Unknown RASH Verified 11/19/22 16:17 Penicillins Allergy Unknown RASH Verified 11/19/22 16:17 erythromycin base AdvReac Severe Diarrhea Verified 11/19/22 16:17 Home Medications Medication Instructions Recorded Confirmed Type calcium polycarbophil 625 mg 1,250 mg PO QAM 03/23/19 11/19/22 History tablet (FiberCon) cholecalciferol (vitamin D3) 25 1,000 units PO QAM 03/23/19 11/19/22 History mcg (1,000 unit) capsule nebulizer accessories #1 ea 03/23/19 11/19/22 Rx vit C 250 mg-vit E 90 mg-zinc 40 1 tab PO BID 03/23/19 11/19/22 History mg-copper 1 [id number] capsule (PreserVision AREDS-2) nitroglycerin 0.4 mg sublingual 0.4 mg sublingual DIRECTED PRN 10/05/19 11/19/22 Rx tablet Chest Pain #25 tabs blood sugar diagnostic (OneTouch #100 ea 01/01/20 11/19/22 Rx Ultra Blue Test Strip) tamsulosin 0.4 mg capsule 0.4 mg PO BID #180 caps 10/22/21 11/19/22 Rx Wheeled Walker #1 ea 12/17/21 11/19/22 Rx digoxin 125 mcg (0.125 mg) tablet 125 mcg PO QAM #90 tabs 03/22/22 11/19/22 Rx metoprolol succinate 100 mg 100 mg PO QAM #90 tabs 03/22/22 11/19/22 Rx tablet,extended release 24 hr clopidogrel 75 mg tablet 75 mg PO QAM #90 tabs 04/13/22 11/19/22 Rx atorvastatin 20 mg tablet 20 mg PO DAILY #90 tabs 06/02/22 11/19/22 Rx dutasteride 0.5 mg capsule 0.5 mg PO DAILY #90 caps 06/18/22 11/19/22 Rx telmisartan 40 1 tab PO DAILY #90 tabs 06/18/22 11/19/22 Rx mg-hydrochlorothiazide 12.5 mg tablet diclofenac sodium 1 % topical gel 4 g topical QID PRN Pain 11/04/22 11/19/22 History (Voltaren Arthritis Pain) Oxygen Home #2 L 11/06/22 11/19/22 Rx fluticasone furoate 200 1 puff inhalation DAILY #30 ea 11/06/22 11/19/22 Rx mcg-vilanterol 25 mcg/dose inhalation powder (Breo Ellipta) prednisone 10 mg tablet 10 mg PO DIRECTED #40 tabs 11/06/22 11/19/22 Rx Portable Oxygen #1 ea 11/15/22 11/19/22 Rx Past Med/Surg History Medical History (Updated 11/21/22 @ 06:19 by Sawyer Adams MD) Chest pain (10/02/14) Chronic respiratory failure with hypoxia COPD (chronic obstructive pulmonary disease) Diabetes type 2, controlled External hemorrhoids Hypercholesterolemia Hypertension Mitral valve disorder Rectal bleeding Surgical History Hernia, femoral, bilateral recurrent History of back surgery History of cardiac catheterization history of cath stent placement History of colonoscopy History of hemorrhoidectomy history of Hemorrhoid rubber band ligation History of inguinal hernia repair, bilateral Family History Mother Diabetes Lung cancer Coronary heart disease Myocardial infarction Heart disease Brother Prostate cancer Colorectal cancer Unknown Hypertension Pure hypercholesterolemia Coronary heart disease Father Stroke Myocardial infarction Other Kidney disease Denies family history of Ovarian cancer Breast cancer Social History Smoking Status: Former smoker Second Hand Exposure: No; Hx Alcohol Use: Yes Alcohol type: beer Alcohol Intake Frequency: Monthly or Less Hx Substance Use: No Preferred Language: Lithuanian Communication Ability: Effective Visual Impairment: No Limitations Hearing Ability: Normal Neuropsychology Medical Consultant Required: No Beliefs That Will Affect Care: None marital status: Current Living Situation: Spouse Current Living Situation Comment: at home with current occupational status: retired current occupation: used to work with the [employer] How many Children do You have: 3 How many Children do You have Comment: Children, grandchildren, and great grandchildren Feels Safe at Home: Yes Childhood Exposure to Second-Hand Smoke: Yes caffeine: No Dental Care, Regularly: No Physical Activity Frequency: Daily Physical Activity Frequency Comment: 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, 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, 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 The review of systems is otherwise negative other than for that already noted above, and at least 10 systems have been reviewed. Physical Exam Physical Exam: The patient is awake, alert and oriented 3, well developed and well nourished, normocephalic and atraumatic, lying in bed and in no acute distress. HEENT--PERRL, EOMI, mucous membranes and oropharynx mildly dry. Neck--supple. No JVD. No bruits. Thyroid normal, trachea midline, no adenopathy. Heart--normal S1 and S2. No murmurs, rubs or gallops. Lungs--coarse breath sounds bilaterally. Decreased breath sounds left base Abdomen--normal bowel sounds and soft. Nontender. Nondistended, no hernias or masses, no organomegaly. Extremities--no cyanosis or clubbing. No edema. There are good distal pulses b/l. Dermatologic--normal skin turgor, normal color, no abnormal lymph nodes, no rash. Neurologic--cranial nerves II through XII grossly intact. Rheumatologic--normal range of motion. Psychiatric--normal affect. Results & Data Results & Data Vital Signs (Past 12 Hours) Vital Signs Temp Pulse Pulse Resp BP BP Pulse Ox 11/21/22 05:30 100 H 38 H 114/74 96 11/21/22 05:15 101 H 28 H 140/81 94 11/21/22 05:00 89 30 H 104/73 100 11/21/22 04:46 102 H 28 H 151/87 H 98 11/21/22 03:58 158 H 11/21/22 04:22 92 H 28 H 147/90 H 100 11/21/22 03:51 112 H 11/21/22 04:16 100 11/21/22 03:45 115 H 36 H 95 11/21/22 03:47 96 11/21/22 03:47 38.5 C H 112 H 26 H 200/111 H 97 O2 Del Method FiO2 11/21/22 05:30 BiPAP 11/21/22 05:15 BiPAP 11/21/22 05:00 BiPAP 11/21/22 04:46 BiPAP 11/21/22 03:58 11/21/22 04:22 BiPAP 11/21/22 03:51 11/21/22 04:16 BiPAP 11/21/22 03:45 100 11/21/22 03:47 BiPAP 11/21/22 03:47 BiPAP Laboratory Results Laboratory Results WBC 23.98 K/ul (4.8-10.8) H 11/21/22 04:18 RBC 4.15 M/uL (4.70-6.10) L 11/21/22 04:18 Hgb 14.5 g/dl (14.0-18.0) 11/21/22 04:18 Hct 42.5 % (42.0-52.0) 11/21/22 04:18 MCV 102.4 fL (80.0-100.0) H 11/21/22 04:18 MCH 34.9 pg (25.0-34.0) H 11/21/22 04:18 MCHC 34.1 g/dL (32.0-36.0) 11/21/22 04:18 RDW Std Deviation 55.1 fL (36.4-46.3) H 11/21/22 04:18 RDW Coeff of Jie 14.7 % (11.5-14.5) H 11/21/22 04:18 Plt Count 171 K/uL (130-400) 11/21/22 04:18 MPV 11.8 fL (9.4-12.4) 11/21/22 04:18 Immature Gran % (Auto) 0.9 % 11/21/22 04:18 Neut % (Auto) 90.1 % 11/21/22 04:18 Lymph % (Auto) 3.4 % 11/21/22 04:18 [place] % (Auto) 5.3 % 11/21/22 04:18 Eos % (Auto) 0.1 % 11/21/22 04:18 Baso % (Auto) 0.2 % 11/21/22 04:18 Neut # (Auto) 21.61 K/uL (1.40-6.50) H 11/21/22 04:18 Lymph # (Auto) 0.82 K/uL (1.2-3.4) L 11/21/22 04:18 [place] # (Auto) 1.27 K/uL (0.11-0.59) H 11/21/22 04:18 Eos # (Auto) 0.03 K/uL (0-0.50) 11/21/22 04:18 Baso # (Auto) 0.04 K/uL (0-0.2) 11/21/22 04:18 Immature Gran # (Auto) 0.21 K/uL (0.01-0.20) H 11/21/22 04:18 D-Dimer 1960 ug/L FEU (0-500) H* 11/21/22 04:18 Sodium 139 mmol/L (136-145) 11/21/22 04:18 Potassium 5.2 mmol/L (3.5-5.1) H 11/21/22 04:18 Chloride 105 mmol/L (98-107) 11/21/22 04:18 Carbon Dioxide 24 mmol/L (21-32) 11/21/22 04:18 Anion Gap 10 (3-11) 11/21/22 04:18 BUN 33 mg/dl (6-23) H 11/21/22 04:18 Creatinine 1.62 mg/dl (0.6-1.4) H 11/21/22 04:18 Est Cr Clr Drug Dosing Not Reportable 11/21/22 04:18 Est GFR ( Amer) 43.3 ml/min 11/21/22 04:18 Est GFR (Non-Af Amer) 37.3 ml/min 11/21/22 04:18 BUN/Creatinine Ratio 20.4 (10-20) H 11/21/22 04:18 Glucose 243 mg/dl (70-99(Fasting)) H 11/21/22 04:18 Lactate 3.0 mmol/L (0.4-2.0) H* 11/21/22 04:18 Calcium 8.3 mg/dl (8.6-10.3) L 11/21/22 04:18 Magnesium 1.7 mg/dl (1.7-2.4) 11/21/22 04:18 Total Bilirubin 1.1 mg/dl (0.2-1.0) H 11/21/22 04:18 Direct Bilirubin 0.2 mg/dl (0-0.2) 11/21/22 04:18 AST 36 U/L (13-39) 11/21/22 04:18 ALT 45 U/L (7-52) 11/21/22 04:18 Alkaline Phosphatase 54 U/L (34-104) 11/21/22 04:18 Troponin I High Sens 1430.7 pg/ml (0-20) H* 11/21/22 04:18 B-Natriuretic Peptide 1747 pg/ml (0-100) H 11/21/22 04:18 Total Protein 6.2 gm/dl (6.0-8.3) 11/21/22 04:18 Albumin 4.0 gm/dl (3.4-5.0) 11/21/22 04:18 Procalcitonin < 0.05 ng/ml (0-0.5) 11/21/22 04:18 Urine Color Yellow 11/21/22 04:46 Urine Appearance Clear (Clear) 11/21/22 04:46 Urine pH 5.0 (4.5-7.5) 11/21/22 04:46 Ur Specific [place] 1.025 (1.000-1.030) 11/21/22 04:46 Urine Protein 2+ (Negative) H 11/21/22 04:46 Urine Glucose (UA) Negative (Negative) 11/21/22 04:46 Urine Ketones Negative (Negative) 11/21/22 04:46 Urine Blood Negative (Negative) 11/21/22 04:46 Urine Nitrite Negative (Negative) 11/21/22 04:46 Urine Bilirubin Negative (Negative) 11/21/22 04:46 Urine Urobilinogen Negative (Negative) 11/21/22 04:46 Ur Leukocyte Esterase Negative (Negative) 11/21/22 04:46 Urine WBC (Auto) 1-5 /hpf (0-5) 11/21/22 04:46 Urine RBC (Auto) 0-4 /hpf (0-4) 11/21/22 04:46 U Hyaline Cast (Auto) 1-5 /lpf (0-5) 11/21/22 04:46 U Epithel Cells (Auto) 10-20 /lpf (0-5) H 11/21/22 04:46 Urine Bacteria (Auto) Negative (Negative) 11/21/22 04:46 Digoxin 0.9 ng/ml (0.8-2.0) 11/21/22 04:18 SARS-CoV-2 (PCR) NEGATIVE (Negative) 11/21/22 04:25 Influenza Type A (PCR) Negative (Neg) 11/21/22 04:25 Influenza Type B (PCR) Negative (Neg) 11/21/22 04:25 RSV (RT-PCR) Negative (Neg) 11/21/22 04:25 Code Status & VTE Plan Code Status Full code VTE Prophylaxis Plan VTE Prophylaxis will be ordered: Yes PG Care Time/CCT Total # of Minutes Spent Total Time Spent with Patient: Total time spent is greater than 50% in coordination of care (as documented) at patient's floor/unit and/or counseling patient: Coding Level of Care Code 92550 INT INP/OBS CARE 3/75MIN Diagnoses Acute and chronic respiratory failure with hypoxia J96.21 Coronary artery disease I25.10 Coronary Disease-Associated Artery/Lesion type: [place] artery [place] vs. transplanted heart: [place] heart Associated angina: angina presence unspecified H/O percutaneous transluminal coronary angioplasty Z98.61 Urinary retention due to benign prostatic hyperplasia N40.1; R33.8 COPD (chronic obstructive pulmonary disease) J41.8 COPD type: chronic bronchitis Chronic bronchitis type: mixed simple and mucopurulent Diabetes type 2, controlled E11.9 Diabetes mellitus exterminator termite insulin use: without exterminator termite use Diabetes mellitus complication status: without complication Hypertension I10 Hypercholesterolemia E78.00 Mitral valve disorder I05.9 History of coronary artery stent placement Z95.5 Chronic kidney disease N18.9 Abdominal aortic aneurysm I71.4 Peripheral arterial disease I73.9 Pneumonia J18.9 Ventricular tachycardia I47.20 (2) Coronary artery disease Coronary Disease-Associated Artery/Lesion type: [place] artery [place] vs. 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
[2022-11-21 05:58] LABS: D Dimer 1960 ug/L FEU (0-500)
[2022-11-21] MEDS ORDERED: Heparin IV Adult Wt-Based Low-Dose *NO* Bolus Protocol IV SCH (06:26)
[2022-11-21] MEDS ORDERED: MAGNESIUM SULFATE / D5W 1 GM/100 ML BAG IV ONE (06:27)
[2022-11-21] MEDS ORDERED: HEPARIN SODIUM/DEXTROSE 25,000 UNITS/500 ML BAG IV SCH (06:30)
--- NOTE | 2022-11-21 06:30 | Billing Data ---
Date of Service November 21, 2022 Coding Level of Care Code 67955 CRITICAL CARE M
--- NOTE | 2022-11-21 06:32 | Critical Care Consultation ---
Date of Consultation November 21, 2022 Assessment & Plan (1) Sepsis: (2) Ventricular tachycardia: (3) Left lower lobe pneumonia: (4) Acute and chronic respiratory failure with hypoxia: (5) Coronary artery disease: (6) COPD (chronic obstructive pulmonary disease): (7) Diabetes type 2, controlled: (8) Hypertension: (9) Hypercholesterolemia: (10) Mitral valve disorder: (11) Chronic kidney disease: Plan Reason Critically Ill: 87 YOM with acute onset dyspnea and hypoxia, requiring Bi-PAP on arrival and with Vtach run while in the EMD treated with amiodarone infusion. There is also concern for sepsis as well as Pulmonary Embolism and/or acute heart failure Neuro - No acute needs CAM ICU: NEGATIVE - alert and able to recall all events without any focal deficits Cardiac - Vtach/ventricular ectopy, elevated HScTNI, pulmonary edema, CAD with previous stents to LAD/RCA, HTN, AAA, MVR - Vtach noted in EMD not captured on ECG- started on amiodarone infusion- QtC 440 - Replete Magnesium up to >2.0 - Digoxin level 0.9 - For his elevated HScTNI, BNP, tachycardia- this is multifactorial at this time for which can't exclude Pulmonary Embolism- ECHO this morning eval for RWMA or Right heart strain, and Mitral Valve - Doppler lower extremities bilateral - Trend HScTNI- consider cardiology evaluation following ECHO results - Diurese when proven hemodynamically stable and suspicion of PE lowers or is eliminated - Continue Digoxin and Metoprolol for his hx of CAD/HTN - Continue statin - AAA 3.2x2.6 reported in JUN 12- stable no acute needs at this time - Follow MV with ECHO- may also possibly effecting the above Respiratory - Hypoxic respiratory failure, pneumonia/abnormal cxr - Unfotrunately an ABG not obtained- will obtain on arrival to ICU however he is on 100% FIo2 which will be agressively weaned down to spo2 of 88-92% - Wean BiPAP - LL opacity - will continue with Vanco and Aztreonam with recent hospitalization- MRSA pending GI - Diarrhea - 2-3 loose stools at home- but reports it was more last week- in setting of recent abx send C.DIFF - Follow is with some lower quad abdominal discomfort RENAL/LYTES - CKD, - Avoid nephrotoxic medications and if needed will minimize exposure time - hold on CTA at this time in favor bilateral Doppler as may need contrast for cardiac evaluation - NO acute needs ENDO - DMII - inuslin sliding scale while in house- goal <180mg/DL HEME - No acute needs - PTT/INR pending for initiation of heparin infusion ID - Sepsis, Pneumonia - Meets Sirs criteria with possible source of LL pneumonia/aspiration - Aztreonam - received dose of Vanco in EMD - await MRSA swab - Blood cultures pending - UA negative - sputum sample pending LINES/IV ACCESS - PIV Continue use of these lines DVT PROPHYLAXIS - SCDs, Heparin infusion DISPO: ICU for hemodynamic monitoring and arrhythmia monitoring I have personally spent 50 minutes of critical care time in the direct management of this patient. This is a life/limb threatening event. This includes time spent evaluating patient, direct bedside care, chart review, placing orders, interpretation of diagnostic studies, discussion with consultants, patient, and family members, as well as other required patient management activities. This time is exclusive of all separately billable procedures, separate from and in addition to any other critical care service time. Thank you for allowing us to participate in the care of this patient. Please refer to my attending physician's documentation for any further recommendations. History of Present Illness Reason for Consultation: [facility] Sepsis Requesting Physician: Sawyer Duke MD Attending Physician: Sawyer Adams MD History of Present Illness 87 YOM with medical history of COPD on home oxygen and trelegy inhaler at home, CAD (stents to LAD and RCA 2007), AAA(3.2x2.6CM ), Moderate to severe MR, HTN, HLD. Patient recently discharged on 11/06 following admission for COPD exacerbation- he was discharged on Azithromycin and Prednisone taper and reports diarrhea since that time. He went marissa on oxygen following last admission. He was brought to the EMD today for abrupt awakening of dysnpea and hypoxia. This was not associated with any chest pain, jaw or neck pain, or n/v/diaphoresis. He reports having some chills and fevers yesterday throughout the day as well. He reports increase in sputum production and cough, but no change in his sputum color. In the EMD he was placed on BiPAP 10/5 100% Fio2 for hypoxia/dyspnea. Patient was also noted to be tachycardic. He had routine labs performed to include HScTNI, BNP, and D-Dimer, these were all markedly elevated from his baseline. He is also notable for increased WBC count and elevated lactate- He was initiated on Cefepime and Vancomycin His ECG is with RBB and no acute changes when compared to recent admission ECG During his workup he reportedly went into Ventricular Tachycardia and was started on a Amiodarone infusion. Hospitalist service was consulted for admission. 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 Continue broad spectrum abx for possible pneumonia/aspiration. Test for C.DIFF as well. COVID/FLU: NEGATIVE CODE: Limited- Do not intubate Consults: NONE Allergies Allergy/AdvReac Type Severity Reaction Status Date / Time PEYMAN Inhibitors Allergy Mild RASH Verified 11/19/22 16:17 amoxicillin Allergy Unknown RASH Verified 11/19/22 16:17 metoclopramide Allergy Unknown RASH Verified 11/19/22 16:17 Penicillins Allergy Unknown RASH Verified 11/19/22 16:17 erythromycin base AdvReac Severe Diarrhea Verified 11/19/22 16:17 Home Medications Medication Instructions Recorded Confirmed Type calcium polycarbophil 625 mg 1,250 mg PO QAM 03/23/19 11/19/22 History tablet (FiberCon) cholecalciferol (vitamin D3) 25 1,000 units PO QAM 03/23/19 11/19/22 History mcg (1,000 unit) capsule nebulizer accessories #1 ea 03/23/19 11/19/22 Rx vit C 250 mg-vit E 90 mg-zinc 40 1 tab PO BID 03/23/19 11/19/22 History mg-copper 1 [id number] capsule (PreserVision AREDS-2) nitroglycerin 0.4 mg sublingual 0.4 mg sublingual DIRECTED PRN 10/05/19 11/19/22 Rx tablet Chest Pain #25 tabs blood sugar diagnostic (OneTouch #100 ea 01/01/20 11/19/22 Rx Ultra Blue Test Strip) tamsulosin 0.4 mg capsule 0.4 mg PO BID #180 caps 10/22/21 11/19/22 Rx Wheeled Walker #1 ea 12/17/21 11/19/22 Rx digoxin 125 mcg (0.125 mg) tablet 125 mcg PO QAM #90 tabs 03/22/22 11/19/22 Rx metoprolol succinate 100 mg 100 mg PO QAM #90 tabs 03/22/22 11/19/22 Rx tablet,extended release 24 hr clopidogrel 75 mg tablet 75 mg PO QAM #90 tabs 04/13/22 11/19/22 Rx atorvastatin 20 mg tablet 20 mg PO DAILY #90 tabs 06/02/22 11/19/22 Rx dutasteride 0.5 mg capsule 0.5 mg PO DAILY #90 caps 06/18/22 11/19/22 Rx telmisartan 40 1 tab PO DAILY #90 tabs 06/18/22 11/19/22 Rx mg-hydrochlorothiazide 12.5 mg tablet diclofenac sodium 1 % topical gel 4 g topical QID PRN Pain 11/04/22 11/19/22 History (Voltaren Arthritis Pain) Oxygen Home #2 L 11/06/22 11/19/22 Rx fluticasone furoate 200 1 puff inhalation DAILY #30 ea 11/06/22 11/19/22 Rx mcg-vilanterol 25 mcg/dose inhalation powder (Breo Ellipta) prednisone 10 mg tablet 10 mg PO DIRECTED #40 tabs 11/06/22 11/19/22 Rx Portable Oxygen #1 ea 11/15/22 11/19/22 Rx Patient History Medical History Chest pain (10/02/14) Chronic respiratory failure with hypoxia COPD (chronic obstructive pulmonary disease) Diabetes type 2, controlled External hemorrhoids Hypercholesterolemia Hypertension Mitral valve disorder Rectal bleeding Surgical History Hernia, femoral, bilateral recurrent History of back surgery History of cardiac catheterization history of cath stent placement History of colonoscopy History of hemorrhoidectomy history of Hemorrhoid rubber band ligation History of inguinal hernia repair, bilateral Family History Mother Diabetes Lung cancer Coronary heart disease Myocardial infarction Heart disease Brother Prostate cancer Colorectal cancer Unknown Hypertension Pure hypercholesterolemia Coronary heart disease Father Stroke Myocardial infarction Other Kidney disease Denies family history of Ovarian cancer Breast cancer Social History (Reviewed 11/21/22 @ 06:57 by KATHLEEN Urena Smoking Status: Former smoker Tobacco Type: Cigarettes Second Hand Exposure: No; Hx Alcohol Use: Yes Alcohol type: beer Alcohol Intake Frequency: Monthly or Less Hx Substance Use: No Preferred Language: Palauan Communication Ability: Effective Visual Impairment: No Limitations Hearing Ability: Normal 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 Beliefs That Will Affect Care: None marital status: Current Living Situation: Spouse Current Living Situation Comment: AT HOME WITH current occupational status: retired current occupation: used to work with [employer] How many Children do You have: 3 How many Children do You have Comment: Children, grandchildren, and great grandchildren Other Information That Helps Us Care for You: No Feels Safe at Home: Yes Safety Concerns: Feels Safe At This Time Childhood Exposure to Second-Hand Smoke: Yes caffeine: No Dental Care, Regularly: No Physical Activity Frequency: Daily Physical Activity Frequency Comment: 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, 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, 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 Seatbelt Use: always Sunscreen Use: Yes Assistive Devices: Denture - Upper and Denture - Lower Assistive Devices Comment: CLOTHING Review of Systems Review of Systems: REVIEW OF SYSTEMS: Constitutional: (+) fever, sweats or chills Eyes: No diplopia, no worsening or blurred vision ENT: normal hearing, no trouble swallowing Respiratory: (+) cough, sputum, dyspnea at rest or on exertion Cardiovascular: No chest pain, tightness or palpitations Abdomen: (+) diarrhea, No pain, nausea, vomiting, diarrhea or constipation Musculoskeletal: No joint pain, calf pain, swelling Neurologic: No weakness, numbness/tingling, or balance problems Psychiatric: No anxiety or depression Skin: (+) bruising Physical Exam Physical Exam: PHYSICAL EXAM: General: awake, alert, comfortable on BiPAP Head: Normocephalic, atraumatic ENT: PERRLA, EOMI, no pharyngeal exudate, mucous membranes dry Neuro: AAO x 3, speech clear and appropriate, strength intact bilaterally 5/5, sensation intact and equal all extremities and dermatomes, no pronator drift Chest: equal rise and fall of the chest, no accessory muscle use, scattered crackles with egophony Rt side Cardiac: Regular rate and rhythm, telemetry reviewed- NSR with PVCs, skin warm dry, cap refill <3 seconds, peripheral pusles +2 no JVD, no murmur, no JVD, no edema GI: NABS x 4 quadrants, soft, nontender to palpation, no rebound, guarding or tenderness : Spontaneously voiding, no pain, no CVA tenderness, Psych: Normal mood and affect Results & Data Results & Data Vital Signs (Past 12 Hours) Vital Signs Temp Pulse Pulse Resp BP BP Pulse Ox 11/21/22 05:45 93 H 36 H 120/68 100 11/21/22 05:30 100 H 38 H 114/74 96 11/21/22 05:15 101 H 28 H 140/81 94 11/21/22 05:00 89 30 H 104/73 100 11/21/22 04:46 102 H 28 H 151/87 H 98 11/21/22 03:58 158 H 11/21/22 04:22 92 H 28 H 147/90 H 100 11/21/22 03:51 112 H 11/21/22 04:16 100 11/21/22 03:45 115 H 36 H 95 11/21/22 03:47 96 11/21/22 03:47 38.5 C H 112 H 26 H 200/111 H 97 O2 Del Method FiO2 11/21/22 05:45 BiPAP 11/21/22 05:30 BiPAP 11/21/22 05:15 BiPAP 11/21/22 05:00 BiPAP 11/21/22 04:46 BiPAP 11/21/22 03:58 11/21/22 04:22 BiPAP 11/21/22 03:51 11/21/22 04:16 BiPAP 11/21/22 03:45 100 11/21/22 03:47 BiPAP 11/21/22 03:47 BiPAP Laboratory Results Abnormal lab results 11/21/22 11/21/22 11/21/22 Range/Units 04:18 04:18 04:18 WBC 23.98 H (4.8-10.8) K/ul RBC 4.15 L (4.70-6.10) M/uL MCV 102.4 H (80.0-100.0) fL MCH 34.9 H (25.0-34.0) pg RDW Std Deviation 55.1 H (36.4-46.3) fL RDW Coeff of Jie 14.7 H (11.5-14.5) % Neut # (Auto) 21.61 H (1.40-6.50) K/uL Lymph # (Auto) 0.82 L (1.2-3.4) K/uL [place] # (Auto) 1.27 H (0.11-0.59) K/uL Immature Gran # (Auto) 0.21 H (0.01-0.20) K/uL D-Dimer (0-500) ug/L FEU Potassium 5.2 H (3.5-5.1) mmol/L BUN 33 H (6-23) mg/dl Creatinine 1.62 H (0.6-1.4) mg/dl BUN/Creatinine Ratio 20.4 H (10-20) Glucose 243 H (70-99(Fasting)) mg/dl Lactate 3.0 H* (0.4-2.0) mmol/L Calcium 8.3 L (8.6-10.3) mg/dl Total Bilirubin 1.1 H (0.2-1.0) mg/dl Troponin I High Sens 1430.7 H* (0-20) pg/ml B-Natriuretic Peptide (0-100) pg/ml Urine Protein (Negative) U Epithel Cells (Auto) (0-5) /lpf 11/21/22 11/21/22 11/21/22 Range/Units 04:18 04:18 04:46 WBC (4.8-10.8) K/ul RBC (4.70-6.10) M/uL MCV (80.0-100.0) fL MCH (25.0-34.0) pg RDW Std Deviation (36.4-46.3) fL RDW Coeff of Jie (11.5-14.5) % Neut # (Auto) (1.40-6.50) K/uL Lymph # (Auto) (1.2-3.4) K/uL [place] # (Auto) (0.11-0.59) K/uL Immature Gran # (Auto) (0.01-0.20) K/uL D-Dimer 1960 H* (0-500) ug/L FEU Potassium (3.5-5.1) mmol/L BUN (6-23) mg/dl Creatinine (0.6-1.4) mg/dl BUN/Creatinine Ratio (10-20) Glucose (70-99(Fasting)) mg/dl Lactate (0.4-2.0) mmol/L Calcium (8.6-10.3) mg/dl Total Bilirubin (0.2-1.0) mg/dl Troponin I High Sens (0-20) pg/ml B-Natriuretic Peptide 1747 H (0-100) pg/ml Urine Protein 2+ H (Negative) U Epithel Cells (Auto) 10-20 H (0-5) /lpf 11/21/22 Range/Units 06:37 WBC (4.8-10.8) K/ul RBC (4.70-6.10) M/uL MCV (80.0-100.0) fL MCH (25.0-34.0) pg RDW Std Deviation (36.4-46.3) fL RDW Coeff of Jie (11.5-14.5) % Neut # (Auto) (1.40-6.50) K/uL Lymph # (Auto) (1.2-3.4) K/uL [place] # (Auto) (0.11-0.59) K/uL Immature Gran # (Auto) (0.01-0.20) K/uL D-Dimer (0-500) ug/L FEU Potassium (3.5-5.1) mmol/L BUN (6-23) mg/dl Creatinine (0.6-1.4) mg/dl BUN/Creatinine Ratio (10-20) Glucose (70-99(Fasting)) mg/dl Lactate 2.9 H* (0.4-2.0) mmol/L Calcium (8.6-10.3) mg/dl Total Bilirubin (0.2-1.0) mg/dl Troponin I High Sens (0-20) pg/ml B-Natriuretic Peptide (0-100) pg/ml Urine Protein (Negative) U Epithel Cells (Auto) (0-5) /lpf Diagnostic Findings CXR per my interretation- with emphysematous lungs, left lower lobe opacity, and increase vascular congestion Medications Administered Home Medications calcium polycarbophil 625 mg tablet (FiberCon) 1,250 mg PO QAM 03/23/19 [History Confirmed 11/19/22] cholecalciferol (vitamin D3) 25 mcg (1,000 unit) capsule 1,000 units PO QAM 03/23/19 [History Confirmed 11/19/22] nebulizer accessories #1 ea 03/23/19 [Rx Confirmed 11/19/22] vit C 250 mg-vit E 90 mg-zinc 40 mg-copper 1 [id number] capsule (PreserVision AREDS-2) 1 tab PO BID 03/23/19 [History Confirmed 11/19/22] nitroglycerin 0.4 mg sublingual tablet 0.4 mg sublingual DIRECTED PRN Chest Pain #25 tabs 10/05/19 [Rx Confirmed 11/19/22] blood sugar diagnostic (Metropiauch Ultra Blue Test Strip) #100 ea 01/01/20 [Rx Confirmed 11/19/22] tamsulosin 0.4 mg capsule 0.4 mg PO BID #180 caps 10/22/21 [Rx Confirmed 11/19/22] Wheeled Walker #1 ea 12/17/21 [Rx Confirmed 11/19/22] digoxin 125 mcg (0.125 mg) tablet 125 mcg PO QAM #90 tabs 03/22/22 [Rx Confirmed 11/19/22] metoprolol succinate 100 mg tablet,extended release 24 hr 100 mg PO QAM #90 tabs 03/22/22 [Rx Confirmed 11/19/22] clopidogrel 75 mg tablet 75 mg PO QAM #90 tabs 04/13/22 [Rx Confirmed 11/19/22] atorvastatin 20 mg tablet 20 mg PO DAILY #90 tabs 06/02/22 [Rx Confirmed 11/19/22] dutasteride 0.5 mg capsule 0.5 mg PO DAILY #90 caps 06/18/22 [Rx Confirmed 11/19/22] telmisartan 40 mg-hydrochlorothiazide 12.5 mg tablet 1 tab PO DAILY #90 tabs 06/18/22 [Rx Confirmed 11/19/22] diclofenac sodium 1 % topical gel (Voltaren Arthritis Pain) 4 g topical QID PRN Pain 11/04/22 [History Confirmed 11/19/22] Oxygen Home #2 L 11/06/22 [Rx Confirmed 11/19/22] fluticasone furoate 200 mcg-vilanterol 25 mcg/dose inhalation powder (Breo Ellipta) 1 puff inhalation DAILY #30 ea 11/06/22 [Rx Confirmed 11/19/22] prednisone 10 mg tablet 10 mg PO DIRECTED #40 tabs 11/06/22 [Rx Confirmed 11/19/22] Portable Oxygen #1 ea 11/15/22 [Rx Confirmed 11/19/22] Active Medications Albuterol (Albut/Ipratrop 3mg/0.5mg Neb 3 Ml Vial) 3 ml INH Q4H PRN PRN Reason: Dyspnea Stop: 12/21/22 06:20 Atorvastatin Calcium (Atorvastatin 20 Mg Tab) 20 mg PO DAILY MIKE Stop: 12/21/22 08:59 Budesonide (Budesonide 0.5 Mg/2 Ml Vial (Pulmicort)) 0.5 mg NEB BIDR [facility] Stop: 12/21/22 06:59 Calcium Polycarbophil (Calcium Polycarbophil 625mg Tab) 1,250 mg PO QAM [facility] Stop: 12/21/22 08:59 Clopidogrel Bisulfate (Clopidogrel Bisulfate 75 Mg Tab) 75 mg PO QAM [facility] Stop: 12/21/22 08:59 Digoxin (Digoxin 0.125 Mg Tab) 0.125 mg PO DAILY@1600 [facility] Stop: 12/21/22 15:59 Fluticasone/Vilanterol (Fluticasone/Vilanterol 200/25mcg 14 Puffs/Inhaler) 1 puffs INH DAILY [facility] Stop: 12/21/22 08:59 Heparin Sodium/Dextrose (Heparin Iv Adult Wt-Based Low-Dose *No* Bolus Protocol) 1 each IV Q15M [facility]; Protocol Stop: 11/21/22 08:12 Amiodarone HCl/Dextrose (Nexterone / D5w) 360 mg in 200 mls @ 16.667 mls/hr IV .Q12H [facility] Stop: 12/21/22 04:44 Last Admin: 11/21/22 04:16 Dose: 0.5 mg/min, 16.7 mls/hr Pantoprazole Sodium 40 mg/ (Syringe) 10 mls @ 5 mls/min IV DAILY@1100 [facility] Stop: 12/21/22 10:59 Aztreonam 2,000 mg/ Dextrose 110 mls @ 100 mls/hr IV Q8H [facility]; Protocol Stop: 11/28/22 10:59 Magnesium Sulfate/Dextrose (Magnesium Sulfate / D5w) 1 gm in 100 mls @ 50 mls/hr IV ONE ONE Stop: 11/21/22 08:26 Last Admin: 11/21/22 06:53 Dose: 50 mls/hr Heparin Sodium/Dextrose (Heparin Sodium/Dextrose) 25,000 units in 500 mls @ 0.02 mls/hr IV .Q24H [facility]; Protocol Stop: 12/21/22 06:29 Magnesium Sulfate/Dextrose (Magnesium Sulfate / D5w) 1 gm in 100 mls @ 50 mls/hr IV Q2H [facility] Stop: 11/21/22 11:14 Metoprolol Succinate (Metoprolol Succ 50mg Ext Rel Tab) 100 mg PO QAM [facility] Stop: 12/21/22 08:59 Miscellaneous (Dutasteride 0.5 Mg - Order Awaiting Action) 1 each N/A QS [facility] Stop: 12/21/22 07:59 Miscellaneous (Icu Protocol For Hyperglycemia) 1 each N/A ACHS [facility] Stop: 11/23/22 07:29 Miscellaneous Information (Vancomycin Consult Active) 1 each N/A UD PRN PRN Reason: Consult Stop: 12/21/22 06:08 Tamsulosin HCl (Tamsulosin Hcl 0.4 Mg Cap) 0.4 mg PO BID [facility] Stop: 12/21/22 08:59 Vitamin D (Cholecalciferol 1,000 Units 25 Mcg Tab) [facility] [place]: 12/21/22 08:59 ECG Additional Comments: Normal sinus rhythm Right bundle branch block 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) Abnormal ECG When compared with ECG of 21-NOV-2022 03:55, (unconfirmed) No significant change was found Coding Level of Care Code 46431 CRITICAL CARE 1ST 30-74M Diagnoses Sepsis A41.9 Acute respiratory failure type: with hypoxia Sepsis acute organ dysfunction status: with acute organ dysfunction Sepsis type: sepsis due to unspecified organism Severe sepsis acute organ dysfunction type: acute respiratory failure Ventricular tachycardia I47.20 Left lower lobe pneumonia J18.9 Pneumonia type: due to unspecified organism Acute and chronic respiratory failure with hypoxia J96.21 Coronary artery disease I25.10 Associated angina: angina presence unspecified Coronary Disease-Associated Artery/Lesion type: [place] artery [place] vs. transplanted heart: [place] heart COPD (chronic obstructive pulmonary disease) J41.8 COPD type: chronic bronchitis Chronic bronchitis type: mixed simple and mucopurulent Diabetes type 2, controlled E11.9 Diabetes mellitus complication status: without complication Diabetes mellitus oil heaterman insulin use: without oil heaterman use Hypertension I10 Hypercholesterolemia E78.00 Mitral valve disorder I05.9 Chronic kidney disease N18.9 (1) Sepsis Acute respiratory failure type: with hypoxia Sepsis acute organ dysfunction status: with acute organ dysfunction Sepsis type: sepsis due to unspecified organism Severe sepsis acute organ dysfunction type: acute respiratory failure (3) Left lower lobe pneumonia Pneumonia type: due to unspecified organism Qualified Code(s): J18.9 - Pneumo natalia, unspecified organism (5) Coronary artery disease Associated angina: angina presence unspecified Coronary Disease-Associated Artery/Lesion type: [place] artery [place] vs. transplanted heart: [place] heart Qualified Code(s): I25.10 - Atherosclerotic heart disease of [place] coronary artery without angina pectoris (6) COPD (chronic obstructive pulmonary disease) COPD type: chronic bronchitis Chronic bronchitis type: mixed simple and mucopurulent Qualified Code(s): J41.8 - Mixed simple and mucopurulent chronic bronchitis (7) Diabetes type 2, controlled Diabetes mellitus complication status: without complication Diabetes mellitus oil heaterman insulin use: without detention use Qualified Code(s): E11.9 - Type 2 diabetes mellitus without complications
[2022-11-21] MEDS: BUDESONIDE 0.5 MG/2 ML VIAL (PULMICORT) NEB SCH ×2 (07:17→19:33)
--- NOTE | 2022-11-21 07:20 | Hospitalist Progress Note ---
Date of Service November 21, 2022 Assessment & Plan (1) Acute and chronic respiratory failure with hypoxia: Plan: acute on chronic high risk Pt presented in acute respiratory faiure, aspiration possible, V tach in Er and Elevated troponin cause of respiratory failure is multifactorial, but also influenced by COPD on chronic home oxygen 2L treated for Gram negative or aspiration pneumonia, has LLL infiltrate seen on CXR, will use Cefepime supported for chronic respiratory failure with nebs (2) Ventricular tachycardia: Plan: Acute unstable high risk Pt was found to be in V tach in the Er with associated elevated troponin started on amiodarone infusion and heparin continues on chronic metoprolol acute hypomagnesemia, augmented (1.6) (3) Coronary artery disease: Plan: acute unclear if stable elevated troponin with concern for nstemi- prehospital on plavix, metoprolol atorvastatin with degree of RWMA is nstemi would expect higher troponins stared on heparin gtt with elevated troponin 1430->2940, continue plavix history of previous PCI Acute systolic heart failure, high risk, Echo with RWMA and RV/LV dysfunction EF 35%, maybe Takusubo, repeat echo 11/22 limited consider CTA for PE however given LLL infiltrate and acute event( dimer up but maybe pneumonia) do have explaination dopplers LE negative for DVT (4) Chronic kidney disease: Plan: concern for bello on CKD3 admitting team held ARB on presentation (5) Abdominal aortic aneurysm: Plan: chronic, last imaged 05/2022 Fusiform dilation of the infrarenal abdominal aorta measures up to 3.2 x 2.6 cm (6) Urinary retention due to benign prostatic hyperplasia: Plan: chronic stable Continue dutasteride and tamsulosin Plan CODE STATUS: Full code as discussed with family and patient in the ED Admission and Anticipated Discharge Date Admission Date: November 21, 2022 Results & Data Results & Data Vital Signs (Past 12 Hours) Vital Signs Temp Pulse Pulse Resp BP BP Pulse Ox 11/21/22 06:21 11/21/22 05:45 93 H 36 H 120/68 100 11/21/22 05:30 100 H 38 H 114/74 96 11/21/22 05:15 101 H 28 H 140/81 94 11/21/22 05:00 89 30 H 104/73 100 11/21/22 04:46 102 H 28 H 151/87 H 98 11/21/22 03:58 158 H 11/21/22 04:22 92 H 28 H 147/90 H 100 11/21/22 03:51 112 H 11/21/22 04:16 100 11/21/22 03:45 115 H 36 H 95 11/21/22 03:47 96 11/21/22 03:47 101.3 F H 112 H 26 H 200/111 H 97 O2 Del Method FiO2 11/21/22 06:21 BiPAP 100 11/21/22 05:45 BiPAP 11/21/22 05:30 BiPAP 11/21/22 05:15 BiPAP 11/21/22 05:00 BiPAP 11/21/22 04:46 BiPAP 11/21/22 03:58 11/21/22 04:22 BiPAP 11/21/22 03:51 11/21/22 04:16 BiPAP 11/21/22 03:45 100 11/21/22 03:47 BiPAP 11/21/22 03:47 BiPAP PG Care Time/CCT Total # of Minutes Spent Total Time Spent with Patient: Total time spent is greater than 50% in coordination of care (as documented) at patient's floor/unit and/or counseling patient: Coding Level of Care Code 41788 SUB INP/OBS CARE 3/50MIN Diagnoses Acute and chronic respiratory failure with hypoxia J96.21 Ventricular tachycardia I47.20 Coronary artery disease I25.10 Associated angina: angina presence unspecified Coronary Disease-Associated Artery/Lesion type: [place] artery [place] vs. transplanted heart: [place] heart Chronic kidney disease N18.9 Abdominal aortic aneurysm I71.4 Urinary retention due to benign prostatic hyperplasia N40.1; R33.8 (3) Coronary artery disease Associated angina: angina presence unspecified Coronary Disease-Associated Artery/Lesion type: [place] artery [place] vs. transplanted heart: [place] heart Qualified Code(s): I25.10 - Atherosclerotic heart disease of [place] coronary artery without angina pectoris
[2022-11-21 07:33] LABS: INR 1.1 (0.9-1.1); Partial Thromboplastin Ratio 0.8; Prothrombin Time 11.4 Seconds (9.0-12.0)
--- NOTE | 2022-11-21 08:01 | Cardiology Consultation ---
Date of Consultation November 21, 2022 Assessment & Plan (1) Ventricular tachycardia: Ventricular dysrhythmia likely secondary to acute adrenergic stress of respiratory decompensation complicated by apparent stress-induced cardiomyopathy. Continue IV amiodarone today, if rhythm remains quiescent could transition to oral amiodarone tomorrow. (2) Stress-induced cardiomyopathy: Major new wall motion abnormalities with marked decline in left ventricular systolic function in the absence of chest pain or ECG changes is most consistent with stress-induced cardiomyopathy. Mainstay of management is to continue beta- laurel therapy, currently with metoprolol although this dose may need to be tapered if he becomes bradycardic on amiodarone. Suspect systolic function will improve over the next day or so. Remarkably, he shows no evidence of congestive heart failure despite his compromised cardiac output. Low threshold for diuresis if he does demonstrate any volume overload. (3) Non-STEMI (non-ST elevated myocardial infarction): As noted, most likely stress-induced cardiomyopathy. However, he has known coronary artery disease and acute thrombotic event cannot be definitively excluded. As such, continue clopidogrel and heparinization. Possibility pulmonary embolism should be entertained given right heart dysfunction, however he has known COPD with superimposed pneumonia and now probable stress-induced cardiomyopathy, so there may be other reasons for right heart strain. Nonetheless, this is another reason to continue heparinization for now. (4) Acute and chronic respiratory failure with hypoxia: Significant underlying lung disease with chronic hypoxia suggests he has little pulmonary reserve. No overt CHF currently, low threshold for PRN diuretic use should he show any signs of volume overload. (5) Coronary artery disease: (6) Moderate to severe mitral regurgitation: (7) Left lower lobe pneumonia: History of Present Illness Reason for Consultation: elevated troponin, eval echo and MV cardiac workup Requesting Physician: Nadeem Martines MD Attending Physician: Nadeem Martines MD History of Present Illness 87-year-old man with CAD (LAD/RCA stents 2007), moderate to severe MR, PAD, AAA (3.2 cm), and COPD with chronic hypoxia admitted earlier this morning with acute respiratory insufficiency requiring BiPAP who developed transient ventricular tachycardia treated with intravenous amiodarone. He had been hospitalized several weeks ago for acute on chronic respiratory failure without any apparent cardiac complications, he was discharged on home oxygen. He felt well at home yesterday, but awoke during the night with dyspnea, coughing, and chills. He was acutely short of breath and hypoxic, but he denies chest pain at any time. As noted, he developed transient ventricular tachycardia which responded to intravenous amiodarone. ECGs showed sinus rhythm/sinus tachycardia without ST deviations, but cardiac enzymes are rising and echocardiogram shows a large symmetric mid to distal left ventricular wall motion abnormality suggestive of stress-induced cardiomyopathy. Both right and left ventricular systolic function are significantly reduced. Chest x-ray shows left lower lobe pneumonia. Remarkably, he was comfortable on supplemental oxygen without BiPAP at the time of my evaluation this morning. He denied chest pain, dyspnea at rest, subjective palpitations, or other complaints. Of note, he is followed routinely as an outpatient from a cardiac standpoint by Dr. Simon Schmidt. Allergies Allergy/AdvReac Type Severity Reaction Status Date / Time PEYMAN Inhibitors Allergy Mild RASH Verified 11/19/22 16:17 amoxicillin Allergy Unknown RASH Verified 11/19/22 16:17 metoclopramide Allergy Unknown RASH Verified 11/19/22 16:17 Penicillins Allergy Unknown RASH Verified 11/19/22 16:17 erythromycin base AdvReac Severe Diarrhea Verified 11/19/22 16:17 Home Medications Medication Instructions Recorded Confirmed Type calcium polycarbophil 625 mg 1,250 mg PO QAM 03/23/19 11/19/22 History tablet (FiberCon) cholecalciferol (vitamin D3) 25 1,000 units PO QAM 03/23/19 11/19/22 History mcg (1,000 unit) capsule nebulizer accessories #1 ea 03/23/19 11/19/22 Rx vit C 250 mg-vit E 90 mg-zinc 40 1 tab PO BID 03/23/19 11/19/22 History mg-copper 1 hx-ojliwa-dnljor capsule (PreserVision AREDS-2) nitroglycerin 0.4 mg sublingual 0.4 mg sublingual DIRECTED PRN 10/05/19 11/19/22 Rx tablet Chest Pain #25 tabs blood sugar diagnostic (OneTouch #100 ea 01/01/20 11/19/22 Rx Ultra Blue Test Strip) tamsulosin 0.4 mg capsule 0.4 mg PO BID #180 caps 10/22/21 11/19/22 Rx Wheeled Walker #1 ea 12/17/21 11/19/22 Rx digoxin 125 mcg (0.125 mg) tablet 125 mcg PO QAM #90 tabs 03/22/22 11/19/22 Rx metoprolol succinate 100 mg 100 mg PO QAM #90 tabs 03/22/22 11/19/22 Rx tablet,extended release 24 hr clopidogrel 75 mg tablet 75 mg PO QAM #90 tabs 04/13/22 11/19/22 Rx atorvastatin 20 mg tablet 20 mg PO DAILY #90 tabs 06/02/22 11/19/22 Rx dutasteride 0.5 mg capsule 0.5 mg PO DAILY #90 caps 06/18/22 11/19/22 Rx telmisartan 40 1 tab PO DAILY #90 tabs 06/18/22 11/19/22 Rx mg-hydrochlorothiazide 12.5 mg tablet diclofenac sodium 1 % topical gel 4 g topical QID PRN Pain 11/04/22 11/19/22 History (Voltaren Arthritis Pain) Oxygen Home #2 L 11/06/22 11/19/22 Rx fluticasone furoate 200 1 puff inhalation DAILY #30 ea 11/06/22 11/19/22 Rx mcg-vilanterol 25 mcg/dose inhalation powder (Breo Ellipta) prednisone 10 mg tablet 10 mg PO DIRECTED #40 tabs 11/06/22 11/19/22 Rx Portable Oxygen #1 ea 11/15/22 11/19/22 Rx Patient History Medical History Chest pain (10/02/14) Chronic respiratory failure with hypoxia COPD (chronic obstructive pulmonary disease) Diabetes type 2, controlled External hemorrhoids Hypercholesterolemia Hypertension Mitral valve disorder Rectal bleeding Surgical History Hernia, femoral, bilateral recurrent History of back surgery History of cardiac catheterization history of cath stent placement History of colonoscopy History of hemorrhoidectomy history of Hemorrhoid rubber band ligation History of inguinal hernia repair, bilateral Family History Mother Diabetes Lung cancer Coronary heart disease Myocardial infarction Heart disease Brother Prostate cancer Colorectal cancer Unknown Hypertension Pure hypercholesterolemia Coronary heart disease Father Stroke Myocardial infarction Other Kidney disease Denies family history of Ovarian cancer Breast cancer Social History Smoking Status: Former smoker Tobacco Type: Cigarettes Second Hand Exposure: No; Hx Alcohol Use: Yes Alcohol type: beer Alcohol Intake Frequency: Monthly or Less Hx Substance Use: No Preferred Language: Citizen Of [place] Communication Ability: Effective Visual Impairment: No Limitations Hearing Ability: Normal Service Correspondent Required: No Beliefs That Will Affect Care: None marital status: Current Living Situation: Spouse Current Living Situation Comment: AT HOME WITH current occupational status: retired current occupation: used to work with [employer] How many Children do You have: 3 How many Children do You have Comment: Children, grandchildren, and great grandchildren Other Information That Helps Us Care for You: No Feels Safe at Home: Yes Safety Concerns: Feels Safe At This Time Childhood Exposure to Second-Hand Smoke: Yes caffeine: No Dental Care, Regularly: No Physical Activity Frequency: Daily Physical Activity Frequency Comment: typical carding machine feeder, 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, 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 Seatbelt Use: always Sunscreen Use: Yes Assistive Devices: Denture - Upper and Denture - Lower Assistive Devices Comment: CLOTHING Physical Exam Physical Exam: Thin elderly white male who does not appear acutely distressed. BP normotensive. Pulse 69 bpm and regular with sporadic ectopy. Respirations 26 but not particularly labored. No accessory muscle use. Skin: no ecchymoses or generalized lesions. HEENT: unremarkable. Neck: Jugular venous pulse at the clavicle at 90 degrees, no carotid bruits. Lungs: Coarse crackles both bases (actually louder on the right), decreased breath sounds overall, expiratory wheezing. No obvious accessory muscle use. Cardiac: regular rhythm, heart sounds obscured by lung sounds, 2/6 apical holosystolic murmur, no diastolic murmur. Abdomen: benign. Extremities: no edema, peripheral pulses intact. Neurologic: normal affect and conversation, nonfocal. Results & Data Laboratory Results WBC 23.98, hemoglobin 14.5, normal platelet count. BNP 1747 (449 several weeks ago), troponin 1430 rising to 2940. Sodium 139, chloride 105, potassium 5.2, BUN 33, creatinine 1.62. Diagnostic Findings Initial ECG showed sinus tachycardia 114 bpm with RBBB, old inferior and anterior infarcts, no acute ST change. Subsequent ECG showed sinus rhythm at 91 bpm, RBBB, old inferior and anterior infarcts, also no acute ST change. Chest x-ray showed chronic changes with new left lower lobe infiltrate, no CHF. PG Care Time/CCT Total # of Minutes Spent Total Time Spent with Patient: Total time spent is greater than 50% in coordination of care (as documented) at patient's floor/unit and/or counseling patient: Coding Level of Care Code 30440 INT INP/OBS CARE 3/75MIN Diagnoses Ventricular tachycardia I47.20 Stress-induced cardiomyopathy I51.81 Non-STEMI (non-ST elevated myocardial infarction) I21.4 Acute and chronic respiratory failure with hypoxia J96.21 Coronary artery disease I25.10 Associated angina: angina presence unspecified Coronary Disease-Associated Artery/Lesion type: [place] artery [place] vs. transplanted heart: [place] heart Moderate to severe mitral regurgitation I34.0 Left lower lobe pneumonia J18.9 Pneumonia type: due to unspecified organism (5) Coronary artery disease Associated angina: angina presence unspecified Coronary Disease-Associated Artery/Lesion type: [place] artery [place] vs. transplanted heart: [place] heart Qualified Code(s): I25.10 - Atherosclerotic heart disease of [place] coronary artery without angina pectoris (7) Left lower lobe pneumonia Pneumonia type: due to unspecified organism Qualified Code(s): J18.9 - Pneumonia, unspecified organism
--- NOTE | 2022-11-21 08:17 | Electrocardiogram Report ---
Test Reason : Blood Pressure : / mmHG Vent. 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
[2022-11-21] MEDS: MAGNESIUM SULFATE / D5W 1 GM/100 ML BAG IV SCH ×2 (08:25→09:52)
--- NOTE | 2022-11-21 08:45 | Electrocardiogram Report ---
Test Reason : Blood Pressure : / mmHG Vent. 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
[2022-11-21] MEDS: ICU Protocol for HYPERglycemia SCH ×4 (08:46→20:19)
[2022-11-21] MEDS ORDERED: HEPARIN SOD (PORCINE) 1000 UNIT/ML IV ONE (08:53)
[2022-11-21] MEDS ORDERED: METOPROLOL SUCC 50MG EXT REL TAB PO SCH (09:00)
[2022-11-21] MEDS: FLUTICASONE/VILANTEROL 200/25MCG 14 PUFFS/INHALER INH SCH (09:50)
[2022-11-21] MEDS: TAMSULOSIN HCL 0.4 MG CAP PO SCH ×2 (09:51→20:20)
[2022-11-21] MEDS: CALCIUM POLYCARBOPHIL 625MG TAB PO SCH (09:51)
[2022-11-21] MEDS: CHOLECALCIFEROL 1,000 UNITS 25 MCG TAB PO SCH (09:51)
[2022-11-21] MEDS: ATORVASTATIN 20 MG TAB PO SCH (09:51)
[2022-11-21] MEDS: CLOPIDOGREL BISULFATE 75 MG TAB PO SCH (09:51)
--- NOTE | 2022-11-21 10:50 | XCELERA ---
[id number] \\[email or web address]_[id number]
[2022-11-21] MEDS ORDERED: AZTREONAM 2,000 MG in DEXTROSE 5% 100 ML IV SCH (11:00)
[2022-11-21] MEDS ORDERED: PANTOprazole 40 MG in SYRINGE 0 ML IV SCH (11:00)
--- NOTE | 2022-11-21 11:44 | Ultrasound Report ---
US venous doppler LE BI CLINICAL HISTORY: elevated d-dimer acute hypoxia- eval for DVT TECHNIQUE: Bilateral lower extremity real-time compression venous ultrasound with Color Doppler imagi ng. Utilizing real-time ultrasonic imaging multiple real time high-resolution ultrasonic images with compression and noncompression maneuvers of the deep venous system in addition to color doppler imagi ng were performed from the common femoral vein through the proximal calf veins. COMPARISON: None available at the time of this dictation. FINDINGS/IMPRESSION: Currently there is normal compressibility of the deep venous system from the common femoral vein thro ugh the proximal calf veins. Incidental note is made of a fat and fluid containing hernia in the lef t groin which appears partially reducible. ACT 112: Negative or not required by law. Electronically signed by: Cristhian Zuluaga M.D. 11/21/2022 11:43 AM
--- NOTE | 2022-11-21 11:47 | XRay Report ---
XR chest 1V portable CLINICAL HISTORY: Sepsis TECHNIQUE: Single frontal radiograph of the chest was obtained. Comparison: Comparison is made to chest radiograph 11/04/2022 FINDINGS: No lines and tubes are seen. Cardiomegaly is noted. The aortic arch is calcified. Multifocal airspace opacities are seen most prominently in the left lower lung. No evidence of pleural effusion or pneum othorax. IMPRESSION: Multifocal airspace opacities most prominent in the left lower lung concerning for pneumonia, less li john aspiration. ACT 112: Negative or not required by law. Electronically signed by: Cristhian Zuluaga M.D. 11/21/2022 11:46 AM
[2022-11-21 15:28] LABS: Partial Thromboplastin Ratio 1.8
[2022-11-21 15:30] LABS: Partial Thromboplastin Time 48.6 Seconds (21.0-31.0)
[2022-11-21] MEDS ORDERED: DIGOXIN 0.125 MG TAB PO SCH (16:00)
[2022-11-21] MEDS ORDERED: VANCOMYCIN HCL 1,000 MG in SODIUM CHLORIDE 0.9% 500 ML IV SCH (18:00)
[2022-11-21] MEDS: CEFEPIME 2,000 MG in SYRINGE 0 ML IV SCH (18:18)
[2022-11-22] MEDS: AMIODARONE / D5W 360 MG/200 ML BAG IV SCH (04:29)
[2022-11-22 05:02] LABS: Hematocrit (blood only) 33.2 % (42.0-52.0); Hemoglobin 11.6 g/dl (14.0-18.0); Mean Corpuscular Hemoglobin 35.9 pg (25.0-34.0); Mean Corpuscular Hgb Conc 34.9 g/dL (32.0-36.0); Mean Corpuscular Volume 102.8 fL (80.0-100.0); Mean Platelet Volume 11.6 fL (9.4-12.4); Platelet Count 124 K/uL (130-400); RDW Coefficient of Variation 14.7 % (11.5-14.5); RDW Standard Deviation 55.6 fL (36.4-46.3); Red Blood Count 3.23 M/uL (4.70-6.10); White Blood Count 21.64 K/ul (4.8-10.8)
[2022-11-22 05:13] LABS: BUN Creatinine Ratio 22.2 (10-20); Bilirubin Direct 0.1 mg/dl (0-0.2); Bilirubin,Total 0.6 mg/dl (0.2-1.0); Calcium 8.2 mg/dl (8.6-10.3); Creatinine Clr Calc Pharmacy 21.9 ml/min; Est GFR (African American) 35.9 ml/min; Magnesium 2.4 mg/dl (1.7-2.4); Total Protein 4.8 gm/dl (6.0-8.3)
[2022-11-22] MEDS: CEFEPIME 2,000 MG in SYRINGE 0 ML IV SCH (05:13)
[2022-11-22 05:20] LABS: Basophils # (auto) 0.02 K/uL (0-0.2); Basophils % (auto) 0.1 %; Echinocytes 2+; Eosinophils # (auto) 0.01 K/uL (0-0.50); Immature Granulocytes # (auto) 0.13 K/uL (0.01-0.20); Immature Granulocytes % (auto) 0.6 %; Lymphocytes % (auto) 3.2 %; Monocytes # (auto) 1.28 K/uL (0.11-0.59); Monocytes % (auto) 5.9 %; Neutrophils % (auto) 90.2 %
[2022-11-22 05:40] LABS: INR 1.3 (0.9-1.1); Partial Thromboplastin Ratio 3.7; Prothrombin Time 13.2 Seconds (9.0-12.0)
[2022-11-22 05:51] LABS: Partial Thromboplastin Time 101.8 Seconds (21.0-31.0)
[2022-11-22] MEDS: BUDESONIDE 0.5 MG/2 ML VIAL (PULMICORT) NEB SCH ×2 (07:13→19:41)
[2022-11-22 07:44] LABS: Base Excess ABG -1.5 mEq/L (-9-1.8); HCO3 ABG 21 mmol/L (19-24); Oxygen Saturation ABG 99.1 % (90-95); PCO2 ABG 29 mmHg (35-46); PO2 ABG 127 mmHg (80-95); pH ABG 7.47 (7.35-7.45)
[2022-11-22 07:45] LABS: Allen Test Pos (Pos)
[2022-11-22] MEDS: ICU Protocol for HYPERglycemia SCH (08:56)
--- NOTE | 2022-11-22 08:57 | XCELERA ---
[id number] \\[facility]_PDF_Reports\[id number]
[2022-11-22] MEDS: TAMSULOSIN HCL 0.4 MG CAP PO SCH ×2 (09:09→20:53)
[2022-11-22] MEDS: CALCIUM POLYCARBOPHIL 625MG TAB PO SCH (09:09)
[2022-11-22] MEDS: CHOLECALCIFEROL 1,000 UNITS 25 MCG TAB PO SCH (09:09)
[2022-11-22] MEDS: ATORVASTATIN 20 MG TAB PO SCH (09:09)
[2022-11-22] MEDS: CLOPIDOGREL BISULFATE 75 MG TAB PO SCH (09:10)
[2022-11-22] MEDS: FLUTICASONE/VILANTEROL 200/25MCG 14 PUFFS/INHALER INH SCH (09:10)
[2022-11-22] MEDS: METOPROLOL TARTRATE 25 MG TAB PO SCH ×3 (09:10→22:48)
[2022-11-22 10:23] LABS: iSTAT Arterial Blood Gas HCO3 20 meg/L (19-24); iSTAT Arterial Blood Gas pCO2 30 mmHg (35-46); iSTAT Arterial Blood Gas pH 7.43 (7.35-7.45); iSTAT Arterial Blood Gas pO2 76 mmHg (80-95); iSTAT Carbon Dioxide 21 mmol/L (24-31)
--- NOTE | 2022-11-22 10:28 | Cardiology Progress Note ---
Date of Service November 22, 2022 Assessment & Plan (1) Ventricular tachycardia: Plan: Still with sporadic ventricular ectopy but no recurrent ventricular tachycardia. Would transition to oral amiodarone, but given his borderline bradycardia/nonphysiologic heart rate (for patient with recent respiratory distress) as well as the need to remain on beta-laurel for stress-induced cardiomyopathy, would favor low-dose oral amiodarone. Could start on 200 mg oral amiodarone daily and discontinue IV after his first dose is given. The lower dose will prolong his amiodarone loading but is necessary to avoid bradycardia. Also, he should remain off digoxin. (2) Stress-induced cardiomyopathy: Plan: Modest but definite improvement in echocardiogram overnight and benign ECG today along with his absence of chest pain at any time are all consistent with stress- induced cardiomyopathy. Agree with low-dose beta-laurel, although amiodarone has beta-blocking properties it is probably best to have some level of conventional beta-laurel since this is the standard treatment for stress- induced cardiomyopathy. See above regarding reduced amiodarone dosing. If he remains borderline bradycardic on lower dose amiodarone, would reduce but not eliminate his metoprolol tartrate 25 mg twice daily. (3) Non-STEMI (non-ST elevated myocardial infarction): Plan: Venous Doppler negative and RV function improving proportional with LV function. Suspicion for pulmonary embolism is low given his marked recovery of pulmonary status. As noted, doubt conventional coronary thrombosis, okay to discontinue IV heparin. (4) Acute and chronic respiratory failure with hypoxia: Plan: Significant underlying lung disease with chronic hypoxia suggests he has little pulmonary reserve. No overt CHF currently, low threshold for PRN diuretic use should he show any signs of volume overload. (5) Coronary artery disease: (6) Moderate to severe mitral regurgitation: Plan: No change in chronic mitral regurgitation severity on echocardiogram yesterday. (7) Left lower lobe pneumonia: Plan: Fever, chills, leukocytosis, and infiltrate consistent with pneumonia. On antibiotics. No evidence of CHF at this point. Plan We will continue to follow. Admission and Anticipated Discharge Date Admission Date: November 21, 2022 Subjective Uneventful night. Doing well, on nasal cannula oxygen only. No chest pain, dyspnea, or subjective palpitations. Telemetry shows sinus rhythm in the 60 bpm range with sporadic ventricular ectopy but no further ventricular tachycardia. Echocardiogram shows modest improvement in LV/RV function and wall motion. Physical Exam Physical Exam: No distress. BP normotensive. Pulse 55 bpm and regular with sporadic ectopy. Respirations appear unlabored. No accessory muscle use. Skin: no ecchymoses or generalized lesions. HEENT: unremarkable. Neck: Jugular venous pulse at the clavicle at 90 degrees, no carotid bruits. Lungs: Few basilar crackles left, moderately decreased breath sounds overall. No obvious wheezing. Cardiac: regular rhythm, heart sounds obscured by lung sounds, no murmur appreciated today, no diastolic murmur. Abdomen: benign. Extremities: no edema, peripheral pulses intact. Neurologic: normal affect and conversation, nonfocal. Results & Data Laboratory Results Normal electrolytes, BUN 42, creatinine 1.89. Diagnostic Findings Echocardiogram showed EF 40 to 45% with moderate to severe hypokinesis of the entire apex and all distal to the mid ventricle (improved from akinetic yesterday). RV moderately dilated with moderately reduced systolic function (improved from yesterday). ECG today showed sinus bradycardia 53 bpm, right bundle branch block, old inferior and anteroseptal infarcts and nonspecific T wave flattening. Compared with 11/21/2022 study, heart rate decreased by 37 bpm, otherwise no significant change. Lower extremity venous Doppler studies negative for DVT. PG Care Time/CCT Total # of Minutes Spent Total Time Spent with Patient: Total time spent is greater than 50% in coordination of care (as documented) at patient's floor/unit and/or counseling patient: Coding Level of Care Code 44305 SUB INP/OBS CARE 2MIN Diagnoses Ventricular tachycardia I47.20 Stress-induced cardiomyopathy I51.81 Non-STEMI (non-ST elevated myocardial infarction) I21.4 Acute and chronic respiratory failure with hypoxia J96.21 Coronary artery disease I25.10 Associated angina: angina presence unspecified Coronary Disease-Associated Artery/Lesion type: [place] artery [place] vs. transplanted heart: [place] heart Moderate to severe mitral regurgitation I34.0 Left lower lobe pneumonia J18.9 Pneumonia type: due to unspecified organism (5) Coronary artery disease Associated angina: angina presence unspecified Coronary Disease-Associated Artery/Lesion type: [place] artery [place] vs. transplanted heart: [place] heart Qualified Code(s): I25.10 - Atherosclerotic heart disease of [place] coronary artery without angina pectoris (7) Left lower lobe pneumonia Pneumonia type: due to unspecified organism Qualified Code(s): J18.9 - Pneum onia, unspecified organism
--- NOTE | 2022-11-22 13:39 | Electrocardiogram Report ---
Test Reason : Blood Pressure : / mmHG Vent. 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
--- NOTE | 2022-11-22 13:48 | Hospitalist Progress Note ---
Date of Service November 22, 2022 Assessment & Plan (1) Acute and chronic respiratory failure with hypoxia: Plan: acute on chronic high riskimproving Pt presented in acute respiratory faiure, aspiration possible, V tach in Er and Elevated troponin cause of respiratory failure is multifactorial, but also influenced by COPD on chronic home oxygen 2L treated for Gram negative or aspiration pneumonia, has LLL infiltrate seen on CXR, complete 7 days of cefepime, leukocytosis improving supported for chronic respiratory failure with nebs (2) Ventricular tachycardia: Plan: Acute unstable high risk self-limited now resolved Pt was found to be in V tach in the Er with associated elevated troponin seems to be associate with Takotsubo's myocarditis started on amiodarone infusion and heparin amiodarone converted to 1 mg daily p.o. per cardiology recommendations and heparin discontinued both on 11/22/2022 continues on chronic metoprolol, dose reduced on 11/22/2022 due to hypotension and bradycardia acute hypomagnesemia, repleted (3) Coronary artery disease: Plan: acute moderate risk now stable troponin and echocardiogram changes consistent with Takotsubo's myocarditis elevated troponin with concern for nstemi- prehospital on plavix, metoprolol atorvastatin with degree of RWMA is nstemi would expect higher troponins Heparin discontinued on 11/22/2022, continue plavix history of previous PCI Acute systolic heart failure, high risk, Echo with RWMA and RV/LV dysfunction EF 35%, maybe Takusubo, repeat echo 11/22 limited improvement of ejection fraction in the 40 to 45% consider CTA for PE however given LLL infiltrate and acute event( dimer up but maybe pneumonia) do have explanation dopplers LE negative for DVT (4) Chronic kidney disease: Plan: concern for bello on CKD3 renal function is worsening likely due to prerenal effects blood pressure is low because medications these were manipulated on 3 will continue to follow admitting team held ARB on presentation (5) Abdominal aortic aneurysm: Plan: chronic, last imaged 05/2022 Fusiform dilation of the infrarenal abdominal aorta measures up to 3.2 x 2.6 cm (6) Urinary retention due to benign prostatic hyperplasia: Plan: chronic stable Continue dutasteride and tamsulosin Plan CODE STATUS: Full code as discussed with family and patient in the ED Admission and Anticipated Discharge Date Admission Date: November 21, 2022 Subjective this pt is doing much better, he has no shortness of breath or chest pain EF has improved on todays echo Physical Exam Physical Exam: Patient is comfortable he is slightly short of breath and has baseline COPD He has no JVD Using some accessory muscles and has prolonged expiratory phase of breathing but his lungs otherwise are clear without rales Cardiac exam is regular without systolic murmur Extremities are without edema Results & Data Results & Data Vital Signs (Past 12 Hours) Vital Signs Temp Pulse Pulse Resp BP BP Pulse Ox 11/22/22 08:00 11/22/22 11:00 98.2 F 60 22 106/53 L 93 11/22/22 10:50 98.2 F 59 L 21 106/53 L 85 L 11/22/22 09:10 55 L 11/22/22 08:00 97.9 F 64 26 H 127/59 L 92 11/22/22 07:13 55 L 20 100 11/22/22 06:00 55 L 15 93 11/22/22 06:00 100/57 L 11/22/22 05:30 56 L 20 96 11/22/22 05:00 56 L 23 92 11/22/22 05:00 101/53 L 11/22/22 04:30 55 L 14 96 11/22/22 04:00 56 L 7 L 93 11/22/22 04:00 102/52 L 11/22/22 03:30 55 L 23 88 L 11/22/22 06:08 64 23 100 11/22/22 04:09 11/22/22 03:07 98/54 L 11/22/22 03:07 57 L 27 H 91 11/22/22 03:06 94/41 L 11/22/22 03:06 53 L 17 93 11/22/22 03:00 56 L 23 89 L 11/22/22 03:00 97/47 L 11/22/22 02:30 58 L 20 95 11/22/22 02:00 74 21 88 L 11/22/22 02:00 105/52 L 11/22/22 03:11 98.2 F O2 Del Method O2 Del Method O2 Flow Rate O2 Flow Rate FiO2 11/22/22 08:00 Nasal Cannula 4 11/22/22 11:00 Nasal Cannula 4 11/22/22 10:50 Nasal Cannula 5 11/22/22 09:10 11/22/22 08:00 Nasal Cannula 2 11/22/22 07:13 BiPAP 30 11/22/22 06:00 11/22/22 06:00 11/22/22 05:30 11/22/22 05:00 11/22/22 05:00 11/22/22 04:30 11/22/22 04:00 11/22/22 04:00 11/22/22 03:30 11/22/22 06:08 30 11/22/22 04:09 Nasal Cannula 2 11/22/22 03:07 11/22/22 03:07 11/22/22 03:06 11/22/22 03:06 11/22/22 03:00 11/22/22 03:00 11/22/22 02:30 11/22/22 02:00 11/22/22 02:00 11/22/22 03:11 Laboratory Results Reviewed CBC Reviewed coagulation studies Reviewed PRP Reviewed additional troponin testing PG Care Time/CCT Total # of Minutes Spent Total Time Spent with Patient: Total time spent is greater than 50% in coordination of care (as documented) at patient's floor/unit and/or counseling patient: Coding Level of Care Code 04158 SUB INP/OBS CARE 3/50MIN Diagnoses Acute and chronic respiratory failure with hypoxia J96.21 Ventricular tachycardia I47.20 Coronary artery disease I25.10 Coronary Disease-Associated Artery/Lesion type: [place] artery [place] vs. transplanted heart: [place] heart Associated angina: angina presence unspecified Chronic kidney disease N18.9 Abdominal aortic aneurysm I71.4 Urinary retention due to benign prostatic hyperplasia N40.1; R33.8 (3) Coronary artery disease Coronary Disease-Associated Artery/Lesion type: [place] artery [place] vs. transplanted heart: [place] heart Associated angina: angina presence unspecified Qualified Code(s): I25.10 - Atherosclerotic heart disease of [place] coronary artery without angina pectoris
[2022-11-22] MEDS ORDERED: AMIODARONE 200 MG TAB PO ONE (14:00)
[2022-11-22 14:02] LABS: Partial Thromboplastin Ratio 2.9
[2022-11-22 15:07] LABS: Partial Thromboplastin Time 80.9 Seconds (21.0-31.0)
[2022-11-22] MEDS: CEFEPIME 1,000 MG in SYRINGE 0 ML IV SCH (20:53)
[2022-11-23 05:04] LABS: BUN Creatinine Ratio 22.7 (10-20); Calcium 8.1 mg/dl (8.6-10.3); Creatinine Clr Calc Pharmacy 23.6 ml/min; Est GFR (African American) 36.9 ml/min; Est GFR (Non-African American) 31.8 ml/min; Magnesium 2.3 mg/dl (1.7-2.4); Phosphorus 3.9 mg/dl (2.5-4.9); Potassium 4.9 mmol/L (3.5-5.1)
[2022-11-23 05:15] LABS: INR 1.1 (0.9-1.1); Partial Thromboplastin Ratio 1.3; Partial Thromboplastin Time 35.8 Seconds (21.0-31.0); Prothrombin Time 11.2 Seconds (9.0-12.0)
[2022-11-23 05:18] LABS: Hematocrit (blood only) 32.9 % (42.0-52.0); Hemoglobin 11.3 g/dl (14.0-18.0); Mean Corpuscular Hemoglobin 35.1 pg (25.0-34.0); Mean Corpuscular Hgb Conc 34.3 g/dL (32.0-36.0); Mean Corpuscular Volume 102.2 fL (80.0-100.0); Mean Platelet Volume 11.9 fL (9.4-12.4); Platelet Count 111 K/uL (130-400); RDW Coefficient of Variation 14.6 % (11.5-14.5); RDW Standard Deviation 54.5 fL (36.4-46.3); Red Blood Count 3.22 M/uL (4.70-6.10); White Blood Count 12.66 K/ul (4.8-10.8)
[2022-11-23 05:19] LABS: Basophils # (auto) 0.01 K/uL (0-0.2); Basophils % (auto) 0.1 %; Eosinophils # (auto) 0.05 K/uL (0-0.50); Eosinophils % (auto) 0.4 %; Immature Granulocytes # (auto) 0.07 K/uL (0.01-0.20); Immature Granulocytes % (auto) 0.6 %; Lymphocytes # (auto) 0.45 K/uL (1.2-3.4); Lymphocytes % (auto) 3.6 %; Monocytes # (auto) 0.71 K/uL (0.11-0.59); Monocytes % (auto) 5.6 %; Neutrophils # (auto) 11.37 K/uL (1.40-6.50); Neutrophils % (auto) 89.7 %
[2022-11-23] MEDS ORDERED: SODIUM CHLORIDE 0.9% 1000ML 250 ML IV ONE (05:21)
[2022-11-23] MEDS ORDERED: AMIODARONE / D5W 150 MG/100 ML BAG IV STA (06:40)
[2022-11-23] MEDS ORDERED: 0.2 MICRON FILTER SET 1 EACH IV STA (06:40)
[2022-11-23] MEDS ORDERED: AMIODARONE IV BOLUS & DRIP IV STA (06:40)
[2022-11-23] MEDS ORDERED: STAT IV Infusion **Titration per Protocol STA (06:40)
[2022-11-23] MEDS ORDERED: AMIODARONE / D5W 360 MG/200 ML BAG IV ONE (06:51)
[2022-11-23] MEDS: BUDESONIDE 0.5 MG/2 ML VIAL (PULMICORT) NEB SCH (07:16)
[2022-11-23] MEDS ORDERED: METOPROLOL TARTRATE 1 MG/ML VIAL IV PRN (07:40)
--- NOTE | 2022-11-23 07:45 | Hospitalist Progress Note ---
Date of Service November 23, 2022 Assessment & Plan (1) Acute and chronic respiratory failure with hypoxia: Plan: acute on chronic high riskimproving Pt presented in acute respiratory faiure, aspiration possible, V tach in Er and Elevated troponin cause of respiratory failure is multifactorial, but also influenced by COPD on chronic home oxygen 2L treated for Gram negative or aspiration pneumonia, has LLL infiltrate seen on CXR, complete 7 days of cefepime, leukocytosis improving supported for chronic respiratory failure with nebs (2) Arrhythmia: Plan: Acute ventricular tachycardia presented initially unstable high risk self- limited now resolved associated elevated troponin seems to be associate with Takotsubo's myocarditis acute atrial fibrillation RVR and hypotension, high risk restarted Amiodarone GTT, try to edge up metoprolol which was reduced due to low bp and pulse Cardiology recommends loading with digoxin 0.5 mg and then 0.125 a day we will check digoxin level on 11/25 restart heparin cardiology recommends transition to Eliquis 2.5 twice daily (3) Coronary artery disease: Plan: acute moderate risk now stable troponin and echocardiogram changes consistent with Takotsubo's myocarditis elevated troponin with concern for nstemi- prehospital on plavix, metoprolol atorvastatin with degree of RWMA is nstemi would expect higher troponins Heparin restarted due to afib, continue plavix history of previous PCI Acute systolic heart failure, moderate risk stable, Echo with RWMA and RV/LV dysfunction EF 35%, maybe Takusubo, repeat echo 11/22 limited improvement of ejection fraction in the 40 to 45% consider CTA for PE however given LLL infiltrate and acute event( dimer up but maybe pneumonia) do have explanation dopplers LE negative for DVT (4) Chronic kidney disease: Plan: concern for bello on CKD3 renal function is worsening likely due to prerenal effects blood pressure is low because medications these were manipulated on 4 3 will continue to follow admitting team held ARB on presentation (5) Abdominal aortic aneurysm: Plan: chronic, last imaged 05/2022 Fusiform dilation of the infrarenal abdominal aorta measures up to 3.2 x 2.6 cm (6) Urinary retention due to benign prostatic hyperplasia: Plan: chronic stable Continue dutasteride and tamsulosin Plan CODE STATUS: Full code as discussed with family and patient in the ED Subjective Patient is feeling well did have A-fib RVR recur. Restarted amiodarone drip this morning as well as heparin. Seen by cardiology who recommends escalating beta-laurel doses adding digoxin loading 1.5 mg and 0.125 mg a day and transitioning anticoagulation Katia Shrestha personally spoke to Dr. Short regarding this plan Physical Exam Physical Exam: Patient is comfortable he is slightly short of breath and has baseline COPD He has no JVD Using some accessory muscles and has prolonged expiratory phase of breathing but his lungs otherwise are clear without rales Cardiac exam is regular without systolic murmur Extremities are without edema is updated at bedside Results & Data Results & Data Vital Signs (Past 12 Hours) Vital Signs Temp Pulse Resp BP Pulse Ox O2 Del Method O2 Del Method 11/23/22 06:30 110/61 11/23/22 06:30 126 H 20 94 11/23/22 06:18 103/58 L 11/23/22 06:18 126 H 20 93 11/23/22 06:00 119 H 20 93 11/23/22 06:00 91/61 L 11/23/22 05:30 102/58 L 11/23/22 05:30 105 H 18 94 11/23/22 05:17 93/63 L 11/23/22 05:17 114 H 17 94 11/23/22 05:08 108/58 L 11/23/22 05:08 101 H 24 95 11/23/22 05:00 99 H 22 93 11/23/22 04:00 103 H 20 93 11/23/22 04:00 92/56 L 11/23/22 04:00 Nasal Cannula 11/23/22 03:51 114 H 20 96 11/23/22 03:51 101/64 11/23/22 03:30 103 H 18 94 11/23/22 03:00 108 H 12 96 11/23/22 02:30 99 H 18 94 11/23/22 02:13 88/55 L 11/23/22 02:13 101 H 20 95 11/23/22 02:00 101 H 20 94 11/23/22 01:30 96 H 17 96 11/23/22 01:00 105 H 18 97 11/23/22 00:30 111 H 20 95 11/23/22 00:00 135 H 22 95 11/23/22 00:00 95/48 L 11/22/22 23:53 121 H 29 H 94 11/22/22 23:53 99/63 L 11/22/22 23:51 83/53 L 11/22/22 23:51 108 H 16 95 11/22/22 23:30 137 H 28 H 96 11/22/22 23:00 121 H 26 H 97 11/22/22 22:50 155 H 27 H 92 11/22/22 22:50 102/59 L 11/23/22 03:52 98.6 F 11/23/22 00:12 115 H 11/22/22 23:09 132 H 11/22/22 22:52 97.7 F 11/22/22 22:30 59 L 17 96 11/22/22 22:00 65 17 97 11/22/22 21:30 62 17 96 11/22/22 21:00 68 26 H 90 11/22/22 20:30 71 21 95 11/22/22 20:00 58 L 14 98 11/22/22 20:00 Nasal Cannula O2 Flow Rate O2 Flow Rate 11/23/22 06:30 11/23/22 06:30 11/23/22 06:18 11/23/22 06:18 11/23/22 06:00 11/23/22 06:00 11/23/22 05:30 11/23/22 05:30 11/23/22 05:17 11/23/22 05:17 11/23/22 05:08 11/23/22 05:08 11/23/22 05:00 11/23/22 04:00 11/23/22 04:00 11/23/22 04:00 2 11/23/22 03:51 11/23/22 03:51 11/23/22 03:30 11/23/22 03:00 11/23/22 02:30 11/23/22 02:13 11/23/22 02:13 11/23/22 02:00 11/23/22 01:30 11/23/22 01:00 11/23/22 00:30 11/23/22 00:00 11/23/22 00:00 11/22/22 23:53 11/22/22 23:53 11/22/22 23:51 11/22/22 23:51 11/22/22 23:30 11/22/22 23:00 11/22/22 22:50 11/22/22 22:50 11/23/22 03:52 11/23/22 00:12 11/22/22 23:09 11/22/22 22:52 11/22/22 22:30 11/22/22 22:00 11/22/22 21:30 11/22/22 21:00 11/22/22 20:30 11/22/22 20:00 11/22/22 20:00 2 Laboratory Results Reviewed CBC Reviewed coagulation studies Reviewed PRP PG Care Time/CCT Total # of Minutes Spent Total Time Spent with Patient: Total time spent is greater than 50% in coordination of care (as documented) at patient's floor/unit and/or counseling patient: Coding Level of Care Code 53373 SUB INP/OBS CARE 3/50MIN Diagnoses Acute and chronic respiratory failure with hypoxia J96.21 Arrhythmia I49.9 Coronary artery disease I25.10 Associated angina: angina presence unspecified Coronary Disease-Associated Artery/Lesion type: [place] artery [place] vs. transplanted heart: [place] heart Chronic kidney disease N18.9 Abdominal aortic aneurysm I71.4 Urinary retention due to benign prostatic hyperplasia N40.1; R33.8 (3) Coronary artery disease Associated angina: angina presence unspecified Coronary Disease-Associated Artery/Lesion type: [place] artery [place] vs. transplanted heart: [place] heart Qualified Code(s): I25.10 - Atherosclerotic heart disease of [place] coronary artery without angina pectoris
[2022-11-23] MEDS ORDERED: Heparin IV Adult Wt-Based Standard WITH Bolus Protocol IV STA (07:46)
[2022-11-23] MEDS: CHOLECALCIFEROL 1,000 UNITS 25 MCG TAB PO SCH (07:51)
[2022-11-23] MEDS: CLOPIDOGREL BISULFATE 75 MG TAB PO SCH (07:51)
[2022-11-23] MEDS: ATORVASTATIN 20 MG TAB PO SCH (07:51)
[2022-11-23] MEDS: CALCIUM POLYCARBOPHIL 625MG TAB PO SCH (07:51)
[2022-11-23] MEDS: TAMSULOSIN HCL 0.4 MG CAP PO SCH ×2 (07:52→20:25)
[2022-11-23] MEDS: FLUTICASONE/VILANTEROL 200/25MCG 14 PUFFS/INHALER INH SCH (07:52)
[2022-11-23] MEDS: METOPROLOL TARTRATE 25 MG TAB PO SCH ×3 (07:52→20:24)
[2022-11-23] MEDS: CEFEPIME 1,000 MG in SYRINGE 0 ML IV SCH ×2 (07:53→20:26)
[2022-11-23] MEDS ORDERED: HEPARIN SOD (PORCINE) 1000 UNIT/ML IV ONE (08:05)
[2022-11-23] MEDS ORDERED: HEPARIN SODIUM/DEXTROSE 25,000 UNITS/500 ML BAG IV SCH (08:15)
[2022-11-23] MEDS: ALBUT/IPRATROP 3MG/0.5MG NEB 3 ML VIAL INH PRN (09:11)
--- NOTE | 2022-11-23 10:40 | Electrocardiogram Report ---
Test Reason : Blood Pressure : / mmHG Vent. 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
--- NOTE | 2022-11-23 10:52 | Electrocardiogram Report ---
Test Reason : Blood Pressure : / mmHG Vent. 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
[2022-11-23] MEDS: AMIODARONE / D5W 360 MG/200 ML BAG IV SCH ×2 (12:21→23:55)
--- NOTE | 2022-11-23 12:54 | Cardiology Progress Note ---
Date of Service November 23, 2022 Assessment & Plan (1) Atrial fibrillation with RVR: Plan: Continue intravenous amiodarone to assist in rate control and in hopes of regaining rhythm control by returning him to sinus. He is tolerating the tachycardia remarkably well, no anginal type symptoms or acute hypoperfusion. Would increase beta-laurel to metoprolol tartrate 25 mg every 6 hours (with hold orders only for systolic blood pressure less than 90 mmHg) to further reduce degree of tachycardia. Also, would add digoxin at low-dose (could load with 250 mcg x 2, then 125 mcg daily) for additional rate control without depressing BP further. If BP remains low but rate high despite these measures, could switch to esmolol for minute to minute rate control while closely monitoring BP. However, if he decompensates in any way, electrical cardioversion would be warranted. As noted, he is back on heparin, ultimately he will need to be transition to apixaban for chronic anticoagulation. Would recommend lower dose apixaban (2.5 mg twice daily) given age greater than 80 and weight in the 60 kg range as well as the probability he will remain on clopidogrel in the near term given his CAD and recent non-STEMI. (2) Ventricular tachycardia: Plan: At this point, absent clear documentation of ventricular tachycardia I wonder if his initial episode was actually atrial fibrillation misread as ventricular tachycardia since he has a wide QRS at baseline (RBBB). Either way, he will be on amiodarone long-term, depending on if/when he converts to sinus would base oral amiodarone dosing on his rate (he had a tendency to bradycardia or nonphysiologic heart rate response when in sinus earlier this hospitalization). (3) Stress-induced cardiomyopathy: Plan: This seems more likely as a source of his non-STEMI than occlusive coronary disease. Nonetheless, would continue clopidogrel and he is on heparin due to recurrent atrial fibrillation. Would check another limited/follow-up echocardiogram prior to discharge to ensure LV function is improving, but would wait until his rhythm is back in sinus. (4) Non-STEMI (non-ST elevated myocardial infarction): Plan: See above. (5) Acute and chronic respiratory failure with hypoxia: Plan: Significant underlying lung disease with chronic hypoxia suggests he has little pulmonary reserve. No overt CHF currently, low threshold for PRN diuretic use should he show any signs of volume overload. (6) Coronary artery disease: Plan: No anginal type symptoms. (7) Moderate to severe mitral regurgitation: Plan: No change in chronic mitral regurgitation severity on recent echocardiogram. (8) Left lower lobe pneumonia: Plan: Fever, chills, leukocytosis, and infiltrate consistent with pneumonia. On antibiotics. No evidence of CHF at this point. Plan We will continue to follow. Admission and Anticipated Discharge Date Admission Date: November 21, 2022 Subjective No major change in the way he feels, still coughing up brownish sputum. Developed atrial fibrillation with rapid ventricular response overnight persisting into today. Amiodarone and heparin restarted. BP borderline low. He denies any subjective palpitations or chest pain despite recurrent atrial fibrillation. Does become winded easily, such as when going to the bedside commode. No dyspnea at rest. No lightheadedness, presyncope, or syncope. Physical Exam Physical Exam: No distress. BP low normal. Pulse 110 bpm and irregular. Respirations appear unlabored. No accessory muscle use. Skin: no ecchymoses or generalized lesions. HEENT: unremarkable. Neck: Jugular venous pulse at the clavicle at 90 degrees, no carotid bruits. Lungs: Few basilar crackles left, moderately decreased breath sounds overall. No obvious wheezing. Cardiac: Irregular/tachycardic rhythm, heart sounds obscured by lung sounds, no murmur appreciated today, no diastolic murmur. Abdomen: benign. Extremities: no edema, peripheral pulses intact. Neurologic: normal affect and conversation, nonfocal. PG Care Time/CCT Total # of Minutes Spent Total Time Spent with Patient: Total time spent is greater than 50% in coordination of care (as documented) at patient's floor/unit and/or counseling patient: Coding Level of Care Code 89796 SUB INP/OBS CARE 3/50MIN Diagnoses Atrial fibrillation with RVR I48.91 Ventricular tachycardia I47.20 Stress-induced cardiomyopathy I51.81 Non-STEMI (non-ST elevated myocardial infarction) I21.4 Acute and chronic respiratory failure with hypoxia J96.21 Coronary artery disease I25.10 Associated angina: angina presence unspecified Coronary Disease-Associated Artery/Lesion type: [place] artery [place] vs. transplanted heart: [place] heart Moderate to severe mitral regurgitation I34.0 Left lower lobe pneumonia J18.9 Pneumonia type: due to unspecified organism (6) Coronary artery disease Associated angina: angina presence unspecified Coronary Disease-Associated Artery/Lesion type: [place] artery [place] vs. transplanted heart: [place] heart Qualified Code(s): I25.10 - Atherosclerotic heart disease of [place] coronary artery without angina pectoris (8) Left lower lobe pneumonia Pneumonia type: due to unspecified organism Qualified Code(s): J18.9 - Pneumonia, unspecified organism
[2022-11-23] MEDS ORDERED: DIGOXIN 250 MCG in SYRINGE 9 ML IV ONE ×2 (15:30→21:00)
[2022-11-23 15:41] LABS: Partial Thromboplastin Ratio > 5.1
[2022-11-23 15:46] LABS: Partial Thromboplastin Time > 139.0 Seconds (21.0-31.0)
[2022-11-23] MEDS: APIXABAN 2.5 MG TAB PO SCH (20:25)
[2022-11-24] MEDS: METOPROLOL TARTRATE 25 MG TAB PO SCH ×4 (04:30→20:05)
[2022-11-24 06:25] LABS: Basophils # (auto) 0.01 K/uL (0-0.2); Basophils % (auto) 0.1 %; Eosinophils # (auto) 0.06 K/uL (0-0.50); Eosinophils % (auto) 0.6 %; Hematocrit (blood only) 34.5 % (42.0-52.0); Hemoglobin 11.9 g/dl (14.0-18.0); Immature Granulocytes # (auto) 0.05 K/uL (0.01-0.20); Immature Granulocytes % (auto) 0.5 %; Lymphocytes # (auto) 0.53 K/uL (1.2-3.4); Lymphocytes % (auto) 5.3 %; Mean Corpuscular Hemoglobin 35.3 pg (25.0-34.0); Mean Corpuscular Hgb Conc 34.5 g/dL (32.0-36.0); Mean Corpuscular Volume 102.4 fL (80.0-100.0); Mean Platelet Volume 11.6 fL (9.4-12.4); Monocytes # (auto) 0.58 K/uL (0.11-0.59); Monocytes % (auto) 5.8 %; Neutrophils # (auto) 8.77 K/uL (1.40-6.50); Neutrophils % (auto) 87.7 %; Platelet Count 118 K/uL (130-400); RDW Coefficient of Variation 14.6 % (11.5-14.5); RDW Standard Deviation 54.4 fL (36.4-46.3); Red Blood Count 3.37 M/uL (4.70-6.10)
[2022-11-24 06:26] LABS: BUN Creatinine Ratio 23.1 (10-20); Creatinine Clr Calc Pharmacy 24.2 ml/min; Est GFR (African American) 37.6 ml/min; Est GFR (Non-African American) 32.4 ml/min; Magnesium 2.2 mg/dl (1.7-2.4); Phosphorus 3.4 mg/dl (2.5-4.9); Potassium 4.6 mmol/L (3.5-5.1)
[2022-11-24 06:37] LABS: INR 1.1 (0.9-1.1); Partial Thromboplastin Ratio 1.3; Partial Thromboplastin Time 34.7 Seconds (21.0-31.0); Prothrombin Time 11.2 Seconds (9.0-12.0)
--- NOTE | 2022-11-24 07:53 | Hospitalist Progress Note ---
Date of Service November 24, 2022 Assessment & Plan (1) Acute and chronic respiratory failure with hypoxia: Plan: acute on chronic high riskimproving Pt presented in acute respiratory faiure, aspiration possible, V tach in Er and Elevated troponin cause of respiratory failure is multifactorial, but also influenced by COPD on chronic home oxygen 2L treated for Gram negative or aspiration pneumonia, has LLL infiltrate seen on CXR, complete 7 days of cefepime, LD 11/28 supported for chronic respiratory failure with nebs (2) Arrhythmia: Plan: Acute ventricular tachycardia presented initially unstable high risk self- limited now resolved associated elevated troponin seems to be secondary to Takotsubo's myocarditis, nstemi not felt to be issue acute atrial fibrillation RVR and hypotension, high risk restarted Amiodarone GTT, try to edge up metoprolol which was reduced due to low bp and pulse metoprolol 25 every 6 per cardiology recommendation Cardiology recommends loading with digoxin 0.5 mg and then 0.125 a day we will check digoxin level on 11/25 restarted heparin but transitioned to Eliquis 2.5 twice daily (3) Coronary artery disease: Plan: acute moderate risk now stable troponin and echocardiogram changes consistent with Takotsubo's myocarditis elevated troponin with concern for nstemi- prehospital on plavix, metoprolol atorvastatin with degree of RWMA if nstemi would expect higher troponins continue plavix as history of previous PCI Acute systolic heart failure, moderate risk stable, Echo with RWMA and RV/LV dysfunction EF 35%, maybe Takusubo, repeat echo 11/22 limited improvement of ejection fraction in the 40 to 45% consider CTA for PE however given LLL infiltrate and acute event( dimer up but maybe pneumonia) do have explanation and bello makes iv contrast increased risk dopplers LE negative for DVT (4) Chronic kidney disease: Plan: concern for bello on CKD3 renal function is worsening likely due to prerenal (low blood pressure ) admitting team held ARB on presentation (5) Abdominal aortic aneurysm: Plan: chronic, last imaged 05/2022 Fusiform dilation of the infrarenal abdominal aorta measures up to 3.2 x 2.6 cm (6) 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 His heart rate is better controlled he did not convert to sinus rhythm. He remains on 3 agents to control his atrial ventricular rate Patient appears weak and likely may benefit from rehabilitation Physical Exam Physical Exam: Awake and alert he is tachypneic Although his saturations are intact he does have some nailbed cyanosis Card exam is irregular but rate controlled Lungs have decreased at the bases left greater than right with poor air movement no overt wheezes Results & Data Results & Data Vital Signs (Past 12 Hours) Vital Signs Temp Pulse Pulse Resp BP Pulse Ox O2 Del Method 11/24/22 07:45 98.1 F 97 H 16 112/60 96 Nasal Cannula 11/24/22 04:00 98.2 F 90 20 103/69 95 Nasal Cannula 11/24/22 00:00 94 H 11/23/22 20:00 Nasal Cannula 11/24/22 00:00 99.1 F 108 H 16 99/58 L 93 Nasal Cannula 11/23/22 20:00 99.1 F 99 H 20 105/63 89 L Nasal Cannula 11/23/22 20:24 112 H O2 Flow Rate 11/24/22 07:45 4 11/24/22 04:00 4 11/24/22 00:00 11/23/22 20:00 4 11/24/22 00:00 4 11/23/22 20:00 4 11/23/22 20:24 Laboratory Results Reviewed CBC Reviewed PRP Reviewed coagulation studies PG Care Time/CCT Total # of Minutes Spent Total Time Spent with Patient: Total time spent is greater than 50% in coordination of care (as documented) at patient's floor/unit and/or counseling patient: Coding Level of Care Code 15085 SUB INP/OBS CARE 2/35MIN Diagnoses Acute and chronic respiratory failure with hypoxia J96.21 Arrhythmia I49.9 Coronary artery disease I25.10 Associated angina: angina presence unspecified Coronary Disease-Associated Artery/Lesion type: [place] artery [place] vs. transplanted heart: [place] heart Chronic kidney disease N18.9 Abdominal aortic aneurysm I71.4 Urinary retention due to benign prostatic hyperplasia N40.1; R33.8 (3) Coronary artery disease Associated angina: angina presence unspecified Coronary Disease-Associated Artery/Lesion type: [place] artery [place] vs. transplanted heart: [place] heart Qualified Code(s): I25.10 - Atherosclerotic heart disease of [place] coronary artery without angina pectoris
[2022-11-24] MEDS: CALCIUM POLYCARBOPHIL 625MG TAB PO SCH (09:23)
[2022-11-24] MEDS: ATORVASTATIN 20 MG TAB PO SCH (09:23)
[2022-11-24] MEDS: CLOPIDOGREL BISULFATE 75 MG TAB PO SCH (09:23)
[2022-11-24] MEDS: TAMSULOSIN HCL 0.4 MG CAP PO SCH ×2 (09:23→20:05)
[2022-11-24] MEDS: FLUTICASONE/VILANTEROL 200/25MCG 14 PUFFS/INHALER INH SCH (09:23)
[2022-11-24] MEDS: CHOLECALCIFEROL 1,000 UNITS 25 MCG TAB PO SCH (09:23)
[2022-11-24] MEDS: APIXABAN 2.5 MG TAB PO SCH ×2 (09:23→20:06)
[2022-11-24] MEDS: CEFEPIME 1,000 MG in SYRINGE 0 ML IV SCH ×2 (09:35→20:06)
[2022-11-24] MEDS: AMIODARONE / D5W 360 MG/200 ML BAG IV SCH ×2 (10:22→22:29)
[2022-11-24] MEDS: ALBUT/IPRATROP 3MG/0.5MG NEB 3 ML VIAL INH PRN (10:54)
[2022-11-24] MEDS: DIGOXIN 0.125 MG TAB PO SCH (16:47)
[2022-11-25] MEDS: METOPROLOL TARTRATE 25 MG TAB PO SCH ×4 (05:21→20:42)
[2022-11-25] MEDS: CHOLECALCIFEROL 1,000 UNITS 25 MCG TAB PO SCH (09:34)
[2022-11-25] MEDS: CLOPIDOGREL BISULFATE 75 MG TAB PO SCH (09:34)
[2022-11-25] MEDS: AMIODARONE / D5W 360 MG/200 ML BAG IV SCH ×2 (09:34→21:26)
[2022-11-25] MEDS: CALCIUM POLYCARBOPHIL 625MG TAB PO SCH (09:34)
[2022-11-25] MEDS: CEFEPIME 1,000 MG in SYRINGE 0 ML IV SCH ×2 (09:34→20:43)
[2022-11-25] MEDS: ATORVASTATIN 20 MG TAB PO SCH (09:35)
[2022-11-25] MEDS: APIXABAN 2.5 MG TAB PO SCH ×2 (09:35→20:41)
[2022-11-25] MEDS: TAMSULOSIN HCL 0.4 MG CAP PO SCH ×2 (09:35→20:41)
[2022-11-25] MEDS: FLUTICASONE/VILANTEROL 200/25MCG 14 PUFFS/INHALER INH SCH (09:35)
--- NOTE | 2022-11-25 14:01 | Cardiology Progress Note ---
Date of Service November 25, 2022 Assessment & Plan (1) Atrial fibrillation with RVR: Plan: -rate now adequately controlled on amiodarone drip, metoprolol tartrate, and digoxin. -would continue intravenous amiodarone for an additional 24 hours. -continue Eliquis. -no need to consider electrical cardioversion at this time as the patient is stable and asymptomatic. (2) Stress-induced cardiomyopathy: Plan: -will recheck and a limited echocardiogram prior to discharge. (3) Acute and chronic respiratory failure with hypoxia: Plan: -likely secondary to LLL pneumonia and significant underlying lung disease with chronic hypoxia. -management per ICU team. (4) Coronary artery disease: Plan: -history of LAD and RCA stents, March 2008. -quiescent on medical management. (5) Moderate to severe mitral regurgitation: Plan: -no change in chronic mitral regurgitation severity on recent echocardiogram. Admission and Anticipated Discharge Date Admission Date: November 21, 2022 Subjective The patient is resting comfortably in bed without complaints of chest pain, dyspnea, or palpitations. He feels that he is improving. Physical Exam Physical Exam: In general this is a well-developed well-nourished elderly white male in no acute distress. HEENT exam is negative. Neck is supple with a transmitted murmur bilaterally. No JVD. There is no thyromegaly. Cardiovascular exam reveals an irregular irregular rhythm with distant heart sounds. A 3/6 holosystolic murmur is heard across the entire precordium, loudest at the apex. No S3. Lungs note coarse breath sounds throughout. Abdomen is benign without bruits. Extremities reveal intact radial artery and posterior tibial pulse bilaterally. There is no edema. Results & Data Vital Signs (Past 12 Hours) Vital Signs Temp Pulse Pulse Resp BP BP Pulse Ox 11/25/22 12:02 107 H 28 H 91 11/25/22 12:02 102/59 L 11/25/22 12:00 92 H 24 91 11/25/22 11:00 106 H 24 11/25/22 10:00 100 H 27 H 93 11/25/22 10:00 133/70 11/25/22 09:41 94 H 26 H 89 L 11/25/22 09:41 127/75 11/25/22 09:00 84 26 H 98 11/25/22 08:00 04/06/23 08:00 91 H 20 93 11/25/22 07:00 80 16 100 11/25/22 07:00 126/73 11/25/22 08:00 87 11/25/22 08:00 36.9 C 11/25/22 05:15 36.8 C 95 H 23 126/70 92 11/25/22 02:08 37.0 C 88 22 110/66 O2 Del Method O2 Flow Rate 11/25/22 12:02 Nasal Cannula 4 11/25/22 12:02 11/25/22 12:00 11/25/22 11:00 11/25/22 10:00 11/25/22 10:00 11/25/22 09:41 11/25/22 09:41 11/25/22 09:00 11/25/22 08:00 Nasal Cannula 4 11/25/22 08:00 Nasal Cannula 4 11/25/22 07:00 11/25/22 07:00 11/25/22 08:00 11/25/22 08:00 11/25/22 05:15 Nasal Cannula 3 11/25/22 02:08 Nasal Cannula 2 Diagnostic Findings library monitor notes atrial fibrillation with a controlled ventricular response. PG Care Time/CCT Total # of Minutes Spent Total Time Spent with Patient: Total time spent is greater than 50% in coordination of care (as documented) at patient's floor/unit and/or counseling patient: Coding Level of Care Code 24488 SUB INP/OBS CARE 3/50MIN Diagnoses Atrial fibrillation with RVR I48.91 Stress-induced cardiomyopathy I51.81 Acute and chronic respiratory failure with hypoxia J96.21 Coronary artery disease I25.10 Coronary Disease-Associated Artery/Lesion type: [place] artery [place] vs. transplanted heart: [place] heart Associated angina: angina presence unspecified Moderate to severe mitral regurgitation I34.0 (4) Coronary artery disease Coronary Disease-Associated Artery/Lesion type: [place] artery [place] vs. transplanted heart: [place] heart Associated angina: angina presence unspecified Qualified Code(s): I25.10 - Atherosclerotic heart disease of [place] coronary artery without angina pectoris
[2022-11-25] MEDS: DIGOXIN 0.125 MG TAB PO SCH (16:02)
--- NOTE | 2022-11-25 22:51 | Hospitalist Progress Note ---
Date of Service November 25, 2022 Assessment & Plan (1) Acute and chronic respiratory failure with hypoxia: Plan: acute on chronic high riskimproving Pt presented in acute respiratory faiure, aspiration possible, V tach in Er and Elevated troponin cause of respiratory failure is multifactorial, but also influenced by COPD on chronic home oxygen 2L treated for Gram negative or aspiration pneumonia, has LLL infiltrate seen on CXR, complete 7 days of cefepime, LD 11/28 supported for chronic respiratory failure with nebs will continue above antibiotics (2) Arrhythmia: Plan: Acute ventricular tachycardia presented initially unstable high risk self- limited now resolved associated elevated troponin seems to be secondary to Takotsubo's myocarditis, nstemi not felt to be issue acute atrial fibrillation RVR and hypotension, high risk restarted Amiodarone GTT, try to edge up metoprolol which was reduced due to low bp and pulse metoprolol 25 every 6 per cardiology recommendation Cardiology recommends loading with digoxin 0.5 mg and then 0.125 a day we will check digoxin level on 11/25 restarted heparin but transitioned to Eliquis 2.5 twice daily hold dig as dig level is 3 (3) Coronary artery disease: Plan: acute moderate risk now stable troponin and echocardiogram changes consistent with Takotsubo's myocarditis elevated troponin with concern for nstemi- prehospital on plavix, metoprolol atorvastatin with degree of RWMA if nstemi would expect higher troponins continue plavix as history of previous PCI Acute systolic heart failure, moderate risk stable, Echo with RWMA and RV/LV dysfunction EF 35%, maybe Takusubo, repeat echo 11/22 limited improvement of ejection fraction in the 40 to 45% consider CTA for PE however given LLL infiltrate and acute event( dimer up but maybe pneumonia) do have explanation and bello makes iv contrast increased risk dopplers LE negative for DVT (4) Chronic kidney disease: Plan: concern for bello on CKD3 renal function is worsening likely due to prerenal (low blood pressure ) admitting team held ARB on presentation (5) Abdominal aortic aneurysm: Plan: chronic, last imaged 05/2022 Fusiform dilation of the infrarenal abdominal aorta measures up to 3.2 x 2.6 cm (6) 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 Review of Systems Review of Systems: All systems reviewed & are unremarkable except as noted in HPI & below Physical Exam Physical Exam: Awake and alert he is no longer tachypnic. Although his saturations are intact he does have some nailbed cyanosis Card exam is irregular but rate controlled Lungs have decreased at the bases left greater than right with poor air movement no overt wheezes Results & Data Results & Data Vital Signs (Past 12 Hours) Vital Signs Temp Pulse Resp BP Pulse Ox O2 Del Method O2 Flow Rate 11/25/22 19:57 Nasal Cannula 4 11/25/22 18:00 95 H 26 H 88 L 11/25/22 17:00 100 H 26 H 89 L Nasal Cannula 4 11/25/22 17:00 138/77 11/25/22 16:31 36.5 C 11/25/22 16:16 147/71 H 11/25/22 16:16 100 H 24 90 11/25/22 16:00 98 H 26 H 89 L Nasal Cannula 4 11/25/22 16:00 140/69 11/25/22 15:00 83 21 93 Nasal Cannula 4 11/25/22 15:00 123/58 L 11/25/22 14:00 92 H 20 96 11/25/22 14:00 142/86 H 11/25/22 13:01 115/60 11/25/22 13:01 108 H 22 93 11/25/22 13:00 95 H 28 H 93 11/25/22 15:05 96 11/25/22 12:02 107 H 28 H 91 Nasal Cannula 4 11/25/22 12:02 102/59 L 11/25/22 12:00 92 H 24 91 11/25/22 11:00 106 H 24 PG Care Time/CCT Total # of Minutes Spent Total Time Spent with Patient: Total time spent is greater than 50% in coordination of care (as documented) at patient's floor/unit and/or counseling patient: Coding Level of Care Code 69574 SUB INP/OBS CARE 3/50MIN Diagnoses Acute and chronic respiratory failure with hypoxia J96.21 Arrhythmia I49.9 Coronary artery disease I25.10 Associated angina: angina presence unspecified Coronary Disease-Associated Artery/Lesion type: [place] artery [place] vs. transplanted heart: [place] heart Chronic kidney disease N18.9 Abdominal aortic aneurysm I71.4 Urinary retention due to benign prostatic hyperplasia N40.1; R33.8 (3) Coronary artery disease Associated angina: angina presence unspecified Coronary Disease-Associated Artery/Lesion type: [place] artery [place] vs. transplanted heart: [place] heart Qualified Code(s): I25.10 - Atherosclerotic heart disease of [place] coronary artery without angina pectoris
[2022-11-26] MEDS: METOPROLOL TARTRATE 25 MG TAB PO SCH ×4 (04:06→22:17)
[2022-11-26] MEDS: FLUTICASONE/VILANTEROL 200/25MCG 14 PUFFS/INHALER INH SCH (08:02)
[2022-11-26] MEDS: APIXABAN 2.5 MG TAB PO SCH ×2 (08:03→20:02)
[2022-11-26] MEDS: TAMSULOSIN HCL 0.4 MG CAP PO SCH ×2 (08:04→20:02)
[2022-11-26] MEDS: CLOPIDOGREL BISULFATE 75 MG TAB PO SCH (08:04)
[2022-11-26] MEDS: ATORVASTATIN 20 MG TAB PO SCH (08:04)
[2022-11-26] MEDS: CHOLECALCIFEROL 1,000 UNITS 25 MCG TAB PO SCH (08:05)
[2022-11-26] MEDS: CALCIUM POLYCARBOPHIL 625MG TAB PO SCH (08:05)
[2022-11-26] MEDS: CEFEPIME 1,000 MG in SYRINGE 0 ML IV SCH ×2 (08:06→20:02)
[2022-11-26] MEDS: ALBUT/IPRATROP 3MG/0.5MG NEB 3 ML VIAL INH PRN ×3 (08:47→14:48)
--- NOTE | 2022-11-26 09:28 | Cardiology Progress Note ---
Date of Service November 26, 2022 Assessment & Plan (1) Atrial fibrillation with RVR: Plan: -rate adequately controlled. -would convert intravenous amiodarone to oral dosing 200 mg b.i.d. -digoxin currently on hold. Would recheck a level today. -continue Eliquis. -no need to consider electrical cardioversion at this time as the patient is stable and asymptomatic. (2) Stress-induced cardiomyopathy: Plan: -will recheck and a limited echocardiogram prior to discharge. (3) Acute and chronic respiratory failure with hypoxia: Plan: -likely secondary to LLL pneumonia and significant underlying lung disease with chronic hypoxia. -management per ICU team. (4) Coronary artery disease: Plan: -history of LAD and RCA stents, March 2008. -quiescent on medical management. (5) Moderate to severe mitral regurgitation: Plan: -no change in chronic mitral regurgitation severity on recent echocardiogram. Admission and Anticipated Discharge Date Admission Date: November 21, 2022 Subjective The patient is resting comfortably in bedside chair without complaints of chest pain or palpitations. Does note dyspnea with most physical activity. Physical Exam 2 Physical Exam: In general this is a well-developed well-nourished elderly white male in no acute distress. HEENT exam is negative. Neck is supple with a transmitted murmur bilaterally. No JVD. There is no thyromegaly. Cardiovascular exam reveals an irregular irregular rhythm with distant heart sounds. A 3/6 holosystolic murmur is heard across the entire precordium, loudest at the apex. No S3. Lungs note coarse breath sounds throughout. Abdomen is benign without bruits. Extremities reveal intact radial artery and posterior tibial pulse bilaterally. There is no edema. Results & Data Vital Signs (Past 12 Hours) Vital Signs Temp Pulse Pulse Resp BP Pulse Ox O2 Del Method 11/26/22 08:47 87 20 93 Nasal Cannula 11/26/22 07:37 36.6 C 93 H 20 126/61 96 Nasal Cannula 11/26/22 07:00 88 11/26/22 01:00 Nasal Cannula 11/26/22 03:46 36.5 C 85 20 126/67 93 Nasal Cannula 11/26/22 00:43 36.4 C L 82 25 H 107/64 92 Nasal Cannula 11/26/22 00:31 36.5 C 87 22 147/79 H 92 Nasal Cannula O2 Flow Rate 11/26/22 08:47 4 04/07/23 07:37 4 11/26/22 07:00 11/26/22 01:00 4 11/26/22 03:46 4 11/26/22 00:43 4 11/26/22 00:31 4 Diagnostic Findings color television console monitor notes rate controlled atrial fibrillation. PG Care Time/CCT Total # of Minutes Spent Total Time Spent with Patient: Total time spent is greater than 50% in coordination of care (as documented) at patient's floor/unit and/or counseling patient: Coding Level of Care Code 66223 SUB INP/OBS CARE 3/50MIN Diagnoses Atrial fibrillation with RVR I48.91 Stress-induced cardiomyopathy I51.81 Acute and chronic respiratory failure with hypoxia J96.21 Coronary artery disease I25.10 Coronary Disease-Associated Artery/Lesion type: [place] artery [place] vs. transplanted heart: [place] heart Associated angina: angina presence unspecified Moderate to severe mitral regurgitation I34.0 (4) Coronary artery disease Coronary Disease-Associated Artery/Lesion type: [place] artery [place] vs. transplanted heart: [place] heart Associated angina: angina presence unspecified Qualified Code(s): I25.10 - Atherosclerotic heart disease of [place] coronary artery without angina pectoris
[2022-11-26] MEDS: AMIODARONE / D5W 360 MG/200 ML BAG IV SCH ×2 (09:34→22:16)
[2022-11-26 10:34] LABS: Hematocrit (blood only) 36.5 % (42.0-52.0); Hemoglobin 12.7 g/dl (14.0-18.0); Mean Corpuscular Hemoglobin 35.1 pg (25.0-34.0); Mean Corpuscular Hgb Conc 34.8 g/dL (32.0-36.0); Mean Corpuscular Volume 100.8 fL (80.0-100.0); Mean Platelet Volume 11.9 fL (9.4-12.4); Platelet Count 130 K/uL (130-400); RDW Coefficient of Variation 14.1 % (11.5-14.5); RDW Standard Deviation 51.9 fL (36.4-46.3); Red Blood Count 3.62 M/uL (4.70-6.10); White Blood Count 9.67 K/ul (4.8-10.8)
[2022-11-26 10:48] LABS: Albumin Globulin Ratio 1.3 (0.9-2); Albumin Level 3.5 gm/dl (3.4-5.0); BUN Creatinine Ratio 24.5 (10-20); Bilirubin,Total 0.7 mg/dl (0.2-1.0); Calcium 8.6 mg/dl (8.6-10.3); Creatinine Clr Calc Pharmacy 22.8 ml/min; Est GFR (African American) 34.4 ml/min; Est GFR (Non-African American) 29.7 ml/min; Globulin 2.6 gm/dl (2.5-4.0); Potassium 4.9 mmol/L (3.5-5.1); Total Protein 6.1 gm/dl (6.0-8.3)
[2022-11-26] MEDS: DIGOXIN 0.125 MG TAB PO SCH (16:22)
--- NOTE | 2022-11-26 22:36 | Hospitalist Progress Note ---
Date of Service November 26, 2022 Assessment & Plan (1) Acute and chronic respiratory failure with hypoxia: Plan: acute on chronic high riskimproving Pt presented in acute respiratory faiure, aspiration possible, V tach in Er and Elevated troponin cause of respiratory failure is multifactorial, but also influenced by COPD on chronic home oxygen 2L treated for Gram negative or aspiration pneumonia, has LLL infiltrate seen on CXR, complete 7 days of cefepime, LD 11/28 supported for chronic respiratory failure with nebs will continue above antibiotics (2) Arrhythmia: Plan: Acute ventricular tachycardia presented initially unstable high risk self- limited now resolved associated elevated troponin seems to be secondary to Takotsubo's myocarditis, nstemi not felt to be issue acute atrial fibrillation RVR and hypotension, high risk restarted Amiodarone GTT, try to edge up metoprolol which was reduced due to low bp and pulse metoprolol 25 every 6 per cardiology recommendation Cardiology recommends loading with digoxin 0.5 mg and then 0.125 a day we will check digoxin level on 11/25 restarted heparin but transitioned to Eliquis 2.5 twice daily resume dig. closely monitor the heart rare. (3) Coronary artery disease: Plan: acute moderate risk now stable troponin and echocardiogram changes consistent with Takotsubo's myocarditis elevated troponin with concern for nstemi- prehospital on plavix, metoprolol atorvastatin with degree of RWMA if nstemi would expect higher troponins continue plavix as history of previous PCI Acute systolic heart failure, moderate risk stable, Echo with RWMA and RV/LV dysfunction EF 35%, maybe Takusubo, repeat echo 11/22 limited improvement of ejection fraction in the 40 to 45% consider CTA for PE however given LLL infiltrate and acute event( dimer up but maybe pneumonia) do have explanation and bello makes iv contrast increased risk dopplers LE negative for DVT (4) Chronic kidney disease: Plan: concern for bello on CKD3 renal function is worsening likely due to prerenal (low blood pressure ) admitting team held ARB on presentation (5) Abdominal aortic aneurysm: Plan: chronic, last imaged 05/2022 Fusiform dilation of the infrarenal abdominal aorta measures up to 3.2 x 2.6 cm (6) 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 Review of Systems Review of Systems: All systems reviewed & are unremarkable except as noted in HPI & below Physical Exam Physical Exam: Awake and alert tachypnic. Although his saturations are intact he does have some nailbed cyanosis Card exam is irregular but rate controlled Lungs have decreased at the bases left greater than right with poor air movement no overt wheezes Results & Data Results & Data Vital Signs (Past 12 Hours) Vital Signs Temp Pulse Pulse Resp BP Pulse Ox O2 Del Method 11/26/22 19:42 Nasal Cannula 11/26/22 19:34 36.5 C 110 H 20 128/72 96 Nasal Cannula 11/26/22 16:22 133 H 11/26/22 15:45 36.6 C 94 H 20 127/74 96 Nasal Cannula 11/26/22 15:00 92 H 11/26/22 14:48 89 20 94 Nasal Cannula 11/26/22 12:03 100 H 20 90 Nasal Cannula 11/26/22 11:29 36.4 C L 92 H 20 145/77 H 93 Nasal Cannula O2 Flow Rate 11/26/22 19:42 5 11/26/22 19:34 4 11/26/22 16:22 11/26/22 15:45 5 11/26/22 15:00 11/26/22 14:48 4 11/26/22 12:03 4 11/26/22 11:29 4 PG Care Time/CCT Total # of Minutes Spent Total Time Spent with Patient: Total time spent is greater than 50% in coordination of care (as documented) at patient's floor/unit and/or counseling patient: Coding Level of Care Code 71865 SUB INP/OBS CARE 2/35MIN Diagnoses Acute and chronic respiratory failure with hypoxia J96.21 Arrhythmia I49.9 Coronary artery disease I25.10 Associated angina: angina presence unspecified Coronary Disease-Associated Artery/Lesion type: [place] artery [place] vs. transplanted heart: [place] heart Chronic kidney disease N18.9 Abdominal aortic aneurysm I71.4 Urinary retention due to benign prostatic hyperplasia N40.1; R33.8 (3) Coronary artery disease Associated angina: angina presence unspecified Coronary Disease-Associated Artery/Lesion type: [place] artery [place] vs. transplanted heart: [place] heart Qualified Code(s): I25.10 - Atherosclerotic heart disease of [place] coronary artery without angina pectoris
[2022-11-27] MEDS: ALBUT/IPRATROP 3MG/0.5MG NEB 3 ML VIAL INH PRN ×3 (01:32→13:22)
[2022-11-27] MEDS: METOPROLOL TARTRATE 25 MG TAB PO SCH ×4 (04:57→21:41)
[2022-11-27 07:36] LABS: Creatinine Clr Calc Pharmacy 21.5 ml/min; Est GFR (Non-African American) 27.6 ml/min
[2022-11-27] MEDS: TAMSULOSIN HCL 0.4 MG CAP PO SCH ×2 (08:51→20:50)
[2022-11-27] MEDS: FLUTICASONE/VILANTEROL 200/25MCG 14 PUFFS/INHALER INH SCH (08:52)
[2022-11-27] MEDS: ATORVASTATIN 20 MG TAB PO SCH (08:53)
[2022-11-27] MEDS: CEFEPIME 1,000 MG in SYRINGE 0 ML IV SCH ×2 (08:53→20:50)
[2022-11-27] MEDS: APIXABAN 2.5 MG TAB PO SCH ×2 (08:53→20:50)
[2022-11-27] MEDS: CLOPIDOGREL BISULFATE 75 MG TAB PO SCH (08:53)
[2022-11-27] MEDS: CHOLECALCIFEROL 1,000 UNITS 25 MCG TAB PO SCH (08:53)
[2022-11-27] MEDS: CALCIUM POLYCARBOPHIL 625MG TAB PO SCH (08:53)
[2022-11-27] MEDS: AMIODARONE / D5W 360 MG/200 ML BAG IV SCH ×2 (11:17→21:41)
[2022-11-27] MEDS: DIGOXIN 0.125 MG TAB PO SCH (16:49)
[2022-11-27] MEDS ORDERED: LEVALBUTEROL HCL 1.25 MG/3 ML NEB NEB STA (17:02)
--- NOTE | 2022-11-27 21:12 | Hospitalist Progress Note ---
Date of Service November 27, 2022 Assessment & Plan (1) Acute and chronic respiratory failure with hypoxia: Plan: acute on chronic high riskimproving Pt presented in acute respiratory faiure, aspiration possible, V tach in Er and Elevated troponin cause of respiratory failure is multifactorial, but also influenced by COPD on chronic home oxygen 2L treated for Gram negative or aspiration pneumonia, has LLL infiltrate seen on CXR, complete 7 days of cefepime, LD 11/28 supported for chronic respiratory failure with nebs will continue above antibiotics (2) Arrhythmia: Plan: Acute ventricular tachycardia presented initially unstable high risk self- limited now resolved associated elevated troponin seems to be secondary to Takotsubo's myocarditis, nstemi not felt to be issue acute atrial fibrillation RVR and hypotension, high risk restarted Amiodarone GTT, try to edge up metoprolol which was reduced due to low bp and pulse metoprolol 25 every 6 per cardiology recommendation Cardiology recommends loading with digoxin 0.5 mg and then 0.125 a day we will check digoxin level on 11/25 restarted heparin but transitioned to Eliquis 2.5 twice daily resume dig. closely monitor the heart rare. Remains tachycardic. Patient does not appear SOB, but asking for nebs. will order xopenex (3) Coronary artery disease: Plan: acute moderate risk now stable troponin and echocardiogram changes consistent with Takotsubo's myocarditis elevated troponin with concern for nstemi- prehospital on plavix, metoprolol atorvastatin with degree of RWMA if nstemi would expect higher troponins continue plavix as history of previous PCI Acute systolic heart failure, moderate risk stable, Echo with RWMA and RV/LV dysfunction EF 35%, maybe Takusubo, repeat echo 11/22 limited improvement of ejection fraction in the 40 to 45% consider CTA for PE however given LLL infiltrate and acute event( dimer up but maybe pneumonia) do have explanation and bello makes iv contrast increased risk dopplers LE negative for DVT (4) Chronic kidney disease: Plan: concern for bello on CKD3 renal function is worsening likely due to prerenal (low blood pressure ) admitting team held ARB on presentation (5) Abdominal aortic aneurysm: Plan: chronic, last imaged 05/2022 Fusiform dilation of the infrarenal abdominal aorta measures up to 3.2 x 2.6 cm (6) 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 He feels this may help him get discharged sooner. Review of Systems Review of Systems: All systems reviewed & are unremarkable except as noted in HPI & below Physical Exam Physical Exam: Awake and alert tachypnic. Although his saturations are intact he does have some nailbed cyanosis Card exam is irregular but rate controlled Lungs have decreased at the bases l Results & Data Results & Data Vital Signs (Past 12 Hours) Vital Signs Temp Pulse Pulse Resp BP Pulse Ox O2 Del Method 11/27/22 19:42 Nasal Cannula 11/27/22 19:17 36.7 C 95 H 20 120/69 96 Nasal Cannula 11/27/22 16:49 122 H 11/27/22 15:38 36.4 C L 110 H 20 131/83 92 Nasal Cannula 11/27/22 15:14 107 H 11/27/22 13:22 95 H 20 93 Nasal Cannula 11/27/22 12:08 36.5 C 90 22 110/63 92 Nasal Cannula 11/27/22 09:50 Nasal Cannula 11/27/22 09:14 99 H 12 96 Nasal Cannula O2 Flow Rate 11/27/22 19:42 5 11/27/22 19:17 4 11/27/22 16:49 11/27/22 15:38 4.0 11/27/22 15:14 11/27/22 13:22 3 11/27/22 12:08 3 11/27/22 09:50 4 11/27/22 09:14 3 PG Care Time/CCT Total # of Minutes Spent Total Time Spent with Patient: Total time spent is greater than 50% in coordination of care (as documented) at patient's floor/unit and/or counseling patient: Coding Level of Care Code 22849 SUB INP/OBS CARE 2/35MIN Diagnoses Acute and chronic respiratory failure with hypoxia J96.21 Arrhythmia I49.9 Coronary artery disease I25.10 Associated angina: angina presence unspecified Coronary Disease-Associated Artery/Lesion type: [place] artery [place] vs. transplanted heart: [place] heart Chronic kidney disease N18.9 Abdominal aortic aneurysm I71.4 Urinary retention due to benign prostatic hyperplasia N40.1; R33.8 (3) Coronary artery disease Associated angina: angina presence unspecified Coronary Disease-Associated Artery/Lesion type: [place] artery [place] vs. transplanted heart: [place] heart Qualified Code(s): I25.10 - Atherosclerotic heart disease of [place] coronary artery without angina pectoris
[2022-11-28] MEDS ORDERED: guaiFENesin/DEXTROM SYRUP 200MG/20MG 10ML UDC PO STA (00:28)
--- NOTE | 2022-11-28 01:35 | Communication Note ---
Date of Service: November 28, 2022 Code Pietro called, prior to this had been noted to be hypoxic (though difficult to get a reading), then PEA, received chest compressions for total of ~2 mins, received ROSC, placed on BIPAP (patient is a DNI). Patient alert following code. Labs collected and CXR ordered. Patient to transfer to ICU for continued care. Rush Putnam present for code.
[2022-11-28 01:45] LABS: iSTAT Allen Test Pass; iSTAT Art Bld Gas pCO2 Correct 33 mmHg (35-46); iSTAT Art Bld Gas pH Corrected 7.338 (7.35-7.45); iSTAT Arterial Blood Gas HCO3 18 meg/L (19-24); iSTAT Arterial Blood Gas pCO2 34 mmHg (35-46); iSTAT Arterial Blood Gas pH 7.34 (7.35-7.45); iSTAT Arterial Blood Gas pO2 217 mmHg (80-95); iSTAT Arterial Blood Gas pO2 C 216; iSTAT Carbon Dioxide 19 mmol/L (24-31); iSTAT FiO2 100 %; iSTAT Hematocrit 34 % (42-52); iSTAT Hemoglobin 11.6 g/dl (14.0-18.0); iSTAT Potassium 4.6 mmol/L (3.3-5.0); iSTAT Site R Radial; iSTAT Sodium 132 mmol/L (135-144)
[2022-11-28 01:47] LABS: Basophils # (auto) 0.01 K/uL (0-0.2); Basophils % (auto) 0.1 %; Eosinophils # (auto) 0.04 K/uL (0-0.50); Eosinophils % (auto) 0.4 %; Hematocrit (blood only) 33.2 % (42.0-52.0); Hemoglobin 11.2 g/dl (14.0-18.0); Immature Granulocytes # (auto) 0.13 K/uL (0.01-0.20); Immature Granulocytes % (auto) 1.2 %; Lymphocytes # (auto) 0.89 K/uL (1.2-3.4); Lymphocytes % (auto) 8.3 %; Mean Corpuscular Hemoglobin 34.9 pg (25.0-34.0); Mean Corpuscular Hgb Conc 33.7 g/dL (32.0-36.0); Mean Corpuscular Volume 103.4 fL (80.0-100.0); Mean Platelet Volume 11.5 fL (9.4-12.4); Monocytes # (auto) 0.79 K/uL (0.11-0.59); Monocytes % (auto) 7.4 %; Neutrophils # (auto) 8.81 K/uL (1.40-6.50); Neutrophils % (auto) 82.6 %; Platelet Count 143 K/uL (130-400); RDW Coefficient of Variation 14.2 % (11.5-14.5); RDW Standard Deviation 53.9 fL (36.4-46.3); Red Blood Count 3.21 M/uL (4.70-6.10); White Blood Count 10.67 K/ul (4.8-10.8)
[2022-11-28] MEDS: ALBUT/IPRATROP 3MG/0.5MG NEB 3 ML VIAL INH PRN (02:01)
[2022-11-28 02:06] LABS: Albumin Globulin Ratio 1.5 (0.9-2); Albumin Level 3.4 gm/dl (3.4-5.0); BUN Creatinine Ratio 23.3 (10-20); Bilirubin,Total 0.8 mg/dl (0.2-1.0); Calcium 8.3 mg/dl (8.6-10.3); Creatinine Clr Calc Pharmacy 18.9 ml/min; Est GFR (African American) 27.5 ml/min; Est GFR (Non-African American) 23.7 ml/min; Globulin 2.3 gm/dl (2.5-4.0); Magnesium 2.3 mg/dl (1.7-2.4); Phosphorus 4.6 mg/dl (2.5-4.9); Potassium 4.9 mmol/L (3.5-5.1); Total Protein 5.7 gm/dl (6.0-8.3)
[2022-11-28 02:18] LABS: Troponin I High Sensitivity 317.7 pg/ml (0-20)
--- NOTE | 2022-11-28 02:20 | Critical Care Progress Note ---
Date of Service November 28, 2022 Assessment & Plan (1) Cardiac arrest: Plan: Reason Critically Ill: 87-year-old male initially admitted for hypoxic respiratory failure with episode of ventricular tachycardia admitted to the ICU after having PEA cardiac arrest on the floor. Patient was also undergoing treatment for pneumonia and atrial fibrillation. Neuro - [facility] ICU: Negative Cardiac - Cardiac arrestsuspect this is most likely respiratory arrest as patient was r eported to Have removed his oxygen prior to the event.Patient reportedly became bradycardic and entered PEA rhythm on monitor. - ROSC achieved with 1 round of compressions and 1 mg epinephrine. Hemo dynamically stable and followed commands and is eventually alert and oriented. -Post ROSC EKG without ST elevation or rhythm changes. Troponin elevated at 300, likely related to Cardiac arrest/CPR. We will trend for now. Patient is anticoagulated on Eliquis. -No electrolyte abnormalities on BMP. QTc 479. - Continuous monitoring on telemetry. Ventricular tachycardiaepisode in the emergency department on date of admission. No further episodes. Continue amiodarone drip and monitoring on telemetry. Atrial fibrillation with RVRcurrently sinus rhythm. Holding digoxin and metoprolol following cardiac arrest with bradycardia. Continue amiodarone drip. - We will hold Eliquis for now given hematuria Diastolic CHFEcho 4/3 with EF 40 to 45% and mildly reduced left EF with entire apex and all distal to the mid ventricle with moderate to severely hypokinetic (consistent with Takotsubo). Right ventricle moderately dilated with right ventricle systolic function moderately reduced. - Hold with diuresis for now as patient currently euvolemic on exam and no evidence of pulmonary congestion on chest x-ray. HTNhold antihypertensives following arrest for now. CAD/HLDhistory of [place] with stent. Continue statin, ASA. Hold MTP for now Respiratory - Acute on chronic hypoxic respiratory failurepatient with history of COPD and currently undergoing treatment for pneumonia. Was previously on 5 L nasal cannula on the floor and now on BiPAP following cardiac arrest. Patient is DNI per CODE STATUS -ABG without significant hypoxia or hypercapnia. We will continue support w ith BiPAP for now and hopefully be able to wean to nasal cannula - Lower venous Doppler negative for DVT from earlier today. PE unlikely, as patient is anticoagulated on Eliquis for the past 5 days and is currently bradycardic and normotensive. - Continue with DuoNeb as needed, Continue Breo Ellipta, and steroid taper - We will hold on diuresis as patient appears euvolemic - Chest x-ray appears somewhat improved Compared to prior study. I do not see any pneumothorax or effusion or obvious fractures of the ribs. We will follow-up official radiology read -See ID for treatment of pneumonia - Continuous monitoring on pulse ox GI - N.p.o. for now RENAL/LYTES - JORGE ALBERTO on CKDcreatinine now 2.43. -Unsure if this was related to BPH with postobstructive JORGE ALBERTO and inserting Eastman now. - Also likely ATN following cardiac arrest. - We will start gentle fluid resuscitation - Avoid nephrotoxins and renally adjust medications. - Monitor routine BMP. - Foleystrict I's and O's ENDO - DM type II controlled?No medications on home meds for diabetes. Currently euglycemic. Continue to monitor and ICU hyperglycemic protocol. HEME - H&H stable. The patient does appear to have hematuria on insertion of Eastman. We will hold next dose of Eliquis and monitor. ID - Pneumoniachest x-ray with evidence of left lower infiltrate. No significant leukocytosis or fevers. Sputum culture positive for pseudomonal aeruginosa. Susceptible to cefepime and will continue. LINES/IV ACCESS - Peripheral IVs DVT PROPHYLAXIS - SCDs, anticoagulated on Eliquis I have personally spent 65 minutes of critical care time in the direct management of this patient. This is a life/limb threatening event. This includes time spent evaluating patient, direct bedside care, chart review, placing orders, interpretation of diagnostic studies, discussion with consultants, patient, and family members, as well as other required patient management activities. This time is exclusive of all separately billable procedures, and teaching time and separate from and in addition to any other critical care service time. Thank you for allowing us to participate in the care of this patient. Please refer to my attending physician's documentation for any further recommendations. (2) Atrial fibrillation with RVR: (3) Respiratory failure: (4) Ventricular tachycardia: (5) Left lower lobe pneumonia: (6) Non-STEMI (non-ST elevated myocardial infarction): (7) Coronary artery disease: (8) COPD (chronic obstructive pulmonary disease): (9) Diabetes type 2, controlled: (10) Hypertension: (11) Hypercholesterolemia: (12) Mitral valve disorder: (13) Chronic kidney disease: (14) JORGE ALBERTO (acute kidney injury): Admission and Anticipated Discharge Date Admission Date: November 21, 2022 Subjective 87 YOM with medical history of COPD on home oxygen and trelegy inhaler at home, CAD (stents to LAD and RCA 2007), AAA(3.2x2.6CM ), Moderate to severe MR, HTN, HLD. Patient recently discharged on 11/06 following admission for COPD exacerbation on Azithromycin and Prednisone taper and reports diarrhea since that time. He went home on oxygen following last admission. He was admitted on 11/21 with hypoxia and had a run of V. tach in the emergency department. He was on BiPAP at that time and is being treated for pneumonia as well. He was briefly admitted to the ICU and then downgraded later that day. 11/28: CODE YOLY was called after patient was found to be bradycardic with what appears to be PEA rhythm and no pulse. Nurse explained that he had been taking off his oxygen and earlier, and is presumed that is likely respiratory code. Of note, patient is conditional code with no DNI but did receive 1 round of compressions and 1 epinephrine while receiving airway support through an Ambu bag. ROSC was achieved and he was transitioned to BiPAP And transferred to the ICU. EKG without any ST elevations and no rhythm changes. ABG was without significant hypoxia or hypercapnia.Since admission to the ICU the patient had had episode of A-fib RVR. He remains on amiodarone drip which is being continued and is now anticoagulated well on Eliquis. Following the code, on arrival to the ICU the patient is now alert and oriented. He has no recollection of the event, but is appropriate on exam. He currently reports shortness of breath which she states is slightly worse than earlier. Prior to this he was on 5 L nasal cannula.He denies any headache, dizziness, cough or congestion, wheezing, sore throat, chest pain or palpitations, abdominal pain, nausea vomiting or diarrhea, swelling in hands or feet. Patient to remain in ICU for further management at this time. Review of Systems Review of Systems: All systems reviewed & are unremarkable except as noted in HPI & below Physical Exam Constitutional: + thin, cooperative, comfortable and + underweight; no acute distress Eyes: PERRL, conjunctivae normal, anicteric sclerae ENMT: external ear and nose normal, oropharynx normal Neck: trachea midline, no thyromegaly Respiratory: Lungs diminished bilaterally, no crackles or wheezes. Symmetrical chest wall movement. No labored breathing or use of accessory muscles. Cardiovascular: RRR, no murmur, no edema Heart Sounds: normal S1 and normal S2; no murmur Extremities: no edema Gastrointestinal (Abdomen): normal bowel sounds, soft, nontender, no hepatosplenomegaly Musculoskeletal: no cyanosis or clubbing, extremities motor strength 5/5 Skin: no rashes, warm and dry Neurologic: PERRL, EOMI, accommodation nl, no face palsy, no dysarthria Psychiatric: A+Ox3, euthymic affect Results & Data Results & Data Vital Signs (Past 12 Hours) Vital Signs Temp Pulse Pulse Resp BP Pulse Ox O2 Del Method 11/28/22 02:04 60 21 99 11/28/22 02:01 60 21 99 BiPAP 11/27/22 23:20 36.4 C L 106 H 20 115/62 95 Nasal Cannula 11/27/22 19:42 Nasal Cannula 11/27/22 19:17 36.7 C 95 H 20 120/69 96 Nasal Cannula 11/27/22 16:49 122 H 11/27/22 15:38 36.4 C L 110 H 20 131/83 92 Nasal Cannula 11/27/22 15:14 107 H O2 Flow Rate FiO2 11/28/22 02:04 40 11/28/22 02:01 40 11/27/22 23:20 5 11/27/22 19:42 5 11/27/22 19:17 4 11/27/22 16:49 11/27/22 15:38 4.0 11/27/22 15:14 Coding Level of Care Code 98091 CRITICAL CARE 1ST 30-74M Diagnoses Cardiac arrest I46.9 Atrial fibrillation with RVR I48.91 Respiratory failure J96.01 Chronicity: acute Respiratory failure complication: hypoxia Ventricular tachycardia I47.20 Left lower lobe pneumonia J18.9 Pneumonia type: due to unspecified organism Non-STEMI (non-ST elevated myocardial infarction) I21.4 Coronary artery disease I25.10 Associated angina: angina presence unspecified Coronary Disease-Associated Artery/Lesion type: [place] artery [place] vs. transplanted heart: [place] heart COPD (chronic obstructive pulmonary disease) J41.8 COPD type: chronic bronchitis Chronic bronchitis type: mixed simple and mucopurulent Diabetes type 2, controlled E11.9 Diabetes mellitus complication status: without complication Diabetes mellitus group home insulin use: without group home use Hypertension I10 Hypercholesterolemia E78.00 Mitral valve disorder I05.9 Chronic kidney disease N18.9 JORGE ALBERTO (acute kidney injury) N17.9 (3) Respiratory failure Chronicity: acute Respiratory failure complication: hypoxia Qualified Code(s): J96.01 - Acute respiratory failure with hypoxia (5) Left lower lobe pneumonia Pneumonia type: due to unspecified organism Qualified Code(s): J18.9 - Pneumonia, unspecified organism (7) Coronary artery disease Associated angina: angina presence unspecified Coronary Disease-Associated Artery/Lesion type: [place] artery [place] vs. transplanted heart: [place] heart Qualified Code(s): I25.10 - Atherosclerotic heart disease of [place] coronary artery without angina pectoris (8) COPD (chronic obstructive pulmonary disease) COPD type: chronic bronchitis Chronic bronchitis type: mixed simple and mucopurulent Qualified Code(s): J41.8 - Mixed simple and mucopurulent chronic bronchitis (9) Diabetes type 2, controlled Diabetes mellitus complication status: without complication Diabetes mellitus group home insulin use: without terminal gauger use Qualified Code(s): E11.9 - Type 2 diabetes mellitus without complications
[2022-11-28 03:48] LABS: Basophils # (auto) 0.01 K/uL (0-0.2); Basophils % (auto) 0.1 %; Eosinophils # (auto) 0.03 K/uL (0-0.50); Eosinophils % (auto) 0.3 %; Hematocrit (blood only) 32.5 % (42.0-52.0); Hemoglobin 11.2 g/dl (14.0-18.0); Immature Granulocytes # (auto) 0.15 K/uL (0.01-0.20); Immature Granulocytes % (auto) 1.4 %; Lymphocytes # (auto) 0.26 K/uL (1.2-3.4); Lymphocytes % (auto) 2.5 %; Mean Corpuscular Hemoglobin 34.9 pg (25.0-34.0); Mean Corpuscular Hgb Conc 34.5 g/dL (32.0-36.0); Mean Corpuscular Volume 101.2 fL (80.0-100.0); Mean Platelet Volume 11.5 fL (9.4-12.4); Monocytes # (auto) 0.65 K/uL (0.11-0.59); Monocytes % (auto) 6.2 %; Neutrophils # (auto) 9.43 K/uL (1.40-6.50); Neutrophils % (auto) 89.5 %; Platelet Count 130 K/uL (130-400); RDW Standard Deviation 51.4 fL (36.4-46.3); Red Blood Count 3.21 M/uL (4.70-6.10); White Blood Count 10.53 K/ul (4.8-10.8)
[2022-11-28 04:17] LABS: Troponin I High Sensitivity 310.6 pg/ml (0-20)
[2022-11-28 05:46] LABS: BUN Creatinine Ratio 22.4 (10-20); Calcium 8.5 mg/dl (8.6-10.3); Creatinine Clr Calc Pharmacy 18.1 ml/min; Est GFR (African American) 26.1 ml/min; Est GFR (Non-African American) 22.5 ml/min; Magnesium 2.3 mg/dl (1.7-2.4); Phosphorus 4.7 mg/dl (2.5-4.9); Potassium 5.1 mmol/L (3.5-5.1)
--- NOTE | 2022-11-28 06:51 | XRay Report ---
SUPINE PORTABLE AP CHEST RADIOGRAPH CLINICAL HISTORY: PEA code blue COMPARISON STUDY: Chest CT July 28, 2020 and chest radiograph November 21, 2022. FINDINGS: Lung volumes are normal. There is underlying emphysema, better depicted on prior CT. No pne umothorax is present. There is a trace left pleural effusion. Cardiomegaly is unchanged. Left lower l carlitos consolidation persists. This is similar to prior exam. There may be patchy additional airspace op acities within the lungs and mild airspace opacity. Similar findings were shown on prior chest radiog raph. IMPRESSION: 1. No change in multifocal airspace opacities, including left basilar consolidation. The findings fav or pneumonia. 2. Stable cardiomegaly. Trace left pleural effusion. 3. No pneumothorax. 4. Emphysema. ACT 112: Negative or not required by law. Electronically signed by: Collins Metzger M.D. 11/28/2022 6:49 AM
[2022-11-28] MEDS: ICU Protocol for HYPERglycemia SCH ×4 (06:59→20:38)
[2022-11-28] MEDS ORDERED: ALBUT/IPRATROP 3MG/0.5MG NEB 3 ML VIAL NEB PRN (08:37)
[2022-11-28] MEDS: FLUTICASONE/VILANTEROL 200/25MCG 14 PUFFS/INHALER INH SCH (08:48)
[2022-11-28] MEDS: CLOPIDOGREL BISULFATE 75 MG TAB PO SCH (08:48)
[2022-11-28] MEDS: CALCIUM POLYCARBOPHIL 625MG TAB PO SCH (08:48)
[2022-11-28] MEDS: TAMSULOSIN HCL 0.4 MG CAP PO SCH ×2 (08:48→20:38)
[2022-11-28] MEDS: ATORVASTATIN 20 MG TAB PO SCH (08:49)
[2022-11-28] MEDS: CHOLECALCIFEROL 1,000 UNITS 25 MCG TAB PO SCH (08:49)
--- NOTE | 2022-11-28 09:14 | Critical Care Progress Note ---
Date of Service November 28, 2022 Assessment & Plan (1) Cardiac arrest: Plan: Reason Critically Ill: 87-year-old male initially admitted for hypoxic respiratory failure with episode of ventricular tachycardia admitted to the ICU after having PEA cardiac arrest on the floor. Patient was also undergoing treatment for pneumonia and atrial fibrillation. Neuro - [facility] ICU: Negative Cardiac - Cardiac arrestsuspect this is most likely respiratory arrest as patient was r eported to Have removed his oxygen prior to the event.Patient reportedly became bradycardic and entered PEA rhythm on monitor. - ROSC achieved with 1 round of compressions and 1 mg epinephrine. Hemo dynamically stable and followed commands and is eventually alert and oriented. - Post ROSC EKG without ST elevation or rhythm changes. Troponin elevated likely related to Cardiac arrest/CPR. Patient is anticoagulated on Eliquis. - Continuous monitoring on telemetry. -Appears neurologically well able to converse Ventricular tachycardiaepisode in the emergency department on date of admission. No further episodes. Continue amiodarone drip and monitoring on telemetry. -Followed by cardiology Atrial fibrillation with RVRcurrently sinus rhythm. Holding digoxin and metoprolol following cardiac arrest with bradycardia. Continue amiodarone drip. - We will hold Eliquis for now given hematuria -Currently normal sinus rhythm Diastolic CHFEcho 4/3 with EF 40 to 45% and mildly reduced left EF with entire apex and all distal to the mid ventricle with moderate to severely hypokinetic (consistent with Takotsubo). Right ventricle moderately dilated with right ventricle systolic function moderately reduced. - Hold with diuresis for now as patient currently euvolemic on exam and no evidence of pulmonary congestion on chest x-ray. HTNhold antihypertensives following arrest for now. CAD/HLDhistory of [place] with stent. Continue statin, ASA. Hold MTP for now Chest wall pain -Lidoderm patch -Diclofenac gel PRN QID to chest Respiratory - Acute on chronic hypoxic respiratory failurepatient with history of COPD and currently undergoing treatment for pneumonia. Patient is DNI per CODE STATUS - Wean bipap and nasal cannula as able - goal saturations 88-94% - Lower venous Doppler negative for DVT from earlier today. PE unlikely, as patient is anticoagulated on Eliquis for the past 5 days and is currently bradycardic and normotensive. - Continue with DuoNeb as needed, Continue Breo Ellipta, and steroid taper - See ID for treatment of pneumonia - Continuous monitoring on pulse ox GI - Regular diet RENAL/LYTES - JORGE ALBERTO on CKDcreatinine now 2.43. - Unsure if this was related to BPH with postobstructive JORGE ALBERTO and inserting Eastman now. - Also likely ATN following cardiac arrest. - repeat BMP at 1400. - Foleystrict I's and O's ENDO - DM type II controlledNo medications on home meds for diabetes. Currently euglycemic. Continue to monitor and ICU hyperglycemic protocol. HEME - H&H stable. The patient does appear to have hematuria on insertion of Eastman. We will hold next dose of Eliquis and monitor. ID - Pneumoniachest x-ray with evidence of left lower infiltrate. No significant leukocytosis or fevers. Sputum culture positive for pseudomonal aeruginosa. Susceptible to cefepime and will continue. LINES/IV ACCESS - Peripheral IVs DVT PROPHYLAXIS - SCDs, anticoagulated on Eliquis I have personally spent 25 minutes of critical care time in the direct management of this patient. This is a life/limb threatening event. This includes time spent evaluating patient, direct bedside care, chart review, placing orders, interpretation of diagnostic studies, discussion with consultants, patient, and family members, as well as other required patient management activities. This time is exclusive of all separately billable procedures, and teaching time and separate from and in addition to any other critical care service time. (2) Atrial fibrillation with RVR: (3) Respiratory failure: (4) Ventricular tachycardia: (5) Left lower lobe pneumonia: (6) Non-STEMI (non-ST elevated myocardial infarction): (7) Coronary artery disease: (8) COPD (chronic obstructive pulmonary disease): (9) Diabetes type 2, controlled: (10) Hypertension: (11) Hypercholesterolemia: (12) Mitral valve disorder: (13) Chronic kidney disease: (14) JORGE ALBERTO (acute kidney injury): Admission and Anticipated Discharge Date Admission Date: November 21, 2022 Subjective Awake alert and appropriate. Complaining of chest pain secondary to chest compressions. Otherwise feels as he did yesterday. Complains of generalized weakness and fatigue, currently having exertional dyspnea with minimal activity. Tolerating 6 L nasal cannula desired CPAP/BiPAP mask to be discontinued secondary to discomfort of mask Review of Systems Review of Systems: As per the HPI Physical Exam Physical Exam: General: Alert. nontoxic. Skin: Warm, dry, Head: Atraumatic Ears, nose, mouth and throat: airway patent Cardiovascular: Normal peripheral perfusion Respiratory: no respiratory distress Gastrointestinal: Non distended Musculoskeletal: No deformity Results & Data Results & Data Vital Signs (Past 12 Hours) Vital Signs Temp Pulse Pulse Resp BP Pulse Ox O2 Del Method 11/28/22 09:06 Nasal Cannula 11/28/22 04:02 60 31 H 100 11/28/22 02:23 BiPAP 11/27/22 22:07 98 H 11/28/22 02:04 60 21 99 11/28/22 02:01 60 21 99 BiPAP 11/27/22 23:20 36.4 C L 106 H 20 115/62 95 Nasal Cannula O2 Flow Rate FiO2 11/28/22 09:06 6 11/28/22 04:02 40 11/28/22 02:23 11/27/22 22:07 11/28/22 02:04 40 11/28/22 02:01 40 11/27/22 23:20 5 Critical Care Results & Data Vital Signs (Past 12 Hours) Vital Signs Temp Pulse Pulse Resp BP Pulse Ox O2 Del Method 11/28/22 09:06 Nasal Cannula 11/28/22 04:02 60 31 H 100 11/28/22 02:23 BiPAP 11/27/22 22:07 98 H 11/28/22 02:04 60 21 99 11/28/22 02:01 60 21 99 BiPAP 11/27/22 23:20 36.4 C L 106 H 20 115/62 95 Nasal Cannula O2 Flow Rate FiO2 11/28/22 09:06 6 11/28/22 04:02 40 11/28/22 02:23 11/27/22 22:07 11/28/22 02:04 40 11/28/22 02:01 40 11/27/22 23:20 5 Lab & Micro Results (Past 24 Hours) RBC 3.21 M/uL (4.70-6.10) L 11/28/22 WBC 10.53 K/ul (4.8-10.8) 11/28/22 Hgb 11.2 g/dl (14.0-18.0) L 11/28/22 Hct 32.5 % (42.0-52.0) L 11/28/22 MCV 101.2 fL (80.0-100.0) H 11/28/22 MCH 34.9 pg (25.0-34.0) H 11/28/22 MCHC 34.5 g/dL (32.0-36.0) 11/28/22 RDW Standard Deviation 51.4 fL (36.4-46.3) H 11/28/22 RDW Coefficient of Variation 14.0 % (11.5-14.5) 11/28/22 Plt Count 130 K/uL (130-400) 11/28/22 MPV 11.5 fL (9.4-12.4) 11/28/22 Neutrophils (%) (Auto) 89.5 % 11/28/22 Lymphocytes (%) (Auto) 2.5 % 11/28/22 Monocytes # (Auto) 0.65 K/uL (0.11-0.59) H 11/28/22 Eosinophils # (Auto) 0.03 K/uL (0-0.50) 11/28/22 Immature Granulocyte % (Auto) 1.4 % 11/28/22 Neutrophils # (Auto) 9.43 K/uL (1.40-6.50) H 11/28/22 Lymphocytes # (Auto) 0.26 K/uL (1.2-3.4) L 11/28/22 Monocytes # (Auto) 0.65 K/uL (0.11-0.59) H 11/28/22 Eosinophils # (Auto) 0.03 K/uL (0-0.50) 11/28/22 Basophils # (Auto) 0.01 K/uL (0-0.2) 11/28/22 Immature Granulocyte # (Auto) 0.15 K/uL (0.01-0.20) 3 Na 135 mmol/L (136-145) L 11/28/22 K 5.1 mmol/L (3.5-5.1) 11/28/22 Cl 103 mmol/L (98-107) 11/28/22 CO2 21 mmol/L (21-32) 11/28/22 Anion Gap 11 (3-11) 11/28/22 BUN 55 mg/dl (6-23) H 11/28/22 Creatinine 2.46 mg/dl (0.6-1.4) H 11/28/22 Estimated GFR ( Amer) 26.1 ml/min 11/28/22 Estimated GFR (Non-Af Amer) 22.5 ml/min 11/28/22 BUN/Creatinine Ratio 22.4 (10-20) H 11/28/22 Glu 121 mg/dl (70-99(Fasting)) H 11/28/22 Ca 8.5 mg/dl (8.6-10.3) L 11/28/22 Phosphorus Level 4.7 mg/dl (2.5-4.9) 11/28/22 Total Bilirubin 0.8 mg/dl (0.2-1.0) 11/28/22 AST 25 U/L (13-39) 11/28/22 ALT 26 U/L (7-52) 11/28/22 Alkaline Phosphatase 56 U/L (34-104) 11/28/22 TP 5.7 gm/dl (6.0-8.3) L 11/28/22 Albumin 3.4 gm/dl (3.4-5.0) 11/28/22 Globulin 2.3 gm/dl (2.5-4.0) L 11/28/22 Albumin/Globulin Ratio 1.5 (0.9-2) 11/28/22 Mg 2.3 mg/dl (1.7-2.4) 11/28/22 03:24 Calcium Level 8.5 mg/dl (8.6-10.3) L 11/28/22 03:24 Navid Test Pass 11/28/22 01:30 Diagnostic Findings (Past 24 Hours) Chest X-Ray 11/28/22 01:32 SUPINE PORTABLE AP CHEST RADIOGRAPH CLINICAL HISTORY: PEA code blue COMPARISON STUDY: Chest CT July 28, 2020 and chest radiograph November 21, 2022. FINDINGS: Lung volumes are normal. There is underlying emphysema, better depicted on prior CT. No pneumothorax is present. There is a trace left pleural effusion. Cardiomegaly is unchanged. Left lower lung consolidation persists. This is similar to prior exam. There may be patchy additional airspace opacities within the lungs and mild airspace opacity. Similar findings were shown on prior chest radiograph. IMPRESSION: 1. No change in multifocal airspace opacities, including left basilar consolidation. The findings favor pneumonia. 2. Stable cardiomegaly. Trace left pleural effusion. 3. No pneumothorax. 4. Emphysema. ACT 112: Negative or not required by law. Electronically signed by: Collins Metzger M.D. 11/28/2022 6:49 AM I & O Totals 24 Hours 11/27/22 11/28/22 11/29/22 06:59 06:59 06:59 Intake Total 1120 / 1120 988.68 / 988.68 Output Total 950 / 950 170 / 170 Balance 170 / 170 818.68 / 818.68 Cumulative 11/21/22 03:34 thru 11/28/22 06:00 Intake Total 7324.117 Output Total 3086 Balance 4238.117 RT Ventilator Mngmt (Last Documented) Ventilator Ordered Settings Respiratory Rate 31 11/28/22 04:02 Fraction of Inspired Oxygen 40 11/28/22 04:02 Ventilator - PT Measurements Respiratory Rate 31 Coding Level of Care Code 99484 CRITICAL CARE EA ADD 30M Diagnoses Cardiac arrest I46.9 Atrial fibrillation with RVR I48.91 Respiratory failure J96.01 Chronicity: acute Respiratory failure complication: hypoxia Ventricular tachycardia I47.20 Left lower lobe pneumonia J18.9 Pneumonia type: due to unspecified organism Non-STEMI (non-ST elevated myocardial infarction) I21.4 Coronary artery disease I25.10 Coronary Disease-Associated Artery/Lesion type: [place] artery [place] vs. transplanted heart: [place] heart Associated angina: angina presence unspecified COPD (chronic obstructive pulmonary disease) J41.8 COPD type: chronic bronchitis Chronic bronchitis type: mixed simple and mucopurulent Diabetes type 2, controlled E11.9 Diabetes mellitus assistant terminal manager insulin use: without nursing home use Diabetes mellitus complication status: without complication Hypertension I10 Hypercholesterolemia E78.00 Mitral valve disorder I05.9 Chronic kidney disease N18.9 JORGE ALBERTO (acute kidney injury) N17.9 (3) Respiratory failure Chronicity: acute Respiratory failure complication: hypoxia Qualified Code(s): J96.01 - Acute respiratory failure with hypoxia (5) Left lower lobe pneumonia Pneumonia type: due to unspecified organism Qualified Code(s): J18.9 - Pneumonia, unspecified organism (7) Coronary artery disease Coronary Disease-Associated Artery/Lesion type: [place] artery [place] vs. transplanted heart: [place] heart Associated angina: angina presence unspecified Qualified Code(s): I25.10 - Atherosclerotic heart disease of [place] coronary artery without angina pectoris (8) COPD (chronic obstructive pulmonary disease) COPD type: chronic bronchitis Chronic bronchitis type: mixed simple and mucopurulent Qualified Code(s): J41.8 - Mixed simple and mucopurulent chronic bronchitis (9) Diabetes type 2, controlled Diabetes mellitus assistant terminal manager insulin use: without nursing home use Diabetes mellitus complication status: without complication Qualified Code(s): E11.9 - Type 2 diabetes mellitus without complications
[2022-11-28] MEDS: CEFEPIME 1,000 MG in SYRINGE 0 ML IV SCH (10:35)
[2022-11-28] MEDS: AMIODARONE 200 MG TAB PO SCH (10:35)
[2022-11-28] MEDS: LIDOCAINE 5% 1 PATCH TD SCH (10:36)
[2022-11-28] MEDS: AMIODARONE / D5W 360 MG/200 ML BAG IV SCH (10:36)
[2022-11-28] MEDS: DICLOFENAC SOD 1% GEL 100 GM TUBE EXT SCH ×3 (10:36→20:39)
--- NOTE | 2022-11-28 10:46 | Cardiology Progress Note ---
Date of Service November 28, 2022 Assessment & Plan (1) Cardiac arrest: (2) Atrial fibrillation with RVR: (3) Stress-induced cardiomyopathy: (4) Acute and chronic respiratory failure with hypoxia: Plan: Transient cardiac arrest felt secondary to hypoxia which actually resulted in him converting from atrial fibrillation to sinus rhythm. He should be fully loaded with amiodarone and is now back in sinus rhythm, therefore could discontinue IV amiodarone at this point but continue oral amiodarone 200 mg daily, this lower daily dose while fully loaded will allow for more physiologic heart rate response but likely will maintain sinus rhythm. Remarkably, no evidence of heart failure or ischemia despite his transient hypoxia/cardiac arrest. Check follow-up echocardiogram sometime this week, nonurgent, to ensure r esolution of his stress-induced cardiomyopathy (doubt this played any role in his cardiac arrest). As noted, I spoke with his after a chance encounter, although she had no immediate recommendations regarding level of care it was clear that she would not want him to have intubation, prolonged CPR, or repeated episodes of CPR beyond the brief type he received last night. Admission and Anticipated Discharge Date Admission Date: November 21, 2022 Subjective Eventful night, he had a brief cardiac arrest after first being noted to be hypoxic. After a couple minutes of compressions and application of BiPAP circulation returned, he was alert, and his rhythm had changed from atrial fibrillation with rapid ventricular rate to sinus rhythm. This morning he denies any dyspnea at rest and notes only chest wall pain (exquisite focal tenderness without deformity midclavicular line left anterior ribs). No anginal type chest pain. Telemetry shows atrial fibrillation until the episode of CPR, subsequently he has remained in sinus rhythm/sinus bradycardia. I did happen to encounter his in the lobby today, we had a discussion regarding level of care, she will be considering this but had no immediate recommendations regarding any change to his current level of care.` Physical Exam Physical Exam: No distress. BP normotensive. Pulse 60 bpm and regular. Respirations appear unlabored. No accessory muscle use. Skin: no ecchymoses or generalized lesions. HEENT: unremarkable. Neck: Jugular venous pulse at the clavicle at 90 degrees, no carotid bruits. Lungs: Few basilar crackles left, moderately decreased breath sounds overall. No obvious wheezing. Chest wall: Exquisite focal tenderness left anterior midclavicular line third or fourth rib. Cardiac: regular rhythm, 2/6 apical holosystolic murmur, no diastolic murmur. Abdomen: benign. Extremities: no edema, peripheral pulses intact. Neurologic: normal affect and conversation, nonfocal. Results & Data Laboratory Results Sodium 135, potassium 5.1, BUN 55, creatinine 2.46. Magnesium 2.3. Diagnostic Findings Chest x-ray showed no change in multifocal airspace opacities and left basilar consolidation. No pneumothorax. PG Care Time/CCT Total # of Minutes Spent Total Time Spent with Patient: Total time spent is greater than 50% in coordination of care (as documented) at patient's floor/unit and/or counseling patient: Coding Level of Care Code 25890 SUB INP/OBS CARE 3/50MIN Diagnoses Cardiac arrest I46.9 Atrial fibrillation with RVR I48.91 Stress-induced cardiomyopathy I51.81 Acute and chronic respiratory failure with hypoxia J96.21
[2022-11-28 15:04] LABS: BUN Creatinine Ratio 23.2 (10-20); Calcium 8.4 mg/dl (8.6-10.3); Creatinine Clr Calc Pharmacy 18.5 ml/min; Est GFR (African American) 26.8 ml/min; Est GFR (Non-African American) 23.1 ml/min; Potassium 4.9 mmol/L (3.5-5.1)
--- NOTE | 2022-11-28 17:08 | Electrocardiogram Report ---
Test Reason : Blood Pressure : / mmHG Vent. 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
--- NOTE | 2022-11-28 22:45 | Hospitalist Progress Note ---
Date of Service November 28, 2022 Assessment & Plan (1) Acute and chronic respiratory failure with hypoxia: Plan: acute on chronic high riskimproving Pt presented in acute respiratory faiure, aspiration possible, V tach in Er and Elevated troponin cause of respiratory failure is multifactorial, but also influenced by COPD on chronic home oxygen 2L treated for Gram negative or aspiration pneumonia, has LLL infiltrate seen on CXR, complete 7 days of cefepime, LD 11/28 supported for chronic respiratory failure with nebs will continue above antibiotics (2) Arrhythmia: Plan: Acute ventricular tachycardia presented initially unstable high risk self- limited now resolved associated elevated troponin seems to be secondary to Takotsubo's myocarditis, nstemi not felt to be issue acute atrial fibrillation RVR and hypotension, high risk restarted Amiodarone GTT, try to edge up metoprolol which was reduced due to low bp and pulse metoprolol 25 every 6 per cardiology recommendation Cardiology recommends loading with digoxin 0.5 mg and then 0.125 a day we will check digoxin level on 11/25 restarted heparin but transitioned to Eliquis 2.5 twice daily Now in sinus rhythm after sustained a PEA. Patient had a PEA likely caused from hypoxia as patient removed his pulse ox. Will closely monitor. appreciate input Holding eliquis. (3) Coronary artery disease: Plan: acute moderate risk now stable troponin and echocardiogram changes consistent with Takotsubo's myocarditis elevated troponin with concern for nstemi- prehospital on plavix, metoprolol atorvastatin with degree of RWMA if nstemi would expect higher troponins continue plavix as history of previous PCI Acute systolic heart failure, moderate risk stable, Echo with RWMA and RV/LV dysfunction EF 35%, maybe Takusubo, repeat echo 11/22 limited improvement of ejection fraction in the 40 to 45% consider CTA for PE however given LLL infiltrate and acute event( dimer up but maybe pneumonia) do have explanation and bello makes iv contrast increased risk dopplers LE negative for DVT (4) Chronic kidney disease: Plan: concern for bello on CKD3 renal function is worsening likely due to prerenal (low blood pressure ) admitting team held ARB on presentation (5) Abdominal aortic aneurysm: Plan: chronic, last imaged 05/2022 Fusiform dilation of the infrarenal abdominal aorta measures up to 3.2 x 2.6 cm (6) 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 He recovered and was transferred to the ICU for monitoring. Review of Systems Review of Systems: All systems reviewed & are unremarkable except as noted in HPI & below Physical Exam Physical Exam: Awake and alert tachypnic. Although his saturations are intact he does have some nailbed cyanosis Card exam is irregular but rate controlled Lungs have decreased at the bases l Results & Data Results & Data Vital Signs (Past 12 Hours) Vital Signs Temp Pulse Resp BP Pulse Ox 11/28/22 22:00 36.8 C 71 16 11/28/22 22:00 131/61 11/28/22 21:00 36.9 C 67 15 11/28/22 21:00 100/46 L 11/28/22 20:01 37.0 C 72 23 11/28/22 20:01 110/47 L 11/28/22 20:00 37.0 C 64 14 11/28/22 19:00 36.9 C 76 24 89 L 11/28/22 18:00 36.9 C 77 20 87 L 11/28/22 18:00 134/76 11/28/22 17:00 36.8 C 75 17 90 11/28/22 17:00 132/75 11/28/22 16:00 36.8 C 70 21 94 11/28/22 16:00 141/67 H 11/28/22 15:00 36.7 C 73 22 92 11/28/22 15:00 124/66 11/28/22 16:00 62 11/28/22 14:00 36.6 C 62 23 90 11/28/22 14:00 122/60 11/28/22 13:00 36.7 C 68 24 91 11/28/22 13:00 132/69 11/28/22 12:00 36.7 C 59 L 16 91 11/28/22 12:00 121/62 11/28/22 11:00 36.7 C 59 L 15 95 11/28/22 11:00 125/57 L PG Care Time/CCT Total # of Minutes Spent Total Time Spent with Patient: Total time spent is greater than 50% in coordination of care (as documented) at patient's floor/unit and/or counseling patient: Coding Level of Care Code 39267 SUB INP/OBS CARE 2/35MIN Diagnoses Acute and chronic respiratory failure with hypoxia J96.21 Arrhythmia I49.9 Coronary artery disease I25.10 Associated angina: angina presence unspecified Coronary Disease-Associated Artery/Lesion type: [place] artery [place] vs. transplanted heart: [place] heart Chronic kidney disease N18.9 Abdominal aortic aneurysm I71.4 Urinary retention due to benign prostatic hyperplasia N40.1; R33.8 (3) Coronary artery disease Associated angina: angina presence unspecified Coronary Disease-Associated Artery/Lesion type: [place] artery [place] vs. transplanted heart: [place] heart Qualified Code(s): I25.10 - Atherosclerotic heart disease of [place] coronary artery without angina pectoris
[2022-11-29 08:35] LABS: Basophils # (auto) 0.02 K/uL (0-0.2); Basophils % (auto) 0.2 %; Eosinophils # (auto) 0.07 K/uL (0-0.50); Eosinophils % (auto) 0.7 %; Hematocrit (blood only) 31.3 % (42.0-52.0); Hemoglobin 10.7 g/dl (14.0-18.0); Immature Granulocytes # (auto) 0.07 K/uL (0.01-0.20); Immature Granulocytes % (auto) 0.7 %; Lymphocytes # (auto) 0.33 K/uL (1.2-3.4); Lymphocytes % (auto) 3.3 %; Mean Corpuscular Hemoglobin 35.1 pg (25.0-34.0); Mean Corpuscular Hgb Conc 34.2 g/dL (32.0-36.0); Mean Corpuscular Volume 102.6 fL (80.0-100.0); Mean Platelet Volume 11.6 fL (9.4-12.4); Monocytes % (auto) 6.9 %; Neutrophils # (auto) 8.93 K/uL (1.40-6.50); Neutrophils % (auto) 88.2 %; Platelet Count 130 K/uL (130-400); RDW Coefficient of Variation 14.4 % (11.5-14.5); RDW Standard Deviation 53.5 fL (36.4-46.3); Red Blood Count 3.05 M/uL (4.70-6.10); White Blood Count 10.12 K/ul (4.8-10.8)
[2022-11-29] MEDS: TAMSULOSIN HCL 0.4 MG CAP PO SCH ×2 (08:36→21:47)
[2022-11-29] MEDS: CALCIUM POLYCARBOPHIL 625MG TAB PO SCH (08:36)
[2022-11-29] MEDS: CLOPIDOGREL BISULFATE 75 MG TAB PO SCH (08:36)
[2022-11-29] MEDS: ATORVASTATIN 20 MG TAB PO SCH (08:36)
[2022-11-29] MEDS: LIDOCAINE 5% 1 PATCH TD SCH (08:36)
[2022-11-29] MEDS: DICLOFENAC SOD 1% GEL 100 GM TUBE EXT SCH ×4 (08:37→21:46)
[2022-11-29] MEDS: AMIODARONE 200 MG TAB PO SCH (08:37)
[2022-11-29] MEDS: CHOLECALCIFEROL 1,000 UNITS 25 MCG TAB PO SCH (08:37)
[2022-11-29] MEDS: FLUTICASONE/VILANTEROL 200/25MCG 14 PUFFS/INHALER INH SCH (08:39)
[2022-11-29 09:40] LABS: BUN Creatinine Ratio 21.7 (10-20); Calcium 8.4 mg/dl (8.6-10.3); Creatinine Clr Calc Pharmacy 17.9 ml/min; Est GFR (African American) 24.1 ml/min; Est GFR (Non-African American) 20.8 ml/min; Magnesium 2.1 mg/dl (1.7-2.4); Phosphorus 4.1 mg/dl (2.5-4.9); Potassium 4.5 mmol/L (3.5-5.1)
[2022-11-29] MEDS: ICU Protocol for HYPERglycemia SCH ×4 (10:06→21:33)
--- NOTE | 2022-11-29 12:32 | Cardiology Progress Note ---
Date of Service November 29, 2022 Assessment & Plan (1) Cardiac arrest: Plan: -trans and arrest felt secondary to hypoxia. (2) Atrial fibrillation with RVR: Plan: -converted to sinus at the time of his arrest. -continue amiodarone 200 mg daily -continue Eliquis 2.5 mg b.i.d. -could discontinue digoxin. (3) Stress-induced cardiomyopathy: Plan: -we will recheck a limited echocardiogram prior to discharge. (4) Acute and chronic respiratory failure with hypoxia: Plan: -likely secondary to [place] pneumonia and significant underlying lung disease with chronic hypoxia. -management per hospitalist team. Admission and Anticipated Discharge Date Admission Date: November 21, 2022 Subjective The patient is resting comfortably in bed without complaints of chest pain or palpitations. His dyspnea is improving. Physical Exam Physical Exam: In general this is a well-developed well-nourished elderly white male in no acute distress. HEENT exam is negative. Neck is supple with a transmitted murmur bilaterally. No JVD. There is no thyromegaly. Cardiovascular exam reveals a regular rhythm with distant heart sounds. A 3/6 holosystolic murmur is heard across the entire precordium, loudest at the apex. No S3. Lungs note coarse breath sounds throughout. Abdomen is benign without bruits. Extremities reveal intact radial artery and posterior tibial pulse bilaterally. There is no edema. Results & Data Vital Signs (Past 12 Hours) Vital Signs Temp Pulse Pulse Resp BP Pulse Ox O2 Del Method 11/29/22 11:58 36.7 C 74 22 146/91 H 91 Oxymask 11/29/22 08:57 94 Oxymask 11/29/22 08:56 Oxymask 11/29/22 07:45 86 L Nasal Cannula 11/29/22 08:01 36.7 C 66 20 122/51 L 94 Oxymask 11/29/22 06:45 69 11/29/22 03:00 36.5 C 74 16 135/61 92 Nasal Cannula 11/29/22 01:09 76 11/29/22 00:31 Nasal Cannula 11/29/22 00:31 36.8 C 72 20 145/68 H 96 Nasal Cannula, CPAP O2 Flow Rate 11/29/22 11:58 7 11/29/22 08:57 7 11/29/22 08:56 7 11/29/22 07:45 5 11/29/22 08:01 12 11/29/22 06:45 11/29/22 03:00 6 11/29/22 01:09 11/29/22 00:31 6 11/29/22 00:31 6 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 No recurrence of atrial fibrillation. PG Care Time/CCT Total # of Minutes Spent Total Time Spent with Patient: Total time spent is greater than 50% in coordination of care (as documented) at patient's floor/unit and/or counseling patient: Coding Level of Care Code 40145 SUB INP/OBS CARE 3/50MIN Diagnoses Cardiac arrest I46.9 Atrial fibrillation with RVR I48.91 Stress-induced cardiomyopathy I51.81 Acute and chronic respiratory failure with hypoxia J96.21
--- NOTE | 2022-11-29 22:09 | Hospitalist Progress Note ---
Date of Service November 29, 2022 Assessment & Plan (1) Acute and chronic respiratory failure with hypoxia: Plan: acute on chronic high riskimproving Pt presented in acute respiratory faiure, aspiration possible, V tach in Er and Elevated troponin cause of respiratory failure is multifactorial, but also influenced by COPD on chronic home oxygen 2L treated for Gram negative or aspiration pneumonia, has LLL infiltrate seen on CXR, complete 7 days of cefepime, LD 11/28 supported for chronic respiratory failure with nebs will continue above antibiotics reviewed x rays no consolidation on 11/29 Patient however is requring more oxygen. will consider ct scan if no improvement on 11/30 (2) Arrhythmia: Plan: Acute ventricular tachycardia presented initially unstable high risk self- limited now resolved associated elevated troponin seems to be secondary to Takotsubo's myocarditis, nstemi not felt to be issue acute atrial fibrillation RVR and hypotension, high risk restarted Amiodarone GTT, try to edge up metoprolol which was reduced due to low bp and pulse metoprolol 25 every 6 per cardiology recommendation Cardiology recommends loading with digoxin 0.5 mg and then 0.125 a day we will check digoxin level on 11/25 restarted heparin but transitioned to Eliquis 2.5 twice daily Now in sinus rhythm after sustained a PEA. Patient had a PEA likely caused from hypoxia as patient removed his pulse ox. Will closely monitor. appreciate input Holding eliquis. (3) Coronary artery disease: Plan: acute moderate risk now stable troponin and echocardiogram changes consistent with Takotsubo's myocarditis elevated troponin with concern for nstemi- prehospital on plavix, metoprolol atorvastatin with degree of RWMA if nstemi would expect higher troponins continue plavix as history of previous PCI Acute systolic heart failure, moderate risk stable, Echo with RWMA and RV/LV dysfunction EF 35%, maybe Takusubo, repeat echo 11/22 limited improvement of ejection fraction in the 40 to 45% consider CTA for PE however given LLL infiltrate and acute event( dimer up but maybe pneumonia) do have explanation and bello makes iv contrast increased risk dopplers LE negative for DVT (4) Chronic kidney disease: Plan: concern for bello on CKD3 renal function is worsening likely due to prerenal (low blood pressure ) admitting team held ARB on presentation (5) Abdominal aortic aneurysm: Plan: chronic, last imaged 05/2022 Fusiform dilation of the infrarenal abdominal aorta measures up to 3.2 x 2.6 cm (6) 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 Review of Systems Review of Systems: All systems reviewed & are unremarkable except as noted in HPI & below Physical Exam Physical Exam: Awake and alert tachypnic. Although his saturations are intact he does have some nailbed cyanosis Card exam is irregular but rate controlled Lungs have decreased at the bases l Results & Data Results & Data Vital Signs (Past 12 Hours) Vital Signs Temp Pulse Pulse Resp BP Pulse Ox O2 Del Method 11/29/22 19:57 78 25 H 93 11/29/22 19:18 37 C 72 20 164/73 H 91 Nasal Cannula 11/29/22 18:34 91 Oxymask 11/29/22 15:37 36.7 C 77 18 138/58 L 90 Oxymask 11/29/22 14:19 71 11/29/22 11:58 36.7 C 74 22 146/91 H 91 Oxymask O2 Flow Rate FiO2 11/29/22 19:57 50 11/29/22 19:18 8 11/29/22 18:34 8 11/29/22 15:37 7 11/29/22 14:19 11/29/22 11:58 7 PG Care Time/CCT Total # of Minutes Spent Total Time Spent with Patient: Total time spent is greater than 50% in coordination of care (as documented) at patient's floor/unit and/or counseling patient: Coding Level of Care Code 64859 SUB INP/OBS CARE 2/35MIN Diagnoses Acute and chronic respiratory failure with hypoxia J96.21 Arrhythmia I49.9 Coronary artery disease I25.10 Associated angina: angina presence unspecified Coronary Disease-Associated Artery/Lesion type: [place] artery [place] vs. transplanted heart: [place] heart Chronic kidney disease N18.9 Abdominal aortic aneurysm I71.4 Urinary retention due to benign prostatic hyperplasia N40.1; R33.8 (3) Coronary artery disease Associated angina: angina presence unspecified Coronary Disease-Associated Artery/Lesion type: [place] artery [place] vs. transplanted heart: [place] heart Qualified Code(s): I25.10 - Atherosclerotic heart disease of [place] coronary artery without angina pectoris
--- NOTE | 2022-11-29 23:01 | XRay Report ---
XR chest 1V portable CLINICAL HISTORY: hypoxia TECHNIQUE: Single frontal radiograph of the chest was obtained. Comparison: Comparison is made to chest radiograph 11/28/2022 FINDINGS: No lines and tubes are seen. Calcified aortic knob is seen. Prominence and cephalization of the vascu lature is seen. Patchy left basilar consolidation. Small bilateral pleural effusions are seen. IMPRESSION: Cardiomegaly and mild pulmonary edema. Small bilateral pleural effusions. ACT 112: Negative or not required by law. Electronically signed by: Cristhian Zuluaga M.D. 11/29/2022 10:58 PM
[2022-11-29] MEDS ORDERED: LACTATED RINGER'S 250 ML IV ONE (23:19)
[2022-11-30 06:47] LABS: Basophils # (auto) 0.01 K/uL (0-0.2); Basophils % (auto) 0.1 %; Eosinophils # (auto) 0.06 K/uL (0-0.50); Eosinophils % (auto) 0.5 %; Hematocrit (blood only) 31.7 % (42.0-52.0); Hemoglobin 10.8 g/dl (14.0-18.0); Immature Granulocytes # (auto) 0.09 K/uL (0.01-0.20); Immature Granulocytes % (auto) 0.8 %; Lymphocytes # (auto) 0.33 K/uL (1.2-3.4); Lymphocytes % (auto) 2.9 %; Mean Corpuscular Hemoglobin 35.1 pg (25.0-34.0); Mean Corpuscular Hgb Conc 34.1 g/dL (32.0-36.0); Mean Corpuscular Volume 102.9 fL (80.0-100.0); Mean Platelet Volume 11.3 fL (9.4-12.4); Monocytes # (auto) 0.67 K/uL (0.11-0.59); Monocytes % (auto) 5.8 %; Neutrophils # (auto) 10.37 K/uL (1.40-6.50); Neutrophils % (auto) 89.9 %; Platelet Count 141 K/uL (130-400); RDW Coefficient of Variation 14.4 % (11.5-14.5); RDW Standard Deviation 53.7 fL (36.4-46.3); Red Blood Count 3.08 M/uL (4.70-6.10); White Blood Count 11.53 K/ul (4.8-10.8)
[2022-11-30 07:07] LABS: BUN Creatinine Ratio 20.3 (10-20); C Reactive Protein 10.01 mg/dl (0-0.5); Calcium 8.3 mg/dl (8.6-10.3); Creatinine Clr Calc Pharmacy 16.4 ml/min; Est GFR (African American) 21.8 ml/min; Est GFR (Non-African American) 18.8 ml/min; Magnesium 2.2 mg/dl (1.7-2.4); Phosphorus 3.5 mg/dl (2.5-4.9); Potassium 4.8 mmol/L (3.5-5.1)
[2022-11-30] MEDS: CALCIUM POLYCARBOPHIL 625MG TAB PO SCH (08:26)
[2022-11-30] MEDS: AMIODARONE 200 MG TAB PO SCH (08:26)
[2022-11-30] MEDS: ATORVASTATIN 20 MG TAB PO SCH (08:26)
[2022-11-30] MEDS: CLOPIDOGREL BISULFATE 75 MG TAB PO SCH (08:26)
[2022-11-30] MEDS: TAMSULOSIN HCL 0.4 MG CAP PO SCH ×2 (08:26→21:05)
[2022-11-30] MEDS: CHOLECALCIFEROL 1,000 UNITS 25 MCG TAB PO SCH (08:27)
[2022-11-30] MEDS: FLUTICASONE/VILANTEROL 200/25MCG 14 PUFFS/INHALER INH SCH (08:27)
[2022-11-30] MEDS: LIDOCAINE 5% 1 PATCH TD SCH (08:28)
[2022-11-30] MEDS: DICLOFENAC SOD 1% GEL 100 GM TUBE EXT SCH ×4 (08:28→21:04)
--- NOTE | 2022-11-30 10:36 | Pulmonary Consultation ---
Date of Consultation November 30, 2022 Assessment & Plan (1) Acute and chronic respiratory failure with hypoxia: (2) COPD with emphysema: (3) Shortness of breath: (4) Atrial fibrillation with RVR: (5) CHF (congestive heart failure): (6) Chronic kidney disease: Plan Chest x-ray 11/29/2022: Portable film, hyperinflated, minimal pulmonary vascular congestion, retrocardiac opacity cannot be ruled out. Bilateral costophrenic and cardiophrenic angles are clean. Increased cardiac silhouette 2D echo 11/22/2022: EF 40-45%, apex distal to mid ventricular moderate to severely hypokinetic, RV moderately dilated, RV systolic function is moderately reduced -- Acute on chronic hypoxic respiratory failure Multifactorial Systolic CHF with underlying CKD playing a major role on top of A-fib with RVR Patient has completed 7 days of cefepime on 11/28/2022 Procalcitonin negative BNP 1828--> 1417 COVID-19 PCR, influenza A/B, RSV negative -- Severe COPD with emphysema On Breo at home Recommended to be changed to BrezTri or Trelegy on discharge -- Pulmonary hypertension Type II Continue with diuretics -- A-fib with recent V. tach s/p cardiac arrest On apixaban Plan: Get CT chest without contrast to look at the lung parenchyma Patient's BNP is still elevated. I do think CHF on CKD is playing a role in the patient's shortness of breath. Recommend continuation with diuretics. We will add BiPAP 10/6 40% nightly and as needed shortness of breath Mucinex and flutter valve will be beneficial Please note the above document was generated using voice recognition software. It may contain grammatical, syntax or spelling errors.Any formal questions or concerns about the content, text or information contained within the body of this dictation should be directly addressed to the provider for clarification. History of Present Illness Attending Physician: Librado Ring History of Present Illness 87-year-old male was admitted to the hospital because of shortness of breath Past medical history: COPD on 2 L oxygen, coronary artery disease, BPH, diabetes type 2, dyslipidemia, hypertension, peripheral vascular disease Pulmonary consulted for hypoxia At the time of examination patient's was also in the room. Patient is not in any respiratory distress. He was saturating 98% on 10 L oxy mask. I went down to 8 L. The pulse oximetry which she has in the room does not have a good waveform. I do not think it is giving a good reading. He is complaining of cough and bringing up brownish phlegm. Denies any chest pain No headache, no nausea, no vomiting Has been afebrile. Patient did have cardiac arrest prior to coming to the hospital. No night sweats, no unintentional weight loss Social history: Approximately 50-ayfs-[id number] smoking history, quit at the age of 64. Used to work at [employer]. No exposure to any chemicals or fumes Allergies Allergy/AdvReac Type Severity Reaction Status Date / Time PEYMAN Inhibitors Allergy Mild RASH Verified 11/19/22 16:17 amoxicillin Allergy Unknown RASH Verified 11/21/22 12:06 metoclopramide Allergy Unknown RASH Verified 11/19/22 16:17 Penicillins Allergy Unknown RASH Verified 11/21/22 12:06 erythromycin base AdvReac Severe Diarrhea Verified 11/19/22 16:17 Home Medications Medication Instructions Recorded Confirmed Type calcium polycarbophil 625 mg 1,250 mg PO QAM 03/23/19 11/19/22 History tablet (FiberCon) cholecalciferol (vitamin D3) 25 1,000 units PO QAM 03/23/19 11/19/22 History mcg (1,000 unit) capsule nebulizer accessories #1 ea 03/23/19 11/19/22 Rx vit C 250 mg-vit E 90 mg-zinc 40 1 tab PO BID 03/23/19 11/19/22 History mg-copper 1 [id number]-hgomii capsule (PreserVision AREDS-2) nitroglycerin 0.4 mg sublingual 0.4 mg sublingual DIRECTED PRN 10/05/19 11/19/22 Rx tablet Chest Pain #25 tabs blood sugar diagnostic (OneTouch #100 ea 01/01/20 11/19/22 Rx Ultra Blue Test Strip) tamsulosin 0.4 mg capsule 0.4 mg PO BID #180 caps 10/22/21 11/19/22 Rx Wheeled Walker #1 ea 12/17/21 11/19/22 Rx digoxin 125 mcg (0.125 mg) tablet 125 mcg PO QAM #90 tabs 03/22/22 11/19/22 Rx metoprolol succinate 100 mg 100 mg PO QAM #90 tabs 03/22/22 11/19/22 Rx tablet,extended release 24 hr clopidogrel 75 mg tablet 75 mg PO QAM #90 tabs 04/13/22 11/19/22 Rx atorvastatin 20 mg tablet 20 mg PO DAILY #90 tabs 06/02/22 11/19/22 Rx dutasteride 0.5 mg capsule 0.5 mg PO DAILY #90 caps 06/18/22 11/19/22 Rx telmisartan 40 1 tab PO DAILY #90 tabs 06/18/22 11/19/22 Rx mg-hydrochlorothiazide 12.5 mg tablet diclofenac sodium 1 % topical gel 4 g topical QID PRN Pain 11/04/22 11/19/22 History (Voltaren Arthritis Pain) Oxygen Home #2 L 11/06/22 11/19/22 Rx fluticasone furoate 200 1 puff inhalation DAILY #30 ea 11/06/22 11/19/22 Rx mcg-vilanterol 25 mcg/dose inhalation powder (Breo Ellipta) prednisone 10 mg tablet 10 mg PO DIRECTED #40 tabs 11/06/22 11/19/22 Rx Portable Oxygen #1 ea 11/15/22 11/19/22 Rx Patient History Medical History Chest pain (10/02/14) Chronic respiratory failure with hypoxia COPD (chronic obstructive pulmonary disease) Diabetes type 2, controlled External hemorrhoids Hypercholesterolemia Hypertension Mitral valve disorder Rectal bleeding Surgical History Hernia, femoral, bilateral recurrent History of back surgery History of cardiac catheterization history of cath stent placement History of colonoscopy History of hemorrhoidectomy history of Hemorrhoid rubber band ligation History of inguinal hernia repair, bilateral Family History Mother Diabetes Lung cancer Coronary heart disease Myocardial infarction Heart disease Brother Prostate cancer Colorectal cancer Unknown Hypertension Pure hypercholesterolemia Coronary heart disease Father Stroke Myocardial infarction Other Kidney disease Denies family history of Ovarian cancer Breast cancer Social History Smoking Status: Former smoker Tobacco Type: Cigarettes Second Hand Exposure: No; Hx Alcohol Use: Yes Alcohol type: beer Alcohol Intake Frequency: Monthly or Less Hx Substance Use: No Preferred Language: Greek Communication Ability: Effective Visual Impairment: No Limitations Hearing Ability: Normal Emergency Medical Tech Required: No Beliefs That Will Affect Care: None marital status: Current Living Situation: Spouse Current Living Situation Comment: AT HOME WITH current occupational status: retired current occupation: used to work with [employer] How many Children do You have: 3 How many Children do You have Comment: Children, grandchildren, and great grandchildren Feels Safe at Home: Yes Childhood Exposure to Second-Hand Smoke: Yes caffeine: No Dental Care, Regularly: No Physical Activity Frequency: Daily Physical Activity Frequency Comment: 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, 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, 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 Seatbelt Use: always Sunscreen Use: Yes Assistive Devices: Cane and Walker Review of Systems Review of Systems: All systems reviewed & are unremarkable except as noted in HPI & below Physical Exam Physical Exam: Constitutional: No acute distress HEENT: EOMI, PERRLA Respiratory system: Decreased air entry bilaterally, no wheeze, rhonchi, positive crackles bilateral lower lobes more on the left side CVS: S1-S2 positive, positive 2 out of 6 systolic murmur appreciated best at aorta Abdomen: Soft, nontender, nondistended, positive bowel sounds x4 Extremities: +2 pulses bilaterally radialis/ dorsalis pedis, no cyanosis, +2 pitting edema bilateral lower extremity Neuro: Awake alert oriented x3 Psych: Normal mood and affect G/U: Positive Eastman Skin: no rashes, warm and dry Lymphatic: no cervical or axillary lymphadenopathy Results & Data Results & Data Vital Signs (Past 12 Hours) Vital Signs Temp Pulse Resp BP Pulse Ox O2 Del Method O2 Flow Rate 11/30/22 07:31 36.4 C L 77 20 113/64 93 Oxymask 8 11/30/22 06:05 Oxymask 8 11/30/22 02:52 36.4 C L 103 H 20 119/66 90 Oxymask 8 11/29/22 23:25 36.7 C 93 H 20 123/68 92 Oxymask 8 Laboratory Results 11/30/22 06:10 11/30/22 06:10 PG Care Time/CCT Total # of Minutes Spent Total Time Spent with Patient: Total time spent is greater than 50% in coordination of care (as documented) at patient's floor/unit and/or counseling patient: Coding Level of Care Code 79647 INT INP/OBS CARE MIN Diagnoses Acute and chronic respiratory failure with hypoxia J96.21 COPD with emphysema J43.9 Shortness of breath R06.02 Atrial fibrillation with RVR I48.91 CHF (congestive heart failure) I50.9 Chronic kidney disease N18.9
--- NOTE | 2022-11-30 12:46 | CT Scan Report ---
CT chest diagnostic wo con CT DOSE: 407.98 mGy.cm CLINICAL HISTORY: 87 years-old Male with hypoxia, r/o PNA. Acute shortness of breath with hypoxia TECHNIQUE: Multiaxial CT images of the chest were performed without contrast. A dose lowering techni que was utilized adhering to the principles of ALARA. COMPARISON: Chest radiograph 11/29/2022, CTA chest 09/28/2019 FINDINGS: No dominant thyroid nodule identified. Borderline enlarged mediastinal and hilar lymph node s measure up to 1.1 cm, favored to be reactive. Moderate cardiomegaly with trace pericardial effusion . Extensive coronary artery calcifications. Atherosclerosis of the thoracic aorta without aneurysm. S mall to moderate pleural effusions. Severe pulmonary emphysema. Intralobular septal thickening mild c ompressive right basilar atelectasis. Tracheobronchial secretions with left lower lobe mucous pluggin g. There is dense airspace consolidation with volume loss left lower lobe. No obstructing endobronchi al mass identified. There are a few scattered fissural nodules measuring up to 4 mm which are likely benign lymph nodes. There is no acute process identified within the imaged upper abdomen. Mild generalized body wall regina a is noted with cachexia. Degenerative changes of the spine and shoulders. Intervertebral disc space narrowing with vacuum disc phenomena and endplate irregularity is again noted at the L1-L2 level, sim ilar to prior and likely degenerative. No acute fracture or destructive bone lesion identified. IMPRESSION: 1. Cardiomegaly with pulmonary edema and small to moderate pleural effusions. 2. Tracheobronchial secretions with bibasilar mucous plugging, most pronounced within the left lower lobe. 3. Left lower lobe dense airspace consolidation with volume loss. No obstructing endobronchial lesion is definitively seen. Findings could be correlated with bronchoscopy. 4. Mild mediastinal and hilar lymphadenopathy, likely reactive. ACT 112: Negative or not required by law. Electronically signed by: Eitan Pang M.D. 11/30/2022 12:44 PM
[2022-11-30] MEDS: guaiFENesin/DEXTROM SYRUP 200MG/20MG 10ML UDC PO SCH ×2 (15:00→21:05)
[2022-11-30] MEDS ORDERED: ACETAMINOPHEN 325 MG TAB PO ONE (16:49)
[2022-11-30] MEDS: ALBUT/IPRATROP 3MG/0.5MG NEB 3 ML VIAL NEB SCH (18:59)
[2022-11-30] MEDS: SODIUM CHLOR 7% 4 ML NEB NEB SCH (19:00)
--- NOTE | 2022-12-01 | Hospitalist Progress Note ---
Date of Service November 30, 2022 Assessment & Plan (1) Acute and chronic respiratory failure with hypoxia: Plan: acute on chronic high riskimproving Pt presented in acute respiratory faiure, aspiration possible, V tach in Er and Elevated troponin cause of respiratory failure is multifactorial, but also influenced by COPD on chronic home oxygen 2L treated for Gram negative or aspiration pneumonia, has LLL infiltrate seen on CXR, complete 7 days of cefepime, LD 11/28 supported for chronic respiratory failure with nebs will continue above antibiotics reviewed x rays no consolidation on 11/29 Patient however is requring more oxygen. will obtain ct scan of chest. consult pulm. (2) Arrhythmia: Plan: Acute ventricular tachycardia presented initially unstable high risk self- limited now resolved associated elevated troponin seems to be secondary to Takotsubo's myocarditis, nstemi not felt to be issue acute atrial fibrillation RVR and hypotension, high risk restarted Amiodarone GTT, try to edge up metoprolol which was reduced due to low bp and pulse metoprolol 25 every 6 per cardiology recommendation Cardiology recommends loading with digoxin 0.5 mg and then 0.125 a day we will check digoxin level on 11/25 restarted heparin but transitioned to Eliquis 2.5 twice daily Now in sinus rhythm after sustained a PEA. Patient had a PEA likely caused from hypoxia as patient removed his pulse ox. Will closely monitor. appreciate input Holding eliquis. (3) Coronary artery disease: Plan: acute moderate risk now stable troponin and echocardiogram changes consistent with Takotsubo's myocarditis elevated troponin with concern for nstemi- prehospital on plavix, metoprolol atorvastatin with degree of RWMA if nstemi would expect higher troponins continue plavix as history of previous PCI Acute systolic heart failure, moderate risk stable, Echo with RWMA and RV/LV dysfunction EF 35%, maybe Takusubo, repeat echo 11/22 limited improvement of ejection fraction in the 40 to 45% consider CTA for PE however given LLL infiltrate and acute event( dimer up but maybe pneumonia) do have explanation and bello makes iv contrast increased risk dopplers LE negative for DVT (4) Chronic kidney disease: Plan: concern for bello on CKD3 renal function is worsening likely due to prerenal admitting team held ARB on presentation Creatinine not improving, concern over poor perfussion if patient is in heart failure. (5) Abdominal aortic aneurysm: Plan: chronic, last imaged 05/2022 Fusiform dilation of the infrarenal abdominal aorta measures up to 3.2 x 2.6 cm (6) Urinary retention due to benign prostatic hyperplasia: Plan: chronic stable Continue dutasteride and tamsulosin Plan CODE STATUS: Full code as discussed with family and patient in the ED Admission and Anticipated Discharge Date Admission Date: November 21, 2022 Subjective 87 yo male reports feeling slightly better today. But he continues to require oxygen. Review of Systems Review of Systems: All systems reviewed & are unremarkable except as noted in HPI & below Physical Exam Physical Exam: Awake and alert , comfortable in bed Although his saturations are intact he does have some nailbed cyanosis Card exam is irregular but rate controlled Lungs sound more clear with rales at bases Results & Data Results & Data Vital Signs (Past 12 Hours) Vital Signs Temp Pulse Pulse Resp BP BP Pulse Ox 11/30/22 23:00 36.6 C 85 22 106/57 L 112/41 L 95 11/30/22 19:03 36.3 C L 100 H 22 103/57 L 93 11/30/22 19:30 11/30/22 19:00 65 15 94 11/30/22 17:17 97 11/30/22 14:18 101 H 11/30/22 15:15 92 11/30/22 15:06 36.4 C L 110 H 20 112/66 92 11/30/22 13:00 96 O2 Del Method O2 Flow Rate 11/30/22 23:00 Oxymask 8 11/30/22 19:03 Oxymask 8 11/30/22 19:30 Oxymask 5 11/30/22 19:00 Oxymask 5 11/30/22 17:17 Oxymask 5 11/30/22 14:18 11/30/22 15:15 Oxymask 6 11/30/22 15:06 Oxymask 7 11/30/22 13:00 Oxymask 7 PG Care Time/CCT Total # of Minutes Spent Total Time Spent with Patient: Total time spent is greater than 50% in coordination of care (as documented) at patient's floor/unit and/or counseling patient: Coding Level of Care Code 30717 SUB INP/OBS CARE 2/35MIN Diagnoses Acute and chronic respiratory failure with hypoxia J96.21 Arrhythmia I49.9 Coronary artery disease I25.10 Associated angina: angina presence unspecified Coronary Disease-Associated Artery/Lesion type: quechan artery Robinson vs. transplanted heart: quechan heart Chronic kidney disease N18.9 Abdominal aortic aneurysm I71.4 Urinary retention due to benign prostatic hyperplasia N40.1; R33.8 (3) Coronary artery disease Associated angina: angina presence unspecified Coronary Disease-Associated Artery/Lesion type: quechan artery Robinson vs. transplanted heart: quechan heart Qualified Code(s): I25.10 - Atherosclerotic heart disease of quechan coronary artery without angina pectoris
[2022-12-01] MEDS: guaiFENesin/DEXTROM SYRUP 200MG/20MG 10ML UDC PO SCH ×3 (05:40→21:21)
[2022-12-01] MEDS: ALBUT/IPRATROP 3MG/0.5MG NEB 3 ML VIAL NEB SCH ×2 (07:11→19:09)
[2022-12-01] MEDS: SODIUM CHLOR 7% 4 ML NEB NEB SCH ×2 (07:11→19:09)
[2022-12-01] MEDS: DICLOFENAC SOD 1% GEL 100 GM TUBE EXT SCH ×4 (08:51→21:22)
[2022-12-01] MEDS: CLOPIDOGREL BISULFATE 75 MG TAB PO SCH (08:52)
[2022-12-01] MEDS: CHOLECALCIFEROL 1,000 UNITS 25 MCG TAB PO SCH (08:52)
[2022-12-01] MEDS: TAMSULOSIN HCL 0.4 MG CAP PO SCH ×2 (08:52→21:21)
[2022-12-01] MEDS: CALCIUM POLYCARBOPHIL 625MG TAB PO SCH (08:52)
[2022-12-01] MEDS: LIDOCAINE 5% 1 PATCH TD SCH (08:52)
[2022-12-01] MEDS: AMIODARONE 200 MG TAB PO SCH (08:52)
[2022-12-01] MEDS: ATORVASTATIN 20 MG TAB PO SCH (08:52)
[2022-12-01] MEDS: UMECLIDINIUM/VILANTEROL 62.5/25MCG 7 PUFFS/INHALER INH SCH (08:52)
--- NOTE | 2022-12-01 10:26 | Cardiology Progress Note ---
Date of Service December 01, 2022 Assessment & Plan (1) Cardiac arrest: Plan: -transient arrest felt secondary to hypoxia. (2) Atrial fibrillation with RVR: Plan: -converted to sinus at the time of his arrest, however, atrial fibrillation has returned. -increase amiodarone to 200 mg b.i.d. -would restart digoxin. -would restart Eliquis 2.5 mg b.i.d. (3) Stress-induced cardiomyopathy: Plan: -we will recheck a limited echocardiogram prior to discharge. (4) Acute and chronic respiratory failure with hypoxia: Plan: -likely secondary to LLL pneumonia and significant underlying lung disease with chronic hypoxia. -management per hospitalist team. Admission and Anticipated Discharge Date Admission Date: November 21, 2022 Subjective Mr. Cid is resting comfortably in bed without complaints of chest pain, dyspnea, or palpitations. Physical Exam Physical Exam: In general this is a well-developed well-nourished elderly white male in no acute distress. HEENT exam is negative. Neck is supple with a transmitted murmur bilaterally. No JVD. There is no thyromegaly. Cardiovascular exam reveals an irregular rhythm with distant heart sounds. A 3/6 holosystolic murmur is heard across the entire precordium, loudest at the apex. No S3. Lungs note coarse breath sounds throughout. Abdomen is benign without bruits. Extremities reveal intact radial artery and posterior tibial pulse bilaterally. There is no edema. 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 PG Care Time/CCT Total # of Minutes Spent Total Time Spent with Patient: Total time spent is greater than 50% in coordination of care (as documented) at patient's floor/unit and/or counseling patient: Coding Level of Care Code 68286 SUB INP/OBS CARE 3/50MIN Diagnoses Cardiac arrest I46.9 Atrial fibrillation with RVR I48.91 Stress-induced cardiomyopathy I51.81 Acute and chronic respiratory failure with hypoxia J96.21
--- NOTE | 2022-12-01 11:48 | Pulmonology Progress Note ---
Date of Service December 01, 2022 Assessment & Plan (1) Acute and chronic respiratory failure with hypoxia: (2) COPD with emphysema: (3) Shortness of breath: (4) Atrial fibrillation with RVR: (5) CHF (congestive heart failure): (6) Chronic kidney disease: (7) Pleural effusion: Plan CT chest 11/30/2022 personally reviewed: Centrilobular and paraseptal emphysema appreciated bilaterally Dense left lower lobe consolidative process with small bilateral pleural effusion Hiatal hernia No significant mediastinal lymphadenopathy 2D echo 11/22/2022: EF 40-45%, apex distal to mid ventricular moderate to severely hypokinetic, RV moderately dilated, RV systolic function is moderately reduced -- Acute on chronic hypoxic respiratory failure Multifactorial Left lower lobe Pneumonia Systolic CHF with underlying CKD playing a major role on top of A-fib with RVR Patient has completed 7 days of cefepime on 11/28/2022 Procalcitonin negative BNP 1828--> 1417 COVID-19 PCR, influenza A/B, RSV negative -- Bilateral pleural effusion Likely secondary to above Continue with diuretics -- Severe COPD with emphysema On Breo at home Recommended to be changed to BrezTri or Trelegy on discharge -- Pulmonary hypertension Type II Continue with diuretics -- A-fib with recent V. tach s/p cardiac arrest On apixaban Plan: Continue with diuretics. Continue with BiPAP 10/6 40% nightly and as needed shortness of breath Continue with Mucinex, hypertonic saline, chest vest therapy Will consider cough assist if no improvement in oxygenation Please note the above document was generated using voice recognition software. It may contain grammatical, syntax or spelling errors.Any formal questions or concerns about the content, text or information contained within the body of this dictation should be directly addressed to the provider for clarification. Admission and Anticipated Discharge Date Admission Date: November 21, 2022 Subjective Patient seen and examined at bedside. No acute distress, no adverse events ove rnight He was saturating 95 to 95% on 6 L OxyMask. He has been using chest vest as well as flutter valve and hypertonic saline. He says he is able to bring up phlegm. Denies any nausea vomiting Fair appetite Has been afebrile Review of Systems Review of Systems: All systems reviewed & are unremarkable except as noted in Subjective Physical Exam Physical Exam: Constitutional: No acute distress HEENT: EOMI, PERRLA Respiratory system: Decreased air entry bilaterally, no wheeze, rhonchi, positive crackles bilateral lower lobes more on the left side CVS: S1-S2 positive, positive 2 out of 6 systolic murmur appreciated best at aorta Abdomen: Soft, nontender, nondistended, positive bowel sounds x4 Extremities: +2 pulses bilaterally radialis/ dorsalis pedis, no cyanosis, +2 pitting edema bilateral lower extremity Neuro: Awake alert oriented x3 Psych: Normal mood and affect G/U: Positive Eastman Skin: no rashes, warm and dry Lymphatic: no cervical or axillary lymphadenopathy Results & Data Results & Data Vital Signs (Past 12 Hours) Vital Signs Temp Pulse Pulse Resp BP Pulse Ox O2 Del Method 12/01/22 11:22 36.5 C 63 20 104/63 97 Oxymask 12/01/22 09:00 Oxymask 12/01/22 07:48 36.4 C L 104 H 20 109/57 L 95 Oxymask 12/01/22 07:25 108 H 12/01/22 07:12 99 H 18 93 Oxymask 12/01/22 04:00 36.3 C L 88 24 122/64 98 Oxymask 12/01/22 00:30 Oxymask O2 Flow Rate 12/01/22 11:22 8 12/01/22 09:00 8 12/01/22 07:48 8 12/01/22 07:25 12/01/22 07:12 6 12/01/22 04:00 8 12/01/22 00:30 6 Laboratory Results 11/30/22 06:10 11/30/22 06:10 PG Care Time/CCT Total # of Minutes Spent Total Time Spent with Patient: Total time spent is greater than 50% in coordination of care (as documented) at patient's floor/unit and/or counseling patient: Coding Level of Care Code 11666 SUB INP/OBS CARE 3/50MIN Diagnoses Acute and chronic respiratory failure with hypoxia J96.21 COPD with emphysema J43.9 Shortness of breath R06.02 Atrial fibrillation with RVR I48.91 CHF (congestive heart failure) I50.9 Chronic kidney disease N18.9 Pleural effusion J90
[2022-12-01] MEDS ORDERED: FUROSEMIDE INJ 20 MG/2 ML VIAL IV ONE (12:48)
[2022-12-01] MEDS: POLYETHYLENE (MIRALAX) 17 GM PACK PO SCH ×2 (13:08→21:25)
[2022-12-01 19:06] LABS: Base Excess VBG -3.5 mEq/L; HCO3 VBG 22 mmol/L; Oxygen Saturation VBG 60.3 %; PCO2 VBG 41 mmHg (38-50); PO2 VBG 36 mmHg; pH VBG 7.34 (7.36-7.41)
[2022-12-01 19:26] LABS: BUN Creatinine Ratio 19.5 (10-20); Calcium 8.3 mg/dl (8.6-10.3); Est GFR (African American) 16.3 ml/min; Potassium 5.1 mmol/L (3.5-5.1)
--- NOTE | 2022-12-01 22:09 | Hospitalist Progress Note ---
Date of Service December 01, 2022 Assessment & Plan (1) Acute and chronic respiratory failure with hypoxia: Plan: acute on chronic high riskimproving Pt presented in acute respiratory faiure, aspiration possible, V tach in Er and Elevated troponin cause of respiratory failure is multifactorial, but also influenced by COPD on chronic home oxygen 2L treated for Gram negative or aspiration pneumonia, has LLL infiltrate seen on CXR, complete 7 days of cefepime, LD 11/28 supported for chronic respiratory failure with nebs will continue above antibiotics reviewed x rays no consolidation on 11/29 Patient however is requring more oxygen. will obtain ct scan of chest: Though there does appear to be pulmonary edema on imaging, the CT Scan shows: Tracheobronchial secretions with bibasilar mucous plugging, most pronounced within the left lower lobe. Left lower lobe dense airspace consolidation with volume loss. Appreciate pulmonary input. Patient does not appear to be responding to diuretics, received 20 mg of IV lasix on 12/01, and urine output has remained low with increasing BUN and creatinine. Patient has been lethargic and placed on CPAP. will give a bolus of 500 ml overnight and recheck bmp on 12/02 Given lack of improvement over this past week, which included a PEA from hypoxia, prognosis appears poor. May consider cough assist on 12/02 (2) Arrhythmia: Plan: Acute ventricular tachycardia presented initially unstable high risk self- limited now resolved associated elevated troponin seems to be secondary to Takotsubo's myocarditis, nstemi not felt to be issue acute atrial fibrillation RVR and hypotension, high risk restarted Amiodarone GTT, try to edge up metoprolol which was reduced due to low bp and pulse metoprolol 25 every 6 per cardiology recommendation Cardiology recommends loading with digoxin 0.5 mg and then 0.125 a day we will check digoxin level on 11/25 restarted heparin but transitioned to Eliquis 2.5 twice daily Now in sinus rhythm after sustained a PEA. Patient had a PEA likely caused from hypoxia as patient removed his pulse ox. Will closely monitor. appreciate input Holding eliquis due to multiple rib fractures from chest compressions. Patient has returned to A fib. (3) Coronary artery disease: Plan: acute moderate risk now stable troponin and echocardiogram changes consistent with Takotsubo's myocarditis elevated troponin with concern for nstemi- prehospital on plavix, metoprolol atorvastatin with degree of RWMA if nstemi would expect higher troponins continue plavix as history of previous PCI Acute systolic heart failure, moderate risk stable, Echo with RWMA and RV/LV dysfunction EF 35%, maybe Takusubo, repeat echo 11/22 limited improvement of ejection fraction in the 40 to 45% consider CTA for PE however given LLL infiltrate and acute event( dimer up but maybe pneumonia) do have explanation and bello makes iv contrast increased risk dopplers LE negative for DVT (4) Chronic kidney disease: Plan: concern for bello on CKD3 renal function is worsening likely due to prerenal admitting team held ARB on presentation Creatinine not improving, concern over poor perfussion if patient is in heart failure. However diuretics do not appear to be helping. 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 at bedside and is updated Review of Systems Review of Systems: All systems reviewed & are unremarkable except as noted in HPI & below Physical Exam Physical Exam: Awake and alert , comfortable in bed Although his saturations are intact he does have some nailbed cyanosis Card exam is irregular but rate controlled Lungs sound more clear with rales at bases Results & Data Results & Data Vital Signs (Past 12 Hours) Vital Signs Temp Pulse Pulse Resp BP BP Pulse Ox 12/01/22 19:32 36.8 C 121 H 20 119/83 100 12/01/22 19:16 124 H 22 99 12/01/22 19:16 124 H 22 99 12/01/22 15:44 112 H 12/01/22 15:17 36.4 C L 117 H 18 113/58 L 92 12/01/22 11:22 36.5 C 63 20 104/63 97 O2 Del Method O2 Flow Rate FiO2 12/01/22 19:32 CPAP 8 12/01/22 19:16 70 12/01/22 19:16 BiPAP 70 12/01/22 15:44 12/01/22 15:17 Oxymask 8 12/01/22 11:22 Oxymask 8 PG Care Time/CCT Total # of Minutes Spent Total Time Spent with Patient: Total time spent is greater than 50% in coordination of care (as documented) at patient's floor/unit and/or counseling patient: Coding Level of Care Code 38998 SUB INP/OBS CARE 3/50MIN Diagnoses Acute and chronic respiratory failure with hypoxia J96.21 Arrhythmia I49.9 Coronary artery disease I25.10 Associated angina: angina presence unspecified Coronary Disease-Associated Artery/Lesion type: [place] artery [place] vs. transplanted heart: [place] heart Chronic kidney disease N18.9 Abdominal aortic aneurysm I71.4 Urinary retention due to benign prostatic hyperplasia N40.1; R33.8 (3) Coronary artery disease Associated angina: angina presence unspecified Coronary Disease-Associated Artery/Lesion type: [place] artery [place] vs. transplanted heart: [place] heart Qualified Code(s): I25.10 - Atherosclerotic heart disease of [place] coronary artery without angina pectoris
[2022-12-01] MEDS ORDERED: SODIUM CHLORIDE 0.9% 500 ML IV SCH (23:00)
--- NOTE | 2022-12-01 23:41 | Electrocardiogram Report ---
Test Reason : Blood Pressure : / mmHG Vent. Rate : 118 BPM Atrial Rate : 091 BPM P-R Int : 000 ms QRS Dur : 156 ms QT Int : 372 ms P-R-T Axes : 000 259 043 degrees QTc Int : 521 ms Atrial fibrillation with rapid ventricular response with premature ventricular or aberrantly conducte d complexes Right bundle branch block Abnormal ECG When compared with ECG of 28-NOV-2022 01:22, Atrial fibrillation has replaced Sinus rhythm Confirmed by Yassine Villa ([id number]) on 12/01/2022 11:41:07 PM Referred By: REFERRED SELF Confirmed By:Yassine Villa
[2022-12-02] MEDS: guaiFENesin/DEXTROM SYRUP 200MG/20MG 10ML UDC PO SCH ×3 (05:08→21:05)
[2022-12-02] MEDS: ALBUT/IPRATROP 3MG/0.5MG NEB 3 ML VIAL NEB SCH ×3 (07:17→20:47)
[2022-12-02] MEDS: SODIUM CHLOR 7% 4 ML NEB NEB SCH ×2 (07:17→20:48)
--- NOTE | 2022-12-02 07:28 | Pulmonology Progress Note ---
Date of Service December 02, 2022 Assessment & Plan (1) Acute and chronic respiratory failure with hypoxia: (2) COPD with emphysema: (3) Shortness of breath: (4) Atrial fibrillation with RVR: (5) CHF (congestive heart failure): (6) Chronic kidney disease: (7) Pleural effusion: Plan CT chest 11/30/2022 personally reviewed: Centrilobular and paraseptal emphysema appreciated bilaterally Dense left lower lobe consolidative process with small bilateral pleural effusion Hiatal hernia No significant mediastinal lymphadenopathy 2D echo 11/22/2022: EF 40-45%, apex distal to mid ventricular moderate to severely hypokinetic, RV moderately dilated, RV systolic function is moderately reduced -- Acute on chronic hypoxic respiratory failure Multifactorial Left lower lobe Pneumonia Systolic CHF with underlying CKD playing a major role on top of A-fib with RVR Patient has completed 7 days of cefepime on 11/28/2022 Procalcitonin negative BNP 1828--> 1417 COVID-19 PCR, influenza A/B, RSV negative -- Bilateral pleural effusion Likely secondary to above Continue with diuretics -- Severe COPD with emphysema On Breo at home Recommended to be changed to BrezTri or Trelegy on discharge -- Pulmonary hypertension Type II Continue with diuretics -- A-fib with recent V. tach s/p cardiac arrest On apixaban Plan: In/out: Negative 400ml Patient's heart rate was in the 140s when I saw the patient. Chest x-ray from today shows mild worsening of pulmonary vasculature. Retrocardiac opacity still persist Continue with diuretics. Continue with BiPAP nightly and as needed shortness of breath Continue with Mucinex, hypertonic saline, chest vest therapy Case discussed with RN at bedside Patient's creatinine is getting worse, overall prognosis of the patient is guarded. Please note the above document was generated using voice recognition software. It may contain grammatical, syntax or spelling errors.Any formal questions or c oncerns about the content, text or information contained within the body of this dictation should be directly addressed to the provider for clarification. Admission and Anticipated Discharge Date Admission Date: November 21, 2022 Subjective Patient seen and examined at bedside. In no respiratory distress Denies any chest pain Has been using chest vest as well as hypertonic saline nebulized. Bringing up brownish phlegm. Denies any hemoptysis No headache, no dizziness Fair appetite Review of Systems Review of Systems: All systems reviewed & are unremarkable except as noted in Subjective Physical Exam Physical Exam: Constitutional: No acute distress HEENT: EOMI, PERRLA Respiratory system: Decreased air entry bilaterally, no wheeze, rhonchi, positive crackles bilateral lower lobes more on the left side CVS: S1-S2 positive, positive 2 out of 6 systolic murmur appreciated best at aorta Abdomen: Soft, nontender, nondistended, positive bowel sounds x4 Extremities: +2 pulses bilaterally radialis/ dorsalis pedis, no cyanosis, +2 pitting edema bilateral lower extremity Neuro: Awake alert oriented x3 Psych: Normal mood and affect G/U: Positive [place]man Skin: no rashes, warm and dry Lymphatic: no cervical or axillary lymphadenopathy Results & Data Results & Data Vital Signs (Past 12 Hours) Vital Signs Temp Pulse Pulse Resp BP BP Pulse Ox 12/02/22 07:17 110 H 24 97 12/02/22 02:54 36.7 C 97 H 18 123/63 94 12/02/22 00:58 12/02/22 00:58 96 H 12/01/22 22:20 26 H 93 12/01/22 22:21 36.6 C 100 H 16 116/77 99 12/01/22 19:32 36.8 C 121 H 20 119/83 100 O2 Del Method O2 Flow Rate FiO2 12/02/22 07:17 Oxymask 8 12/02/22 02:54 Oxymask 7 12/02/22 00:58 Oxymask, CPAP 7 12/02/22 00:58 12/01/22 22:20 70 12/01/22 22:21 CPAP 8 12/01/22 19:32 CPAP 8 Laboratory Results 11/30/22 06:10 12/02/22 06:51 PG Care Time/CCT Total # of Minutes Spent Total Time Spent with Patient: Total time spent is greater than 50% in coordination of care (as documented) at patient's floor/unit and/or counseling patient: Coding Level of Care Code 77436 SUB INP/OBS CARE 3/50MIN Diagnoses Acute and chronic respiratory failure with hypoxia J96.21 COPD with emphysema J43.9 Shortness of breath R06.02 Atrial fibrillation with RVR I48.91 CHF (congestive heart failure) I50.9 Chronic kidney disease N18.9 Pleural effusion J90
[2022-12-02 07:49] LABS: BUN Creatinine Ratio 18.2 (10-20); Calcium 8.5 mg/dl (8.6-10.3); Creatinine Clr Calc Pharmacy 11.6 ml/min; Est GFR (African American) 15.2 ml/min; Est GFR (Non-African American) 13.1 ml/min; Potassium 5.1 mmol/L (3.5-5.1)
--- NOTE | 2022-12-02 07:54 | XRay Report ---
XR chest 1V portable HISTORY: Left lower lobe pneumonia. Hypoxia. COMPARISON: Chest CT 11/30/2022. FINDINGS: No pneumothorax. The cardiac silhouette remains mildly enlarged. Progressive interstitial/v ascular thickening likely representing mild pulmonary edema on the background of chronic interstitial change. Trace bilateral pleural effusions again noted. Bibasilar densities have slightly progressed. IMPRESSION: 1. Cardiomegaly with mild congestive change. This has slightly progressed in the interval. 2. Trace bilateral pleural effusions and bibasilar densities are noted. ACT 112: Negative or not required by law. Electronically signed by: Pradeep Jalloh M.D. 12/02/2022 7:53 AM
[2022-12-02] MEDS: UMECLIDINIUM/VILANTEROL 62.5/25MCG 7 PUFFS/INHALER INH SCH (09:30)
[2022-12-02] MEDS: LIDOCAINE 5% 1 PATCH TD SCH (09:58)
[2022-12-02] MEDS: AMIODARONE 200 MG TAB PO SCH (10:02)
[2022-12-02] MEDS: ATORVASTATIN 20 MG TAB PO SCH (10:03)
[2022-12-02] MEDS: CLOPIDOGREL BISULFATE 75 MG TAB PO SCH (10:03)
[2022-12-02] MEDS: CALCIUM POLYCARBOPHIL 625MG TAB PO SCH (10:04)
[2022-12-02] MEDS: TAMSULOSIN HCL 0.4 MG CAP PO SCH ×2 (10:05→19:55)
[2022-12-02] MEDS: CHOLECALCIFEROL 1,000 UNITS 25 MCG TAB PO SCH (10:05)
[2022-12-02] MEDS: DICLOFENAC SOD 1% GEL 100 GM TUBE EXT SCH ×4 (10:08→19:55)
[2022-12-02] MEDS: POLYETHYLENE (MIRALAX) 17 GM PACK PO SCH ×3 (10:08→19:55)
[2022-12-02] MEDS ORDERED: DIGOXIN 250 MCG in SYRINGE 9 ML IV ONE (12:00)
[2022-12-02] MEDS: DOXYCYCLINE HYCLATE 100 MG CAP PO SCH ×2 (13:27→19:55)
[2022-12-02] MEDS ORDERED: FUROSEMIDE 40 MG/4 ML VIAL IV ONE (16:00)
[2022-12-02] MEDS ORDERED: BENZONATATE 100 MG CAPSULE PO PRN (16:00)
[2022-12-02] MEDS ORDERED: SODIUM CHLOR 7% 4 ML NEB NEB PRN (16:08)
--- NOTE | 2022-12-02 16:10 | Hospitalist Progress Note ---
Date of Service December 02, 2022 Assessment & Plan (1) Acute and chronic respiratory failure with hypoxia: Plan: acute on chronic high risk stable or declining Pt presented in acute respiratory faiure, aspiration possible, V tach in Er and Elevated troponin Once again had respiratory arrest with cardiac influence resuscitation once again now with worsening renal function acute kidney injury treated for Gram negative or aspiration pneumonia, has LLL infiltrate seen on CXR, complete 7 days of cefepime, LD 11/28 initiated on doxycycline on 12/02/2022 Followed by pulmonary medicine reviewed x rays 12/02/2022 congestive changes seen resolving lobar pneumonia Previous CAT scan of the chest showed Tracheobronchial secretions with bibasilar mucous plugging, most pronounced within the left lower lobe. Left lower lobe dense airspace consolidation with volume loss. Additional dose of Lasix is given despite escalating renal dysfunction. Perhaps this is the beginning of a cardiorenal syndrome given his hit to his ejection fraction from his initial event and likely worsening diastolic failure from his rapid response atrial fibrillation (2) Arrhythmia: Plan: Acute ventricular tachycardia presented initially unstable high risk self- limited now resolved associated elevated troponin seems to be secondary to Takotsubo's myocarditis, nstemi not felt to be issue acute atrial fibrillation RVR and hypotension, high risk restarted Amiodarone GTT, digoxin 0.25 mg and then 0.125 a day digoxin level on 413 was subtherapeutic Anticoagulation is held attempts initiating beta-laurel (3) Coronary artery disease: Plan: acute moderate risk now stable troponin and echocardiogram changes consistent with Takotsubo's myocarditis elevated troponin with concern for nstemi- prehospital on plavix, metoprolol atorvastatin with degree of RWMA if nstemi would expect higher troponins continue plavix as history of previous PCI Acute systolic heart failure, moderate risk stable, Echo with RWMA and RV/LV dysfunction EF 35%, maybe Takusubo, repeat echo 11/22 limited improvement of ejection fraction in the 40 to 45% Attempting some Coreg for rate control as blood pressures are soft continue on amiodarone dopplers LE negative for DVT (4) Chronic kidney disease: Plan: concern for bello on CKD3 renal function is worsening likely due to prerenal Creatinine not improving, concern over poor perfusion if patient is in heart failure. However diuretics do not appear to be helping. 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 He is profoundly short of breath. He underwent another cardiac arrest approximately 4 days ago which was really result of a respiratory arrest. He is now in acute kidney injury with worsening respiratory status and increasing oxygen demands. Physical Exam Physical Exam: Patient is awake he is complaining of cough is productive sputum. Chest x-ray from 12/02 does not show pneumonia was initiated on doxycycline after completing cefepime by pulmonary medicine. Continues on frequent DuoNebs guaifenesin for mucolytic agents and Tessalon for cough suppression. Plus inhaled medications Cardiac exam is distant tachycardic and irregular Pulm exam is poor air movement coarse rhonchi at the base Results & Data Results & Data Vital Signs (Past 12 Hours) Vital Signs Temp Pulse Pulse Resp BP Pulse Ox O2 Del Method 12/02/22 15:23 25 H 90 Nasal Cannula 12/02/22 14:54 97.9 F 105 H 18 113/60 93 Nasal Cannula 12/02/22 12:45 125 H 12/02/22 11:53 98.4 F 113 H 28 H 115/60 93 Oxymask 12/02/22 08:00 Oxymask 12/02/22 10:17 123 H 12/02/22 09:36 160 H 12/02/22 08:32 152 H 12/02/22 09:23 125 H 92 Oxymask 12/02/22 07:40 98.2 F 115 H 15 133/63 95 Oxymask, BiPAP 12/02/22 07:17 110 H 24 97 Oxymask O2 Flow Rate 12/02/22 15:23 4.5 12/02/22 14:54 8 12/02/22 12:45 12/02/22 11:53 7 12/02/22 08:00 6 12/02/22 10:17 12/02/22 09:36 12/02/22 08:32 12/02/22 09:23 6 12/02/22 07:40 6 12/02/22 07:17 8 Laboratory Results Reviewed chemistry Reviewed digoxin PG Care Time/CCT Total # of Minutes Spent Total Time Spent with Patient: Total time spent is greater than 50% in coordination of care (as documented) at patient's floor/unit and/or counseling patient: Coding Level of Care Code 27129 SUB INP/OBS CARE 3/50MIN Diagnoses Acute and chronic respiratory failure with hypoxia J96.21 Arrhythmia I49.9 Coronary artery disease I25.10 Coronary Disease-Associated Artery/Lesion type: [place] artery [place] vs. transplanted heart: [place] heart Associated angina: angina presence unspecified Chronic kidney disease N18.9 Abdominal aortic aneurysm I71.4 Urinary retention due to benign prostatic hyperplasia N40.1; R33.8 (3) Coronary artery disease Coronary Disease-Associated Artery/Lesion type: [place] artery [place] vs. transplanted heart: [place] heart Associated angina: angina presence unspecified Qualified Code(s): I25.10 - Atherosclerotic heart disease of [place] coronary artery without angina pectoris
[2022-12-02] MEDS: carvediloL 3.125 MG TAB PO SCH (17:15)
[2022-12-03] MEDS: guaiFENesin/DEXTROM SYRUP 200MG/20MG 10ML UDC PO SCH ×5 (04:56→20:45)
[2022-12-03] MEDS: ALBUT/IPRATROP 3MG/0.5MG NEB 3 ML VIAL NEB SCH ×4 (07:05→20:25)
[2022-12-03] MEDS: SODIUM CHLOR 7% 4 ML NEB NEB SCH ×2 (07:05→20:25)
[2022-12-03] MEDS: TAMSULOSIN HCL 0.4 MG CAP PO SCH (09:20)
[2022-12-03] MEDS: POLYETHYLENE (MIRALAX) 17 GM PACK PO SCH ×3 (09:20→20:45)
[2022-12-03] MEDS: ATORVASTATIN 20 MG TAB PO SCH (09:21)
[2022-12-03] MEDS: CALCIUM POLYCARBOPHIL 625MG TAB PO SCH (09:21)
[2022-12-03] MEDS: carvediloL 3.125 MG TAB PO SCH ×2 (09:21→18:25)
[2022-12-03] MEDS: DOXYCYCLINE HYCLATE 100 MG CAP PO SCH ×2 (09:21→20:44)
[2022-12-03] MEDS: CLOPIDOGREL BISULFATE 75 MG TAB PO SCH (09:21)
[2022-12-03] MEDS: UMECLIDINIUM/VILANTEROL 62.5/25MCG 7 PUFFS/INHALER INH SCH (09:21)
[2022-12-03] MEDS: CHOLECALCIFEROL 1,000 UNITS 25 MCG TAB PO SCH (09:22)
[2022-12-03] MEDS: AMIODARONE 200 MG TAB PO SCH (09:22)
[2022-12-03] MEDS: DICLOFENAC SOD 1% GEL 100 GM TUBE EXT SCH ×4 (09:22→20:45)
[2022-12-03] MEDS: LIDOCAINE 5% 1 PATCH TD SCH (09:22)
[2022-12-03 09:59] LABS: Hematocrit (blood only) 33.2 % (42.0-52.0); Hemoglobin 11.1 g/dl (14.0-18.0); Mean Corpuscular Hemoglobin 35.1 pg (25.0-34.0); Mean Corpuscular Hgb Conc 33.4 g/dL (32.0-36.0); Mean Corpuscular Volume 105.1 fL (80.0-100.0); Mean Platelet Volume 11.1 fL (9.4-12.4); Platelet Count 195 K/uL (130-400); RDW Coefficient of Variation 14.8 % (11.5-14.5); RDW Standard Deviation 57.5 fL (36.4-46.3); Red Blood Count 3.16 M/uL (4.70-6.10); White Blood Count 12.38 K/ul (4.8-10.8)
[2022-12-03 10:15] LABS: BUN Creatinine Ratio 19.3 (10-20); Calcium 8.6 mg/dl (8.6-10.3); Creatinine Clr Calc Pharmacy 10.9 ml/min; Est GFR (African American) 13.9 ml/min
--- NOTE | 2022-12-03 12:00 | Pulmonology Progress Note ---
Date of Service December 03, 2022 Assessment & Plan (1) Acute and chronic respiratory failure with hypoxia: (2) COPD with emphysema: (3) Shortness of breath: (4) Atrial fibrillation with RVR: (5) CHF (congestive heart failure): (6) Chronic kidney disease: (7) Pleural effusion: Plan CT chest 11/30/2022 personally reviewed: Centrilobular and paraseptal emphysema appreciated bilaterally Dense left lower lobe consolidative process with small bilateral pleural effusion Hiatal hernia No significant mediastinal lymphadenopathy 2D echo 11/22/2022: EF 40-45%, apex distal to mid ventricular moderate to severely hypokinetic, RV moderately dilated, RV systolic function is moderately reduced -- Acute on chronic hypoxic respiratory failure Multifactorial Left lower lobe Pneumonia Systolic CHF with underlying CKD playing a major role on top of A-fib with RVR Patient has completed 7 days of cefepime on 11/28/2022 Procalcitonin negative BNP 1828--> 1417 COVID-19 PCR, influenza A/B, RSV negative -- Bilateral pleural effusion Likely secondary to above Continue with diuretics -- Severe COPD with emphysema On Breo at home Recommended to be changed to BrezTri or Trelegy on discharge -- Pulmonary hypertension Type II Continue with diuretics -- A-fib with recent V. tach s/p cardiac arrest On apixaban Plan: In/out: Negative 385 mL Continue with BiPAP nightly and as needed shortness of breath Continue with Mucinex, hypertonic saline, chest vest therapy Case discussed with RN at bedside Repeat chest x-ray tomorrow Please note the above document was generated using voice recognition software. It may contain grammatical, syntax or spelling errors.Any formal questions or concerns about the content, text or information contained within the body of this dictation should be directly addressed to the provider for clarification. Admission and Anticipated Discharge Date Admission Date: November 21, 2022 Subjective Patient seen and examined at bedside. No acute distress, no adverse events overnight Patient's was also in the room. States he has been coughing and bringing up brownish phlegm. He has been using hypertonic saline. Did not get the chest vest today. Heart rate is better controlled today. Denies any nausea or vomiting Fair appetite Review of Systems Review of Systems: All systems reviewed & are unremarkable except as noted in Subjective Physical Exam Physical Exam: Constitutional: No acute distress HEENT: EOMI, PERRLA Respiratory system: Decreased air entry bilaterally, no wheeze, rhonchi, posi tive crackles bilateral lower lobes more on the left side CVS: S1-S2 positive, positive 2 out of 6 systolic murmur appreciated best at aorta Abdomen: Soft, nontender, nondistended, positive bowel sounds x4 Extremities: +2 pulses bilaterally radialis/ dorsalis pedis, +2 pitting edema bilateral lower extremity, cyanosis of bilateral fingers Neuro: Awake alert oriented x3 Psych: Normal mood and affect G/U: Positive [place]man Skin: no rashes, warm and dry Lymphatic: no cervical or axillary lymphadenopathy Results & Data Results & Data Vital Signs (Past 12 Hours) Vital Signs Temp Pulse Pulse Resp BP Pulse Ox O2 Del Method 12/03/22 11:41 36.4 C L 80 16 92 Nasal Cannula 12/03/22 11:16 98/55 L 12/03/22 10:53 102 H 17 91 Nasal Cannula 12/03/22 08:03 36.6 C 103 H 18 103/62 90 Oxymask 12/03/22 07:05 104 H 20 91 Nasal Cannula 12/03/22 03:39 96 H 24 100 12/03/22 03:31 36.6 C 87 18 119/67 97 BiPAP O2 Flow Rate FiO2 12/03/22 11:41 5 12/03/22 11:16 12/03/22 10:53 6 12/03/22 08:03 4 12/03/22 07:05 6 12/03/22 03:39 65 12/03/22 03:31 Laboratory Results 12/03/22 09:31 12/03/22 09:31 PG Care Time/CCT Total # of Minutes Spent Total Time Spent with Patient: Total time spent is greater than 50% in coordination of care (as documented) at patient's floor/unit and/or counseling patient: Coding Level of Care Code 09497 SUB INP/OBS CARE 2/35MIN Diagnoses Acute and chronic respiratory failure with hypoxia J96.21 COPD with emphysema J43.9 Shortness of breath R06.02 Atrial fibrillation with RVR I48.91 CHF (congestive heart failure) I50.9 Chronic kidney disease N18.9 Pleural effusion J90
[2022-12-03] MEDS ORDERED: ONDANSETRON INJ 2 MG/ML 2 ML VIAL IV PRN (12:23)
--- NOTE | 2022-12-03 17:52 | Hospitalist Progress Note ---
Date of Service December 03, 2022 Assessment & Plan (1) Acute and chronic respiratory failure with hypoxia: Plan: acute on chronic high risk stable or declining Pt presented in acute respiratory faiure, aspiration possible, V tach in Er and Elevated troponin Once again had respiratory arrest with cardiac influence resuscitation once again now with worsening renal function acute kidney injury treated for Gram negative or aspiration pneumonia, has LLL infiltrate seen on CXR, complete 7 days of cefepime, LD 11/28 initiated on doxycycline on 12/02/2022 Followed by pulmonary medicine reviewed x rays 12/02/2022 congestive changes seen resolving lobar pneumonia Previous CAT scan of the chest showed Tracheobronchial secretions with bibasilar mucous plugging, most pronounced within the left lower lobe. Left lower lobe dense airspace consolidation with volume loss. Additional dose of Lasix is given despite escalating renal dysfunction. Perhaps this is the beginning of a cardiorenal syndrome given his hit to his ejection fraction from his initial event and likely worsening diastolic failure from his rapid response atrial fibrillation (2) Arrhythmia: Plan: Acute ventricular tachycardia presented initially unstable high risk self- limited now resolved associated elevated troponin seems to be secondary to Takotsubo's myocarditis, nstemi not felt to be issue acute atrial fibrillation RVR and hypotension, high risk restarted Amiodarone , digoxin 0.25 mg and then 0.125 a day digoxin level on 413 was subtherapeutic Anticoagulation is held (3) Coronary artery disease: Plan: acute moderate risk now stable troponin and echocardiogram changes consistent with Takotsubo's myocarditis elevated troponin with concern for nstemi- prehospital on plavix, metoprolol atorvastatin with degree of RWMA if nstemi would expect higher troponins continue plavix as history of previous PCI Acute systolic heart failure, moderate risk stable, Echo with RWMA and RV/LV dysfunction EF 35%, maybe Takusubo, repeat echo 11/22 limited improvement of ejection fraction in the 40 to 45% Attempting some Coreg for rate control as blood pressures are soft continue on amiodarone dopplers LE negative for DVT (4) Chronic kidney disease: Plan: concern for bello on CKD3 renal function is worsening likely due to prerenal Creatinine not improving, concern over poor perfusion if patient is in heart failure. However diuretics do not appear to be helping. (5) Abdominal aortic aneurysm: Plan: chronic, last imaged 05/2022 Fusiform dilation of the infrarenal abdominal aorta measures up to 3.2 x 2.6 cm (6) Urinary retention due to benign prostatic hyperplasia: Plan: chronic stable Continue dutasteride has a Eastman catheter at this time Plan CODE STATUS: Changed to conditional code after most recent cardiac event outlook is guarded, spoke to about decline in position Admission and Anticipated Discharge Date Admission Date: November 21, 2022 Subjective pt is confused and tachypneic, is understanding of his decline. will consider cardiorenal syndrome, hold additional diuiresis Physical Exam Physical Exam: PT is confused tachypneic, rales at bases, accessory muscle use cardiac is irregular, murmur is present Results & Data Results & Data Vital Signs (Past 12 Hours) Vital Signs Temp Pulse Pulse Resp BP Pulse Ox O2 Del Method 12/03/22 15:55 Oxymask 12/03/22 15:52 97.7 F 73 18 100/60 91 Nasal Cannula 12/03/22 14:42 80 18 94 Nasal Cannula 12/03/22 13:36 97.5 F L 94 H 16 104/67 94 Room Air, Nasal Cannula 12/03/22 11:41 97.5 F L 80 16 92 Nasal Cannula 12/03/22 11:16 98/55 L 12/03/22 10:53 102 H 17 91 Nasal Cannula 12/03/22 08:03 97.9 F 103 H 18 103/62 90 Oxymask 12/03/22 07:05 104 H 20 91 Nasal Cannula O2 Flow Rate 12/03/22 15:55 4.5 12/03/22 15:52 5 12/03/22 14:42 6 12/03/22 13:36 6 12/03/22 11:41 5 12/03/22 11:16 12/03/22 10:53 6 12/03/22 08:03 4 12/03/22 07:05 6 Laboratory Results Reviewed CBC Reviewed PRP PG Care Time/CCT Total # of Minutes Spent Total Time Spent with Patient: Total time spent is greater than 50% in coordination of care (as documented) at patient's floor/unit and/or counseling patient: Coding Level of Care Code 18631 SUB INP/OBS CARE 3/50MIN Diagnoses Acute and chronic respiratory failure with hypoxia J96.21 Arrhythmia I49.9 Coronary artery disease I25.10 Coronary Disease-Associated Artery/Lesion type: [place] artery [place] vs. transplanted heart: [place] heart Associated angina: angina presence unspecified Chronic kidney disease N18.9 Abdominal aortic aneurysm I71.4 Urinary retention due to benign prostatic hyperplasia N40.1; R33.8 (3) Coronary artery disease Coronary Disease-Associated Artery/Lesion type: [place] artery [place] vs. transplanted heart: [place] heart Associated angina: angina presence unspecified Qualified Code(s): I25.10 - Atherosclerotic heart disease of [place] coronary artery without angina pectoris
[2022-12-04] MEDS: guaiFENesin/DEXTROM SYRUP 200MG/20MG 10ML UDC PO SCH ×2 (05:45→13:04)
--- NOTE | 2022-12-04 07:25 | XRay Report ---
SINGLE VIEW CHEST CLINICAL HISTORY: Follow-up pneumonia. FINDINGS: An AP, portable, upright chest radiograph is compared to study dated 12/02/2022 and correlat ed with chest CT dated 11/30/2022. The examination is degraded by portable technique and patient rotat ion. The heart is enlarged noting atherosclerotic calcification of the thoracic aorta. There is mild pulmonary vascular congestion. Emphysema and chronic interstitial thickening is similar to previous. There is left basilar consolidation and a small left pleural effusion. Scarring/atelectasis is seen at the right lung base. No pneumothorax is seen. The skeletal structures are osteopenic. The bony tho rax is grossly intact. IMPRESSION: 1. There is left basilar consolidation and a small left pleural effusion. The appearance suggests pne umonia/aspiration pneumonitis. Radiographic follow-up to resolution is recommended. 2. Cardiomegaly and emphysema with mild pulmonary vascular congestion. ACT 112: Negative or not required by law. Electronically signed by: Yo Domínguez M.D. 12/04/2022 7:23 AM
[2022-12-04] MEDS: SODIUM CHLOR 7% 4 ML NEB NEB SCH ×2 (07:59→19:41)
[2022-12-04] MEDS: ALBUT/IPRATROP 3MG/0.5MG NEB 3 ML VIAL NEB SCH ×4 (07:59→19:41)
[2022-12-04 08:16] LABS: BUN Creatinine Ratio 20.6 (10-20); Calcium 8.6 mg/dl (8.6-10.3); Creatinine Clr Calc Pharmacy 10.1 ml/min; Est GFR (African American) 12.5 ml/min; Est GFR (Non-African American) 10.8 ml/min; Potassium 5.7 mmol/L (3.5-5.1)
--- NOTE | 2022-12-04 08:35 | Hospitalist Progress Note ---
Date of Service December 04, 2022 Assessment & Plan (1) Acute and chronic respiratory failure with hypoxia: Plan: acute on chronic high risk progressive worsening Pt presented in acute respiratory faiure, aspiration possible, V tach in Er and Elevated troponin Once again had respiratory arrest with cardiac influence resuscitation once again now with worsening renal function acute kidney injury treated for Gram negative or aspiration pneumonia, has LLL infiltrate seen on CXR, complete 7 days of cefepime, LD 11/28 initiated on doxycycline on 12/02/2022 Followed by pulmonary medicine reviewed x rays 12/04/2022 congestive changes escalating renal function prohibits continued diuresis [place] is guarded as patient likely has decreased intravascular effective circulation but elevation of right-sided heart pressures from cor pulmonale. He is becoming more difficult to ventilate and with progressive renal dysfunction is starting to have electrolyte abnormalities which may become fatal. Family is aware of his decline as he likely has cardiorenal syndrome (2) Arrhythmia: Plan: Acute ventricular tachycardia presented initially unstable high risk self- limited now resolved associated elevated troponin seems to be secondary to Takotsubo's myocarditis, nstemi not felt to be issue acute atrial fibrillation RVR and hypotension, high risk remains on carvedilol restarted Amiodarone , digoxin is held due to progressive renal decline Anticoagulation is held (3) Coronary artery disease: Plan: acute moderate risk now patient continues on Plavix therapy carvedilol not felt to have unstable angina or NSTEMI but progressive worsening right heart failure Acute systolic heart failure, resolved after initial decrease likely confirming this was Takotsubo's myocarditis currently now with cor pulmonale dopplers LE negative for DVT (4) Chronic kidney disease: Plan: concern for bello on CKD3 renal function is worsening likely due to prerenal azotemia Creatinine not improving, patient is not a candidate for renal replacement therapy due to his multiple comorbidities (5) Abdominal aortic aneurysm: Plan: chronic, last imaged 05/2022 Fusiform dilation of the infrarenal abdominal aorta measures up to 3.2 x 2.6 cm (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 Cardiology was evaluated to determine if his ejection fraction was poor and he may benefit from inotropic therapy however his ejection fraction has improved and most of his issues seem to be related to cor pulmonale right-sided heart pressures which may be elevated and decreased right- sided heart function. I met with his and explained the gravity of the situation she is understanding her family which are 3 sons are coming in to visit their father Physical Exam Physical Exam: Patient is tachypneic with increased accessory muscle use. Faint rales are heard at the bases which confirmed chest x-ray changes of mild pulmonary vascular congestion Cardiac exam is tachycardic no systolic murmurs are heard Results & Data Results & Data Vital Signs (Past 12 Hours) Vital Signs Temp Pulse Pulse Pulse Pulse Resp BP 12/04/22 07:59 87 19 12/04/22 07:59 87 20 12/04/22 07:45 97.9 F 88 16 113/66 12/04/22 03:00 94 H 18 12/04/22 02:43 97.5 F L 98 H 18 12/03/22 23:00 12/03/22 23:54 97.7 F 66 18 12/03/22 22:30 12/03/22 22:06 106 H 21 BP Pulse Ox O2 Del Method FiO2 12/04/22 07:59 100 40 12/04/22 07:59 100 BiPAP 40 12/04/22 07:45 96 CPAP 12/04/22 03:00 96 40 12/04/22 02:43 110/72 95 BiPAP 12/03/22 23:00 Nasal Cannula, BiPAP 12/03/22 23:54 101/66 94 BiPAP 12/03/22 22:30 96 50 12/03/22 22:06 92 40 Laboratory Results Reviewed CBC Reviewed PRP Personally discussed case with both nephrology and cardiology today 12/04/22 PG Care Time/CCT Total # of Minutes Spent Total Time Spent with Patient: Total time spent is greater than 50% in coordination of care (as documented) at patient's floor/unit and/or counseling patient: Coding Level of Care Code 04769 SUB INP/OBS CARE 3/50MIN Diagnoses Acute and chronic respiratory failure with hypoxia J96.21 Arrhythmia I49.9 Coronary artery disease I25.10 Associated angina: angina presence unspecified Coronary Disease-Associated Artery/Lesion type: [place] artery [place] vs. transplanted heart: [place] heart Chronic kidney disease N18.9 Abdominal aortic aneurysm I71.4 Urinary retention due to benign prostatic hyperplasia N40.1; R33.8 (3) Coronary artery disease Associated angina: angina presence unspecified Coronary Disease-Associated Artery/Lesion type: [place] artery [place] vs. transplanted heart: [place] heart Qualified Code(s): I25.10 - Atherosclerotic heart disease of [place] coronary artery without angina pectoris
[2022-12-04] MEDS: DOXYCYCLINE HYCLATE 100 MG CAP PO SCH (09:55)
[2022-12-04] MEDS: CALCIUM POLYCARBOPHIL 625MG TAB PO SCH (09:55)
[2022-12-04] MEDS: CHOLECALCIFEROL 1,000 UNITS 25 MCG TAB PO SCH (09:55)
[2022-12-04] MEDS: AMIODARONE 200 MG TAB PO SCH (09:55)
[2022-12-04] MEDS: CLOPIDOGREL BISULFATE 75 MG TAB PO SCH (09:55)
[2022-12-04] MEDS: carvediloL 3.125 MG TAB PO SCH ×2 (09:56→16:28)
[2022-12-04] MEDS: LIDOCAINE 5% 1 PATCH TD SCH (09:58)
[2022-12-04] MEDS: POLYETHYLENE (MIRALAX) 17 GM PACK PO SCH ×2 (09:58→13:03)
[2022-12-04] MEDS: DICLOFENAC SOD 1% GEL 100 GM TUBE EXT SCH ×3 (09:59→16:29)
[2022-12-04] MEDS: UMECLIDINIUM/VILANTEROL 62.5/25MCG 7 PUFFS/INHALER INH SCH (10:00)
--- NOTE | 2022-12-04 10:09 | Pulmonology Progress Note ---
Date of Service December 04, 2022 Assessment & Plan (1) Acute and chronic respiratory failure with hypoxia: (2) COPD with emphysema: (3) Shortness of breath: (4) Atrial fibrillation with RVR: (5) CHF (congestive heart failure): (6) Chronic kidney disease: (7) Pleural effusion: Plan CT chest 11/30/2022 personally reviewed: Centrilobular and paraseptal emphysema appreciated bilaterally Dense left lower lobe consolidative process with small bilateral pleural effusion Hiatal hernia No significant mediastinal lymphadenopathy 2D echo 11/22/2022: EF 40-45%, apex distal to mid ventricular moderate to severely hypokinetic, RV moderately dilated, RV systolic function is moderately reduced -- Acute on chronic hypoxic respiratory failure Multifactorial Left lower lobe Pneumonia Systolic CHF with underlying CKD playing a major role on top of A-fib with RVR Patient has completed 7 days of cefepime on 11/28/2022 Procalcitonin negative BNP 1828--> 1417 COVID-19 PCR, influenza A/B, RSV negative -- Bilateral pleural effusion Likely secondary to above Continue with diuretics -- Severe COPD with emphysema On Breo at home Recommended to be changed to BrezTri or Trelegy on discharge -- Pulmonary hypertension Type II Continue with diuretics -- A-fib with recent V. tach s/p cardiac arrest On apixaban -- DNR/DNI Plan: In/out: Positive 440 Continue with BiPAP nightly and as needed shortness of breath Continue with Mucinex, hypertonic saline, chest vest therapy Case discussed with RN at bedside as well as RT Please note the above document was generated using voice recognition software. It may contain grammatical, syntax or spelling errors.Any formal questions or concerns about the content, text or information contained within the body of this dictation should be directly addressed to the provider for clarification. Admission and Anticipated Discharge Date Admission Date: November 21, 2022 Subjective Patient seen and examined at bedside. No acute distress. He says he is feeling lethargic today. Denies any chest pain, denies any shortness of breath Has been coughing up phlegm. Denies any hemoptysis No headache, no blurry vision Poor appetite Review of Systems Review of Systems: All systems reviewed & are unremarkable except as noted in Subjective Physical Exam Physical Exam: Constitutional: No acute distress HEENT: EOMI, PERRLA Respiratory system: Decreased air entry bilaterally, no wheeze, rhonchi, positive crackles bilateral lower lobes more on the left side CVS: S1-S2 positive, positive 2 out of 6 systolic murmur appreciated best at aorta Abdomen: Soft, nontender, nondistended, positive bowel sounds x4 Extremities: +2 pulses bilaterally radialis/ dorsalis pedis, +2 pitting edema bilateral lower extremity, cyanosis of bilateral fingers Neuro: Awake alert oriented x3 Psych: Normal mood and affect G/U: Positive Eastman Skin: no rashes, warm and dry Lymphatic: no cervical or axillary lymphadenopathy Results & Data Results & Data Vital Signs (Past 12 Hours) Vital Signs Temp Pulse Pulse Pulse Pulse Resp BP 12/04/22 07:59 87 19 12/04/22 07:59 87 20 12/04/22 07:45 36.6 C 88 16 113/66 12/04/22 03:00 94 H 18 12/04/22 02:43 36.4 C L 98 H 18 12/03/22 23:00 12/03/22 23:54 36.5 C 66 18 12/03/22 22:30 BP Pulse Ox O2 Del Method FiO2 12/04/22 07:59 100 40 12/04/22 07:59 100 BiPAP 40 12/04/22 07:45 96 CPAP 12/04/22 03:00 96 40 12/04/22 02:43 110/72 95 BiPAP 12/03/22 23:00 Nasal Cannula, BiPAP 12/03/22 23:54 101/66 94 BiPAP 12/03/22 22:30 96 50 Laboratory Results 12/03/22 09:31 12/04/22 06:29 PG Care Time/CCT Total # of Minutes Spent Total Time Spent with Patient: Total time spent is greater than 50% in coordination of care (as documented) at patient's floor/unit and/or counseling patient: Coding Level of Care Code 19861 SUB INP/OBS CARE 2/35MIN Diagnoses Acute and chronic respiratory failure with hypoxia J96.21 COPD with emphysema J43.9 Shortness of breath R06.02 Atrial fibrillation with RVR I48.91 CHF (congestive heart failure) I50.9 Chronic kidney disease N18.9 Pleural effusion J90
--- NOTE | 2022-12-04 10:45 | Cardiology Progress Note ---
Date of Service December 04, 2022 Assessment & Plan (1) Cardiac arrest: Plan: -transient arrest felt secondary to hypoxia. (2) Atrial fibrillation with RVR: Plan: Persistent atrial fibrillation. On amiodarone at this point primarily for rate control. At this point I think we can discontinue the digoxin altogether. When his renal function normalizes we could consider re-initiation. He is likely to have an element of mild tachycardia in the setting of his severe illness. Do not think this requires more aggressive rate control as his heart rates tend to be around 100 beats per minute. I think physiologically this is adequate. (3) Stress-induced cardiomyopathy: Plan: Improved. (4) Acute and chronic respiratory failure with hypoxia: Plan: He continues to be severely hypoxic. This morning his oxygen saturation seem to be worse and even with brief periods of eating he desaturated. He may require some noninvasive ventilation. Whether he would benefit from any inotropic therapy is unclear. Overall LV systolic function appears improved. RV is more hypokinetic and dilated. I think this is consistent with cor pulmonale. It is unlikely that more aggressive diuresis will remedy his respiratory issues. In fact, this may exacerbate what appears to be an element of arterial intravascular depletion. He may also be volume dependent given the RV enlargement. Admission and Anticipated Discharge Date Admission Date: November 21, 2022 Subjective Morning the patient had few complaints. He did complain of some breathing difficulty and was noted to have significant desaturations while eating breakfast. He did have some left shoulder and left-sided chest discomfort that he attributes to broken ribs. Review of Systems Review of Systems: Per HPI Physical Exam Physical Exam: In general this is a cachectic appearing elderly gentleman with mild dyspnea. There is no thyromegaly. Cardiovascular exam reveals an irregular rhythm with distant heart sounds. A 3/6 holosystolic murmur is heard across the entire precordium, loudest at the apex. No S3. Distant breath sounds with prolonged expiratory phase. Lungs note coarse breath sounds throughout. Extremities reveal intact radial artery and posterior tibial pulse bilaterally. mild bilateral lower extremity edema. Results & Data Vital Signs (Past 12 Hours) Vital Signs Temp Pulse Pulse Pulse Pulse Resp BP 12/04/22 07:59 87 19 12/04/22 07:59 87 20 12/04/22 07:45 36.6 C 88 16 113/66 12/04/22 03:00 94 H 18 12/04/22 02:43 36.4 C L 98 H 18 12/03/22 23:00 12/03/22 23:54 36.5 C 66 18 BP Pulse Ox O2 Del Method FiO2 12/04/22 07:59 100 40 12/04/22 07:59 100 BiPAP 40 12/04/22 07:45 96 CPAP 12/04/22 03:00 96 40 12/04/22 02:43 110/72 95 BiPAP 12/03/22 23:00 Nasal Cannula, BiPAP 12/03/22 23:54 101/66 94 BiPAP Laboratory Results Abnormal Lab Results 12/03/22 12/03/22 12/03/22 11:32 16:33 20:36 Sodium Potassium Chloride Carbon Dioxide Anion Gap BUN Creatinine Est Cr Clr Drug Dosing Est GFR ( Amer) Est GFR (Non-Af Amer) BUN/Creatinine Ratio Glucose POC Glucose 174 H 96 148 H Calcium Digoxin 12/04/22 12/04/22 06:29 06:29 Sodium 138 Potassium 5.7 H Chloride 107 Carbon Dioxide 24 Anion Gap 7 BUN 93 H Creatinine 4.52 H* D Est Cr Clr Drug Dosing 10.1 Est GFR ( Amer) 12.5 Est GFR (Non-Af Amer) 10.8 BUN/Creatinine Ratio 20.6 H Glucose 92 POC Glucose Calcium 8.6 Digoxin 1.8 Diagnostic Findings Chest x-ray obtained this morning revealed left basilar consolidation and small left pleural effusion. Emphysematous changes. PG Care Time/CCT Total # of Minutes Spent Total Time Spent with Patient: Total time spent is greater than 50% in coordination of care (as documented) at patient's floor/unit and/or counseling patient: Coding Level of Care Code 97506 SUB INP/OBS CARE 3/50MIN Diagnoses Cardiac arrest I46.9 Atrial fibrillation with RVR I48.91 Stress-induced cardiomyopathy I51.81 Acute and chronic respiratory failure with hypoxia J96.21
--- NOTE | 2022-12-04 11:57 | XCELERA ---
[id number] \\[id number]
--- NOTE | 2022-12-04 12:28 | Nephrology Consultation ---
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 Baseline creatinine 1.3- 1.4. On admission creatinine was 1.6 but renal function has been progressively worsening. No postrenal obstruction. Acute kidney injury most likely secondary to cardiorenal syndrome with progressive worsening of renal function over last 2 weeks. Echo showed relatively normal EF. -- will give a dose of Veltassa today to improve the potassium and continue on low-potassium diet. Continue to hold PEYMAN-inhibitor/ ARB. -- Discussed with Mr. Cid and his that his overall prognosis remains guarded considering significant cardiopulmonary disease and progressive worsening of renal function over last 2 weeks and currently with multiple critical electrolyte abnormality. If renal function does not improve and electrolyte abnormality continues, he would not be a good candidate for dialysis and at his age with multiple significant comorbidities, dialysis would not provide any meaningful quality of life. -- monitor renal function and electrolyte, adequate intake and output.. Will follow. Thank you for allowing me to participate in your patient's care. It was a pleasure to see Cecilio. History of Present Illness Reason for Consultation: JORGE ALBERTO, hyperkalemia Attending Physician: Nadeem Martines MD History of Present Illness Mr. Cid is a 87-year-old gentleman with past medical history significant for stage IIIA CKD, chronic hypoxic respiratory failure with history of pulmonary hypertension, COPD, valvular heart disease admitted hospital with on chronic respiratory failure complicated by ventricular tachycardia brief cardiac arrest with recovery. Nephrology consult was requested for management of JORGE ALBERTO and electrolyte. EMR records were reviewed in detail during patient's visit. Cecilio was admitted to the hospital on 11/21/2022 with progressive shortness of breath and hypoxic respiratory failure. he was also admitted several weeks ago with hypoxic respiratory failure and at that time his discharged on home oxygen. He developed transient ventricular tachycardia and given intravenous amiodarone. Was also noted to have AFib with RVR, was on digoxin which was discontinued and currently continued on amiodarone. EKG showed sinus tachycardia without any ST T changes but troponin was rising. Initial echo showed significant drop in EF which improved to 45% from 25% with concern for stress-induced cardiomyopathy. Echo this morning showed EF 50-55% with moderate to severe MR. Chest x-ray was concerning for left lower lobe pneumonia and he completed a course of antibiotic. Has stage III A CKD most likely secondary to microvascular disease, baseline creatinine 1.3-1.5. No significant proteinuria hematuria. Renal imaging was otherwise negative for postrenal obstruction. On admission creatinine was 1.6 which has been progressively worsening over last 2 weeks and creatinine 4.5 this morning and BUN 93 associated with potassium of 5.7. History of severe COPD with more than 50 years history of smoking, quit smoking at age 64. He was seen this morning with his more related bedside, he was getting easily short of breath while talking but denies any other specific symptoms. Allergies Allergy/AdvReac Type Severity Reaction Status Date / Time PEYMAN Inhibitors Allergy Mild RASH Verified 11/19/22 16:17 amoxicillin Allergy Unknown RASH Verified 11/21/22 12:06 metoclopramide Allergy Unknown RASH Verified 11/19/22 16:17 Penicillins Allergy Unknown RASH Verified 11/21/22 12:06 erythromycin base AdvReac Severe Diarrhea Verified 11/19/22 16:17 Home Medications Medication Instructions Recorded Confirmed Type calcium polycarbophil 625 mg 1,250 mg PO QAM 03/23/19 11/19/22 History tablet (FiberCon) cholecalciferol (vitamin D3) 25 1,000 units PO QAM 03/23/19 11/19/22 History mcg (1,000 unit) capsule nebulizer accessories #1 ea 03/23/19 11/19/22 Rx vit C 250 mg-vit E 90 mg-zinc 40 1 tab PO BID 03/23/19 11/19/22 History mg-copper 1 ae-ulevnz-pojmyl capsule (PreserVision AREDS-2) nitroglycerin 0.4 mg sublingual 0.4 mg sublingual DIRECTED PRN 10/05/19 11/19/22 Rx tablet Chest Pain #25 tabs blood sugar diagnostic (OneTouch #100 ea 01/01/20 11/19/22 Rx Ultra Blue Test Strip) tamsulosin 0.4 mg capsule 0.4 mg PO BID #180 caps 10/22/21 11/19/22 Rx Wheeled Walker #1 ea 12/17/21 11/19/22 Rx digoxin 125 mcg (0.125 mg) tablet 125 mcg PO QAM #90 tabs 03/22/22 11/19/22 Rx metoprolol succinate 100 mg 100 mg PO QAM #90 tabs 03/22/22 11/19/22 Rx tablet,extended release 24 hr clopidogrel 75 mg tablet 75 mg PO QAM #90 tabs 04/13/22 11/19/22 Rx atorvastatin 20 mg tablet 20 mg PO DAILY #90 tabs 06/02/22 11/19/22 Rx dutasteride 0.5 mg capsule 0.5 mg PO DAILY #90 caps 06/18/22 11/19/22 Rx telmisartan 40 1 tab PO DAILY #90 tabs 06/18/22 11/19/22 Rx mg-hydrochlorothiazide 12.5 mg tablet diclofenac sodium 1 % topical gel 4 g topical QID PRN Pain 11/04/22 11/19/22 History (Voltaren Arthritis Pain) Oxygen Home #2 L 11/06/22 11/19/22 Rx fluticasone furoate 200 1 puff inhalation DAILY #30 ea 11/06/22 11/19/22 Rx mcg-vilanterol 25 mcg/dose inhalation powder (Breo Ellipta) prednisone 10 mg tablet 10 mg PO DIRECTED #40 tabs 11/06/22 11/19/22 Rx Portable Oxygen #1 ea 11/15/22 11/19/22 Rx Patient History Medical History (Updated 12/04/22 @ 12:44 by Mar Shane MD) Chest pain (10/02/14) Chronic respiratory failure with hypoxia COPD (chronic obstructive pulmonary disease) Diabetes type 2, controlled External hemorrhoids Hypercholesterolemia Hyperkalemia Hypertension Mitral valve disorder Rectal bleeding Surgical History (Updated 11/28/22 @ 10:57 by Adonis Short MD) Hernia, femoral, bilateral recurrent History of back surgery History of cardiac catheterization history of cath stent placement History of colonoscopy History of hemorrhoidectomy history of Hemorrhoid rubber band ligation History of inguinal hernia repair, bilateral Family History Mother Diabetes Lung cancer Coronary heart disease Myocardial infarction Heart disease Brother Prostate cancer Colorectal cancer Unknown Hypertension Pure hypercholesterolemia Coronary heart disease Father Stroke Myocardial infarction Other Kidney disease Denies family history of Ovarian cancer Breast cancer Social History Smoking Status: Former smoker Tobacco Type: Cigarettes Second Hand Exposure: No; Hx Alcohol Use: Yes Alcohol type: beer Alcohol Intake Frequency: Monthly or Less Hx Substance Use: No Preferred Language: Iraqi Communication Ability: Effective Visual Impairment: No Limitations Hearing Ability: Normal Electric Crane Operator Required: No Beliefs That Will Affect Care: None marital status: Current Living Situation: Spouse Current Living Situation Comment: AT HOME WITH current occupational status: retired current occupation: used to work with [employer] How many Children do You have: 3 How many Children do You have Comment: Children, grandchildren, and great grandchildren Feels Safe at Home: Yes Childhood Exposure to Second-Hand Smoke: Yes caffeine: No Dental Care, Regularly: No Physical Activity Frequency: Daily Physical Activity Frequency Comment: 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 Physical Exam Constitutional: WD/WN, vitals as above + ill appearing; no acute distress Eyes: + anicteric sclerae Neck: normal visual inspection Respiratory: Auscultation: + diminished lung sounds and + rales Gastrointestinal (Abdomen): Inspection/Auscultation: abdomen normal to inspection Percussion/Palpation: abdomen soft; abdomen nontender Musculoskeletal: Extremities: extremities normal to inspection Skin: no rashes Neurologic: no focal motor deficits Psychiatric: Orientation: alert and oriented x 3 Affect: euthymic affect Results & Data Vital Signs (Past 12 Hours) Vital Signs Temp Pulse Pulse Pulse Pulse Resp BP 12/04/22 11:02 63 18 12/04/22 07:59 87 19 12/04/22 07:59 87 20 12/04/22 07:45 36.6 C 88 16 113/66 12/04/22 03:00 94 H 18 12/04/22 02:43 36.4 C L 98 H 18 BP Pulse Ox O2 Del Method O2 Flow Rate FiO2 12/04/22 11:02 93 Nasal Cannula 6 12/04/22 07:59 100 40 12/04/22 07:59 100 BiPAP 40 12/04/22 07:45 96 CPAP 12/04/22 03:00 96 40 12/04/22 02:43 110/72 95 BiPAP PG Care Time/CCT Total # of Minutes Spent Total Time Spent with Patient: Total time spent is greater than 50% in coordination of care (as documented) at patient's floor/unit and/or counseling patient: Coding Level of Care Code 83777 INT INP/OBS CARE 375MIN Diagnoses JORGE ALBERTO (acute kidney injury) N17.9 Hyperkalemia E87.5 Anemia D64.9 Atrial fibrillation with RVR I48.91 Cardiac arrest I46.9 COPD with emphysema J43.9 Pleural effusion J90 CHF (congestive heart failure) I50.9 Hypertension I10
[2022-12-04] MEDS ORDERED: LORazepam 2 MG/1 ML VIAL IV PRN ×2 (15:56→20:28)
[2022-12-04] MEDS ORDERED: MoRPHine SULFATE 2 MG/ML CARP IV PRN (15:56)
[2022-12-04] MEDS ORDERED: DIGOXIN 0.125 MG TAB PO SCH ×2 (16:00)
[2022-12-04] MEDS ORDERED: LORazepam 0.5 MG TAB PO PRN (20:28)
[2022-12-04] MEDS ORDERED: ONDANSETRON INJ 2 MG/ML 2 ML VIAL IV PRN (20:28)
[2022-12-04] MEDS ORDERED: ONDANSETRON 4 MG OD TAB SL PRN (20:28)
[2022-12-04] MEDS ORDERED: chlorproMAZINE HCL 25 MG TAB PO PRN (20:28)
[2022-12-04] MEDS ORDERED: HYDROmorphone BOLUS from BAG IV PRN (20:28)
[2022-12-04] MEDS ORDERED: GLYCOPYRROLATE 0.2 MG/ML VIAL IV PRN (20:28)
[2022-12-04] MEDS ORDERED: HYDROmorphone/NSS 100 MG/100 ML BAG IV SCH (20:30)
--- NOTE | 2022-12-04 21:12 | Communication Note ---
Date of Service: December 04, 2022 Notified by nursing at 8:11 PM about family's desires to make patient comfort measures only. Per nurse, this has been discussed with Dr. Liz but no o rders have been placed. Reviewed today's hospitalist note, which confirmed this (however, note does state that family had been considering this discussion but wanted to contact family members first). Proceeded to bedside, where patient was unresponsive. Patient's and sons at bedside, along with multiple other family members. Confirmed from both and sons that they wanted to discontinue antibiotics, and other medications, and initiate comfort care measures. Placed order for comfort measures only, including initiating IV Dilaudid drip, per protocol. Resident Activity Tracking Resident Involvement: Resident Care Provided and It Operations Manager Coverage Note Care Provided: Adult Hospital Medicine
--- NOTE | 2022-12-05 00:45 | Death Pronouncement Note ---
Date of Service December 05, 2022 Pronouncement Note Admission Date Admission Date: November 21, 2022 Date and Time of Date of : 12/05/22 Time of : 00:16 Contributing Factors (1) Acute and chronic respiratory failure with hypoxia: (2) Arrhythmia: (3) Coronary artery disease: (4) Chronic kidney disease: (5) Abdominal aortic aneurysm: (6) Urinary retention due to benign prostatic hyperplasia: Summary Additional details: At approximately 11:38 PM, was notified by nurse that patient had . Went to bedside to examine the patient. Multiple family members present at bedside. Unable to detect radial pulse. No heart sounds heard on auscultation. No lung sounds heard on auscultation. No pupillary reflex. No corneal scratch reflex. Time of at conclusion of exam 12:16 AM. Additional Data Confirmation of : no pulse, no respirations, no heart sounds and pupils fixed and dilated Family: at bedside Attending physician: Nadeem Martines MD Resident Activity Tracking Resident Involvement: Resident Care Provided and Food Service Team Member Coverage Note Care Provided: Adult Hospital Medicine
--- NOTE | 2022-12-05 09:45 | Discharge Summary ---
Date of Service December 05, 2022 Admission HPI Per Admitting Provider The patient is an 87-year-old male with a past medical history including chronic respiratory failure with hypoxia, CAD, status post PTCA, BPH with LUTS, COPD, diabetes mellitus type 2, hypertension, hypercholesterolemia, mitral valve disorder, history of coronary artery stents, CKD, AAA, PAD, history lumbar fusion, gait instability, anemia, sinus bradycardia, chronic dyspnea and hypoxia. The patient was most recently admitted to [facility] from 11/04-11/06 and was on antibiotics azithromycin at that time. His reports that he had developed diarrhea since discharge. He was otherwise in his usual state of health with chronic shortness of breath, until he awoke from sleep this morning at 230 with severe shortness of breath and hypoxia. Upon questioning, she does report that he coughs and clears her throat a lot when he eats. Upon arrival to the emergency department, he was placed on BiPAP and routine laboratories performed. While in ED he had an episode of V. tach, was placed on amiodarone bolus then drip, with rate control in the 90s and normal sinus rhythm. Significant laboratories: WBC 23.98, potassium 5.2, creatinine 1.62, glucose 243, BUN 33, lactate 3.0, total bilirubin 1.1, troponin 1430.7, BNP 1747, and digoxin level is normal at 0.9 COVID-19 test, flu and RSV were all negative Chest x-ray showed bilateral infiltrates, with consolidation left lower lobe Family does report also that the patient was complaining of left posterior back pain Principal Diagnosis renal failure cor pulmonale Discharge Exam Pt pronounced by night call physician [id number] 12/05/22 Discharge Data Allergies Allergy/AdvReac Type Severity Reaction Status Date / Time PEYMAN Inhibitors Allergy Mild RASH Verified 11/19/22 16:17 amoxicillin Allergy Unknown RASH Verified 11/21/22 12:06 metoclopramide Allergy Unknown RASH Verified 11/19/22 16:17 Penicillins Allergy Unknown RASH Verified 11/21/22 12:06 erythromycin base AdvReac Severe Diarrhea Verified 11/19/22 16:17 Consultations 11/21/22 05:52 ED Decision to Admit Stat 11/21/22 06:21 Consult Digital Librarian Routine 11/21/22 07:52 Consult Cardiology Routine 11/30/22 09:35 Consult Pulmonology Routine 12/03/22 12:24 Consult Nephrology Routine Ordered Studies 11/21/22 06:34 US venous doppler LE BI Routine 11/30/22 11:27 CT chest diagnostic wo con Urgent Hospital Course (1) : Pt was made comfort care by family in the evening of 12/04/22, 0016 12/05/22 cause of was acute renal failure (2) Acute and chronic respiratory failure with hypoxia: acute on chronic high risk progressive worsening Pt presented in acute respiratory faiure, aspiration possible, V tach in Er and Elevated troponin Once again had respiratory arrest with cardiac influence resuscitation once again now with worsening renal function acute kidney injury treated for Gram negative or aspiration pneumonia, has LLL infiltrate seen on CXR, complete 7 days of cefepime, LD 11/28 initiated on doxycycline on 12/02/2022 Followed by pulmonary medicine reviewed x rays 12/04/2022 congestive changes escalating renal function prohibits continued diuresis (3) Arrhythmia: Acute ventricular tachycardia presented initially unstable high risk self- limited now resolved associated elevated troponin seems to be secondary to Takotsubo's myocarditis, nstemi not felt to be issue acute atrial fibrillation RVR and hypotension, high risk remains on carvedilol restarted Amiodarone , digoxin is held due to progressive renal decline Anticoagulation is held (4) Coronary artery disease: acute moderate risk now patient continues on Plavix therapy carvedilol not felt to have unstable angina or NSTEMI but progressive worsening right heart failure Acute systolic heart failure, resolved after initial decrease likely confirming this was Takotsubo's myocarditis currently now with cor pulmonale dopplers LE negative for DVT (5) Chronic kidney disease: concern for bello on CKD3 renal function is worsening likely due to prerenal azotemia (6) Abdominal aortic aneurysm: chronic, last imaged 05/2022 Fusiform dilation of the infrarenal abdominal aorta measures up to 3.2 x 2.6 cm (7) Urinary retention due to benign prostatic hyperplasia: chronic stable Continue dutasteride has a Eastman catheter at this time Plan CODE STATUS: Changed to DNR by his on 12/04/2022 outlook is guarded, Total Time Total Time Spent Total Time Spent (In Minutes): less than 30 minutes Discharge Plan Discharge Items Patient Disposition: Other Date/Time: 12/05/22 00:16 Coding Level of Care Code 01238 IN/OBS DISCH 30 MIN/LESS Diagnoses R99 Acute and chronic respiratory failure with hypoxia J96.21 Arrhythmia I49.9 Coronary artery disease I25.10 Coronary Disease-Associated Artery/Lesion type: [place] artery [place] vs. transplanted heart: [place] heart Associated angina: angina presence unspecified Chronic kidney disease N18.9 Abdominal aortic aneurysm I71.4 Urinary retention due to benign prostatic hyperplasia N40.1; R33.8
[2022-12-05] MEDS ORDERED: PATIROMER CALCIUM SORBITEX 8.4 GM PACK PO SCH (11:00)
--- NOTE | 2022-12-08 14:15 | Coding Query ---
CODING QUERY To promote full compliance with coding requirements relating to patient care, provider participation is requested in all cases of integration engineer uncertainty. 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 Please specify below, in your clinical opinion, regarding Acute Systolic CHF: ( ) Acute Systolic CHF was actually Takotsubo's myocarditis, not Acute Systolic CHF ( ) Acute Systolic CHF. Please Specify below, to determine if Acute Systolic CHF was present on admission: ( ) present on admission ( ) not present on admission ( ) undetermined if present on admission ( xx ) Other:unable to specify, maybe ask cardiology Physician's Response(s): Thank you Marnie Elizalde Principal Diagnosis: "that condition established after study, to be chiefly responsible for occasioning the admission of the patient to the hospital for care." Co-Existing Principal Diagnosis: "when two or more diagnoses equally meet the criteria for principal diagnosis as determined by the circumstances of admission, diagnostic work up, and/or therapy provided, and the Alphabetic Index, Tabular List, or another coding guideline does not provide sequencing direction, any one of the diagnoses may be sequenced first." "When the physician has documented what appears to be a current diagnosis in the body of the record, but has not included the diagnosis in the final diagnostic statement, the physician should be asked whether the diagnosis should be added." (Source Coding Clinic 2 QTR90. p3-4) KARIE
--- NOTE | 2022-12-08 14:17 | Coding Query ---
To promote full compliance with coding requirements relating to patient care, provider participation is requested in all cases of wire bound box machine helper uncertainty. Please assist us with the question(s) below: Coding Question(s): The diagnosis below was documented in the ER and the 11/21 Critical Care Progress Note, then subsequently fell off all further documentation. Please indicate if it is still a possible diagnosis or ruled out. Physician's Response(s): SEPSIS ( ) Diagnosed and POA ( ) Diagnosed and not POA ( xx ) Ruled out ( ) Other (please specify) MTDD
--- NOTE | 2022-12-08 14:23 | Coding Query ---
CODING QUERY To promote full compliance with coding requirements relating to patient care, provider participation is requested in all cases of activity director uncertainty. Please assist us with the question(s) below: Coding Question(s): Please specify below, in your clinical opinion, the diagnosis most responsible for occasioning the inpatient admission: ( ) Pneumonia ( ) Acute and Chronic Respiratory Failure with hypoxia. Please specify below, the diagnosis most responsible for the Acute Respiratory Failure: ( ) Pneumonia ( ) CHF ( ) Cardiorenal Syndrome ( ) Other: Please Specify Wilmot this will be unable to be quantified, sorry, it is multifactoral and not one unifying issue Physician's Response(s): Thank you Marnie Elizalde Principal Diagnosis: "that condition established after study, to be chiefly responsible for occasioning the admission of the patient to the hospital for care." Co-Existing Principal Diagnosis: "when two or more diagnoses equally meet the criteria for principal diagnosis as determined by the circumstances of admission, diagnostic work up, and/or therapy provided, and the Alphabetic Index, Tabular List, or another coding guideline does not provide sequencing direction, any one of the diagnoses may be sequenced first." "When the physician has documented what appears to be a current diagnosis in the body of the record, but has not included the diagnosis in the final diagnostic statement, the physician should be asked whether the diagnosis should be added." (Source Coding [facility] 2 QTR90. p3-4) KARIE
--- NOTE | 2022-12-09 07:59 | Coding Query ---
CODING QUERY To promote full compliance with coding requirements relating to patient care, provider participation is requested in all cases of pool nurse uncertainty. Please assist us with the question(s) below: Coding Question(s): The attending physician was queried and has responded, "unable to specify, maybe ask cardiology". Your help is would be greatly appreciated in order to answer the following query: Acute Systolic Heart Failure is first documented on the 11/21 Hospitalist Progress Note and on many further Hospitalist Progress Notes, and the 11/21 Cardiology Consultation documents No overt CHF currently, and documents, "Remarkably, he shows no evidence of congestive heart failure despite his compromised cardiac output", and the 11/30 Pulmonary Consultation documents, "Systolic CHF", and by the Discharge Summary, there is documentation of, "Acute systolic heart failure, resolved after initial decrease likely 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 Please specify below, in your clinical opinion, regarding Acute Systolic CHF: ( x ) Acute Systolic CHF was actually Takotsubo's myocarditis, not Acute Systolic CHF ( ) Acute Systolic CHF. Please Specify below, to determine if Acute Systolic CHF was present on admission: ( ) present on admission ( ) not present on admission ( ) undetermined if present on admission ( ) Other: Physician's Response(s): CHF was added to the problem list by the film editor on 11/30/22, none of the 3 rail operator caring for the patient noted systolic congestive heart failure at any time. In my opinion the patient showed no evidence of congestive heart failure during this hospitalization. Adonis Short M.D. Thank you Marnie Elizalde Principal Diagnosis: "that condition established after study, to be chiefly responsible for occasioning the admission of the patient to the hospital for care." Co-Existing Principal Diagnosis: "when two or more diagnoses equally meet the criteria for principal diagnosis as determined by the circumstances of admission, diagnostic work up, and/or therapy provided, and the Alphabetic Index, Tabular List, or another coding guideline does not provide sequencing direction, any one of the diagnoses may be sequenced first." "When the physician has documented what appears to be a current diagnosis in the body of the record, but has not included the diagnosis in the final diagnostic statement, the physician should be asked whether the diagnosis should be added." (Source Coding Clinic 2 QTR90. p3-4) KARIE
== END 2022-12-05 01:37 | disposition expired | DRG 314 ==
LOC: ED 03:41 → 1E 05:49 → SUATTDRO 05:49 → 1E 06:06 → 2S 11-26 00:13 → 1E 11-28 01:31 → 2N 11-28 23:36 → 2W 12-04 13:14